=== PATIENT | male | born 1965 | race Caucasian/White ===

== ENCOUNTER → 2016-11-09 | Outpatient (CLI) | payer OTHER ==
[~2016-11-09] MED LIST: ALBUAER2 INH; BCTROWC TD; BUPR-102 PO; DILT-115 PO; FURO80TA63 PO; INSUINJ12 SQ; INSUINJ14 SQ; LIRA18IN SQ; MULT-506 PO; PRAV80TA2 PO; TIOTCAP INH; VALS320T PO; WARF5TAB90 PO
[2016-11-09 14:00] LABS: BASO % 0.3 %; BASO ABS # 0.02 K/uL (0-0.2); COMPLETE YES; EOS % 1.7 %; HEMATOCRIT 37.6 % (42-52); IG% 0.4 %; LYMPH % 14.7 %; MEAN CELL VOLUME 81.6 fL (80-100); MEAN CORPUSCULAR HEMOGLOBIN 26.2 pg (25-34); MEAN CORPUSCULAR HGB CONC 32.2 g/dl (32-36); MEAN PLATELET VOLUME 11.4 fL (7.4-10.4); NEUT % 75.9 %; PLATELET COUNT 211 K/uL (130-400); RED BLOOD COUNT 4.61 M/uL (4.7-6.1); WHITE BLOOD COUNT 7.46 K/uL (4.8-10.8)
[2016-11-09 14:12] LABS: ALT/SGPT 24 U/L (12-78); BLOOD UREA NITROGEN 55 mg/dl (7-18); CARBON DIOXIDE 26 mmol/L (21-32); CHLORIDE 99 mmol/L (98-107); CHOLESTEROL 139 mg/dl (0-200); GLUCOSE 272 mg/dl (70-99); POTASSIUM 4.2 mmol/L (3.5-5.1); SODIUM 135 mmol/L (136-145)
[2016-11-09 14:15] LABS: ALB/GLOB RATIO 0.7 (0.9-2); ALKALINE PHOSPHATASE 87 U/L (45-117); AST/SGOT 12 U/L (15-37); CHOLESTEROL/HDL RATIO 3.7; HDL CHOLESTEROL 38 mg/dl; LDL CHOLESTEROL CALCULATED 62 mg/dl; TRIGLYCERIDES 195 mg/dl (0-150); VERY LOW DENSITY LIPOPROT CALC 39 mg/dl
[2016-11-09 14:21] LABS: ESTIMATED AVERAGE GLUCOSE 249 mg/dl; HA1C FLAG Normal (Normal)
== END | disposition home or self-care (01) ==
LOC: C.LABSPEC 14:42
PROVIDERS: ATTEND Family Medicine
DX: E11.65 Type 2 diabetes mellitus with hyperglycemia (principal); I10 Essential (primary) hypertension; J44.9 Chronic obstructive pulmonary disease, unspecified

== ENCOUNTER → 2016-12-21 | Outpatient (CLI) | payer OTHER ==
[2016-12-21 17:48] LABS: HEMATOCRIT 37.6 % (42-52); MEAN CORPUSCULAR HEMOGLOBIN 25.4 pg (25-34); MEAN CORPUSCULAR HGB CONC 31.4 g/dl (32-36); MEAN PLATELET VOLUME 10.5 fL (7.4-10.4); PLATELET COUNT 261 K/uL (130-400); RED BLOOD COUNT 4.64 M/uL (4.7-6.1); WHITE BLOOD COUNT 9.86 K/uL (4.8-10.8)
[2016-12-21 18:04] LABS: URINE PROTIEN/CREAT RATIO 2.3 (0-0.2)
[2016-12-21 18:08] LABS: BLOOD UREA NITROGEN 56 mg/dl (7-18); BUN/CREATININE RATIO 31.1 (10-20); CARBON DIOXIDE 29 mmol/L (21-32); CHLORIDE 102 mmol/L (98-107); GLUCOSE 148 mg/dl (70-99); POTASSIUM 4.2 mmol/L (3.5-5.1); SODIUM 138 mmol/L (136-145)
[2016-12-21 18:13] LABS: FERRITIN 56.3 ng/ml (8.0-388.0); PHOSPHORUS 3.1 mg/dl (2.5-4.9); TOTAL IRON BINDING CAPACITY 284 mcg/dl (250-450)
[2016-12-21 18:29] LABS: URINE APPEARANCE CLEAR (CLEAR); URINE BILIRUBIN NEG (NEG); URINE COLOR YELLOW; URINE NITRITE NEG (NEG); URINE SPECIFIC GRAVITY 1.009 (1.000-1.030); UROBILINOGEN NEG (NEG)
[2016-12-21 18:49] LABS: MANUAL MICROSCOPIC REQUIRED? NO; REVIEW REQ? NO
== END | disposition home or self-care (01) ==
LOC: C.LABMFLN 09:46
PROVIDERS: ATTEND Internal Medicine Nephrology
DX: N18.3 Chronic kidney disease, stage 3 (moderate) (principal); D64.9 Anemia, unspecified

== ENCOUNTER → 2017-02-07 | Outpatient (CLI) | payer OTHER ==
[2017-02-07 14:04] LABS: BASO % 0.2 %; BASO ABS # 0.02 K/uL (0-0.2); COMPLETE YES; HEMATOCRIT 35.4 % (42-52); IG% 0.3 %; LYMPH % 11.6 %; LYMPH ABS # 1.07 K/uL (1.2-3.4); MEAN CELL VOLUME 84.1 fL (80-100); MEAN CORPUSCULAR HEMOGLOBIN 26.1 pg (25-34); MEAN CORPUSCULAR HGB CONC 31.1 g/dl (32-36); MEAN PLATELET VOLUME 11.1 fL (7.4-10.4); MONO % 7.3 %; NEUT % 78.6 %; PLATELET COUNT 246 K/uL (130-400); RED BLOOD COUNT 4.21 M/uL (4.7-6.1)
[2017-02-07 14:11] LABS: PROTHROMBIN TIME (PATIENT) 10.6 SECONDS (9.0-12.0)
[2017-02-07 14:44] LABS: ESTIMATED AVERAGE GLUCOSE 223 mg/dl; HA1C FLAG Normal (Normal)
[2017-02-07 19:17] LABS: ALT/SGPT 22 U/L (12-78); AST/SGOT 11 U/L (15-37); BLOOD UREA NITROGEN 35 mg/dl (7-18); BUN/CREATININE RATIO 20.6 (10-20); CALCIUM 8.3 mg/dl (8.5-10.1); CARBON DIOXIDE 29 mmol/L (21-32); CHLORIDE 103 mmol/L (98-107); GLUCOSE 145 mg/dl (70-99); POTASSIUM 4.2 mmol/L (3.5-5.1); SODIUM 138 mmol/L (136-145)
[2017-02-07 19:26] LABS: ALB/GLOB RATIO 0.5 (0.9-2); ALKALINE PHOSPHATASE 95 U/L (45-117); CHOLESTEROL 109 mg/dl (0-200); CHOLESTEROL/HDL RATIO 2.9; HDL CHOLESTEROL 37 mg/dl; LDL CHOLESTEROL CALCULATED 49 mg/dl; TRIGLYCERIDES 117 mg/dl (0-150); VERY LOW DENSITY LIPOPROT CALC 23 mg/dl
== END | disposition home or self-care (01) ==
LOC: C.LABSPEC 13:22
PROVIDERS: ATTEND Family Medicine
DX: E11.65 Type 2 diabetes mellitus with hyperglycemia (principal); R00.2 Palpitations; I10 Essential (primary) hypertension; G47.33 Obstructive sleep apnea (adult) (pediatric); Z79.01 Long term (current) use of anticoagulants

== ENCOUNTER → 2017-04-10 | Outpatient (CLI) | payer OTHER ==
[2017-04-10 13:29] LABS: HEMATOCRIT 34.9 % (42-52); MEAN CELL VOLUME 85.1 fL (80-100); MEAN CORPUSCULAR HEMOGLOBIN 26.3 pg (25-34); MEAN CORPUSCULAR HGB CONC 30.9 g/dl (32-36); MEAN PLATELET VOLUME 10.9 fL (7.4-10.4); PLATELET COUNT 247 K/uL (130-400); WHITE BLOOD COUNT 8.97 K/uL (4.8-10.8)
[2017-04-10 14:03] LABS: BLOOD UREA NITROGEN 45 mg/dl (7-18); BUN/CREATININE RATIO 21.4 (10-20); CARBON DIOXIDE 29 mmol/L (21-32); CHLORIDE 100 mmol/L (98-107); GLUCOSE 152 mg/dl (70-99); PHOSPHORUS 3.8 mg/dl (2.5-4.9); POTASSIUM 4.7 mmol/L (3.5-5.1); SODIUM 138 mmol/L (136-145)
[2017-04-10 14:23] LABS: URINE APPEARANCE CLEAR (CLEAR); URINE BILIRUBIN NEG (NEG); URINE COLOR YELLOW; URINE NITRITE NEG (NEG); URINE SPECIFIC GRAVITY 1.017 (1.000-1.030); UROBILINOGEN NEG (NEG)
[2017-04-10 14:24] LABS: MANUAL MICROSCOPIC REQUIRED? NO; REVIEW REQ? NO
== END | disposition home or self-care (01) ==
LOC: C.LABMFLN 11:21
PROVIDERS: ATTEND Internal Medicine Nephrology
DX: N18.3 Chronic kidney disease, stage 3 (moderate) (principal); E55.9 Vitamin D deficiency, unspecified

== ENCOUNTER → 2017-05-09 | Outpatient (CLI) | payer OTHER ==
[2017-05-09 14:10] LABS: BASO % 0.3 %; BASO ABS # 0.03 K/uL (0-0.2); COMPLETE YES; EOS % 1.4 %; HEMATOCRIT 34.2 % (42-52); IG% 0.2 %; LYMPH % 13.2 %; LYMPH ABS # 1.22 K/uL (1.2-3.4); MEAN CORPUSCULAR HGB CONC 31.3 g/dl (32-36); MEAN PLATELET VOLUME 11.2 fL (7.4-10.4); MONO % 7.1 %; NEUT % 77.8 %; PLATELET COUNT 260 K/uL (130-400); RED BLOOD COUNT 4.12 M/uL (4.7-6.1); WHITE BLOOD COUNT 9.25 K/uL (4.8-10.8)
[2017-05-09 14:23] LABS: ALT/SGPT 24 U/L (12-78); AST/SGOT 10 U/L (15-37); BLOOD UREA NITROGEN 52 mg/dl (7-18); BUN/CREATININE RATIO 25.8 (10-20); CALCIUM 8.7 mg/dl (8.5-10.1); CARBON DIOXIDE 28 mmol/L (21-32); CHLORIDE 105 mmol/L (98-107); GLUCOSE 159 mg/dl (70-99); POTASSIUM 4.7 mmol/L (3.5-5.1); SODIUM 139 mmol/L (136-145)
[2017-05-09 14:25] LABS: ALB/GLOB RATIO 0.6 (0.9-2); ALKALINE PHOSPHATASE 79 U/L (45-117); CHOLESTEROL 102 mg/dl (0-200); CHOLESTEROL/HDL RATIO 3.2; HDL CHOLESTEROL 32 mg/dl; LDL CHOLESTEROL CALCULATED 46 mg/dl; TRIGLYCERIDES 121 mg/dl (0-150); VERY LOW DENSITY LIPOPROT CALC 24 mg/dl
[2017-05-10 07:15] LABS: ESTIMATED AVERAGE GLUCOSE 186 mg/dl; HA1C FLAG Normal (Normal)
== END | disposition home or self-care (01) ==
LOC: C.LABSPEC 13:01
PROVIDERS: ATTEND Family Medicine
DX: E11.65 Type 2 diabetes mellitus with hyperglycemia (principal); I10 Essential (primary) hypertension; J44.9 Chronic obstructive pulmonary disease, unspecified; G47.33 Obstructive sleep apnea (adult) (pediatric)

== ENCOUNTER → 2017-11-16 | Outpatient (CLI) | payer OTHER ==
[2017-11-16 13:05] LABS: BASO % 0.3 %; BASO ABS # 0.02 K/uL (0-0.2); EOS ABS # 0.29 K/uL (0-0.5); HEMATOCRIT 36.8 % (42-52); HEMOGLOBIN 11.6 g/dL (14.0-18.0); IG# 0.02 K/uL (0.00-0.02); LYMPH % 15.5 %; LYMPH ABS # 1.12 K/uL (1.2-3.4); MEAN CELL VOLUME 85.2 fL (80-100); MEAN CORPUSCULAR HEMOGLOBIN 26.9 pg (25-34); MEAN CORPUSCULAR HGB CONC 31.5 g/dl (32-36); MEAN PLATELET VOLUME 10.7 fL (7.4-10.4); MONO % 9.9 %; MONO ABS # 0.72 K/uL (0.11-0.59); NEUT ABS # 5.07 K/uL (1.4-6.5); PLATELET COUNT 219 K/uL (130-400); RED CELL DISTRIBUTION WIDTH CV 16.6 % (11.5-14.5); RED CELL DISTRIBUTION WIDTH SD 52.2 fL (36.4-46.3); WHITE BLOOD COUNT 7.24 K/uL (4.8-10.8)
[2017-11-16 13:21] LABS: ALT/SGPT 25 U/L (12-78); BLOOD UREA NITROGEN 54 mg/dl (7-18); CALCIUM 9.2 mg/dl (8.5-10.1); CARBON DIOXIDE 30 mmol/L (21-32); CHOLESTEROL 110 mg/dl (0-200); CREATININE 1.99 mg/dl (0.60-1.40); GLUCOSE 135 mg/dl (70-99); POTASSIUM 4.7 mmol/L (3.5-5.1); SODIUM 135 mmol/L (136-145)
[2017-11-16 13:24] LABS: ALKALINE PHOSPHATASE 93 U/L (45-117); AST/SGOT 12 U/L (15-37); LDL CHOLESTEROL CALCULATED 47 mg/dl; TOTAL PROTEIN 8.2 gm/dl (6.4-8.2)
[2017-11-16 13:48] LABS: HEMOGLOBIN A1C 8.1 % (4.5-5.6)
== END | disposition home or self-care (01) ==
LOC: C.LABSPEC 13:32
PROVIDERS: ATTEND Family Medicine
DX: E11.65 Type 2 diabetes mellitus with hyperglycemia (principal); I10 Essential (primary) hypertension; I50.32 Chronic diastolic (congestive) heart failure

== ENCOUNTER → 2017-12-18 | Outpatient (CLI) | payer OTHER ==
[2017-12-18 18:01] LABS: HEMATOCRIT 37.9 % (42-52); HEMOGLOBIN 11.5 g/dL (14.0-18.0); MEAN CORPUSCULAR HEMOGLOBIN 25.8 pg (25-34); MEAN CORPUSCULAR HGB CONC 30.3 g/dl (32-36); MEAN PLATELET VOLUME 11.5 fL (7.4-10.4); PLATELET COUNT 260 K/uL (130-400); RED CELL DISTRIBUTION WIDTH CV 16.6 % (11.5-14.5); RED CELL DISTRIBUTION WIDTH SD 51.6 fL (36.4-46.3); WHITE BLOOD COUNT 9.28 K/uL (4.8-10.8)
[2017-12-18 18:41] LABS: ALBUMIN 3.3 gm/dl (3.4-5.0); BLOOD UREA NITROGEN 60 mg/dl (7-18); CALCIUM 9.2 mg/dl (8.5-10.1); CARBON DIOXIDE 24 mmol/L (21-32); CREATININE 2.31 mg/dl (0.60-1.40); GLUCOSE 126 mg/dl (70-99); PHOSPHORUS 3.8 mg/dl (2.5-4.9); POTASSIUM 4.5 mmol/L (3.5-5.1); SODIUM 134 mmol/L (136-145)
== END | disposition home or self-care (01) ==
LOC: C.LABMFLN 12:53
PROVIDERS: ATTEND Internal Medicine Nephrology
DX: N18.3 Chronic kidney disease, stage 3 (moderate) (principal); E55.9 Vitamin D deficiency, unspecified

== ENCOUNTER → 2018-02-21 | Outpatient (CLI) | payer OTHER ==
[2018-02-21 13:28] LABS: BASO % 0.3 %; BASO ABS # 0.02 K/uL (0-0.2); EOS % 1.8 %; EOS ABS # 0.14 K/uL (0-0.5); HEMATOCRIT 35.6 % (42-52); IG# 0.02 K/uL (0.00-0.02); LYMPH % 13.4 %; LYMPH ABS # 1.02 K/uL (1.2-3.4); MEAN CELL VOLUME 82.2 fL (80-100); MEAN CORPUSCULAR HEMOGLOBIN 25.4 pg (25-34); MEAN CORPUSCULAR HGB CONC 30.9 g/dl (32-36); MEAN PLATELET VOLUME 10.8 fL (7.4-10.4); MONO % 8.3 %; MONO ABS # 0.63 K/uL (0.11-0.59); NEUT % 75.9 %; NEUT ABS # 5.76 K/uL (1.4-6.5); PLATELET COUNT 220 K/uL (130-400); RED CELL DISTRIBUTION WIDTH CV 16.6 % (11.5-14.5); RED CELL DISTRIBUTION WIDTH SD 50.3 fL (36.4-46.3); WHITE BLOOD COUNT 7.59 K/uL (4.8-10.8)
[2018-02-21 13:37] LABS: BLOOD UREA NITROGEN 43 mg/dl (7-18); CALCIUM 8.7 mg/dl (8.5-10.1); CARBON DIOXIDE 30 mmol/L (21-32); GLUCOSE 143 mg/dl (70-99); POTASSIUM 4.1 mmol/L (3.5-5.1); SODIUM 134 mmol/L (136-145)
[2018-02-21 13:40] LABS: ALKALINE PHOSPHATASE 87 U/L (45-117); ALT/SGPT 24 U/L (12-78); AST/SGOT 14 U/L (15-37); CHOLESTEROL 101 mg/dl (0-200); LDL CHOLESTEROL CALCULATED 46 mg/dl; TOTAL PROTEIN 8.4 gm/dl (6.4-8.2)
[2018-02-21 13:58] LABS: HEMOGLOBIN A1C 8.3 % (4.5-5.6)
== END | disposition home or self-care (01) ==
LOC: C.LABSPEC 13:08
PROVIDERS: ATTEND Family Medicine
DX: E11.65 Type 2 diabetes mellitus with hyperglycemia (principal); I50.32 Chronic diastolic (congestive) heart failure; I11.0 Hypertensive heart disease with heart failure

== ENCOUNTER → 2018-05-24 | Outpatient (CLI) | payer OTHER ==
[2018-05-24 14:06] LABS: BASO % 0.2 %; BASO ABS # 0.02 K/uL (0-0.2); EOS % 1.1 %; EOS ABS # 0.09 K/uL (0-0.5); HEMATOCRIT 36.1 % (42-52); HEMOGLOBIN 11.2 g/dL (14.0-18.0); IG# 0.03 K/uL (0.00-0.02); LYMPH % 13.5 %; MEAN CELL VOLUME 83.2 fL (80-100); MEAN CORPUSCULAR HEMOGLOBIN 25.8 pg (25-34); MEAN PLATELET VOLUME 11.1 fL (7.4-10.4); MONO % 7.4 %; NEUT % 77.4 %; PLATELET COUNT 240 K/uL (130-400); RED CELL DISTRIBUTION WIDTH CV 16.8 % (11.5-14.5); RED CELL DISTRIBUTION WIDTH SD 50.9 fL (36.4-46.3); WHITE BLOOD COUNT 8.14 K/uL (4.8-10.8)
[2018-05-24 14:18] LABS: HEMOGLOBIN A1C 8.7 % (4.5-5.6)
[2018-05-24 14:20] LABS: ALKALINE PHOSPHATASE 78 U/L (45-117); ALT/SGPT 20 U/L (12-78); AST/SGOT 11 U/L (15-37); BLOOD UREA NITROGEN 43 mg/dl (7-18); CARBON DIOXIDE 29 mmol/L (21-32); CHOLESTEROL 97 mg/dl (0-200); GLUCOSE 143 mg/dl (70-99); LDL CHOLESTEROL CALCULATED 44 mg/dl; POTASSIUM 4.3 mmol/L (3.5-5.1); SODIUM 137 mmol/L (136-145); TOTAL PROTEIN 8.2 gm/dl (6.4-8.2)
== END | disposition home or self-care (01) ==
LOC: C.LABSPEC 12:54
PROVIDERS: ATTEND Family Medicine
DX: E11.65 Type 2 diabetes mellitus with hyperglycemia (principal)

== ENCOUNTER 2021-03-24 10:27 | Inpatient (IN) ==
--- NOTE | 2021-03-24 11:00 | Emergency Department Note ---
Impression & Plan Acute renal failure, Pulmonary edema, Hypoxia ED Provider Note NAME: PARK ACHARYA AGE: 55 SEX: M : 1965 ARRIVES VIA: Walk-In INFORMANT: Patient, ED PROVIDER(S): Benson Martínez DO CHIEF COMPLAINT: Shortness of breath HPI: The patient is a 55-year-old male who has a history of end-stage renal disease who presented to the emergency department for an evaluation of shortness of breath. The patient had a fistula placed in his left upper extremity approximately 2 weeks ago. The fistula is not ready to go and the patient has been waiting to start dialysis. He presents to the emergency department today after seeing his primary ui programmer this morning. The patient has noticed weight gain as well as severe dyspnea. He does have a history of enlarged body habitus. For this reason he has significant hypoventilatory syndrome. The patient was sent directly over to the emergency department for further evaluation. The patient states his symptoms are moderate to severe. He is noticed decreased urine output. He was started on Bumex yesterday by his primary ui programmer which did help some of his urine output. The patient does not normally wear oxygen. ROS: See above HPI for pertinent positives & negatives. A total of 10 systems reviewed and were otherwise negative. PAST MEDICAL HISTORY: See Below PAST SURGICAL HISTORY: See Below FAMILY HISTORY: See Below SOCIAL HISTORY: See Below HOME MEDICATIONS: See Below ALLERGIES: See Below VITALS: See Below PHYSICAL EXAMINATION: GENERAL: The patient is awake and alert. The patient is very anxious appearing. EYES: The conjunctivae are clear. The pupils are round and reactive. EARS, NOSE, MOUTH AND THROAT: The nose is without any evidence of any deformity. NECK: The neck is nontender and supple. RESPIRATORY: Diminished breath sounds are noted throughout. There were rales noted throughout. CARDIOVASCULAR: Diminished heart sounds were noted. Regular rate and rhythm was noted to auscultation. GASTROINTESTINAL: The abdomen is soft. Abdomen is nontender. MUSCULOSKELETAL/EXTREMITIES: There is no evidence of gross deformity full range of motion is noted in the hips and shoulders. SKIN: Chronic venous stasis changes were noted in both lower extremities. The fistula was noted in the left upper extremity. There was a bruit noted auscultation. NEUROLOGIC: Patient is awake alert and oriented x3. MEDICAL DECISION MAKING: The patient is a 55-year-old male who presented to the emergency department at the request of his primary ui programmer for an evaluation of pulmonary edema. The patient has had slowly worsening renal function and had a fistula placed 2 weeks ago which is not quite mature. The patient was felt to need dialysis but apparently has been getting worse more acutely. The patient has noticed shortness of breath as well as weight gain. His history and physical exam appear to be consistent with acute pulmonary edema. Laboratory studies revealed significant renal failure. I discussed the patient's condition with his vascular surgeon. I also discussed his case with the seat covers trimmer. Likely patient will require a temporary catheter followed by dialysis. I discussed this case with the on-call [facility]. They have agreed to evaluate the patient in the emergency department for further management and disposition. Triage Nursing notes reviewed. Prior medical records reviewed Vital Signs: reviewed and remarkable for hypoxia and elevated blood pressure. Differential diagnosis: Reactive airway disease, pneumonia, pneumothorax, COPD, CHF, infections, cardiac ischemia, pulmonary embolism, musculoskeletal, gastrointestinal, as well as other pathologies. ER treatment provided: See below Diagnostics interpreted by me: ECG: EKG was obtained in the emergency department. My interpretation is atrial fibrillation at 85 bpm. Right bundle branch block pattern was noted. Diffuse ST segment abnormalities were noted. This was compared to a tracing from March 04, 2021. No significant changes were noted. Cardiac Monitoring: An order was placed for continuous cardiac monitoring. The monitor shows a rate of 70 bpm with atrial fib rhythm. Laboratory studies: As stated above and show below. Imaging studies: See below Consultation(s): 1120: I discussed this case with Dr. Gaming for vascular surgery. 1135: I discussed this case with Dr. Reynoso who is on for the critical care team. 1140: I discussed this case with Clement Post who is on for the [facility]. 1430: I was contacted by the admitting hospitalist recommending transfer as the patient is unable to have a temporary dialysis catheter placed at our facility. Past Med/Surg History Medical History (Updated 03/24/21 @ 12:56 by Wen Post PA-C) Anxiety Atrial flutter on Eliquis Chronic anemia receiving weekly iron infusions ([place]) Chronic obstructive pulmonary disease Congestive heart failure Depression Diabetes mellitus IDDM DVT (deep venous thrombosis) Several years ago Dyslipidemia ESRD needing dialysis No current dialysis Morbid obesity with body mass index of 70 and over in adult Neuropathy Paroxysmal A-fib on Eliquis Secondary hyperparathyroidism of renal origin Surgical History History of removal of skin mole S/P panniculectomy Family History Father Family hx of colon cancer Grandmother (Maternal) Diabetes Mother Diabetes Uncle Diabetes Uncle Diabetes Social History Smoking Status: Former smoker Tobacco Type: Cigarettes Second Hand Exposure: Yes (SON SMOKES); Hx Alcohol Use: No Hx Substance Use: No Preferred Language: Macedonian Communication Ability: Effective Faith Doctor Required: No Beliefs That Will Affect Care: None marital status: Current Living Situation: Spouse and Family Current Living Situation Comment: LIVES WITH SPOUSE, 2 SONS current occupational status: disabled Feels Safe at Home: Yes Assistive Devices: Cane, Walker and Wheelchair Allergies Allergies Allergy/AdvReac Type Severity Reaction Status Date / Time No Known Allergies Allergy Verified 03/24/21 09:09 Home Meds Home Medications Medication Instructions Recorded Confirmed albuterol sulfate 90 mcg/actuation 2 puffs INHALATION Q4H PRN gm 07/01/19 03/24/21 aerosol inhaler apixaban 5 mg tablet 5 mg PO BID #60 tab 07/01/19 03/24/21 blood sugar diagnostic #10 ea 07/01/19 03/24/21 insulin syringe-needle U-100 0.3 #10 ea 07/01/19 03/24/21 mL 31 gauge x 5/16" pravastatin 80 mg tablet 80 mg PO HS #90 tab 07/01/19 03/24/21 Breo Ellipta 1 inh INHALATION QAM 02/21/21 03/24/21 Ozempic 1 mg SQ WK 02/21/21 03/24/21 diltiazem HCl 360 mg PO HS 02/21/21 03/24/21 duloxetine 30 mg PO QAM 02/21/21 03/24/21 ferrous sulfate 27 mg PO QAM 02/21/21 03/24/21 metoprolol succinate 100 mg PO QAM 02/21/21 03/24/21 multivitamin 1 tab PO QAM 02/21/21 03/24/21 omega 4-cyn-ank-fish oil [Fish Oil] 1 cap PO QAM 02/21/21 03/24/21 oxycodone-acetaminophen [Percocet] 1 tab PO Q6H PRN 02/21/21 03/24/21 insulin degludec [Tresiba 44 units SQ BID 03/10/21 03/24/21 FlexTouch U-100] calcitriol 0.5 mcg PO 3XWK 03/24/21 03/24/21 duloxetine 60 mg PO QAM 03/24/21 03/24/21 insulin aspart U-100 [Novolog 36 unit SQ TID 03/24/21 03/24/21 Flexpen U-100 Insulin] Previous Rx's Medication Instructions Recorded nitroglycerin 0.4 mg sublingual 0.4 mg SL Q5M PRN #25 tab 09/12/19 tablet bupropion HCl 200 mg tablet,12 hr 200 mg PO BID #180 ea 03/12/20 sustained-release bumetanide 2 mg tablet 4 mg PO BID #120 tab 03/23/21 Results & Data (ED) Vital Signs Vital Signs - 24 hr 03/24/21 10:38 03/24/21 10:58 03/24/21 10:59 Temperature 36.6 C Temperature Source Temporal Artery Scan Pulse Rate 62 65 Pulse Rate [Apical] Pulse Rate from SpO2 Sensor 65 Respiratory Rate 18 28 H Respiratory Effort / Characteristics Non-Labored Spontaneous Respiratory Depth Normal Respiratory Pattern Regular Blood Pressure 159/76 H Blood Pressure [Right Arm] Blood Pressure Mean 103 Blood Pressure Mean [Right Arm] Blood Pressure Position Sitting Pulse Oximetry 85 L 97 91 Oxygen Delivery Method Room Air Nasal Cannula Oxygen Flow Rate 6 Sepsis Recent Fever Within 48 Hours No Sepsis New/Unexplained Change in Mental Status N/A Sepsis Action Taken by Nursing No Action Required 03/24/21 11:00 03/24/21 11:30 03/24/21 11:44 Temperature Temperature Source Pulse Rate 66 60 Pulse Rate [Apical] Pulse Rate from SpO2 Sensor 63 71 62 Respiratory Rate 26 H 18 22 Respiratory Effort / Characteristics Respiratory Depth Respiratory Pattern Blood Pressure 169/113 H Blood Pressure [Right Arm] Blood Pressure Mean 131 Blood Pressure Mean [Right Arm] Blood Pressure Position Pulse Oximetry 93 95 91 Oxygen Delivery Method Oxygen Flow Rate Sepsis Recent Fever Within 48 Hours Sepsis New/Unexplained Change in Mental Status Sepsis Action Taken by Nursing 03/24/21 11:50 06/03/21 12:00 03/24/21 12:30 Temperature Temperature Source Pulse Rate 71 69 Pulse Rate [Apical] 62 Pulse Rate from SpO2 Sensor 79 70 Respiratory Rate 22 21 20 Respiratory Effort / Characteristics Respiratory Depth Respiratory Pattern Blood Pressure Blood Pressure [Right Arm] 169/113 H Blood Pressure Mean Blood Pressure Mean [Right Arm] 131 Blood Pressure Position Pulse Oximetry 95 93 97 Oxygen Delivery Method Nasal Cannula Oxygen Flow Rate 6 Sepsis Recent Fever Within 48 Hours Sepsis New/Unexplained Change in Mental Status Sepsis Action Taken by Nursing 03/24/21 13:07 Temperature Temperature Source Pulse Rate 71 Pulse Rate [Apical] Pulse Rate from SpO2 Sensor 74 Respiratory Rate 17 Respiratory Effort / Characteristics Respiratory Depth Respiratory Pattern Blood Pressure 165/92 H Blood Pressure [Right Arm] Blood Pressure Mean 116 Blood Pressure Mean [Right Arm] Blood Pressure Position Pulse Oximetry 94 Oxygen Delivery Method Oxygen Flow Rate Sepsis Recent Fever Within 48 Hours Sepsis New/Unexplained Change in Mental Status Sepsis Action Taken by [facility] Medications Current Medication List: was personally reviewed by me Laboratory Data Attestation: I reviewed the patient's lab results. Result diagrams: 03/24/21 11:15 03/24/21 11:15 Lab Results 03/24/21 03/24/21 03/24/21 Range/Units 11:15 11:15 11:15 WBC 11.06 H (4.8-10.8) K/uL RBC 3.37 L (4.7-6.1) M/uL Hgb 9.0 L (14.0-18.0) g/dL Hct 30.3 L (42-52) % MCV 89.9 (80-100) fL MCH 26.7 (25-34) pg MCHC 29.7 L (32-36) g/dL RDW Std Deviation 54.5 H (36.4-46.3) fL RDW Coeff of Talha 16.9 H (11.5-14.5) % Plt Count 319 (130-400) K/uL MPV 9.8 (7.4-10.4) fL Immature Gran % (Auto) 0.4 % Neut % (Auto) 87.7 % Lymph % (Auto) 6.9 % Jerome % (Auto) 3.6 % Eos % (Auto) 1.2 % Baso % (Auto) 0.2 % Neut # (Auto) 9.71 H (1.4-6.5) K/uL Lymph # (Auto) 0.76 L (1.2-3.4) K/uL Jerome # (Auto) 0.40 (0.11-0.59) K/uL Eos # (Auto) 0.13 (0-0.5) K/uL Baso # (Auto) 0.02 (0-0.2) K/uL Immature Gran # (Auto) 0.04 H (0.00-0.02) K/uL PT 11.2 (9.0-12.0) Seconds INR 1.1 (0.9-1.1) APTT 23.9 (21.0-31.0) Seconds PTT Ratio 0.9 VBG pH (7.36-7.41) VBG pCO2 (38-50) mmHg VBG pO2 mmHg VBG HCO3 mmol/L VBG O2 Saturation % VBG Base Excess mEq/L Barometric Pressure mm/Hg Sodium 135 L (136-145) mmol/L Potassium 5.2 H (3.5-5.1) mmol/L Chloride 101 (98-107) mmol/L Carbon Dioxide 25 (21-32) mmol/L Anion Gap 9.0 (3-11) BUN 108 H (7-18) mg/dl Creatinine 6.54 H* (0.6-1.4) mg/dl Est Cr Clr Drug Dosing 28.9 ml/min Est GFR ( Amer) 10.2 ml/min Est GFR (Non-Af Amer) 8.8 ml/min BUN/Creatinine Ratio 16.6 (10-20) Glucose 211 H (70-99) mg/dl Calcium 8.8 (8.5-10.1) mg/dl Phosphorus 5.9 H (2.5-4.9) mg/dl Magnesium 2.4 (1.8-2.4) mg/dl Total Bilirubin 0.4 (0.2-1) mg/dl AST 17 (15-37) U/L ALT 18 (12-78) U/L Alkaline Phosphatase 110 (45-117) U/L Troponin I < 0.015 (0-0.045) ng/ml NT-Pro-B Natriuret Pep 5312 H (0-900) pg/ml Total Protein 8.4 H (6.4-8.2) gm/dl Albumin 3.0 L (3.4-5.0) gm/dl Globulin 5.4 H (2.5-4.0) gm/dl Albumin/Globulin Ratio 0.6 L (0.9-2) Urine Color Urine Appearance (Clear) Urine pH (4.5-7.5) Ur Specific [place] (1.000-1.030) Urine Protein (Negative) Urine Glucose (UA) (Negative) Urine Ketones (Negative) Urine Blood (Negative) Urine Nitrite (Negative) Urine Bilirubin (Negative) Urine Urobilinogen (Negative) Ur Leukocyte Esterase (Negative) Urine WBC (Auto) (0-5) /hpf Urine RBC (Auto) (0-4) /hpf U Hyaline Cast (Auto) (0-5) /lpf U Epithel Cells (Auto) (0-5) /lpf Urine Bacteria (Auto) (Negative) Urine Sperm (None Prsent) COVID-19 Eval Order SARS-CoV-2 (PCR) (Negative) 03/24/21 03/24/21 03/24/21 Range/Units 11:15 11:50 11:50 WBC (4.8-10.8) K/uL RBC (4.7-6.1) M/uL Hgb (14.0-18.0) g/dL Hct (42-52) % MCV (80-100) fL MCH (25-34) pg MCHC (32-36) g/dL RDW Std Deviation (36.4-46.3) fL RDW Coeff of Talha (11.5-14.5) % Plt Count (130-400) K/uL MPV (7.4-10.4) fL Immature Gran % (Auto) % Neut % (Auto) % Lymph % (Auto) % Jerome % (Auto) % Eos % (Auto) % Baso % (Auto) % Neut # (Auto) (1.4-6.5) K/uL Lymph # (Auto) (1.2-3.4) K/uL Jerome # (Auto) (0.11-0.59) K/uL Eos # (Auto) (0-0.5) K/uL Baso # (Auto) (0-0.2) K/uL Immature Gran # (Auto) (0.00-0.02) K/uL PT (9.0-12.0) Seconds INR (0.9-1.1) APTT (21.0-31.0) Seconds PTT Ratio VBG pH 7.34 L (7.36-7.41) VBG pCO2 48 (38-50) mmHg VBG pO2 36 mmHg VBG HCO3 26 mmol/L VBG O2 Saturation 69.7 % VBG Base Excess -0.4 mEq/L Barometric Pressure 731.9 mm/Hg Sodium (136-145) mmol/L Potassium (3.5-5.1) mmol/L Chloride (98-107) mmol/L Carbon Dioxide (21-32) mmol/L Anion Gap (3-11) BUN (7-18) mg/dl Creatinine (0.6-1.4) mg/dl Est Cr Clr Drug Dosing ml/min Est GFR ( Amer) ml/min Est GFR (Non-Af Amer) ml/min BUN/Creatinine Ratio (10-20) Glucose (70-99) mg/dl Calcium (8.5-10.1) mg/dl Phosphorus (2.5-4.9) mg/dl Magnesium (1.8-2.4) mg/dl Total Bilirubin (0.2-1) mg/dl AST (15-37) U/L ALT (12-78) U/L Alkaline Phosphatase (45-117) U/L Troponin I (0-0.045) ng/ml NT-Pro-B Natriuret Pep (0-900) pg/ml Total Protein (6.4-8.2) gm/dl Albumin (3.4-5.0) gm/dl Globulin (2.5-4.0) gm/dl Albumin/Globulin Ratio (0.9-2) Urine Color Urine Appearance (Clear) Urine pH (4.5-7.5) Ur Specific [place] (1.000-1.030) Urine Protein (Negative) Urine Glucose (UA) (Negative) Urine Ketones (Negative) Urine Blood (Negative) Urine Nitrite (Negative) Urine Bilirubin (Negative) Urine Urobilinogen (Negative) Ur Leukocyte Esterase (Negative) Urine WBC (Auto) (0-5) /hpf Urine RBC (Auto) (0-4) /hpf U Hyaline Cast (Auto) (0-5) /lpf U Epithel Cells (Auto) (0-5) /lpf Urine Bacteria (Auto) (Negative) Urine Sperm (None Prsent) COVID-19 Eval Order Covid19 at [facility] SARS-CoV-2 (PCR) NEGATIVE (Negative) 03/24/21 Range/Units 12:00 WBC (4.8-10.8) K/uL RBC (4.7-6.1) M/uL Hgb (14.0-18.0) g/dL Hct (42-52) % MCV (80-100) fL MCH (25-34) pg MCHC (32-36) g/dL RDW Std Deviation (36.4-46.3) fL RDW Coeff of Talha (11.5-14.5) % Plt Count (130-400) K/uL MPV (7.4-10.4) fL Immature Gran % (Auto) % Neut % (Auto) % Lymph % (Auto) % Jerome % (Auto) % Eos % (Auto) % Baso % (Auto) % Neut # (Auto) (1.4-6.5) K/uL Lymph # (Auto) (1.2-3.4) K/uL Jerome # (Auto) (0.11-0.59) K/uL Eos # (Auto) (0-0.5) K/uL Baso # (Auto) (0-0.2) K/uL Immature Gran # (Auto) (0.00-0.02) K/uL PT (9.0-12.0) Seconds INR (0.9-1.1) APTT (21.0-31.0) Seconds PTT Ratio VBG pH (7.36-7.41) VBG pCO2 (38-50) mmHg VBG pO2 mmHg VBG HCO3 mmol/L VBG O2 Saturation % VBG Base Excess mEq/L Barometric Pressure mm/Hg Sodium (136-145) mmol/L Potassium (3.5-5.1) mmol/L Chloride (98-107) mmol/L Carbon Dioxide (21-32) mmol/L Anion Gap (3-11) BUN (7-18) mg/dl Creatinine (0.6-1.4) mg/dl Est Cr Clr Drug Dosing ml/min Est GFR ( Amer) ml/min Est GFR (Non-Af Amer) ml/min BUN/Creatinine Ratio (10-20) Glucose (70-99) mg/dl Calcium (8.5-10.1) mg/dl Phosphorus (2.5-4.9) mg/dl Magnesium (1.8-2.4) mg/dl Total Bilirubin (0.2-1) mg/dl AST (15-37) U/L ALT (12-78) U/L Alkaline Phosphatase (45-117) U/L Troponin I (0-0.045) ng/ml NT-Pro-B Natriuret Pep (0-900) pg/ml Total Protein (6.4-8.2) gm/dl Albumin (3.4-5.0) gm/dl Globulin (2.5-4.0) gm/dl Albumin/Globulin Ratio (0.9-2) Urine Color Yellow Urine Appearance Clear (Clear) Urine pH 6.0 (4.5-7.5) Ur Specific [place] 1.015 (1.000-1.030) Urine Protein 3+ H (Negative) Urine Glucose (UA) 1+ H (Negative) Urine Ketones Negative (Negative) Urine Blood Trace H (Negative) Urine Nitrite Negative (Negative) Urine Bilirubin Negative (Negative) Urine Urobilinogen Negative (Negative) Ur Leukocyte Esterase Negative (Negative) Urine WBC (Auto) 1-5 (0-5) /hpf Urine RBC (Auto) 0-4 (0-4) /hpf U Hyaline Cast (Auto) 1-5 (0-5) /lpf U Epithel Cells (Auto) 5-10 H (0-5) /lpf Urine Bacteria (Auto) Negative (Negative) Urine Sperm Present A (None Prsent) COVID-19 Eval Order SARS-CoV-2 (PCR) (Negative) Administered Medications Discontinued Medications Oxycodone/Acetaminophen (Oxycodone/Acetaminophen 10-325 Tab) 1 tab PO NOW STA Stop: 03/24/21 11:45 Last Admin: 03/24/21 12:18 Dose: 1 tab Documented by: [id number] Imaging Data Radiologist's Impression: Chest X-Ray 03/24/21 10:53 XR chest 1V portable CLINICAL HISTORY: Dyspnea COMPARISON STUDY: Chest radiograph March 04, 2021. FINDINGS: Exam is compromised by artifact. There is no pneumothorax. No pleural effusion is identified. Enlargement of the cardiac silhouette is unchanged. Pulmonary vascular congestion is noted. Extensive asymmetric right lung airspace opacities have developed. IMPRESSION: 1. Interstitial thickening and interval development of extensive asymmetric right lung airspace opacities. The findings may reflect pneumonia or asymmetric pulmonary edema. Radiographic follow-up is recommended. 2. Cardiomegaly. ACT 112: Negative or not required by law. Electronically signed by: Anuj Rojas M.D. 03/24/2021 11:41 AM Discharge Plan Visit Data Chief Complaint: Referred by Doctor Stated Complaint: L ARM FISTULA 2 WKS AGO,NEED TO START DIALYSIS,REF ED Provider: Benson Martínez Discharge Problem: Acute renal failure, Pulmonary edema, Hypoxia Patient Disposition: Being Evaluated by Hospitalist Condition: Good Forms Stand Alone Forms: [facility] [employer] Prescriptions Prescriptions: No Action bumetanide 2 mg tablet 4 mg PO BID Qty: 120 RF: 3 nitroglycerin 0.4 mg tablet, sublingual 0.4 mg SL Q5M PRN (Reason: chest pain) Qty: 25 RF: 3 bupropion HCl 200 mg tablet sustained-release 12 hr 200 mg PO BID Qty: 180 RF: 3 albuterol sulfate 90 mcg/actuation HFA aerosol inhaler 2 puffs inhalation Q4H PRN (Reason: shortness of breath or wheezing) RF: 0 (DME) insulin syringe-needle U-100 [BD Insulin Syringe Ultra-Fine] 0.3 mL 31 gauge x 5/16" syringe See Dose Instructions .ROUTE .MEDSUPPLY Qty: 10 RF: 0 (DME) OneTouch Verio test strips strip See Dose Instructions .ROUTE .MEDSUPPLY Qty: 10 RF: 0 pravastatin 80 mg tablet 80 mg PO HS Qty: 90 RF: 0 Eliquis 5 mg tablet 5 mg PO BID Qty: 60 RF: 0 metoprolol succinate 100 mg tablet extended release 24 hr 100 mg PO QAM RF: 0 diltiazem HCl 360 mg capsule,extended release 24 hr 360 mg PO HS RF: 0 duloxetine 30 mg capsule,delayed release(DR/EC) 30 mg PO QAM RF: 0 ferrous sulfate 27 mg iron tablet 27 mg PO QAM RF: 0 Ozempic 0.25 mg or 0.5 mg(2 mg/1.5 mL) pen injector 1 mg SQ WK RF: 0 Breo Ellipta 200-25 mcg/dose Blister With Device 1 inh INHALATION QAM RF: 0 oxycodone-acetaminophen [Percocet] 10-325 mg Tablet 1 tab PO Q6H PRN (Reason: Pain) RF: 0 multivitamin Tablet 1 tab PO QAM RF: 0 omega 8-rhn-szu-fish oil [Fish Oil] 1,000 mg (120 mg-180 mg) Capsule 1 cap PO QAM RF: 0 Tresiba FlexTouch U-100 100 unit/mL (3 mL) insulin pen 44 units SQ BID RF: 0 calcitriol 0.5 mcg capsule 0.5 mcg PO 3XWK RF: 0 insulin aspart U-100 [Novolog Flexpen U-100 Insulin] 100 unit/mL (3 mL) insulin pen 36 unit SQ TID RF: 0 duloxetine 60 mg capsule,delayed release(DR/EC) 60 mg PO QAM RF: 0 Referrals Referrals: Henry Weeks DO [Primary Care Provider] - Discharge Problem: Acute renal failure Qualifiers: Acute renal failure type: unspecified Qualified Code(s): N17.9 - Acute kidney failure, unspecified Pulmonary edema Qualifiers: Chronicity: acute Qualified Code(s): J81.0 - Acute pulmonary edema
[2021-03-24 11:25] LABS: Basophils # (auto) 0.02 K/uL (0-0.2); Basophils % (auto) 0.2 %; Eosinophils # (auto) 0.13 K/uL (0-0.5); Eosinophils % (auto) 1.2 %; Hematocrit (blood only) 30.3 % (42-52); Immature Granulocytes # (auto) 0.04 K/uL (0.00-0.02); Immature Granulocytes % (auto) 0.4 %; Lymphocytes # (auto) 0.76 K/uL (1.2-3.4); Lymphocytes % (auto) 6.9 %; Mean Corpuscular Hemoglobin 26.7 pg (25-34); Mean Corpuscular Hgb Conc 29.7 g/dL (32-36); Mean Corpuscular Volume 89.9 fL (80-100); Mean Platelet Volume 9.8 fL (7.4-10.4); Monocytes % (auto) 3.6 %; Neutrophils # (auto) 9.71 K/uL (1.4-6.5); Neutrophils % (auto) 87.7 %; Platelet Count 319 K/uL (130-400); RDW Coefficient of Variation 16.9 % (11.5-14.5); RDW Standard Deviation 54.5 fL (36.4-46.3); Red Blood Count 3.37 M/uL (4.7-6.1); White Blood Count 11.06 K/uL (4.8-10.8)
[2021-03-24 11:28] LABS: Base Excess VBG -0.4 mEq/L; Oxygen Saturation VBG 69.7 %; pH VBG 7.34 (7.36-7.41)
[2021-03-24 11:35] LABS: INR 1.1 (0.9-1.1); Partial Thromboplastin Ratio 0.9; Partial Thromboplastin Time 23.9 Seconds (21.0-31.0); Prothrombin Time 11.2 Seconds (9.0-12.0)
--- NOTE | 2021-03-24 11:42 | XRay Report ---
XR chest 1V portable CLINICAL HISTORY: Dyspnea COMPARISON STUDY: Chest radiograph March 04, 2021. FINDINGS: Exam is compromised by artifact. There is no pneumothorax. No pleural effusion is identifie d. Enlargement of the cardiac silhouette is unchanged. Pulmonary vascular congestion is noted. Extens adelfo asymmetric right lung airspace opacities have developed. IMPRESSION: 1. Interstitial thickening and interval development of extensive asymmetric right lung airspace opaci ties. The findings may reflect pneumonia or asymmetric pulmonary edema. Radiographic follow-up is rec ommended. 2. Cardiomegaly. ACT 112: Negative or not required by law. Electronically signed by: Anuj Rojas M.D. 03/24/2021 11:41 AM
[2021-03-24] MEDS ORDERED: oxyCODONE/ACETAMINOPHEN 10-325 TAB PO STA (11:44)
[2021-03-24 11:54] LABS: Alanine Aminotransferase 18 U/L (12-78); Albumin Globulin Ratio 0.6 (0.9-2); Alkaline Phosphatase 110 U/L (45-117); Aspartate Aminotransferase 17 U/L (15-37); BUN Creatinine Ratio 16.6 (10-20); Bilirubin,Total 0.4 mg/dl (0.2-1); Blood Urea Nitrogen 108 mg/dl (7-18); Calcium 8.8 mg/dl (8.5-10.1); Carbon Dioxide 25 mmol/L (21-32); Chloride 101 mmol/L (98-107); Est GFR (African American) 10.2 ml/min; Est GFR (Non-African American) 8.8 ml/min; Globulin 5.4 gm/dl (2.5-4.0); Glucose 211 mg/dl (70-99); Magnesium 2.4 mg/dl (1.8-2.4); NT Pro B Type Natriuretic Pept 5312 pg/ml (0-900); Phosphorus 5.9 mg/dl (2.5-4.9); Potassium 5.2 mmol/L (3.5-5.1); Sodium 135 mmol/L (136-145); Total Protein 8.4 gm/dl (6.4-8.2); Troponin I < 0.015 ng/ml (0-0.045)
[2021-03-24 12:18] LABS: Appearance Urine Clear (Clear); Bacteria Urine Automated Negative (Negative); Bilirubin Urine Negative (Negative); Blood Urine Trace (Negative); Color Urine Yellow; Glucose Urine UA 1+ (Negative); Ketones Urine Negative (Negative); Leukocyte Esterase Urine Negative (Negative); Nitrite Urine Negative (Negative); Protein Urine 3+ (Negative); RBC Urine Automated 0-4 /hpf (0-4); Specific Gravity Urine 1.015 (1.000-1.030); Urobilinogen Urine Negative (Negative)
[2021-03-24 12:38] LABS: Sperm Urine Present (None Prsent)
--- NOTE | 2021-03-24 12:45 | History & Physical Report ---
Date of Service March 24, 2021 Assessment & Plan (1) ESRD needing dialysis: This is a 55yo M with PMH of morbin obesity, CKD V with recent AV fistula placement on 03/10/21, DM II, chronic diastolic heart failure, anemia of chronic disease, paroxysmal A fib on anticoagulation, noctural hypoxemia and other medical problems listed below who presents from nephrology clinic with shortness of breath and need for dialysis via tunneled dialysis catheter. [place]. Weems [place] [facility] [place] has had progressively worsening renal function, creatinine most recently 6.1 AV fistula placed by Dr. Gaming on 03/10/2021 but not yet viable for dialysis Admitted for dialysis via tunneled dialysis catheter to be placed tomorrow by Dr. Gaming Continue diuresis, low sodium diet Nephrology, vascular surgery consult Admitted to ICU due to high level of care in setting of morbid obesity with BMI 89 (2) Acute on chronic respiratory failure: (3) Pulmonary edema: (4) Obesity hypoventilation syndrome: (5) Morbid obesity with BMI of 70 and over, adult: Acute hypoxia requiring O2 during the day (usually only uses HS - Bipap with 5L O2 bled through) Now saturating at 95% on 6L NC CXR with interstitial thickening and interval development of extensive asymmetric right lung airspace opacities. The findings may reflect pneumonia or asymmetric pulmonary edema Continue diuresis, supplemental oxygen (6) Paroxysmal A-fib: Continue diltiazem, Eliquis for anticoagulation (7) Diabetes mellitus: A1c 8.4 SSI while in-patient BSG AC HS (8) Chronic anemia: Just received IV Venofer Hgb 9- baseline DVT Ppx: Eliquis Code status: FULL PCP: Henry Weeks Dispo: Admitted to ICU. Discharge planning ordered. Patient seen in collaboration with Dr. Gant. Please see addendum. History of Present Illness Chief Complaint: referred by nephrology Primary Care Provider: Henry Weeks, This is a 55yo M with PMH of morbin obesity, CKD V with recent AV fistula placement on 03/10/21, DM II, chronic diastolic heart failure, anemia of chronic disease, paroxysmal A fib on anticoagulation, noctural hypoxemia and other medical problems listed below who presents from nephrology clinic with shortness of breath and need for dialysis via tunneled dialysis catheter. Follows with Dr. Weems of [facility] [place] and has had progressively worsening renal function, creatinine most recently 6.1. AV fistula placed by Dr. Gaming on 03/10/2021 but not yet viable for dialysis. Has felt very poorly over the past 2 days with worsening shortness of breath, fatigue and dry heaving. Was started on Bumex 4 mg twice daily yesterday but no improvement yet to shortness of breath. Able to make urine. Sent in for dialysis via tunneled dialysis catheter. Also recently received IV Venofer for anemia of chronic disease. Denies fever, chills, headache, lightheadedness, visual changes, cough, chest pain, palpitations, abdominal pain, nausea, vomiting, dysuria, constipation or diarrhea. Allergies Allergy/AdvReac Type Severity Reaction Status Date / Time No Known Allergies Allergy Verified 03/24/21 09:09 Home Medications Medication Instructions Recorded Confirmed Type albuterol sulfate 90 mcg/actuation 2 puffs INHALATION Q4H PRN gm 07/01/19 03/24/21 History aerosol inhaler apixaban 5 mg tablet 5 mg PO BID #60 tab 07/01/19 03/24/21 History blood sugar diagnostic #10 ea 07/01/19 03/24/21 History insulin syringe-needle U-100 0.3 #10 ea 07/01/19 03/24/21 History mL 31 gauge x 5/16" pravastatin 80 mg tablet 80 mg PO HS #90 tab 07/01/19 03/24/21 History nitroglycerin 0.4 mg sublingual 0.4 mg SL Q5M PRN #25 tab 09/12/19 03/24/21 Rx tablet bupropion HCl 200 mg tablet,12 hr 200 mg PO BID #180 ea 03/12/20 03/24/21 Rx sustained-release Breo Ellipta 1 inh INHALATION QAM 02/21/21 03/24/21 History Ozempic 1 mg SQ WK 02/21/21 03/24/21 History diltiazem HCl 360 mg PO HS 02/21/21 03/24/21 History duloxetine 30 mg PO QAM 02/21/21 03/24/21 History ferrous sulfate 27 mg PO QAM 02/21/21 03/24/21 History metoprolol succinate 100 mg PO QAM 02/21/21 03/24/21 History multivitamin 1 tab PO QAM 02/21/21 03/24/21 History omega 1-nil-xja-fish oil [Fish Oil] 1 cap PO QAM 02/21/21 03/24/21 History oxycodone-acetaminophen [Percocet] 1 tab PO Q6H PRN 02/21/21 03/24/21 History insulin degludec [Tresiba 44 units SQ BID 03/10/21 03/24/21 History FlexTouch U-100] bumetanide 2 mg tablet 4 mg PO BID #120 tab 03/23/21 03/24/21 Rx calcitriol 0.5 mcg PO 3XWK 03/24/21 03/24/21 History duloxetine 60 mg PO QAM 03/24/21 03/24/21 History insulin aspart U-100 [Novolog 36 unit SQ TID 03/24/21 03/24/21 History Flexpen U-100 Insulin] Past Med/Surg History Medical History (Updated 03/24/21 @ 12:56 by Wen Post PA-C) Anxiety Atrial flutter on Eliquis Chronic anemia receiving weekly iron infusions ([place]) Chronic obstructive pulmonary disease Congestive heart failure Depression Diabetes mellitus IDDM DVT (deep venous thrombosis) Several years ago Dyslipidemia ESRD needing dialysis No current dialysis Morbid obesity with body mass index of 70 and over in adult Neuropathy Paroxysmal A-fib on Eliquis Secondary hyperparathyroidism of renal origin Surgical History History of removal of skin mole S/P panniculectomy Family History Father Family hx of colon cancer Grandmother (Maternal) Diabetes Mother Diabetes Uncle Diabetes Uncle Diabetes Social History Smoking Status: Former smoker Tobacco Type: Cigarettes Second Hand Exposure: Yes (SON SMOKES); Hx Alcohol Use: No Hx Substance Use: No Preferred Language: [place]ib[place]ian Communication Ability: Effective 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 Physical Exam Physical Exam: General Appearance: vitals as above, sitting up in bed, morbidly obese, ill appearing Head: normocephalic, atraumatic Eyes: normal inspection, PERRL, conjunctivae normal, anicteric sclerae ENT: external ear and nose normal, oropharynx normal Neck: normal visual inspection, trachea midline, no thyromegaly Respiratory: increased respiratory effort, lung sounds diminished throughout, difficult auscultation 2/2 habitus, no wheeze, rales, rhonchi. No accessory muscle use Cardiovascular: regular rate, rhythm, no murmur appreciated, normal peripheral pulses, 1+ BLE edema. Vessels: no JVD Chest: normal inspection of chest Abdomen/GI: normal bowel sounds, soft, nontender, no hepatosplenomegaly Extremities/Musculoskeletal: no cyanosis or clubbing, extremities motor strength 5/5 Neurologic: PERRL, EOMI, accommodation nl, no face palsy, no dysarthria, CN's II-XI intact bilaterally and moves all extremities Psychiatric: A+Ox3, euthymic affect Skin: no rashes, normal color, warm/dry Results & Data Results & Data ([facility]) Vital Signs (Past 12 Hours) Vital Signs Temp Pulse Pulse Resp BP BP Pulse Ox 03/24/21 11:50 62 22 169/113 H 95 03/24/21 10:58 97 03/24/21 10:38 36.6 C 62 18 159/76 H 85 L Laboratory Results Short CBC 03/24/21 Range/Units 11:15 WBC 11.06 H (4.8-10.8) K/uL Hgb 9.0 L (14.0-18.0) g/dL Hct 30.3 L (42-52) % Plt Count 319 (130-400) K/uL BMP 03/24/21 11:15 Sodium 135 L Potassium 5.2 H Chloride 101 Carbon Dioxide 25 BUN 108 H Creatinine Glucose 211 H Calcium 8.8 Cardiac Enzymes 03/24/21 Range/Units 11:15 Troponin I < 0.015 (0-0.045) ng/ml Liver Function 03/24/21 Range/Units 11:15 Total Bilirubin 0.4 (0.2-1) mg/dl AST 17 (15-37) U/L ALT 18 (12-78) U/L Alkaline Phosphatase 110 (45-117) U/L Albumin 3.0 L (3.4-5.0) gm/dl Urine 03/24/21 Range/Units 12:00 Urine Color Yellow Urine Appearance Clear (Clear) Urine pH 6.0 (4.5-7.5) Ur Specific [place] 1.015 (1.000-1.030) Urine Protein 3+ H (Negative) Urine Glucose (UA) 1+ H (Negative) Diagnostic Findings Chest X-Ray 03/24/21 10:53 XR chest 1V portable CLINICAL HISTORY: Dyspnea COMPARISON STUDY: Chest radiograph March 04, 2021. FINDINGS: Exam is compromised by artifact. There is no pneumothorax. No pleural effusion is identified. Enlargement of the cardiac silhouette is unchanged. Pulmonary vascular congestion is noted. Extensive asymmetric right lung airspace opacities have developed. IMPRESSION: 1. Interstitial thickening and interval development of extensive asymmetric right lung airspace opacities. The findings may reflect pneumonia or asymmetric pulmonary edema. Radiographic follow-up is recommended. 2. Cardiomegaly. ACT 112: Negative or not required by law. Electronically signed by: Anuj Rojas M.D. 03/24/2021 11:41 AM Code Status & VTE Plan VTE Prophylaxis Plan VTE Prophylaxis will be ordered: Yes Supervising Physician Co-Signing Physician Notes I saw this patient with the physician curatorial assistant, I participated in the history, physical, review of systems, and physical exam. I reviewed the medications with the patient and the physician curatorial assistant and helped reconcile the medications. I helped take a detailed family and social history as well. I formulated the assessment and plan personally with the physician curatorial assistant and went over it wi th the patient. ROS-No Headache, No Visual Changes, No Nausea, No Vomiting, No Fever, No Chills, No Neck Pain or Stiffness, No Chest Pain, No Palpitations, + SOB, No BEAZ, No Cough, No Sputum, No Wheezing, No Abdominal Pain, No Diarrhea, No Hematemesis, No Hemoptysis, No Unexpected Weight Loss, No Flank pain, No Melena, No Hematochezia, No Frequency, No Urgency, No Burning, No Hematuria, No Rashes, No Diaphoresis. Appetite is Normal Physical Exam Gen-AAO x 3, NAD, Afebrile, Morbidly Obese, Conversational Dyspnea Head-NCAT, EOMI, PERRLA, Anicteric Sclera, No Posterior Pharyngeal Erythema Neck-Supple, No JVD, No Thyromegaly, No Masses, No LAD, No Bruits Lungs-Clear to Auscultation Bilaterally, No Rales, No Rhonchi, No Wheezing, No Crepitus Chest-Distant heart sounds, No S4, +S1, +S2, No S3, No Murmurs, No Rubs, No Gallops, No Ectopy Abdomen-Soft, Bowel Sounds Present, Non Tender, Obese, No Hepatomegaly, No Splenomegaly, No Palpable Masses, No Rebound, No Rigidity, No Guarding Musculoskeletal-Full Range of Motion Bilaterally, No CVAT Extremities-No Cyanosis, No Clubbing, + Edema, Hyperpigmented LEs Bilaterally Nuero-Cranial Nerves II-XII grossly intact, Motor WNL, DTRs WNL, Strength WNL, Non Focal Psych-Normal Mood (1) Pulmonary edema Chronicity: acute Qualified Code(s): J81.0 - Acute pulmonary edema
--- NOTE | 2021-03-24 13:04 | Electrocardiogram Report ---
Test Reason : Blood Pressure : / mmHG Vent. Rate : 085 BPM Atrial Rate : 061 BPM P-R Int : 000 ms QRS Dur : 090 ms QT Int : 420 ms P-R-T Axes : 000 -85 -05 degrees QTc Int : 499 ms Atrial flutter Right bundle branch block Left anterior fascicular block Abnormal ECG When compared with ECG of 04-MAR-2021 11:04, HR has increased by 35 bpm Otherwise no significant change Confirmed by Mickey Rodríguez ([id number]) on 03/24/2021 1:03:59 PM Referred By: Yas Weems Confirmed By:Mickey Rodríguez
[2021-03-24 14:33] LABS: Creatinine Clr Calc Pharmacy 28.9 ml/min
[2021-03-24] MEDS ORDERED: DIPHTHERIA/TETANUS/PERTUSSIS 0.5 ML SYR/VIAL IM ONE (14:40)
--- NOTE | 2021-03-24 14:55 | Critical Care Consultation ---
Date of Consultation March 24, 2021 Assessment & Plan (1) Acute on chronic respiratory failure: I had a lengthy discussion with the patient's hospitalist, mink farmer and vascular surgeon. I do not think that we will be able to safely place a temporary dialysis catheter given his body habitus and his inability to lay flat. He is also anticoagulated on apixaban. I think he would be better served in a center of bariatric excellence where there are more services and skills available for such patients. A temporary dialysis catheter would need to be eventually replaced with a permacath given the risk of infection with a temporary dialysis cath. Unfortunately, his fistula is not mature at this time for hemodialysis. This was communicated with all of the above providers and transfer is being arranged from the ER to a tertiary Medical Center for further care. This was also relayed to the family. I think that he is stable for transfer at this point given that he is on low- flow oxygen and saturating in the mid 90s. Thank you for the consultation. (2) Paroxysmal A-fib: (3) Obesity hypoventilation syndrome: (4) Pulmonary edema: (5) Morbid obesity with BMI of 70 and over, adult: (6) ESRD needing dialysis: History of Present Illness Reason for Consultation: Acute hypoxemic respiratory failure secondary to volume overload and ESRD History of Present Illness 55-year-old male with a past medical history of CKD stage IV status post AV fistula placement on the left on 03/10/2021, chronic diastolic heart failure, paroxysmal A. fib atrial fibrillation on apixaban who presented to the ER due to worsening renal failure and shortness of breath. He was instructed by his mink farmer to come to the ER for permacath dialysis catheter placement. Unfortunately, vascular surgery is unable to place the permacath due to the inability of the fluoroscopy table in supporting the patient's weight. I was asked to evaluate the patient from ICU perspective. Patient appears mildly short of breath on 6 L of oxygen. He saturating in the low to mid 90s. His is at bedside. He denies any chest pain at present. He does endorse increasing shortness of breath and fatigue over the last several days. He was started on Bumex 4 mg yesterday with no significant improvement in his shortness of breath. Allergies Allergy/AdvReac Type Severity Reaction Status Date / Time No Known Allergies Allergy Verified 03/24/21 09:09 Home Medications Medication Instructions Recorded Confirmed Type albuterol sulfate 90 mcg/actuation 2 puffs INHALATION Q4H PRN gm 07/01/19 03/24/21 History aerosol inhaler apixaban 5 mg tablet 5 mg PO BID #60 tab 07/01/19 03/24/21 History blood sugar diagnostic #10 ea 07/01/19 03/24/21 History insulin syringe-needle U-100 0.3 #10 ea 07/01/19 03/24/21 History mL 31 gauge x /16" pravastatin 80 mg tablet 80 mg PO HS #90 tab 07/01/19 03/24/21 History nitroglycerin 0.4 mg sublingual 0.4 mg SL Q5M PRN #25 tab 09/12/19 03/24/21 Rx tablet bupropion HCl 200 mg tablet,12 hr 200 mg PO BID #180 ea 03/12/20 03/24/21 Rx sustained-release Breo Ellipta 1 inh INHALATION QAM 02/21/21 03/24/21 History Ozempic 1 mg SQ WK 02/21/21 03/24/21 History diltiazem HCl 360 mg PO HS 02/21/21 03/24/21 History duloxetine 30 mg PO QAM 02/21/21 03/24/21 History ferrous sulfate 27 mg PO QAM 02/21/21 03/24/21 History metoprolol succinate 100 mg PO QAM 02/21/21 03/24/21 History multivitamin 1 tab PO QAM 02/21/21 03/24/21 History omega 0-yst-igf-fish oil [Fish Oil] 1 cap PO QAM 02/21/21 03/24/21 History oxycodone-acetaminophen [Percocet] 1 tab PO Q6H PRN 02/21/21 03/24/21 History insulin degludec [Tresiba 44 units SQ BID 03/10/21 03/24/21 History FlexTouch U-100] bumetanide 2 mg tablet 4 mg PO BID #120 tab 03/23/21 03/24/21 Rx calcitriol 0.5 mcg PO 3XWK 03/24/21 03/24/21 History duloxetine 60 mg PO QAM 03/24/21 03/24/21 History insulin aspart U-100 [Novolog 36 unit SQ TID 03/24/21 03/24/21 History Flexpen U-100 Insulin] Patient History Medical History Anxiety Atrial flutter on Eliquis Chronic anemia receiving weekly iron infusions ([place]) Chronic obstructive pulmonary disease Congestive heart failure Depression Diabetes mellitus IDDM DVT (deep venous thrombosis) Several years ago Dyslipidemia ESRD needing dialysis No current dialysis Morbid obesity with body mass index of 70 and over in adult Neuropathy Paroxysmal A-fib on Eliquis Secondary hyperparathyroidism of renal origin Surgical History History of removal of skin mole S/P panniculectomy Family History Father Family hx of colon cancer Grandmother (Maternal) Diabetes Mother Diabetes Uncle Diabetes Uncle Diabetes Social History Smoking Status: Former smoker Tobacco Type: Cigarettes Second Hand Exposure: Yes (SON SMOKES); Hx Alcohol Use: No Hx Substance Use: No Preferred Language: Upper Sorbian Communication Ability: Effective Manager Product Marketing Required: No Beliefs That Will Affect Care: None marital status: Current Living Situation: Spouse and Family Current Living Situation Comment: LIVES WITH SPOUSE, 2 SONS current occupational status: disabled Feels Safe at Home: Yes Assistive Devices: Cane, Walker and Wheelchair Review of Systems Review of Systems: All systems reviewed & are unremarkable except as noted in HPI & below Physical Exam Constitutional: + morbidly obese and + edematous ENMT: external ear and nose normal, oropharynx normal Respiratory: Diffuse crackles and rails. Mild tachypnea. Cardiovascular: Heart Sounds: normal S1, normal S2 and + murmur Extremities: + edema Gastrointestinal (Abdomen): normal bowel sounds, soft, nontender, no hepatosplenomegaly Musculoskeletal: no cyanosis or clubbing, extremities motor strength 5/5 Neurologic: PERRL, EOMI, accommodation nl, no face palsy, no dysarthria Psychiatric: A+Ox3, euthymic affect Results & Data Results & Data ([facility]) Vital Signs (Past 12 Hours) Vital Signs Temp Pulse Pulse Resp BP BP Pulse Ox 03/24/21 13:07 71 17 165/92 H 94 03/24/21 12:30 69 20 97 03/24/21 12:00 71 21 93 03/24/21 11:50 62 22 169/113 H 95 03/24/21 11:44 60 22 169/113 H 91 03/24/21 11:30 18 95 03/24/21 11:00 66 26 H 93 03/24/21 10:59 65 28 H 91 03/24/21 10:58 97 03/24/21 10:38 97.9 F 62 18 159/76 H 85 L vital signs, labs and imaging reviewed Coding Level of Care Code 41286 Inpt Consult Level 5 Diagnoses Acute on chronic respiratory failure J96.20 Paroxysmal A-fib I48.0 Obesity hypoventilation syndrome E66.2 Pulmonary edema J81.0 Chronicity: acute Morbid obesity with BMI of 70 and over, adult E66.01; Z68.45 ESRD needing dialysis N18.6; Z99.2 (1) Pulmonary edema Chronicity: acute Qualified Code(s): J81.0 - Acute pulmonary edema
[2021-03-24] MEDS ORDERED: ICU PROTOCOL FOR HYPERGLYCEMIA PRN (16:40)
[2021-03-24] MEDS ORDERED: NITROGLYCERIN SL 0.4 MG/TAB TAB SL PRN (17:13)
[2021-03-24] MEDS ORDERED: ALBUTEROL HFA 8 GM INHALER INH PRN (17:13)
[2021-03-24] MEDS ORDERED: CARBOHYDRATES FOR HYPOGLYCEMIA PO PRN (17:16)
[2021-03-24] MEDS ORDERED: GLUCOSE 40% GEL 15 GM TUBE PO PRN (17:16)
[2021-03-24] MEDS ORDERED: GLUCAGON FOR INJ 1 MG VIAL SQ PRN (17:16)
[2021-03-24] MEDS ORDERED: DEXTROSE 50% 50 ML SYRINGE IV PRN (17:16)
[2021-03-24] MEDS ORDERED: GLUCOSE 10 TABS/TUBE PO PRN (17:16)
[2021-03-24] MEDS ORDERED: PHARMACY GLYCEMIC MGMT CONSULT PRN (17:33)
--- NOTE | 2021-03-24 17:37 | Nephrology Consultation ---
Date of Consultation March 24, 2021 Assessment & Plan (1) Stage 5 chronic kidney disease not on chronic dialysis: Advanced CKD requiring initiation of MORTGAGE COORDINATOR. Vascular surgery consulted for TDC placement. AVF not mature for use. Medications appropriately dosed for kidney dysfunction. (2) ESRD needing dialysis: I will appropriately coordinate HD tomorrow once TDC in place. Goals of care and plan reviewed with Damir and his family today. I discussed the plan of care with Dr. Weems and the ICU team. (3) Secondary hyperparathyroidism of renal origin: Continue calcitriol as Rx. (4) Chronic anemia: IV iron and Epogen to be provided with HD. History of Present Illness Reason for Consultation: CKD Requesting Physician: Ag Gant DO Attending Physician: Ag Gant DO History of Present Illness Mr. Damir Yost is a 55-year-old male with CKD V A3 attributed to diabetic kidney disease. He follows in the outpatient nephrology clinic with Dr. Weems. Damir has progressive advanced CKD and is now symptomatic. He was referred to the ER today by Dr. Weems for emergent start hemodialysis. Damir has been preparing for dialysis in the outpatient setting. Left forearm AVF placed by Dr. Gaming on 03/10. Unfortunately, due to progressive symptom burden, Damir will require dialysis before the fistula is mature for use. I discussed the plan of care with Dr. Weems. Dr. Gaming is planning to take Dmair to the OR tomorrow for HD permcath placement. Once access is secure. Past medical history is notable for morbid obesity, DMII, hypertension, atrial fibrillation, chronic anticoagulation, HFpEF, pulmonary hypertension, and chronic anemia. Currently, [facility] dialysis clinic unfortunately will not have a bariatric chair to accommodate the patient's weight until April. Allergies Allergy/AdvReac Type Severity Reaction Status Date / Time No Known Allergies Allergy Verified 03/24/21 09:09 Home Medications Medication Instructions Recorded Confirmed Type albuterol sulfate 90 mcg/actuation 2 puffs INHALATION Q4H PRN gm 07/01/19 03/24/21 History aerosol inhaler apixaban 5 mg tablet 5 mg PO BID #60 tab 07/01/19 03/24/21 History blood sugar diagnostic #10 ea 07/01/19 03/24/21 History insulin syringe-needle U-100 0.3 #10 ea 07/01/19 03/24/21 History mL 31 gauge x 5/16" pravastatin 80 mg tablet 80 mg PO HS #90 tab 07/01/19 03/24/21 History nitroglycerin 0.4 mg sublingual 0.4 mg SL Q5M PRN #25 tab 09/12/19 03/24/21 Rx tablet bupropion HCl 200 mg tablet,12 hr 200 mg PO BID #180 ea 03/12/20 03/24/21 Rx sustained-release Breo Ellipta 1 inh INHALATION QAM 02/21/21 03/24/21 History Ozempic 1 mg SQ WK 02/21/21 03/24/21 History diltiazem HCl 360 mg PO HS 02/21/21 03/24/21 History duloxetine 30 mg PO QAM 02/21/21 03/24/21 History ferrous sulfate 27 mg PO QAM 02/21/21 03/24/21 History metoprolol succinate 100 mg PO QAM 02/21/21 03/24/21 History multivitamin 1 tab PO QAM 02/21/21 03/24/21 History omega 3-jdr-eqn-fish oil [Fish Oil] 1 cap PO QAM 02/21/21 03/24/21 History oxycodone-acetaminophen [Percocet] 1 tab PO Q6H PRN 02/21/21 03/24/21 History insulin degludec [Tresiba 44 units SQ BID 03/10/21 03/24/21 History FlexTouch U-100] bumetanide 2 mg tablet 4 mg PO BID #120 tab 03/23/21 03/24/21 Rx calcitriol 0.5 mcg PO 3XWK 03/24/21 03/24/21 History duloxetine 60 mg PO QAM 03/24/21 03/24/21 History insulin aspart U-100 [Novolog 36 unit SQ TID 03/24/21 03/24/21 History Flexpen U-100 Insulin] Patient History Medical History Anxiety Atrial flutter on Eliquis Chronic anemia receiving weekly iron infusions ([place]) Chronic obstructive pulmonary disease Congestive heart failure Depression Diabetes mellitus IDDM DVT (deep venous thrombosis) Several years ago Dyslipidemia ESRD needing dialysis No current dialysis Morbid obesity with body mass index of 70 and over in adult Neuropathy Paroxysmal A-fib on Eliquis Secondary hyperparathyroidism of renal origin Surgical History History of removal of skin mole S/P panniculectomy Family History Father Family hx of colon cancer Grandmother (Maternal) Diabetes Mother Diabetes Uncle Diabetes Uncle Diabetes Social History Smoking Status: Former smoker Tobacco Type: Cigarettes Second Hand Exposure: Yes (SON SMOKES); Hx Alcohol Use: No Hx Substance Use: No Preferred Language: Peruvian Communication Ability: Effective 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 Beliefs That Will Affect Care: None marital status: Current Living Situation: Spouse Current Living Situation Comment: LIVES WITH SPOUSE, 2 SONS current occupational status: disabled Feels Safe at Home: Yes Assistive Devices: BiPap, Cane, Glasses and Oxygen - at Night Review of Systems Constitutional: + fatigue and + weakness; no weight loss and no weight gain Eyes: no problem reported Ear, Nose, Mouth, Throat: no pain with swallowing and no problem reported Respiratory: + chest congestion and + dyspnea Cardiovascular: + orthopnea and + edema; no chest pain Gastrointestinal: + early satiety and + nausea; no diarrhea/loose stools Genitourinary: + decreased urination; no dysuria Musculoskeletal: no problem reported Integumentary: no problem reported Neurologic: + generalized weakness and + tremor(s) Psychiatric: no problem reported Physical Exam Constitutional: well developed and + morbidly obese; no acute distress Eyes: + anicteric sclerae; no corneal abnormality ENMT: Mouth: no oral mucosal abnormality and oral mucous membranes not dry Neck: normal visual inspection and trachea midline Respiratory: normal respiratory effort Auscultation: lungs clear to auscultation bilaterally Cardiovascular: Rate/Rhythm: regular rate Heart Sounds: normal S1 and normal S2 Extremities: + edema and + AV fistula Gastrointestinal (Abdomen): Percussion/Palpation: abdomen soft; abdomen nontender Musculoskeletal: Extremities: no cyanosis and no clubbing Skin: normal turgor; no lesions Neurologic: Motor/Sensory: no tremor and no asterixis Psychiatric: Orientation: alert and oriented x 3 Results & Data ([facility]) Vital Signs (Past 12 Hours) Vital Signs Temp Pulse Pulse Resp BP BP Pulse Ox 03/24/21 16:40 36.8 C 78 22 147/73 H 96 03/24/21 16:10 80 15 94 03/24/21 16:08 74 98 03/24/21 15:40 75 19 94 03/24/21 15:30 84 16 96 03/24/21 15:26 17 168/91 H 91 03/24/21 15:20 80 16 96 03/24/21 15:10 75 13 03/24/21 15:00 73 16 94 03/24/21 14:50 78 12 94 03/24/21 14:47 72 13 96 03/24/21 14:46 14 168/91 H 96 03/24/21 14:30 76 20 95 03/24/21 14:00 87 18 93 03/24/21 13:30 74 17 95 03/24/21 13:08 80 16 95 03/24/21 13:07 71 17 165/92 H 94 03/24/21 12:30 69 20 97 03/24/21 12:00 71 21 93 03/24/21 11:50 62 22 169/113 H 95 03/24/21 11:44 60 22 169/113 H 91 03/24/21 11:30 18 95 03/24/21 11:00 66 26 H 93 03/24/21 10:59 65 28 H 91 03/24/21 10:58 97 03/24/21 10:38 36.6 C 62 18 159/76 H 85 L Laboratory Results Laboratory Results - last 24 hr 03/24/21 03/24/21 03/24/21 11:15 11:15 11:15 WBC 11.06 H RBC 3.37 L Hgb 9.0 L Hct 30.3 L MCV 89.9 MCH 26.7 MCHC 29.7 L RDW Std Deviation 54.5 H RDW Coeff of Talha 16.9 H Plt Count 319 MPV 9.8 Immature Gran % (Auto) 0.4 Neut % (Auto) 87.7 Lymph % (Auto) 6.9 [place] % (Auto) 3.6 Eos % (Auto) 1.2 Baso % (Auto) 0.2 Neut # (Auto) 9.71 H Lymph # (Auto) 0.76 L [place] # (Auto) 0.40 Eos # (Auto) 0.13 Baso # (Auto) 0.02 Immature Gran # (Auto) 0.04 H PT 11.2 INR 1.1 APTT 23.9 PTT Ratio 0.9 VBG pH VBG pCO2 VBG pO2 VBG HCO3 VBG O2 Saturation VBG Base Excess Barometric Pressure Sodium 135 L Potassium 5.2 H Chloride 101 Carbon Dioxide 25 Anion Gap 9.0 BUN 108 H Creatinine 6.54 H* Est Cr Clr Drug Dosing 28.9 Est GFR ( Amer) 10.2 Est GFR (Non-Af Amer) 8.8 BUN/Creatinine Ratio 16.6 Glucose 211 H Calcium 8.8 Phosphorus 5.9 H Magnesium 2.4 Total Bilirubin 0.4 AST 17 ALT 18 Alkaline Phosphatase 110 Troponin I < 0.015 NT-Pro-B Natriuret Pep 5312 H Total Protein 8.4 H Albumin 3.0 L Globulin 5.4 H Albumin/Globulin Ratio 0.6 L Urine Color Urine Appearance Urine pH Ur Specific [place] Urine Protein Urine Glucose (UA) Urine Ketones Urine Blood Urine Nitrite Urine Bilirubin Urine Urobilinogen Ur Leukocyte Esterase Urine WBC (Auto) Urine RBC (Auto) U Hyaline Cast (Auto) U Epithel Cells (Auto) Urine Bacteria (Auto) Urine Sperm Nasal Screen MRSA (PCR) COVID-19 Eval Order SARS-CoV-2 (PCR) 03/24/21 03/24/21 03/24/21 11:15 11:50 11:50 WBC RBC Hgb Hct MCV MCH MCHC RDW Std Deviation RDW Coeff of Talha Plt Count MPV Immature Gran % (Auto) Neut % (Auto) Lymph % (Auto) [place] % (Auto) Eos % (Auto) Baso % (Auto) Neut # (Auto) Lymph # (Auto) [place] # (Auto) Eos # (Auto) Baso # (Auto) Immature Gran # (Auto) PT INR APTT PTT Ratio VBG pH 7.34 L VBG pCO2 48 VBG pO2 36 VBG HCO3 26 VBG O2 Saturation 69.7 VBG Base Excess -0.4 Barometric Pressure 731.9 Sodium Potassium Chloride Carbon Dioxide Anion Gap BUN Creatinine Est Cr Clr Drug Dosing Est GFR ( Amer) Est GFR (Non-Af Amer) BUN/Creatinine Ratio Glucose Calcium Phosphorus Magnesium Total Bilirubin AST ALT Alkaline Phosphatase Troponin I NT-Pro-B Natriuret Pep Total Protein Albumin Globulin Albumin/Globulin Ratio Urine Color Urine Appearance Urine pH Ur Specific [place] Urine Protein Urine Glucose (UA) Urine Ketones Urine Blood Urine Nitrite Urine Bilirubin Urine Urobilinogen Ur Leukocyte Esterase Urine WBC (Auto) Urine RBC (Auto) U Hyaline Cast (Auto) U Epithel Cells (Auto) Urine Bacteria (Auto) Urine Sperm Nasal Screen MRSA (PCR) COVID-19 Eval Order Covid19 at [facility] SARS-CoV-2 (PCR) NEGATIVE 03/24/21 03/24/21 12:00 16:00 WBC RBC Hgb Hct MCV MCH MCHC RDW Std Deviation RDW Coeff of Talha Plt Count MPV Immature Gran % (Auto) Neut % (Auto) Lymph % (Auto) [place] % (Auto) Eos % (Auto) Baso % (Auto) Neut # (Auto) Lymph # (Auto) [place] # (Auto) Eos # (Auto) Baso # (Auto) Immature Gran # (Auto) PT INR APTT PTT Ratio VBG pH VBG pCO2 VBG pO2 VBG HCO3 VBG O2 Saturation VBG Base Excess Barometric Pressure Sodium Potassium Chloride Carbon Dioxide Anion Gap BUN Creatinine Est Cr Clr Drug Dosing Est GFR ( Amer) Est GFR (Non-Af Amer) BUN/Creatinine Ratio Glucose Calcium Phosphorus Magnesium Total Bilirubin AST ALT Alkaline Phosphatase Troponin I NT-Pro-B Natriuret Pep Total Protein Albumin Globulin Albumin/Globulin Ratio Urine Color Yellow Urine Appearance Clear Urine pH 6.0 Ur Specific [place] 1.015 Urine Protein 3+ H Urine Glucose (UA) 1+ H Urine Ketones Negative Urine Blood Trace H Urine Nitrite Negative Urine Bilirubin Negative Urine Urobilinogen Negative Ur Leukocyte Esterase Negative Urine WBC (Auto) 1-5 Urine RBC (Auto) 0-4 U Hyaline Cast (Auto) 1-5 U Epithel Cells (Auto) 5-10 H Urine Bacteria (Auto) Negative Urine Sperm Present A Nasal Screen MRSA (PCR) Pending COVID-19 Eval Order SARS-CoV-2 (PCR) PG Care Time/CCT Total # of Minutes Spent Total Time Spent with Patient: Total time spent is greater than 50% in coordination of care (as documented) at patient's floor/unit and/or counseling patient: Coding Level of Care Code 72255 Inpt Consult Level 4 Diagnoses Stage 5 chronic kidney disease not on chronic dialysis N18.5 ESRD needing dialysis N18.6; Z99.2 Secondary hyperparathyroidism of renal origin N25.81 Chronic anemia D64.9
[2021-03-24] MEDS ORDERED: BUMETANIDE 2 MG in SYRINGE 0 ML IV ONE (17:45)
[2021-03-24] MEDS: INSULIN ASPART 100 UNITS/ML 3 ML PEN SC SCH ×2 (18:35→21:38)
[2021-03-24] MEDS ORDERED: PRAVASTATIN SOD 40 MG TAB PO SCH (21:00)
[2021-03-24] MEDS ORDERED: INSULIN GLARGINE SOLOSTAR 100 UNITS/ML 3 ML PEN SC ONE (21:00)
[2021-03-24] MEDS: oxyCODONE/ACETAMINOPHEN 10-325 TAB PO PRN (21:34)
[2021-03-24] MEDS: dilTIAZem ER 180 MG CAPCR PO SCH (21:35)
[2021-03-24] MEDS: buPROPion SR 100 MG TABCR PO SCH (21:35)
[2021-03-25] MEDS ORDERED: INSULIN ASPART 100 UNITS/ML 3 ML PEN SC SCH (02:00)
[2021-03-25 04:59] LABS: Hematocrit (blood only) 29.7 % (42-52); Hemoglobin 8.9 g/dL (14.0-18.0); Mean Corpuscular Hemoglobin 26.3 pg (25-34); Mean Corpuscular Volume 87.9 fL (80-100); Mean Platelet Volume 9.3 fL (7.4-10.4); Platelet Count 269 K/uL (130-400); RDW Standard Deviation 53.4 fL (36.4-46.3); Red Blood Count 3.38 M/uL (4.7-6.1); White Blood Count 9.49 K/uL (4.8-10.8)
[2021-03-25 05:43] LABS: BUN Creatinine Ratio 15.2 (10-20); Calcium 8.9 mg/dl (8.5-10.1); Creatinine Clr Calc Pharmacy 29.8 ml/min; Est GFR (African American) 10.6 ml/min; Est GFR (Non-African American) 9.2 ml/min; Ferritin 104.6 ng/ml (8-388); Potassium 4.2 mmol/L (3.5-5.1)
[2021-03-25] MEDS ORDERED: MIDAZOLAM HCL 1 MG/ML 2ML VIAL ONE (06:59)
--- NOTE | 2021-03-25 07:15 | Anesthesiology Consultation ---
Date of Service March 25, 2021 Assessment & Plan (1) Encounter for pre-operative examination: Chart Review Chart Review: Acceptable Risk for Surgery and Patient NOT seen in Pre Admission Testing Consults Requested none History Surgery Operation Date: 03/25/21 08:00 Proposed Procedures p Perm Cath Placement - Obed Gaming MD Height/Weight Height: 5 ft 10 in Weight: 298 kg Allergies Allergy/AdvReac Type Severity Reaction Status Date / Time No Known Allergies Allergy Verified 03/24/21 09:09 Medications Home Medications Medication Instructions Recorded Confirmed Last Taken albuterol sulfate 90 mcg/actuation 2 puffs INHALATION Q4H PRN gm 07/01/19 03/24/21 03/23/21 aerosol inhaler apixaban 5 mg tablet 5 mg PO BID #60 tab 07/01/19 03/24/21 03/23/21 blood sugar diagnostic #10 ea 07/01/19 03/24/21 Unknown insulin syringe-needle U-100 0.3 #10 ea 07/01/19 03/24/21 Unknown mL 31 gauge x 5/16" pravastatin 80 mg tablet 80 mg PO HS #90 tab 07/01/19 03/24/21 03/23/21 nitroglycerin 0.4 mg sublingual 0.4 mg SL Q5M PRN #25 tab 09/12/19 03/24/21 Unknown tablet bupropion HCl 200 mg tablet,12 hr 200 mg PO BID #180 ea 03/12/20 03/24/21 03/23/21 sustained-release Breo Ellipta 1 inh INHALATION QAM 02/21/21 03/24/21 03/23/21 Ozempic 1 mg SQ WK 02/21/21 03/24/21 03/17/21 diltiazem HCl 360 mg PO HS 02/21/21 03/24/21 03/23/21 duloxetine 30 mg PO QAM 02/21/21 03/24/21 03/23/21 ferrous sulfate 27 mg PO QAM 02/21/21 03/24/21 03/23/21 metoprolol succinate 100 mg PO QAM 02/21/21 03/24/21 03/23/21 multivitamin 1 tab PO QAM 02/21/21 03/24/21 03/23/21 omega 2-cjv-rvn-fish oil [Fish Oil] 1 cap PO QAM 02/21/21 03/24/21 03/23/21 oxycodone-acetaminophen [Percocet] 1 tab PO Q6H PRN 02/21/21 03/24/21 03/23/21 insulin degludec [Tresiba 44 units SQ BID 03/10/21 03/24/21 03/24/21 FlexTouch U-100] bumetanide 2 mg tablet 4 mg PO BID #120 tab 03/23/21 03/24/21 03/23/21 calcitriol 0.5 mcg PO 3XWK 03/24/21 03/24/21 03/23/21 duloxetine 60 mg PO QAM 03/24/21 03/24/21 03/23/21 insulin aspart U-100 [Novolog 36 unit SQ TID 03/24/21 03/24/21 03/24/21 Flexpen U-100 Insulin] Active Medications Generic Name Dose Route Start Last Admin Trade Name Freq PRN Reason Stop Dose Admin Bupropion HCl 200 mg 03/24/21 21:00 03/24/21 21:35 Bupropion Sr 100 Mg Tabcr PO 04/23/21 20:59 200 mg BID MERNA Administration Diltiazem HCl 360 mg 03/24/21 21:00 03/24/21 21:35 Diltiazem Er 180 Mg Capcr PO 04/23/21 20:59 360 mg HS MERNA Administration Insulin Aspart 0 units 03/24/21 18:30 03/24/21 21:38 Insulin Aspart 100 Units/Ml 3 Ml Pen SC 04/23/21 18:29 2 units ACHS MERNA Administration Oxycodone/Acetaminophen 1 tab 03/24/21 17:13 03/24/21 21:34 Oxycodone/Acetaminophen 10-325 Tab PO 04/07/21 17:12 1 tab Q6H PRN Administration Pain Pravastatin Sodium 80 mg 03/24/21 21:00 03/24/21 21:40 Pravastatin Sod 40 Mg Tab PO 04/23/21 20:59 80 mg HS MERNA Administration Past Medical History Medical History Anxiety Atrial flutter on Eliquis Chronic anemia receiving weekly iron infusions ([place]) Chronic obstructive pulmonary disease Congestive heart failure Depression Diabetes mellitus IDDM DVT (deep venous thrombosis) Several years ago Dyslipidemia ESRD needing dialysis No current dialysis Morbid obesity with body mass index of 70 and over in adult Neuropathy Paroxysmal A-fib on Eliquis Secondary hyperparathyroidism of renal origin Exercise / Class Metabolic Activity IV < 2 Limit ADL/Bedbound Past Family History Family History Father Family hx of colon cancer Grandmother (Maternal) Diabetes Mother Diabetes Uncle Diabetes Uncle Diabetes Past Surgical History Surgical History History of removal of skin mole S/P panniculectomy L AC AV fistula 03/10/21: Block and versed for sedation. No issues. Past Anesthesia History No Hx of Anesthesia Complications and No Family Hx of Anesthesia Complications History of PONV No Hx of PONV and No Hx of Motion Sickness Social History Smoking Status: Former smoker Do You Dip or Chew Tobacco: Yes Hx Alcohol Use: No Hx Substance Use: No Physical Exam Vital Signs Last Vital Signs Temp 36.7 C 03/25/21 05:00 Pulse 65 03/25/21 06:20 Resp 22 03/25/21 06:20 BP 156/84 H 03/25/21 06:00 Pulse Ox 94 03/25/21 06:20 Testing Laboratory Results 03/25/21 04:41 03/25/21 04:41 PT 11.2 Seconds (9.0-12.0) 03/24/21 11:15 INR 1.1 (0.9-1.1) 03/24/21 11:15 APTT 23.9 Seconds (21.0-31.0) 03/24/21 11:15 Urine Color Yellow 03/24/21 12:00 Urine Appearance Clear (Clear) 03/24/21 12:00 Urine pH 6.0 (4.5-7.5) 03/24/21 12:00 Ur Specific [place] 1.015 (1.000-1.030) 03/24/21 12:00 Urine Protein 3+ (Negative) H 03/24/21 12:00 Urine Glucose (UA) 1+ (Negative) H 03/24/21 12:00 Urine Ketones Negative (Negative) 03/24/21 12:00 Urine Nitrite Negative (Negative) 03/24/21 12:00 Ur Leukocyte Esterase Negative (Negative) 03/24/21 12:00 Urine WBC (Auto) 1-5 /hpf (0-5) 03/24/21 12:00 Urine RBC (Auto) 0-4 /hpf (0-4) 03/24/21 12:00 U Hyaline Cast (Auto) 1-5 /lpf (0-5) 03/24/21 12:00 U Epithel Cells (Auto) 5-10 /lpf (0-5) H 03/24/21 12:00 Urine Bacteria (Auto) Negative (Negative) 03/24/21 12:00 03/25/21 03/24/21 01:54 21:29 POC Glucose 147 H 155 H Electrocardiogram Date: 03/24/21 DICTATED BY: Mickey Rodríguez MD Test Reason : Blood Pressure : / mmHG Vent. Rate : 085 BPM Atrial Rate : 061 BPM P-R Int : 000 ms QRS Dur : 090 ms QT Int : 420 ms P-R-T Axes : 000 -85 -05 degrees QTc Int : 499 ms Atrial flutter Right bundle branch block Left anterior fascicular block Abnormal ECG When compared with ECG of 04-MAR-2021 11:04, HR has increased by 35 bpm Otherwise no significant change Confirmed by Mickey Rodríguez ([id number]) on 03/24/2021 1:03:59 PM Other Testing Echocardiogram Date: 03/04/20 EF 62%. No significant valvular disease on limited analysis. Trivial circumferential pericardial effusion noted. Mildly enlarged proximal ascending thoracic aorta. LVH suggest diastolic left ventricular dysfunction. Technically difficult study due to poor acoustic window and body habitus.
--- NOTE | 2021-03-25 07:29 | Consultation ---
Date of Consultation March 25, 2021 History of Present Illness Attending Physician: Katelin Orr MD History of Present Illness March 10, 2021 History of Present Illness Primary Care Provider: Henry Weeks DO February 09, 2021 Name: DAMIR YOST [facility] Number: [id number] : 1965 Date of Service: 02/09/2021 Yas Weems MD [address] [place] [address] Weems: I had the pleasure of meeting your patient, Damir Yost, in the outpatient vascular surgery clinic to discuss dialysis access. As you know, he is a pleasant 55-year-old gentleman with CKD stage V. His last GFR was 11. He states that in discussions with you, he was told that he would need at home dialysis until April, given his size and no chair able to accommodate his thighs. There was some confusion in our office whether or not this meant hemodialysis or peritoneal dialysis. In discussing with him, he has a previous history of a panniculectomy with hernia repair with mesh and obviously given his weight, this would prove challenging for peritoneal dialysis. In discussing with him, he is a right-hand dominant and would like any procedures done on his left upper extremity. His past medical history is significant for heart disease, hypertension, diabetes and the aforementioned kidney disease. His past surgical history is significant for remote tonsillectomy as well as panniculectomy and hernia repair with mesh. His medications were reviewed and include Eliquis for AFib, albuterol, bupropion, calcitriol, diltiazem, duloxetine, iron supplements, Breo Ellipta, insulin, lorazepam, metoprolol succinate 100 daily, pravastatin, as well as torsemide. He has no known medication allergies. His family history is not significant for any history of chronic kidney disease. He is and presents today with his . On physical exam, he is well-appearing and morbidly obese. His blood pressure is 148/72 on the right, 154/88 on the left. His heart rate is 98 and he is saturating at 90% on room air. His head is normocephalic, atraumatic. Lungs are clear to auscultation bilaterally. His heart rate and rhythm are regular. His radial pulses are palpable bilaterally. His strength in his left upper extremity is 5/5. On imaging performed prior to today's visit, he has adequate vein for bilateral AV access. Given his right hand dominance, we will plan to proceed with a brach iocephalic AV fistula. We did note that given his size and the depth of his vessels, he may need multiple procedures to make the vein more superficial. We are also happy to assist if he should need a tunneled line prior to the fistula maturing. I do have concerns about the potential of peritoneal dialysis as he does not appear to be a candidate. I assume that this is likely just a miscommunication related to health literacy. If you feel like catheter is indicated, please let us know and we will schedule it as soon as possible. We will furthermore discuss with the hospital and assure that our beds can accommodate his weight. If they can, we will put him on a calendar for surgery in the coming weeks. If you have any questions or concerns, please do not hesitate to contact us. Thank you for allowing us to participate in the care of your patient. #[id number] I saw and evaluated the patient. Discussed with the resident and agree with the resident's findings and plan as documented in the resident's note. Signature Line Electronic Signature on File CC: Yas Weems MD [facility] [address] [place] [id number] * Rizwana Foster MD Author Signature Dt/Tm: 02/14/2021 02:50 PM Resident Division of Vascular Surgery Electronically Reviewed/Signed by: Obed Gaming MD Cosigner Signature Dt/Tm: 02/10/2021 08:00 AM Federal Law Clerk Josh Clancy [facility] [place] [place] [address] RES /NTS Result Type: .Outpt Ltr Date of Service: February 09, 2021 00:00 EDT Authorization Status: Final Subject: Outpatient Letter Author or Import Date: MD Foster Rachael E on February 09, 2021 10:47 EDT Verified By: MD Mekhi, Obed Crandall on February 10, 2021 08:00 EDT Encounter info: [id number], [place] [address], Clinic, 02/09/2021 - 02/09/2021 Contributor system: [email or web address] Allergies Allergy/AdvReac Type Severity Reaction Status Date / Time No Known Allergies Allergy Verified 02/21/21 13:20 Home Medications Medication Instructions Recorded Confirmed Type albuterol sulfate 90 mcg/actuation 2 puffs INHALATION Q4H PRN gm 07/01/19 02/21/21 History aerosol inhaler apixaban 5 mg tablet 5 mg PO BID #60 tab 07/01/19 02/21/21 History blood sugar diagnostic #10 ea 07/01/19 02/10/21 History insulin syringe-needle U-100 0.3 #10 ea 07/01/19 02/10/21 History mL 31 gauge x 03/06" pravastatin 80 mg tablet 80 mg PO HS #90 tab 07/01/19 02/21/21 History nitroglycerin 0.4 mg sublingual 0.4 mg SL Q5M PRN #25 tab 09/12/19 02/21/21 Rx tablet bupropion HCl 200 mg tablet,12 hr 200 mg PO BID #180 ea 03/12/20 02/21/21 Rx sustained-release duloxetine 60 mg capsule,delayed 60 mg PO DAILY #30 cap 03/12/20 02/21/21 Rx release insulin aspart U-100 100 unit/mL See Rx Instructions SQ TID #3 ml 03/12/20 02/21/21 Rx (3 mL) subcutaneous pen insulin degludec 100 unit/mL (3 88 units SQ BID #3 ml 03/12/20 02/21/21 Rx mL) subcutaneous pen calcitriol 0.5 mcg capsule 0.5 mcg PO UD #45 cap 09/20/20 02/21/21 Rx diltiazem HCl 360 mg PO HS 02/21/21 02/21/21 History duloxetine 30 mg PO QAM 02/21/21 02/21/21 History ferrous sulfate 27 mg PO QAM 02/21/21 02/21/21 History fluticasone furoate-vilanterol 1 inh INHALATION QAM 02/21/21 02/21/21 History [Breo Ellipta] metoprolol succinate 100 mg PO QAM 02/21/21 02/21/21 History multivitamin 1 tab PO QAM 02/21/21 02/21/21 History omega 8-ktx-xyl-fish oil [Fish Oil] 1 cap PO QAM 02/21/21 02/21/21 History oxycodone-acetaminophen [Percocet] 1 tab PO Q6H PRN 02/21/21 02/21/21 History semaglutide [Ozempic] 1 mg SQ UD 02/21/21 02/21/21 History torsemide 100 mg PO QAM 02/21/21 02/21/21 History Past Med/Surg History Medical History Anxiety Atrial flutter on Eliquis Chronic anemia receiving weekly iron infusions ([place]) Chronic obstructive pulmonary disease Congestive heart failure Depression Diabetes mellitus IDDM DVT (deep venous thrombosis) Several years ago Dyslipidemia ESRD needing dialysis No current dialysis Morbid obesity with body mass index of 70 and over in adult Neuropathy Paroxysmal A-fib on Eliquis Secondary hyperparathyroidism of renal origin Surgical History History of removal of skin mole S/P panniculectomy Family History Father Family hx of colon cancer Grandmother (Maternal) Diabetes Mother Diabetes Uncle Diabetes Uncle Diabetes Social History (Updated 02/21/21 @ 13:53 by Gloria Quispe RN) Smoking Status: Current every day smoker Smoking End Date: Quit 10 years ago; Second Hand Exposure: Yes (SON SMOKES); Do You Dip or Chew Tobacco: Yes (1 can/week > advised none DOS); Hx Alcohol Use: No Hx Substance Use: No Preferred Language: Icelandic Communication Ability: Effective Tobacco Sorter Required: No Beliefs That Will Affect Care: None marital status: Current Living Situation: Spouse and Family Current Living Situation Comment: LIVES WITH SPOUSE, 2 SONS current occupational status: disabled Other Information That Helps Us Care for You: No Feels Safe at Home: Yes Safety Concerns: Feels Safe At This Time Assistive Devices: Cane, Walker and Wheelchair Assistive Devices Comment: CANE/WALKER PRN-CAN WALK SHORT DISTANCES Signed By:<Electronically signed by Obed Gaming MD>03/10/21 1035 Created: 03/10/21 1034 The status of this report is Signed.Draft = Not yet reviewed or approved by Medical Physician.Signed = Reviewed and approved by Medical Physician. Allergies Allergy/AdvReac Type Severity Reaction Status Date / Time No Known Allergies Allergy Verified 03/24/21 09:09 Home Medications Medication Instructions Recorded Confirmed Type albuterol sulfate 90 mcg/actuation 2 puffs INHALATION Q4H PRN gm 07/01/19 03/24/21 History aerosol inhaler apixaban 5 mg tablet 5 mg PO BID #60 tab 07/01/19 03/24/21 History blood sugar diagnostic #10 ea 07/01/19 03/24/21 History insulin syringe-needle U-100 0.3 #10 ea 07/01/19 03/24/21 History mL 31 gauge x 03/06" pravastatin 80 mg tablet 80 mg PO HS #90 tab 07/01/19 03/24/21 History nitroglycerin 0.4 mg sublingual 0.4 mg SL Q5M PRN #25 tab 09/12/19 03/24/21 Rx tablet bupropion HCl 200 mg tablet,12 hr 200 mg PO BID #180 ea 03/12/20 03/24/21 Rx sustained-release Breo Ellipta 1 inh INHALATION QAM 02/21/21 03/24/21 History Ozempic 1 mg SQ WK 02/21/21 03/24/21 History diltiazem HCl 360 mg PO HS 02/21/21 03/24/21 History duloxetine 30 mg PO QAM 02/21/21 03/24/21 History ferrous sulfate 27 mg PO QAM 02/21/21 03/24/21 History metoprolol succinate 100 mg PO QAM 02/21/21 03/24/21 History multivitamin 1 tab PO QAM 02/21/21 03/24/21 History omega 5-mks-xub-fish oil [Fish Oil] 1 cap PO QAM 02/21/21 03/24/21 History oxycodone-acetaminophen [Percocet] 1 tab PO Q6H PRN 02/21/21 03/24/21 History insulin degludec [Tresiba 44 units SQ BID 03/10/21 03/24/21 History FlexTouch U-100] bumetanide 2 mg tablet 4 mg PO BID #120 tab 03/23/21 03/24/21 Rx calcitriol 0.5 mcg PO 3XWK 03/24/21 03/24/21 History duloxetine 60 mg PO QAM 03/24/21 03/24/21 History insulin aspart U-100 [Novolog 36 unit SQ TID 03/24/21 03/24/21 History Flexpen U-100 Insulin] Patient History Medical History (Updated 03/25/21 @ 07:13 by Dwaine Sorenson MD) Acute on chronic respiratory failure Anxiety Atrial flutter on Eliquis Chronic anemia receiving weekly iron infusions ([place]) Chronic obstructive pulmonary disease Congestive heart failure Depression Diabetes mellitus IDDM DVT (deep venous thrombosis) Several years ago Dyslipidemia ESRD needing dialysis No current dialysis Morbid obesity with body mass index of 70 and over in adult Neuropathy Paroxysmal A-fib on Eliquis Pulmonary edema Secondary hyperparathyroidism of renal origin Surgical History History of removal of skin mole S/P panniculectomy Family History Father Family hx of colon cancer Grandmother (Maternal) Diabetes Mother Diabetes Uncle Diabetes Uncle Diabetes Social History Smoking Status: Former smoker Tobacco Type: Cigarettes Second Hand Exposure: Yes (SON SMOKES); Hx Alcohol Use: No Hx Substance Use: No Preferred Language: Icelandic Communication Ability: Effective Tobacco Sorter Required: No Beliefs That Will Affect Care: None marital status: Current Living Situation: Spouse Current Living Situation Comment: LIVES WITH SPOUSE, 2 SONS current occupational status: disabled Feels Safe at Home: Yes Assistive Devices: BiPap Results & Data ([facility]) Vital Signs (Past 12 Hours) Vital Signs Temp Pulse Resp BP Pulse Ox 03/25/21 06:20 65 22 94 03/25/21 06:10 65 24 92 03/25/21 06:00 65 17 156/84 H 94 03/25/21 05:50 74 16 93 03/25/21 05:40 63 19 94 03/25/21 05:30 67 18 93 03/25/21 05:20 64 21 94 03/25/21 05:10 63 23 93 03/25/21 05:00 36.7 C 62 10 L 175/77 H 95 03/25/21 04:50 62 16 92 03/25/21 04:40 65 14 93 03/25/21 04:39 73 9 L 03/25/21 04:20 73 12 95 03/25/21 04:10 68 15 92 03/25/21 04:01 66 13 161/59 H 93 03/25/21 04:00 65 15 95 03/25/21 03:50 63 15 95 03/25/21 03:40 61 14 94 03/25/21 03:30 67 20 93 03/25/21 03:20 59 L 15 92 03/25/21 03:10 62 17 93 03/25/21 03:01 66 16 160/67 H 94 03/25/21 03:00 62 16 92 03/25/21 02:50 66 16 94 03/25/21 02:40 68 16 93 03/25/21 02:30 64 13 94 03/25/21 02:20 105 H 15 94 03/25/21 02:10 107 H 14 94 03/25/21 02:00 62 16 164/66 H 94 03/25/21 01:56 64 14 169/66 H 93 03/25/21 01:50 62 18 93 03/25/21 01:40 70 16 94 03/25/21 01:30 71 23 94 03/25/21 01:20 65 16 93 03/25/21 01:10 79 15 94 03/25/21 01:05 91 H 03/25/21 00:50 75 16 87 L 03/25/21 00:40 76 19 90 03/25/21 00:30 0 L 90 03/25/21 00:20 84 14 90 03/25/21 00:10 82 14 90 03/25/21 00:05 78 14 164/76 H 92 03/25/21 00:02 79 13 206/109 H 93 03/25/21 00:00 77 14 89 L 03/24/21 23:50 85 17 88 L 03/24/21 23:40 22 06 23:30 87 15 89 L 03/24/21 23:20 89 15 92 03/24/21 23:16 87 14 92 03/24/21 23:10 84 15 95 03/24/21 23:00 91 H 16 95 03/24/21 22:50 89 19 95 03/24/21 22:40 85 18 97 03/24/21 22:30 90 21 96 03/24/21 22:20 96 H 21 97 03/24/21 22:10 84 16 97 03/24/21 22:01 84 17 164/86 H 96 03/24/21 22:00 83 15 96 03/24/21 21:50 91 H 18 98 03/24/21 21:40 87 11 L 93 03/24/21 21:30 36.7 C 82 14 98 03/24/21 21:20 85 15 97 03/24/21 21:10 85 16 97 03/24/21 21:00 85 15 94 03/24/21 20:50 82 17 97 03/24/21 20:40 89 15 93 03/24/21 20:30 81 16 96 03/24/21 20:20 88 17 98 03/24/21 20:10 80 15 97 03/24/21 20:00 82 16 182/88 H 98 03/24/21 19:50 85 13 95 03/24/21 19:40 95 H 28 H 95 03/24/21 19:30 86 19 96
--- NOTE | 2021-03-25 07:31 | History & Physical Bridge Note ---
Date of Service March 25, 2021 History & Physical Bridge Note I have examined the patient, reviewed the History & Physical and in the interval since the performance of the History & Physical I have noted the following changes of clinical significance: no changes noted As per consult and addendum.
[2021-03-25] MEDS ORDERED: ATROPINE SULFATE 0.1 MG/ML 10ML SYR IV PRN (07:44)
[2021-03-25] MEDS ORDERED: ePHEDrine sulfate 50 MG/ML AMP IV PRN (07:44)
[2021-03-25] MEDS ORDERED: fentaNYL citrate 100 MCG/2 ML VIAL IV PRN (07:44)
[2021-03-25] MEDS ORDERED: HEPARIN SOD (PORCINE) 5,000 UNITS/ML VIAL ONE (07:51)
[2021-03-25] MEDS ORDERED: LIDOCAINE 1% LOCAL 20 ML VIAL ONE (07:52)
[2021-03-25 08:02] LABS: Estimated Average Glucose 154 mg/dl
[2021-03-25] MEDS ORDERED: ONDANSETRON INJ 2 MG/ML 2 ML VIAL ONE (08:55)
[2021-03-25] MEDS ORDERED: INSULIN GLARGINE SOLOSTAR 100 UNITS/ML 3 ML PEN SC ONE ×2 (09:00→21:00)
--- NOTE | 2021-03-25 09:02 | Operative Report ---
Post Operative Report Pre & Post Diagnosis Operation Date: 03/25/21 08:00 Pre-Op Diagnosis: End Stage Renal Disease Post-Op Diagnosis: End Stage Renal Disease I identified the patient and participated in the time-out.: Yes Procedure Operation Date: 03/25/21 08:00 Actual Procedures p Perm Cath Placement Right Jugular Approach, Ultrasound Localization of Right Jugular Vein, Fluoroscopy for Comfirmation(Right) - Obed Gaming MD Surgeon Obed Gaming MD Centerless Grinder None Estimated Blood Loss 2 Findings Consistent with Post-Op Diagnosis Specimens None Anesthesia Type MAC Complications none Disposition Accompanied Patient To Recovery: No Disposition: Surgical ICU Indications This is a 55-year-old gentleman end-stage renal disease. He has a fistula which is not matured. He was admitted with fluid overload in need of emergent dialysis. PermCath was recommended. I have discussed the risks options and benefits of the procedure with the patient. The patient understands the risks options and benefits and agrees to the procedure. Description of Procedure Patient was taken to the angio suite and placed in the supine position. The right side of the neck and chest wall were prepped and draped in a sterile manner. The patient was identified and a timeout performed. Local anesthesia was then administered to the appropriate areas of the neck and chest wall. Ultrasound was then used to locate the right internal jugular vein. The vein compressed easily, had no filing defects, and was patent. The vein was then punctured under direct ultrasound imaging. A guidewire was then passed centrally under fluoroscopic imaging. A stab wound was then made in the anterior chest wall and a 19 cm permcath was passed from the stab wound on the chest wall to the puncture site on the neck. The puncture site was then dilated till the 14Fr peel away sheath was inserted. The permcath was then inserted through the sheath to a central position in the distal superior vena cava. The peel away sheath was then removed. The catheter was then sutured in place using nylon sutures. The puncture was then closed using a 4-0 Vicryl subcuticular suture. Dermabond was used for a dressing on the puncture site. Both ports aspirated and flushed easily and were then packed with heparin. A sterile dressing was applied to the catheter. The patient left the operation room in satisfactory condition and tolerated the procedure well. All needle and sponge counts were correct at the end of the procedure. I attest to the content of the Intraoperative Record and any orders documented therein. Any exceptions are noted below.
[2021-03-25] MEDS: INSULIN ASPART 100 UNITS/ML 3 ML PEN SC SCH ×4 (09:34→20:10)
--- NOTE | 2021-03-25 09:34 | Critical Care Progress Note ---
Date of Service March 25, 2021 Assessment & Plan (1) Acute on chronic respiratory failure: Patient received his permacath today. He tolerated procedure well. Will initiate dialysis. He is stable to be transferred to the floor. Apixaban to be held today and restarted tomorrow given his history of atrial fibrillation. Patient discussed on multidisciplinary rounds. (2) Paroxysmal A-fib: (3) Obesity hypoventilation syndrome: (4) Pulmonary edema: (5) Morbid obesity with BMI of 70 and over, adult: (6) ESRD needing dialysis: Admission and Anticipated Discharge Date Admission Date: March 24, 2021 Subjective Patient seen and examined this morning. He underwent permacath placement. He is complaining of pain in his legs which he notes is chronic. He is eager to go home. He responded well to diuretic therapy yesterday and he is currently on 5 L of oxygen saturating in the mid 90s. Review of Systems Review of Systems: All systems reviewed & are unremarkable except as noted in HPI & below Physical Exam Constitutional: + morbidly obese and + edematous ENMT: external ear and nose normal, oropharynx normal Respiratory: Diffuse crackles and rails. Mild tachypnea. Cardiovascular: Heart Sounds: normal S1, normal S2 and + murmur Extremities: + edema Gastrointestinal (Abdomen): normal bowel sounds, soft, nontender, no hepatosplenomegaly Musculoskeletal: no cyanosis or clubbing, extremities motor strength 5/5 Neurologic: PERRL, EOMI, accommodation nl, no face palsy, no dysarthria Psychiatric: A+Ox3, euthymic affect Results & Data Results & Data ([facility]) Vital Signs (Past 12 Hours) Vital Signs Temp Pulse Pulse Resp BP BP Pulse Ox 03/25/21 07:52 97.9 F 63 20 190/94 H 97 03/25/21 06:20 65 22 94 03/25/21 06:10 65 24 92 03/25/21 06:00 65 17 156/84 H 94 03/25/21 05:50 74 16 93 03/25/21 05:40 63 19 94 03/25/21 05:30 67 18 93 03/25/21 05:20 64 21 94 03/25/21 05:10 63 23 93 03/25/21 05:00 98.1 F 62 10 L 175/77 H 95 03/25/21 04:50 62 16 92 06/04/21 04:40 65 14 93 03/25/21 04:39 73 9 L 03/25/21 04:20 73 12 95 03/25/21 04:10 68 15 92 03/25/21 04:01 66 13 161/59 H 93 03/25/21 04:00 65 15 95 03/25/21 03:50 63 15 95 03/25/21 03:40 61 14 94 03/25/21 03:30 67 20 93 03/25/21 03:20 59 L 15 92 03/25/21 03:10 62 17 93 03/25/21 03:01 66 16 160/67 H 94 03/25/21 03:00 62 16 92 03/25/21 02:50 66 16 94 03/25/21 02:40 68 16 93 03/25/21 02:30 64 13 94 03/25/21 02:20 105 H 15 94 03/25/21 02:10 107 H 14 94 03/25/21 02:00 62 16 164/66 H 94 03/25/21 01:56 64 14 169/66 H 93 03/25/21 01:50 62 18 93 03/25/21 01:40 70 16 94 03/25/21 01:30 71 23 94 03/25/21 01:20 65 16 93 03/25/21 01:10 79 15 94 03/25/21 01:05 91 H 03/25/21 00:50 75 16 87 L 03/25/21 00:40 76 19 90 03/25/21 00:30 0 L 90 03/25/21 00:20 84 14 90 03/25/21 00:10 82 14 90 03/25/21 00:05 78 14 164/76 H 92 03/25/21 00:02 79 13 206/109 H 93 03/25/21 00:00 77 14 89 L 03/24/21 23:50 85 17 88 L 03/24/21 23:40 22 03/24/21 23:30 87 15 89 L 03/24/21 23:20 89 15 92 03/24/21 23:16 87 14 92 03/24/21 23:10 84 15 95 03/24/21 23:00 91 H 16 95 03/24/21 22:50 89 19 95 03/24/21 22:40 85 18 97 03/24/21 22:30 90 21 96 03/24/21 22:20 96 H 21 97 03/24/21 22:10 84 16 97 03/24/21 22:01 84 17 164/86 H 96 03/24/21 22:00 83 15 96 03/24/21 21:50 91 H 18 98 03/24/21 21:40 87 11 L 93 03/24/21 21:30 98.1 F 82 14 98 Vital signs, labs and imaging reviewed Coding Level of Care Code 33910 Subseq Hosp Care Lvl 2 Diagnoses Acute on chronic respiratory failure J96.20 Paroxysmal A-fib I48.0 Obesity hypoventilation syndrome E66.2 Pulmonary edema J81.0 Chronicity: acute Morbid obesity with BMI of 70 and over, adult E66.01; Z68.45 ESRD needing dialysis N18.6; Z99.2 (1) Pulmonary edema Chronicity: acute Qualified Code(s): J81.0 - Acute pulmonary edema
[2021-03-25] MEDS: oxyCODONE/ACETAMINOPHEN 10-325 TAB PO PRN ×2 (09:39→15:54)
[2021-03-25] MEDS: MULTIVITAMIN TAB PO SCH (10:21)
[2021-03-25] MEDS: FERROUS SULFATE 325 MG TAB PO SCH (10:21)
[2021-03-25] MEDS: CALCITRIOL 0.25 MCG CAPSULE PO SCH (10:21)
[2021-03-25] MEDS: DULoxetine HCL 60 MG CAP PO SCH (10:21)
[2021-03-25] MEDS: buPROPion SR 100 MG TABCR PO SCH ×2 (10:21→20:04)
[2021-03-25] MEDS: OMEGA-3 (PURIFIED FISH OIL) 1 GM CAP PO SCH (10:21)
[2021-03-25] MEDS: METOPROLOL SUCC 50MG EXT REL TAB PO SCH (10:21)
[2021-03-25] MEDS: DULoxetine HCL 30 MG CAP PO SCH (10:22)
[2021-03-25] MEDS: FLUTICASONE/VILANTEROL 200/25MCG 14 PUFFS/INHALER INH SCH (10:22)
[2021-03-25] MEDS ORDERED: SODIUM CHLORIDE 0.65% NA SOLN 45 ML (OCEAN) ONE (10:45)
--- NOTE | 2021-03-25 12:29 | Nephrology Progress Note ---
Date of Service March 25, 2021 Assessment & Plan (1) Stage 5 chronic kidney disease not on chronic dialysis: Advanced CKD requiring initiation of SUPPLY AIDE. Damir was taken to the OR for TDC placement this AM. Orders for HD today have been entered into the EMR and reviewed with the dialysis nurse. Will plan for 2 hours, low Qb treatment. 160 optiflux. UF goal 2-3 L as tolerated. Anticipate 2nd treatment tomorrow. AVF not mature for use. Medications appropriately dosed for kidney dysfunction. (2) ESRD needing dialysis: Care coordination consulted to assist with disposition post discharge. Unfortunately, we do not have a dialysis unit in [facility] to accommodate Damir currently. [facility] has requested a bariatric chair but this seems to be delayed until April. (3) Secondary hyperparathyroidism of renal origin: Continue calcitriol as Rx. (4) Chronic anemia: Venofer 100 mg IV and Epogen 44299 units to be provided with HD today. Admission and Anticipated Discharge Date Admission Date: March 24, 2021 Subjective No acute events overnight. Damir was taken to the OR for TDC placement this AM. Review of Systems Review of Systems: All systems reviewed & are unremarkable except as noted in HPI & below Physical Exam Constitutional: well developed and + morbidly obese; no acute distress Eyes: no scleral abnormality and no corneal abnormality ENMT: Mouth: no oral mucosal abnormality and oral mucous membranes not dry Neck: normal visual inspection and trachea midline Respiratory: normal respiratory effort Auscultation: lungs clear to auscultation bilaterally Cardiovascular: Rate/Rhythm: regular rate Heart Sounds: normal S1 and normal S2 Extremities: + edema Musculoskeletal: Extremities: no cyanosis and no clubbing Skin: normal turgor; no lesions Neurologic: Motor/Sensory: no tremor and no asterixis Psychiatric: Orientation: alert and oriented x 3 Results & Data ([facility]) Vital Signs (Past 12 Hours) Vital Signs Temp Pulse Pulse Resp BP BP Pulse Ox 03/25/21 11:10 85 18 89 L 03/25/21 11:00 85 13 81 L 03/25/21 10:50 80 15 89 L 03/25/21 10:46 78 21 164/95 H 93 03/25/21 10:41 82 13 158/69 H 91 03/25/21 10:40 75 15 90 03/25/21 10:36 83 16 156/77 H 91 03/25/21 10:32 87 13 183/63 H 92 03/25/21 10:30 85 33 H 91 03/25/21 10:26 75 18 214/80 H 95 03/25/21 10:21 79 19 181/73 H 95 03/25/21 10:20 81 15 94 03/25/21 10:11 74 15 130/106 H 91 03/25/21 10:10 70 16 98 03/25/21 10:01 78 15 150/86 H 98 03/25/21 10:00 82 17 100 03/25/21 09:56 81 11 L 163/107 H 81 L 03/25/21 09:45 67 17 165/75 H 99 03/25/21 09:41 67 17 174/90 H 93 03/25/21 09:40 66 18 95 03/25/21 09:36 78 12 175/76 H 97 03/25/21 09:35 77 13 98 03/25/21 09:31 36.6 C 73 17 172/86 H 94 03/25/21 09:30 36.7 C 76 19 99 03/25/21 09:25 75 16 183/86 H 98 03/25/21 09:22 36.7 C 75 21 167/64 H 94 03/25/21 09:20 36.7 C 82 23 96 03/25/21 08:00 87 03/25/21 07:52 36.6 C 63 20 190/94 H 97 03/25/21 06:20 65 22 94 03/25/21 06:10 65 24 92 03/25/21 06:00 65 17 156/84 H 94 03/25/21 05:50 74 16 93 03/25/21 05:40 63 19 94 03/25/21 05:30 67 18 93 03/25/21 05:20 64 21 94 03/25/21 05:10 63 23 93 03/25/21 05:00 36.7 C 62 10 L 175/77 H 95 03/25/21 04:50 62 16 92 03/25/21 04:40 65 14 93 03/25/21 04:39 73 9 L 03/25/21 04:20 73 12 95 03/25/21 04:10 68 15 92 03/25/21 04:01 66 13 161/59 H 93 03/25/21 04:00 65 15 95 03/25/21 03:50 63 15 95 03/25/21 03:40 61 14 94 03/25/21 03:30 67 20 93 03/25/21 03:20 59 L 15 92 03/25/21 03:10 62 17 93 03/25/21 03:01 66 16 160/67 H 94 03/25/21 03:00 62 16 92 03/25/21 02:50 66 16 94 03/25/21 02:40 68 16 93 03/25/21 02:30 64 13 94 03/25/21 02:20 105 H 15 94 03/25/21 02:10 107 H 14 94 03/25/21 02:00 62 16 164/66 H 94 03/25/21 01:56 64 14 169/66 H 93 03/25/21 01:50 62 18 93 03/25/21 01:40 70 16 94 03/25/21 01:30 71 23 94 03/25/21 01:20 65 16 93 03/25/21 01:10 79 15 94 03/25/21 01:05 91 H 03/25/21 00:50 75 16 87 L 03/25/21 00:40 76 19 90 03/25/21 00:30 0 L 90 Laboratory Results Laboratory Results - last 24 hr 03/24/21 03/24/21 03/24/21 11:15 11:15 11:50 WBC 11.06 H RBC Hgb 9.0 L Hct MCV 89.9 MCH MCHC 29.7 L RDW Std Deviation RDW Coeff of Talha Plt Count 319 MPV 9.8 Sodium 135 L Potassium 5.2 H Chloride Carbon Dioxide Anion Gap BUN 108 H Creatinine 6.54 H* Est Cr Clr Drug Dosing 28.9 Est GFR ( Amer) Est GFR (Non-Af Amer) BUN/Creatinine Ratio Glucose POC Glucose Estimat Average Glucose Hemoglobin A1c Calcium 8.8 Phosphorus 5.9 H Iron Transferrin Transferrin % Sat Ferritin Urine WBC (Auto) Urine RBC (Auto) U Hyaline Cast (Auto) U Epithel Cells (Auto) Urine Bacteria (Auto) Urine Sperm Nasal Screen MRSA (PCR) SARS-CoV-2 (PCR) NEGATIVE Hepatitis Be Antibody Hepatitis Be Antigen 03/24/21 03/24/21 03/24/21 12:00 16:00 17:50 WBC RBC Hgb Hct MCV MCH MCHC RDW Std Deviation RDW Coeff of Talha Plt Count MPV Sodium Potassium Chloride Carbon Dioxide Anion Gap BUN Creatinine Est Cr Clr Drug Dosing Est GFR ( Amer) Est GFR (Non-Af Amer) BUN/Creatinine Ratio Glucose POC Glucose 155 H Estimat Average Glucose Hemoglobin A1c Calcium Phosphorus Iron Transferrin Transferrin % Sat Ferritin Urine WBC (Auto) 1-5 Urine RBC (Auto) 0-4 U Hyaline Cast (Auto) 1-5 U Epithel Cells (Auto) 5-10 H Urine Bacteria (Auto) Negative Urine Sperm Present A Nasal Screen MRSA (PCR) Negative SARS-CoV-2 (PCR) Hepatitis Be Antibody Hepatitis Be Antigen 03/24/21 03/25/21 03/25/21 21:29 01:54 04:41 WBC RBC Hgb Hct MCV MCH MCHC RDW Std Deviation RDW Coeff of Talha Plt Count MPV Sodium Potassium Chloride Carbon Dioxide Anion Gap BUN Creatinine Est Cr Clr Drug Dosing Est GFR ( Amer) Est GFR (Non-Af Amer) BUN/Creatinine Ratio Glucose POC Glucose 155 H 147 H Estimat Average Glucose 154 Hemoglobin A1c 7.0 H Calcium Phosphorus Iron Transferrin Transferrin % Sat Ferritin Urine WBC (Auto) Urine RBC (Auto) U Hyaline Cast (Auto) U Epithel Cells (Auto) Urine Bacteria (Auto) Urine Sperm Nasal Screen MRSA (PCR) SARS-CoV-2 (PCR) Hepatitis Be Antibody Hepatitis Be Antigen 03/25/21 03/25/21 03/25/21 04:41 04:41 07:38 WBC 9.49 RBC 3.38 L Hgb 8.9 L Hct 29.7 L MCV 87.9 MCH 26.3 MCHC 30.0 L RDW Std Deviation 53.4 H RDW Coeff of Talha 17.0 H Plt Count 269 MPV 9.3 Sodium 139 Potassium 4.2 D Chloride 105 Carbon Dioxide 28 Anion Gap 6.0 BUN 96 H Creatinine 6.34 H* Est Cr Clr Drug Dosing 29.8 Est GFR ( Amer) 10.6 Est GFR (Non-Af Amer) 9.2 BUN/Creatinine Ratio 15.2 Glucose 126 H POC Glucose 130 H Estimat Average Glucose Hemoglobin A1c Calcium 8.9 Phosphorus Iron 40 Transferrin 252 Transferrin % Sat 11 L Ferritin 104.6 Urine WBC (Auto) Urine RBC (Auto) U Hyaline Cast (Auto) U Epithel Cells (Auto) Urine Bacteria (Auto) Urine Sperm Nasal Screen MRSA (PCR) SARS-CoV-2 (PCR) Hepatitis Be Antibody Hepatitis Be Antigen 03/25/21 03/25/21 10:42 11:37 WBC RBC Hgb Hct MCV MCH MCHC RDW Std Deviation RDW Coeff of Talha Plt Count MPV Sodium Potassium Chloride Carbon Dioxide Anion Gap BUN Creatinine Est Cr Clr Drug Dosing Est GFR ( Amer) Est GFR (Non-Af Amer) BUN/Creatinine Ratio Glucose POC Glucose 211 H Estimat Average Glucose Hemoglobin A1c Calcium Phosphorus Iron Transferrin Transferrin % Sat Ferritin Urine WBC (Auto) Urine RBC (Auto) U Hyaline Cast (Auto) U Epithel Cells (Auto) Urine Bacteria (Auto) Urine Sperm Nasal Screen MRSA (PCR) SARS-CoV-2 (PCR) Hepatitis Be Antibody Pending Hepatitis Be Antigen Pending PG Care Time/CCT Total # of Minutes Spent Total Time Spent with Patient: Total time spent is greater than 50% in coordination of care (as documented) at patient's floor/unit and/or counseling patient: Coding Level of Care Code 62408 Subseq Hosp Care Lvl 3 Diagnoses Stage 5 chronic kidney disease not on chronic dialysis N18.5 ESRD needing dialysis N18.6; Z99.2 Secondary hyperparathyroidism of renal origin N25.81 Chronic anemia D64.9
[2021-03-25] MEDS ORDERED: EPOETIN ALFA 20,000 UNITS/ML VIAL IV ONE (12:45)
[2021-03-25] MEDS ORDERED: IRON SUCROSE 100 MG in SYRINGE 0 ML IV ONE (13:00)
--- NOTE | 2021-03-25 14:13 | Pharmacy Report ---
Pharmacy Glycemic Short Note 2 - Date of Service March 25, 2021 - Glycemic Short BSG Results (Last 24 hours): 03/24/21 03/24/21 03/25/21 17:50 21:29 01:54 Glucose POC Glucose 155 H 155 H 147 H 03/25/21 03/25/21 03/25/21 04:41 07:38 11:37 Glucose 126 H POC Glucose 130 H 211 H OUTPATIENT ANTIDIABETIC REGIMEN: * Tresiba 44 units BID * Novolog 36 units TID * Ozempic * A1c 7.0% 03/25/21- unreliable in the setting of HD ASSESSMENT: * Mr. Yost received permath this morning with plans for two hour HD session today * BSGs within range over night, patient ordered diet with breakfast, lunch BSG elevated * Parameters currently set at weight based stress of 3 (based on adjusted BW), can tighten if BSGs remain elevated * Lantus scale for PM up to weight based stress of 3. PLAN FOR INPATIENT GLYCEMIC CONTROL: * Hold outpatient oral diabetes medications * Basal insulin * Lantus 30 units SQ this AM, 30/40 units this evening * Bolus insulin * NovoLog per scale ACHS or Q6hrs while NPO * Goal Range: Low 110 mg/dL - High 140 mg/dL * Correction Factor: 10 mg/dL/unit * Nutritional / Prandial insulin per carb ratio of 1 unit per 3 grams CHO consumed
--- NOTE | 2021-03-25 15:16 | Anesthesiology Progress Note ---
Date of Service March 25, 2021 Anesthesia Post Procedure Vital Signs Vital Signs: Temp Pulse Pulse Resp BP BP Pulse Ox 03/25/21 13:10 78 18 92 03/25/21 13:00 76 10 L 92 03/25/21 12:50 65 17 93 03/25/21 12:40 66 14 93 03/25/21 12:30 66 15 91 03/25/21 12:20 0 L 90 03/25/21 12:10 75 15 89 L 03/25/21 12:00 77 16 89 L 03/25/21 11:50 92 H 90 03/25/21 11:40 79 15 92 03/25/21 11:30 76 12 93 03/25/21 11:20 77 19 91 03/25/21 11:10 85 18 89 L 03/25/21 11:00 85 13 81 L 03/25/21 10:50 80 15 89 L 03/25/21 10:46 78 21 164/95 H 93 03/25/21 10:41 82 13 158/69 H 91 03/25/21 10:40 75 15 90 03/25/21 10:36 83 16 156/77 H 91 03/25/21 10:32 87 13 183/63 H 92 03/25/21 10:30 85 33 H 91 03/25/21 10:26 75 18 214/80 H 95 03/25/21 10:21 79 19 181/73 H 95 03/25/21 10:20 81 15 94 03/25/21 10:11 74 15 130/106 H 91 03/25/21 10:10 70 16 98 03/25/21 10:01 78 15 150/86 H 98 03/25/21 10:00 82 17 100 03/25/21 09:56 81 11 L 163/107 H 81 L 03/25/21 09:45 67 17 165/75 H 99 03/25/21 09:41 67 17 174/90 H 93 03/25/21 09:40 66 18 95 03/25/21 09:36 78 12 175/76 H 97 03/25/21 09:35 77 13 98 03/25/21 09:31 36.6 C 73 17 172/86 H 94 03/25/21 09:30 36.7 C 76 19 99 03/25/21 09:25 75 16 183/86 H 98 03/25/21 09:22 36.7 C 75 21 167/64 H 94 03/25/21 09:20 36.7 C 82 23 96 03/25/21 08:00 87 06 07:52 36.6 C 63 20 190/94 H 97 03/25/21 06:20 65 22 94 03/25/21 06:10 65 24 92 03/25/21 06:00 65 17 156/84 H 94 03/25/21 05:50 74 16 93 03/25/21 05:40 63 19 94 03/25/21 05:30 67 18 93 03/25/21 05:20 64 21 94 03/25/21 05:10 63 23 93 06 05:00 36.7 C 62 10 L 175/77 H 95 03/25/21 04:50 62 16 92 03/25/21 04:40 65 14 93 03/25/21 04:39 73 9 L 06 04:20 73 12 95 03/25/21 04:10 68 15 92 03/25/21 04:01 66 13 161/59 H 93 03/25/21 04:00 65 15 95 03/25/21 03:50 63 15 95 03/25/21 03:40 61 14 94 03/25/21 03:30 67 20 93 03/25/21 03:20 59 L 15 92 03/25/21 03:10 62 17 93 03/25/21 03:01 66 16 160/67 H 94 03/25/21 03:00 62 16 92 03/25/21 02:50 66 16 94 03/25/21 02:40 68 16 93 06 02:30 64 13 94 03/25/21 02:20 105 H 15 94 03/25/21 02:10 107 H 14 94 03/25/21 02:00 62 16 164/66 H 94 03/25/21 01:56 64 14 169/66 H 93 03/25/21 01:50 62 18 93 03/25/21 01:40 70 16 94 03/25/21 01:30 71 23 94 03/25/21 01:20 65 16 93 03/25/21 01:10 79 15 94 03/25/21 01:05 91 H 03/25/21 00:50 75 16 87 L 03/25/21 00:40 76 19 90 03/25/21 00:30 0 L 90 03/25/21 00:20 84 14 90 03/25/21 00:10 82 14 90 03/25/21 00:05 78 14 164/76 H 92 03/25/21 00:02 79 13 206/109 H 93 03/25/21 00:00 77 14 89 L 03/24/21 23:50 85 17 88 L 03/24/21 23:40 22 03/24/21 23:30 87 15 89 L 03/24/21 23:20 89 15 92 03/24/21 23:16 87 14 92 03/24/21 23:10 84 15 95 03/24/21 23:00 91 H 16 95 03/24/21 22:50 89 19 95 03/24/21 22:40 85 18 97 03/24/21 22:30 90 21 96 03/24/21 22:20 96 H 21 97 03/24/21 22:10 84 16 97 03/24/21 22:01 84 17 164/86 H 96 03/24/21 22:00 83 15 96 03/24/21 21:50 91 H 18 98 03/24/21 21:40 87 11 L 93 03/24/21 21:30 36.7 C 82 14 98 03/24/21 21:20 85 15 97 03/24/21 21:10 85 16 97 03/24/21 21:00 85 15 94 03/24/21 20:50 82 17 97 03/24/21 20:40 89 15 93 03/24/21 20:30 81 16 96 03/24/21 20:20 88 17 98 03/24/21 20:10 80 15 97 03/24/21 20:00 82 16 182/88 H 98 03/24/21 19:50 85 13 95 03/24/21 19:40 95 H 28 H 95 03/24/21 19:30 86 19 96 03/24/21 19:20 91 H 20 97 03/24/21 19:10 80 15 93 03/24/21 19:00 89 27 H 94 03/24/21 16:40 36.8 C 76 78 22 147/73 H 96 03/24/21 16:10 80 15 94 03/24/21 16:08 74 98 03/24/21 15:40 75 19 94 03/24/21 15:30 84 16 96 03/24/21 15:26 17 168/91 H 91 03/24/21 15:20 80 16 96 Pain Intensity Hip: Pain Intensity: 0 Bilateral Leg: Pain Intensity: 4 Transfer of Care Handoff Completed per policy Notes Mental Status: alert / awake / arousable and participated in evaluation Patient Amnestic to Procedure: Yes Nausea / Vomiting: adequately controlled Pain: adequately controlled Airway Patency, RR, SpO2: stable & adequate BP & HR: stable & adequate Hydration State: stable & adequate Anesthetic Complications: no major complications apparent and Pt Satisfied with anesthetic care
--- NOTE | 2021-03-25 19:11 | Hospitalist Progress Note ---
Date of Service March 25, 2021 Assessment & Plan (1) ESRD needing dialysis: This is a 55yo M with PMH of morbin obesity, CKD V with recent AV fistula placement on 03/10/21, DM II, chronic diastolic heart failure, anemia of chronic disease, paroxysmal A fib on anticoagulation, noctural hypoxemia and other medical problems listed below who presents from nephrology clinic with shortness of breath and need for dialysis via tunneled dialysis catheter. Follows with Dr. Weems of [facility] nephro and has had progressively worsening renal function AV fistula placed by Dr. Gaming on 03/10/2021 but not yet viable for dialysis S/P perm Cath Placement Right Jugular Approach, Ultrasound Localization of Right Jugular Vein, Fluoroscopy for Comfirmation performed by Dr. Gaming Nephrology on board Will get dialyzed today (2) Acute on chronic respiratory failure: (3) Pulmonary edema: (4) Obesity hypoventilation syndrome: Possible acute on chronic diastolic (congestive) heart failure due to volume overload CXR with interstitial thickening and interval development of extensive asymmetric right lung airspace opacities. The findings may reflect pneumonia or asymmetric pulmonary edema Received Bumex yesterday Plan to HD today Continue oxygen supplement (5) Morbid obesity with BMI of 70 and over, adult: Counseling on weight loss (6) Paroxysmal A-fib: Continue diltiazem, Eliquis for anticoagulation (7) Diabetes mellitus: A1c 8.4 SSI while in-patient BSG AC HS (8) Chronic anemia: Just received IV Venofer Hgb 9- baseline DVT Ppx: Eliquis Code status: FULL PCP: Henry Weeks Dispo: Transfer out of the ICU Admission and Anticipated Discharge Date Admission Date: March 24, 2021 Subjective Pt was seen and examined for follow up of SOB due to fluid overload Lying in bed with no acute distress Pt said that his breathing is much better Continue to require oxygen supplement Denies any chest pain, palpitation, dizziness and fever Review of Systems Review of Systems: All systems reviewed & are unremarkable except as noted in Subjective Physical Exam Physical Exam: General- Obesity Head- atraumatic Eyes- PERRL, EOMI, ENT- oropharynx clear Neck- supple, no JVD Lungs- clear to auscultation Heart- regular rhythm; no murmur Abdomen- normal bowel sounds, soft, nontender Extremities- no calf tenderness, +edema Neuro- alert, oriented x 3; PERRL, EOMI; no facial palsy; no dysarthria Skin- warm & dry Results & Data Results & Data ([facility]) Vital Signs (Past 12 Hours) Vital Signs Temp Pulse Pulse Resp BP BP Pulse Ox 03/25/21 16:40 76 03/25/21 13:10 78 18 92 03/25/21 13:00 76 10 L 92 03/25/21 12:50 65 17 93 03/25/21 12:40 66 14 93 03/25/21 12:30 66 15 91 03/25/21 12:20 0 L 90 03/25/21 12:10 75 15 89 L 03/25/21 12:00 77 16 89 L 03/25/21 11:50 92 H 90 03/25/21 11:40 79 15 92 03/25/21 11:30 76 12 93 03/25/21 11:20 77 19 91 03/25/21 11:10 85 18 89 L 03/25/21 11:00 85 13 81 L 03/25/21 10:50 80 15 89 L 03/25/21 10:46 78 21 164/95 H 93 03/25/21 10:41 82 13 158/69 H 91 03/25/21 10:40 75 15 90 03/25/21 10:36 83 16 156/77 H 91 03/25/21 10:32 87 13 183/63 H 92 03/25/21 10:30 85 33 H 91 03/25/21 10:26 75 18 214/80 H 95 03/25/21 10:21 79 19 181/73 H 95 03/25/21 10:20 81 15 94 03/25/21 10:11 74 15 130/106 H 91 03/25/21 10:10 70 16 98 03/25/21 10:01 78 15 150/86 H 98 03/25/21 10:00 82 17 100 03/25/21 09:56 81 11 L 163/107 H 81 L 03/25/21 09:45 67 17 165/75 H 99 03/25/21 09:41 67 17 174/90 H 93 03/25/21 09:40 66 18 95 03/25/21 09:36 78 12 175/76 H 97 03/25/21 09:35 77 13 98 03/25/21 09:31 36.6 C 73 17 172/86 H 94 03/25/21 09:30 36.7 C 76 19 99 03/25/21 09:25 75 16 183/86 H 98 03/25/21 09:22 36.7 C 75 21 167/64 H 94 03/25/21 09:20 36.7 C 82 23 96 03/25/21 08:00 87 03/25/21 07:52 36.6 C 63 20 190/94 H 97 (1) Pulmonary edema Chronicity: acute Qualified Code(s): J81.0 - Acute pulmonary edema
[2021-03-25] MEDS: dilTIAZem ER 180 MG CAPCR PO SCH (20:05)
[2021-03-25] MEDS: PRAVASTATIN SOD 10 MG TAB PO SCH (20:08)
[2021-03-26] MEDS: oxyCODONE/ACETAMINOPHEN 10-325 TAB PO PRN ×3 (00:26→17:44)
[2021-03-26 06:32] LABS: Hematocrit (blood only) 27.8 % (42-52); Hemoglobin 8.2 g/dL (14.0-18.0); Mean Corpuscular Hemoglobin 26.8 pg (25-34); Mean Corpuscular Hgb Conc 29.5 g/dL (32-36); Mean Corpuscular Volume 90.8 fL (80-100); Mean Platelet Volume 9.8 fL (7.4-10.4); Platelet Count 245 K/uL (130-400); RDW Coefficient of Variation 16.9 % (11.5-14.5); RDW Standard Deviation 55.7 fL (36.4-46.3); Red Blood Count 3.06 M/uL (4.7-6.1); White Blood Count 7.39 K/uL (4.8-10.8)
[2021-03-26 07:43] LABS: BUN Creatinine Ratio 14.5 (10-20); Calcium 8.1 mg/dl (8.5-10.1); Creatinine Clr Calc Pharmacy 30.4 ml/min; Est GFR (African American) 10.4 ml/min; Magnesium 2.6 mg/dl (1.8-2.4); Phosphorus 6.9 mg/dl (2.5-4.9); Potassium 4.5 mmol/L (3.5-5.1)
[2021-03-26] MEDS: DULoxetine HCL 30 MG CAP PO SCH (08:23)
[2021-03-26] MEDS: DULoxetine HCL 60 MG CAP PO SCH (08:23)
[2021-03-26] MEDS: OMEGA-3 (PURIFIED FISH OIL) 1 GM CAP PO SCH (08:23)
[2021-03-26] MEDS: MULTIVITAMIN TAB PO SCH (08:23)
[2021-03-26] MEDS: FERROUS SULFATE 325 MG TAB PO SCH (08:23)
[2021-03-26] MEDS: APIXABAN 5 MG TABLET PO SCH ×2 (08:23→20:48)
[2021-03-26] MEDS: buPROPion SR 100 MG TABCR PO SCH ×2 (08:23→20:48)
[2021-03-26] MEDS: FLUTICASONE/VILANTEROL 200/25MCG 14 PUFFS/INHALER INH SCH (08:25)
[2021-03-26] MEDS: INSULIN ASPART 100 UNITS/ML 3 ML PEN SC SCH ×4 (08:26→20:51)
[2021-03-26] MEDS: INSULIN GLARGINE SOLOSTAR 100 UNITS/ML 3 ML PEN SC SCH ×2 (08:27→20:52)
[2021-03-26] MEDS ORDERED: LIDOCAINE 4% CREAM 15 GM TUBE EXT PRN (09:13)
--- NOTE | 2021-03-26 10:50 | Nephrology Progress Note ---
Date of Service March 26, 2021 Assessment & Plan (1) Stage 5 chronic kidney disease not on chronic dialysis: * 1st run HD today. Attempt 2-3 L UF * Will plan 2nd treatment for am * CBC, PRP in am * AVF created 03/10/21 - not yet mature for use (2) ESRD needing dialysis: * Care coordination consulted to assist with disposition post discharge * [facility] has requested a b[facility]ric chair - delayed until April (3) Secondary hyperparathyroidism of renal origin: * Continue calcitriol (4) Chronic anemia: * Venofer 100 mg IV and Epogen 35396 units to be provided with HD today Admission and Anticipated Discharge Date Admission Date: March 24, 2021 Subjective Mr. Yost was seen & examined in his hospital room this morning. He underwent surgical placement of a R IJ THC yesterday. He currently denies angina or dyspnea. He does c/o nausea. He is scheduled for his 1st run HD later this morning. Review of Systems Constitutional: no fever Eyes: no problem reported Ear, Nose, Mouth, Throat: no problem reported Respiratory: + dyspnea Cardiovascular: + edema; no chest pain and no palpitations Gastrointestinal: + nausea; no abdominal pain and no vomiting Neurologic: no confusion Physical Exam Constitutional: + morbidly obese; not in distress Eyes: PERRL, conjunctivae normal, anicteric sclerae ENMT: external ear and nose normal, oropharynx normal Neck: trachea midline, no thyromegaly Respiratory: normal respiratory effort, lungs clear to auscultation Cardiovascular: Rate/Rhythm: regular rate and regular rhythm Heart Sounds: no murmur Extremities: + edema (tense pretibial pitting edema bilaterally) and + AV fistula (+bruit) Gastrointestinal (Abdomen): normal bowel sounds, soft, nontender, no hepatosplenomegaly Musculoskeletal: Extremities: no cyanosis Skin: no rashes, warm and dry Neurologic: awake; not confused Results & Data ([facility]) Vital Signs (Past 12 Hours) Vital Signs Temp Pulse Pulse Resp BP Pulse Ox 03/26/21 07:25 59 L 03/26/21 07:23 37.0 C 61 16 145/77 H 94 03/26/21 02:26 36.6 C 64 20 125/63 94 03/25/21 23:37 66 Laboratory Tests 06/04/21 06/05/21 06/05/21 04:41 05:51 05:51 WBC 7.39 Hgb 8.2 L Hct 27.8 L Plt Count 245 Sodium 139 Potassium 4.5 Chloride 104 Carbon Dioxide 27 BUN 96 H 93 H Creatinine 6.34 H* 6.47 H* PG Care Time/CCT Total # of Minutes Spent Total Time Spent with Patient: Total time spent is greater than 50% in coordination of care (as documented) at patient's floor/unit and/or counseling patient: Coding Level of Care Code 42242 Subseq Hosp Care Lvl 3 Diagnoses Stage 5 chronic kidney disease not on chronic dialysis N18.5 ESRD needing dialysis N18.6; Z99.2 Secondary hyperparathyroidism of renal origin N25.81 Chronic anemia D64.9
[2021-03-26] MEDS: METOPROLOL SUCC 50MG EXT REL TAB PO SCH (10:57)
--- NOTE | 2021-03-26 18:45 | Hospitalist Progress Note ---
Date of Service March 26, 2021 Assessment & Plan (1) ESRD needing dialysis: This is a 55yo M with PMH of morbin obesity, CKD V with recent AV fistula placement on 03/10/21, DM II, chronic diastolic heart failure, anemia of chronic disease, paroxysmal A fib on anticoagulation, noctural hypoxemia and other medical problems listed below who presents from nephrology clinic with shortness of breath and need for dialysis via tunneled dialysis catheter. Follows with Dr. Weems of [facility] [place] [place] nephro and has had progressively worsening renal function AV fistula placed by Dr. Gaming on 03/10/2021 but not yet viable for dialysis S/P perm Cath Placement Right Jugular Approach, Ultrasound Localization of Right Jugular Vein, Fluoroscopy for Confirmation performed by Dr. Gaming Nephrology on board Plan to get HD today [facility] [place] has requested a bariatric chair - delayed until April Case management is looking for a dialysis facility with a bariatric chair (2) Acute on chronic respiratory failure: (3) Pulmonary edema: (4) Obesity hypoventilation syndrome: Possible acute on chronic diastolic (congestive) heart failure due to volume overload CXR with interstitial thickening and interval development of extensive asymmetric right lung airspace opacities. The findings may reflect pneumonia or asymmetric pulmonary edema Received Bumex on the day of admission Plan to HD today and tomorrow Continue oxygen supplement (5) Morbid obesity with BMI of 70 and over, adult: Counseling on weight loss (6) Paroxysmal A-fib: Continue diltiazem, Eliquis for anticoagulation (7) Diabetes mellitus: A1c 8.4 SSI while in-patient BSG AC HS (8) Chronic anemia: Just received IV Venofer Hgb 8.2 today with baseline Hgb 9 DVT Ppx: Eliquis Code status: FULL PCP: Henry Weeks Dispo: Will discharge once medically stable Admission and Anticipated Discharge Date Admission Date: March 24, 2021 Subjective Pt was seen and examined for follow up of SOB Sitting in chair with no distress Pt said that his breathing feels much better He did not get HD yesterday He is planning to get his 1st HD today Denies any chest pain, palpitation, dizziness and fever Review of Systems Review of Systems: All systems reviewed & are unremarkable except as noted in Subjective Physical Exam Physical Exam: General- Obese Head- atraumatic Eyes- PERRL, EOMI, ENT- oropharynx clear Neck- supple, no JVD Lungs- clear to auscultation Heart- regular rhythm; no murmur Abdomen- normal bowel sounds, soft, nontender Extremities- no calf tenderness, +edema Neuro- alert, oriented x 3; PERRL, EOMI; no facial palsy; no dysarthria Skin- warm & dry Results & Data Results & Data ([facility]) Vital Signs (Past 12 Hours) Vital Signs Temp Pulse Pulse Pulse Resp BP BP 03/26/21 16:10 36.5 C 71 03/26/21 15:40 64 157/78 H 03/26/21 15:20 94 H 125/77 03/26/21 15:14 65 03/26/21 15:00 64 145/74 H 03/26/21 14:40 86 151/97 H 03/26/21 14:20 65 177/78 H 03/26/21 13:55 36.5 C 73 03/26/21 11:37 36.6 C 63 20 145/69 H 03/26/21 10:58 67 147/71 H 03/26/21 07:25 59 L 03/26/21 07:23 37.0 C 61 16 145/77 H Pulse Ox 03/26/21 16:10 03/26/21 15:40 03/26/21 15:20 03/26/21 15:14 03/26/21 15:00 03/26/21 14:40 03/26/21 14:20 03/26/21 13:55 03/26/21 11:37 96 03/26/21 10:58 03/26/21 07:25 03/26/21 07:23 94 (1) Pulmonary edema Chronicity: acute Qualified Code(s): J81.0 - Acute pulmonary edema
[2021-03-26] MEDS: dilTIAZem ER 180 MG CAPCR PO SCH (20:49)
[2021-03-26] MEDS: PRAVASTATIN SOD 10 MG TAB PO SCH (20:50)
[2021-03-27] MEDS: oxyCODONE/ACETAMINOPHEN 10-325 TAB PO PRN ×2 (04:23→15:50)
[2021-03-27] MEDS ORDERED: SODIUM CHLORIDE 0.9% 1000ML 1,000 ML IV PRN (07:00)
[2021-03-27 07:21] LABS: Hematocrit (blood only) 29.4 % (42-52); Hemoglobin 8.4 g/dL (14.0-18.0); Mean Corpuscular Hemoglobin 26.1 pg (25-34); Mean Corpuscular Hgb Conc 28.6 g/dL (32-36); Mean Corpuscular Volume 91.3 fL (80-100); Mean Platelet Volume 9.6 fL (7.4-10.4); Platelet Count 257 K/uL (130-400); RDW Coefficient of Variation 16.8 % (11.5-14.5); RDW Standard Deviation 55.3 fL (36.4-46.3); Red Blood Count 3.22 M/uL (4.7-6.1); White Blood Count 7.77 K/uL (4.8-10.8)
[2021-03-27 07:40] LABS: BUN Creatinine Ratio 13.6 (10-20); Calcium 8.1 mg/dl (8.5-10.1); Creatinine Clr Calc Pharmacy 33.5 ml/min; Est GFR (African American) 11.6 ml/min; Potassium 4.7 mmol/L (3.5-5.1)
[2021-03-27] MEDS: INSULIN ASPART 100 UNITS/ML 3 ML PEN SC SCH ×4 (08:35→20:48)
[2021-03-27] MEDS: INSULIN GLARGINE SOLOSTAR 100 UNITS/ML 3 ML PEN SC SCH ×2 (08:36→20:48)
[2021-03-27] MEDS ORDERED: IRON SUCROSE 200 MG in 0.9 % SODIUM CHLORIDE 100 ML IV ONE (11:01)
--- NOTE | 2021-03-27 11:01 | Nephrology Progress Note ---
Date of Service March 27, 2021 Assessment & Plan (1) Stage 5 chronic kidney disease not on chronic dialysis: * 2nd run HD today: 3 hours, attempt 2 L UF * Will plan 3rd treatment for am * CBC, PRP in am * AVF created 03/10/21 - not yet mature for use (2) ESRD needing dialysis: * Care coordination consulted to assist with disposition post discharge * [facility] [place] has requested a bariatric chair - delayed until April (3) Secondary hyperparathyroidism of renal origin: * Continue calcitriol (4) Chronic anemia: * Will provide IV iron w/ HD today * Epogen 27198 units provided with HD 03/26/21 Admission and Anticipated Discharge Date Admission Date: March 24, 2021 Subjective Mr. Yost was seen & examined in his hospital room this morning. He had his 1st run HD yesterday and tolerated 3L UF. IJ THC ran A-->A without alarm. Mr. Yost reports that his breathing is improved. He still remains mildly nauseated. Review of Systems Constitutional: no fever Eyes: no problem reported Ear, Nose, Mouth, Throat: no problem reported Respiratory: + dyspnea Cardiovascular: + edema; no chest pain and no palpitations Gastrointestinal: + nausea; no abdominal pain and no vomiting Neurologic: no confusion Physical Exam Constitutional: + morbidly obese; not in distress Eyes: PERRL, conjunctivae normal, anicteric sclerae ENMT: external ear and nose normal, oropharynx normal Neck: trachea midline, no thyromegaly R IJ THC w/ clean, dry dressing Respiratory: normal respiratory effort, lungs clear to auscultation Cardiovascular: Rate/Rhythm: regular rate and regular rhythm Heart Sounds: no murmur Extremities: + edema (tense pretibial pitting edema bilaterally) and + AV fistula (+bruit) Gastrointestinal (Abdomen): normal bowel sounds, soft, nontender, no hepatosplenomegaly Musculoskeletal: Extremities: no cyanosis Skin: no rashes, warm and dry Neurologic: awake; not confused Results & Data ([facility]) Vital Signs (Past 12 Hours) Vital Signs Temp Pulse Pulse Resp BP Pulse Ox 03/27/21 07:24 62 03/27/21 06:44 36.5 C 58 L 20 135/70 94 03/27/21 03:42 36.6 C 71 20 134/71 96 03/26/21 23:56 80 Laboratory Tests 03/27/21 03/27/21 06:13 06:13 WBC 7.77 Hgb 8.4 L Hct 29.4 L Plt Count 257 Sodium 136 Potassium 4.7 Chloride 102 BUN 80 H Creatinine 5.90 H* D Glucose 96 Calcium 8.1 L PG Care Time/CCT Total # of Minutes Spent Total Time Spent with Patient: Total time spent is greater than 50% in coordination of care (as documented) at patient's floor/unit and/or counseling patient: Coding Level of Care Code 50419 Subseq Hosp Care Lvl 3 Diagnoses Stage 5 chronic kidney disease not on chronic dialysis N18.5 ESRD needing dialysis N18.6; Z99.2 Secondary hyperparathyroidism of renal origin N25.81 Chronic anemia D64.9
--- NOTE | 2021-03-27 11:12 | Pharmacy Report ---
Pharmacy Glycemic Short Note 2 - Date of Service March 27, 2021 - Glycemic Short BSG Results (Last 24 hours): 03/26/21 03/26/21 03/26/21 11:27 16:28 19:45 Glucose POC Glucose 150 H 114 H 106 H 03/27/21 03/27/21 06:13 07:14 Glucose 96 POC Glucose 112 H OUTPATIENT ANTIDIABETIC REGIMEN: * Tresiba 44 units BID * Novolog 36 units TID * Ozempic * A1c 7.0% 03/25/21- unreliable in the setting of HD ASSESSMENT: 03/27 * Patient had first HD run yesterday, receiving IV Iron today with HD again * Blood sugars well controlled with Lantus 40 units BID started yesterday, continue * No further changes needed in insulin regimen at this time 03/25 * Mr. Yost received permath this morning with plans for two hour HD session today * BSGs within range over night, patient ordered diet with breakfast, lunch BSG elevated * Parameters currently set at weight based stress of 3 (based on adjusted BW), can tighten if BSGs remain elevated * Lantus scale for PM up to weight based stress of 3. PLAN FOR INPATIENT GLYCEMIC CONTROL: * Hold outpatient oral diabetes medications * Basal insulin * Lantus 40 units SQ BID * Bolus insulin * NovoLog per scale ACHS or Q6hrs while NPO * Goal Range: Low 110 mg/dL - High 140 mg/dL * Correction Factor: 10 mg/dL/unit * Nutritional / Prandial insulin per carb ratio of 1 unit per 3 grams CHO consumed
[2021-03-27] MEDS ORDERED: IRON SUCROSE 200 MG in SYRINGE 0 ML IV SCH (11:15)
[2021-03-27] MEDS: MULTIVITAMIN TAB PO SCH (12:55)
[2021-03-27] MEDS: DULoxetine HCL 30 MG CAP PO SCH (12:55)
[2021-03-27] MEDS: METOPROLOL SUCC 50MG EXT REL TAB PO SCH (12:56)
[2021-03-27] MEDS: DULoxetine HCL 60 MG CAP PO SCH (12:56)
[2021-03-27] MEDS: OMEGA-3 (PURIFIED FISH OIL) 1 GM CAP PO SCH (12:56)
[2021-03-27] MEDS: FERROUS SULFATE 325 MG TAB PO SCH (12:56)
[2021-03-27] MEDS: buPROPion SR 100 MG TABCR PO SCH ×2 (12:57→20:50)
[2021-03-27] MEDS: APIXABAN 5 MG TABLET PO SCH ×2 (12:59→20:50)
[2021-03-27] MEDS: FLUTICASONE/VILANTEROL 200/25MCG 14 PUFFS/INHALER INH SCH (13:00)
--- NOTE | 2021-03-27 18:07 | Hospitalist Progress Note ---
Date of Service March 27, 2021 Assessment & Plan (1) ESRD needing dialysis: This is a 55yo M with PMH of morbin obesity, CKD V with recent AV fistula placement on 03/10/21, DM II, chronic diastolic heart failure, anemia of chronic disease, paroxysmal A fib on anticoagulation, noctural hypoxemia and other medical problems listed below who presents from nephrology clinic with shortness of breath and need for dialysis via tunneled dialysis catheter. Follows with Dr. Weems of [facility] [place] [place] and has had progressively worsening renal function AV fistula placed by Dr. Gaming on 03/10/2021 but not yet viable for dialysis S/P perm Cath Placement Right Jugular Approach, Ultrasound Localization of Right Jugular Vein, Fluoroscopy for Confirmation performed by Dr. Gaming Nephrology on board Patient had his first dialysis yesterday and tolerated well He is scheduled to have his second dialysis today [facility] has requested a bariatric chair - delayed until April Case management is looking for a dialysis facility with a bariatric chair (2) Acute on chronic respiratory failure: (3) Pulmonary edema: (4) Obesity hypoventilation syndrome: Possible acute on chronic diastolic (congestive) heart failure due to volume overload CXR with interstitial thickening and interval development of extensive asymmetric right lung airspace opacities. The findings may reflect pneumonia or asymmetric pulmonary edema Received Bumex on the day of admission Fluid removal during dialysis Continue oxygen supplement Will continue to titrate oxygen off (5) Morbid obesity with BMI of 70 and over, adult: Counseling on weight loss (6) Paroxysmal A-fib: Continue diltiazem, Eliquis for anticoagulation (7) Diabetes mellitus: A1c 8.4 SSI while in-patient BSG AC HS (8) Chronic anemia: Just received IV Venofer Hgb 8.4 today with baseline Hgb 9 Weakness PT/OT eval Fall precaution DVT Ppx: Eliquis Code status: FULL PCP: Henry Weeks Dispo: Will discharge once medically stable Admission and Anticipated Discharge Date Admission Date: March 24, 2021 Subjective Pt was seen and examined for follow up of SOB Sitting in chair with no acute distress, comfortable with at bedside Patient had his first dialysis yesterday and tolerated well He said that his breathing feels much better today He said that he feels weak in his legs with ambulation Denies any chest pain, palpitation, dizziness and fever Review of Systems Review of Systems: All systems reviewed & are unremarkable except as noted in Subjective Physical Exam 2 Physical Exam: General- Obese Head- atraumatic Eyes- PERRL, EOMI, ENT- oropharynx clear Neck- supple, no JVD Lungs- clear to auscultation Heart- regular rhythm; no murmur Abdomen- normal bowel sounds, soft, nontender Extremities- no calf tenderness, +edema Neuro- alert, oriented x 3; PERRL, EOMI; no facial palsy; no dysarthria Skin- warm & dry Results & Data Results & Data ([facility]) Vital Signs (Past 12 Hours) Vital Signs Temp Pulse Pulse Pulse Resp BP BP 03/27/21 16:00 71 03/27/21 15:06 36.6 C 76 18 177/82 H 03/27/21 14:40 36.6 C 70 174/78 H 03/27/21 14:20 75 173/81 H 03/27/21 14:00 67 144/83 H 03/27/21 13:40 75 153/80 H 03/27/21 13:20 67 182/81 H 03/27/21 13:00 64 166/87 H 03/27/21 12:40 68 185/90 H 03/27/21 12:20 69 179/86 H 03/27/21 12:00 67 184/95 H 03/27/21 11:40 60 172/79 H 03/27/21 11:25 36.6 C 63 64 03/27/21 11:12 36.5 C 73 18 155/81 H 03/27/21 07:24 62 03/27/21 06:44 36.5 C 58 L 20 135/70 Pulse Ox 03/27/21 16:00 03/27/21 15:06 94 03/27/21 14:40 03/27/21 14:20 03/27/21 14:00 03/27/21 13:40 03/27/21 13:20 03/27/21 13:00 03/27/21 12:40 03/27/21 12:20 03/27/21 12:00 03/27/21 11:40 03/27/21 11:25 03/27/21 11:12 92 03/27/21 07:24 03/27/21 06:44 94 (1) Pulmonary edema Chronicity: acute Qualified Code(s): J81.0 - Acute pulmonary edema
[2021-03-27] MEDS: dilTIAZem ER 180 MG CAPCR PO SCH (20:51)
[2021-03-27] MEDS: PRAVASTATIN SOD 10 MG TAB PO SCH (20:52)
[2021-03-28 06:10] LABS: Hematocrit (blood only) 28.7 % (42-52); Hemoglobin 8.5 g/dL (14.0-18.0); Mean Corpuscular Hemoglobin 26.5 pg (25-34); Mean Corpuscular Hgb Conc 29.6 g/dL (32-36); Mean Corpuscular Volume 89.4 fL (80-100); Mean Platelet Volume 9.6 fL (7.4-10.4); Nucleated RBC # (auto) 0.02 K/uL (0-0); Nucleated RBC % (auto) 0.2 %; Platelet Count 236 K/uL (130-400); RDW Coefficient of Variation 16.8 % (11.5-14.5); RDW Standard Deviation 53.6 fL (36.4-46.3); Red Blood Count 3.21 M/uL (4.7-6.1); White Blood Count 7.93 K/uL (4.8-10.8)
[2021-03-28 06:22] LABS: Hepatitis BE Antibody Nonreactive; Hepatitis BE Antigen Nonreactive
[2021-03-28 06:50] LABS: BUN Creatinine Ratio 11.6 (10-20); Calcium 8.4 mg/dl (8.5-10.1); Est GFR (African American) 13.2 ml/min; Est GFR (Non-African American) 11.4 ml/min
[2021-03-28] MEDS ORDERED: SODIUM CHLORIDE 0.9% 1000ML 1,000 ML IV PRN ×2 (07:44→08:22)
[2021-03-28] MEDS: DULoxetine HCL 60 MG CAP PO SCH (08:36)
[2021-03-28] MEDS: CALCITRIOL 0.25 MCG CAPSULE PO SCH (08:36)
[2021-03-28] MEDS: DULoxetine HCL 30 MG CAP PO SCH (08:36)
[2021-03-28] MEDS: FERROUS SULFATE 325 MG TAB PO SCH (08:36)
[2021-03-28] MEDS: OMEGA-3 (PURIFIED FISH OIL) 1 GM CAP PO SCH (08:36)
[2021-03-28] MEDS: MULTIVITAMIN TAB PO SCH (08:36)
[2021-03-28] MEDS: FLUTICASONE/VILANTEROL 200/25MCG 14 PUFFS/INHALER INH SCH (08:36)
[2021-03-28] MEDS: APIXABAN 5 MG TABLET PO SCH ×2 (08:36→20:23)
[2021-03-28] MEDS: buPROPion SR 100 MG TABCR PO SCH ×2 (08:36→20:21)
[2021-03-28] MEDS: INSULIN ASPART 100 UNITS/ML 3 ML PEN SC SCH ×4 (08:37→21:21)
[2021-03-28] MEDS: INSULIN GLARGINE SOLOSTAR 100 UNITS/ML 3 ML PEN SC SCH ×2 (08:37→21:22)
[2021-03-28 09:04] LABS: Hepatitis B Surface Ab Quant < 3.10 mIU/mL (>or=10mIU/mL Immune); Hepatitis B Surface Antibody Non-Immune
[2021-03-28 09:14] LABS: Hepatitis B Surf Ag Rflx Conf Neg (Neg)
--- NOTE | 2021-03-28 09:45 | Nephrology Progress Note ---
Date of Service March 28, 2021 Assessment & Plan (1) Stage 5 chronic kidney disease not on chronic dialysis: * 3nd run HD today: 3 hours, attempt 3 L UF * Will schedule HD MWF * CBC, PRP in am * AVF created 03/10/21 - not yet mature for use (2) ESRD needing dialysis: * Care coordination consulted to assist with disposition post discharge * [facility] has requested a bariatric chair - delayed until April (3) Secondary hyperparathyroidism of renal origin: * Continue calcitriol (4) Chronic anemia: * Epogen 99083 units provided with HD 03/26/21 Admission and Anticipated Discharge Date Admission Date: March 24, 2021 Subjective Mr. Yost was seen & examined in his hospital room this morning. He had his 2nd run HD yesterday and tolerated 2L UF. IJ THC ran A-->A without alarm. Mr. Yost reports that his breathing is improved. He still remains mildly nauseated. Review of Systems Constitutional: no fever Eyes: no problem reported Ear, Nose, Mouth, Throat: no problem reported Respiratory: no dyspnea Cardiovascular: + edema; no chest pain and no palpitations Gastrointestinal: + nausea; no abdominal pain and no vomiting Neurologic: no confusion Physical Exam Constitutional: + morbidly obese; not in distress Eyes: PERRL, conjunctivae normal, anicteric sclerae ENMT: external ear and nose normal, oropharynx normal Neck: trachea midline, no thyromegaly Respiratory: normal respiratory effort, lungs clear to auscultation Cardiovascular: Rate/Rhythm: regular rate and regular rhythm Heart Sounds: no murmur Extremities: + edema (tense pretibial pitting edema bilaterally) and + AV fistula (+bruit) Gastrointestinal (Abdomen): normal bowel sounds, soft, nontender, no hepatosplenomegaly Musculoskeletal: Extremities: no cyanosis Skin: no rashes, warm and dry Neurologic: awake; not confused Results & Data ([facility]) Vital Signs (Past 12 Hours) Vital Signs Temp Pulse Pulse Resp BP BP Pulse Ox 03/28/21 09:11 64 161/76 H 03/28/21 09:00 36.5 C 60 03/28/21 07:30 36.5 C 12 167/85 H 97 03/28/21 02:41 68 03/28/21 02:35 36.8 C 63 20 139/69 91 03/27/21 22:16 36.8 C 65 20 147/75 H 95 Laboratory Tests 03/28/21 03/28/21 05:29 05:29 WBC 7.93 Hgb 8.5 L Hct 28.7 L Plt Count 236 Sodium 134 L Potassium 5.0 Chloride 101 Carbon Dioxide 27 BUN 62 H Creatinine 5.31 H* D Glucose 125 H PG Care Time/CCT Total # of Minutes Spent Total Time Spent with Patient: Total time spent is greater than 50% in coordination of care (as documented) at patient's floor/unit and/or counseling patient: Coding Level of Care Code 31280 Subseq Hosp Care Lvl 3 Diagnoses Stage 5 chronic kidney disease not on chronic dialysis N18.5 ESRD needing dialysis N18.6; Z99.2 Secondary hyperparathyroidism of renal origin N25.81 Chronic anemia D64.9
[2021-03-28] MEDS: oxyCODONE/ACETAMINOPHEN 10-325 TAB PO PRN (11:42)
[2021-03-28] MEDS: METOPROLOL SUCC 50MG EXT REL TAB PO SCH (12:26)
[2021-03-28] MEDS: POLYETHYLENE (MIRALAX) 17 GM PACK PO PRN (13:59)
--- NOTE | 2021-03-28 18:29 | Hospitalist Progress Note ---
Date of Service March 28, 2021 Assessment & Plan (1) ESRD needing dialysis: This is a 55yo M with PMH of morbin obesity, CKD V with recent AV fistula placement on 03/10/21, DM II, chronic diastolic heart failure, anemia of chronic disease, paroxysmal A fib on anticoagulation, noctural hypoxemia and other medical problems listed below who presents from nephrology clinic with shortness of breath and need for dialysis via tunneled dialysis catheter. Follows with Dr. Weems of [facility] [place] and has had progressively worsening renal function AV fistula placed by Dr. Gaming on 03/10/2021 but not yet viable for dialysis S/P perm Cath Placement Right Jugular Approach, Ultrasound Localization of Right Jugular Vein, Fluoroscopy for Confirmation performed by Dr. Gaming Nephrology on board Patient had his 3rd dialysis this morning and tolerated well He is scheduled to have his second dialysis today [facility] has requested a bariatric chair - delayed until April Case management is looking for a dialysis facility with a bariatric chair (2) Acute on chronic respiratory failure: (3) Pulmonary edema: (4) Obesity hypoventilation syndrome: Possible acute on chronic diastolic (congestive) heart failure due to volume overload CXR with interstitial thickening and interval development of extensive asymmetric right lung airspace opacities. The findings may reflect pneumonia or asymmetric pulmonary edema Received Bumex on the day of admission Fluid removal during dialysis Continue oxygen supplement Will continue to titrate oxygen off (5) Morbid obesity with BMI of 70 and over, adult: Counseling on weight loss (6) Paroxysmal A-fib: Continue diltiazem, Eliquis for anticoagulation (7) Diabetes mellitus: A1c 8.4 SSI while in-patient BSG AC HS (8) Chronic anemia: Just received IV Venofer Hgb 8.5 today with baseline Hgb 9 Weakness PT/OT eval Fall precaution DVT Ppx: Eliquis Code status: FULL PCP: Henry Weeks Dispo: Will discharge once medically stable Admission and Anticipated Discharge Date Admission Date: March 24, 2021 Subjective Pt was seen and examined for follow up of SOB Lying in bed with no acute distress, comfortable with at bedside Patient had he had his third dialysis today He said that his breathing feels much better today Denies any chest pain, palpitation, dizziness and fever Review of Systems Review of Systems: All systems reviewed & are unremarkable except as noted in Subjective Physical Exam Physical Exam: General- Obese Head- atraumatic Eyes- PERRL, EOMI, ENT- oropharynx clear Neck- supple, no JVD Lungs- clear to auscultation Heart- regular rhythm; no murmur Abdomen- normal bowel sounds, soft, nontender Extremities- no calf tenderness, +edema Neuro- alert, oriented x 3; PERRL, EOMI; no facial palsy; no dysarthria Skin- warm & dry Results & Data Results & Data ([facility]) Vital Signs (Past 12 Hours) Vital Signs Temp Pulse Pulse Pulse Resp BP BP 03/28/21 15:24 36.4 C L 64 20 144/78 H 03/28/21 12:43 36.5 C 69 167/85 H 03/28/21 12:11 69 137/89 03/28/21 12:00 61 100/79 03/28/21 11:40 59 L 102/81 03/28/21 11:20 64 170/75 H 03/28/21 11:00 64 140/80 03/28/21 10:40 60 151/73 H 03/28/21 10:20 64 163/83 H 03/28/21 10:00 67 172/74 H 03/28/21 09:40 62 155/77 H 03/28/21 09:11 64 161/76 H 03/28/21 09:00 36.5 C 60 03/28/21 08:00 56 L 03/28/21 07:30 36.5 C 12 167/85 H Pulse Ox 03/28/21 15:24 98 03/28/21 12:43 03/28/21 12:11 03/28/21 12:00 03/28/21 11:40 03/28/21 11:20 03/28/21 11:00 03/28/21 10:40 03/28/21 10:20 03/28/21 10:00 03/28/21 09:40 03/28/21 09:11 03/28/21 09:00 03/28/21 08:00 03/28/21 07:30 97 (1) Pulmonary edema Chronicity: acute Qualified Code(s): J81.0 - Acute pulmonary edema
[2021-03-28] MEDS ORDERED: PROMETHAZINE HCL 12.5 MG in SODIUM CHLORIDE 0.9% 50 ML IV PRN (19:32)
[2021-03-28] MEDS: PRAVASTATIN SOD 10 MG TAB PO SCH (20:22)
[2021-03-28] MEDS: dilTIAZem ER 180 MG CAPCR PO SCH (20:22)
[2021-03-29] MEDS: FLUTICASONE/VILANTEROL 200/25MCG 14 PUFFS/INHALER INH SCH (08:36)
[2021-03-29] MEDS: INSULIN ASPART 100 UNITS/ML 3 ML PEN SC SCH ×4 (08:36→20:29)
[2021-03-29] MEDS: INSULIN GLARGINE SOLOSTAR 100 UNITS/ML 3 ML PEN SC SCH ×2 (08:36→20:30)
[2021-03-29] MEDS: DULoxetine HCL 60 MG CAP PO SCH (08:37)
[2021-03-29] MEDS: OMEGA-3 (PURIFIED FISH OIL) 1 GM CAP PO SCH (08:37)
[2021-03-29] MEDS: FERROUS SULFATE 325 MG TAB PO SCH (08:37)
[2021-03-29] MEDS: APIXABAN 5 MG TABLET PO SCH ×2 (08:37→20:25)
[2021-03-29] MEDS: buPROPion SR 100 MG TABCR PO SCH ×2 (08:37→20:25)
[2021-03-29] MEDS: DULoxetine HCL 30 MG CAP PO SCH (08:37)
[2021-03-29] MEDS: METOPROLOL SUCC 50MG EXT REL TAB PO SCH (08:37)
[2021-03-29] MEDS: MULTIVITAMIN TAB PO SCH (08:37)
[2021-03-29] MEDS: oxyCODONE/ACETAMINOPHEN 10-325 TAB PO PRN ×2 (08:41→20:26)
--- NOTE | 2021-03-29 09:54 | Nephrology Progress Note ---
Date of Service March 29, 2021 Assessment & Plan (1) Stage 5 chronic kidney disease not on chronic dialysis: * Plan next HD for am * Will schedule HD MWF * CBC, PRP in am * AVF created 03/10/21 - not yet mature for use (2) ESRD needing dialysis: * Care coordination consulted to assist with disposition post discharge * [facility] [place] has requested a bariatric chair - delayed until April (3) Secondary hyperparathyroidism of renal origin: * Continue calcitriol (4) Chronic anemia: * Epogen 46008 units provided with HD 03/26/21 Admission and Anticipated Discharge Date Admission Date: March 24, 2021 Subjective Mr. Yost was seen & examined in his hospital room this morning. He was dialyzed yesterday for 3 hours for 3L UF. There were no complications. Mr. Yost reports that his breathing is improved and his nausea has resolved. Review of Systems Constitutional: no fever Eyes: no problem reported Ear, Nose, Mouth, Throat: no problem reported Respiratory: no dyspnea Cardiovascular: + edema; no chest pain and no palpitations Gastrointestinal: + nausea; no abdominal pain and no vomiting Neurologic: no confusion Physical Exam Constitutional: + morbidly obese; not in distress Eyes: PERRL, conjunctivae normal, anicteric sclerae ENMT: external ear and nose normal, oropharynx normal Neck: trachea midline, no thyromegaly Respiratory: normal respiratory effort, lungs clear to auscultation Cardiovascular: Rate/Rhythm: regular rate and regular rhythm Heart Sounds: no murmur Extremities: + edema (tense pretibial pitting edema bilaterally) and + AV fistula (+bruit) Gastrointestinal (Abdomen): normal bowel sounds, soft, nontender, no hepatosplenomegaly Musculoskeletal: Extremities: no cyanosis Skin: no rashes, warm and dry Neurologic: awake; not confused Results & Data ([facility]) Vital Signs (Past 12 Hours) Vital Signs Temp Pulse Pulse Resp BP Pulse Ox 03/29/21 07:52 36.6 C 58 L 18 136/71 94 03/29/21 02:58 36.5 C 88 19 121/64 96 03/28/21 22:48 36.6 C 64 20 127/66 98 03/28/21 22:20 63 Laboratory Tests 03/28/21 05:29 WBC 7.93 Hgb 8.5 L Hct 28.7 L Plt Count 236 PRP is pending this am PG Care Time/CCT Total # of Minutes Spent Total Time Spent with Patient: Total time spent is greater than 50% in coordination of care (as documented) at patient's floor/unit and/or counseling patient: Coding Level of Care Code 24423 Subseq Hosp Care Lvl 3 Diagnoses Stage 5 chronic kidney disease not on chronic dialysis N18.5 ESRD needing dialysis N18.6; Z99.2 Secondary hyperparathyroidism of renal origin N25.81 Chronic anemia D64.9
[2021-03-29 10:00] LABS: Calcium 8.6 mg/dl (8.5-10.1); Creatinine Clr Calc Pharmacy 40.1 ml/min; Est GFR (African American) 14.5 ml/min; Est GFR (Non-African American) 12.5 ml/min; Potassium 4.4 mmol/L (3.5-5.1)
[2021-03-29] MEDS: IRON SUCROSE 200 MG in 0.9 % SODIUM CHLORIDE 100 ML IV SCH (10:24)
--- NOTE | 2021-03-29 13:27 | Pharmacy Report ---
Pharmacy Glycemic Short Note 2 - Date of Service March 29, 2021 - Glycemic Short BSG Results (Last 24 hours): 03/28/21 03/28/21 03/29/21 16:40 20:38 07:38 Glucose POC Glucose 88 128 H 88 03/29/21 03/29/21 08:28 11:38 Glucose 99 POC Glucose 109 H OUTPATIENT ANTIDIABETIC REGIMEN: * Tresiba 44 units BID * Novolog 36 units TID * Ozempic * A1c 7.0% 03/25/21- unreliable in the setting of HD ASSESSMENT: 03/29/21: * Pt received HD past 3 days. No HD today. Plan to start MWF dialysis sessions moving forward. * Fasting BSG slightly below goal this morning, so pt received less Lantus (per scale). * No changes required at this time. 03/27 * Patient had first HD run yesterday, receiving IV Iron today with HD again * Blood sugars well controlled with Lantus 40 units BID started yesterday, continue * No further changes needed in insulin regimen at this time 03/25 * Mr. Yost received permath this morning with plans for two hour HD session today * BSGs within range over night, patient ordered diet with breakfast, lunch BSG elevated * Parameters currently set at weight based stress of 3 (based on adjusted BW), can tighten if BSGs remain elevated * Lantus scale for PM up to weight based stress of 3. PLAN FOR INPATIENT GLYCEMIC CONTROL: * Hold outpatient oral diabetes medications * Basal insulin * Continue Lantus 30/40/45 units SQ BID, per scale * Bolus insulin * NovoLog per scale ACHS or Q6hrs while NPO * Goal Range: Low 110 mg/dL - High 140 mg/dL * Correction Factor: 10 mg/dL/unit * Nutritional / Prandial insulin per carb ratio of 1 unit per 3 grams CHO consumed
--- NOTE | 2021-03-29 19:07 | Hospitalist Progress Note ---
Date of Service March 29, 2021 Assessment & Plan (1) ESRD needing dialysis: This is a 55yo M with PMH of morbin obesity, CKD V with recent AV fistula placement on 03/10/21, DM II, chronic diastolic heart failure, anemia of chronic disease, paroxysmal A fib on anticoagulation, noctural hypoxemia and other medical problems listed below who presents from nephrology clinic with shortness of breath and need for dialysis via tunneled dialysis catheter. [place]. Weems [place] [facility] [place] and has had progressively worsening renal function AV fistula placed by Dr. Gaming on 03/10/2021 but not yet viable for dialysis S/P perm Cath Placement Right Jugular Approach, Ultrasound Localization of Right Jugular Vein, Fluoroscopy for Confirmation performed by Dr. Gaming Nephrology on board Patient had his 3rd dialysis this yesterday and tolerated well He is scheduled to have his next dialysis tomorrow [facility] [place] has requested a bariatric chair - delayed until April Case management is looking for a dialysis facility with a bariatric chair (2) Acute on chronic respiratory failure: (3) Pulmonary edema: (4) Obesity hypoventilation syndrome: Possible acute on chronic diastolic (congestive) heart failure due to volume overload CXR with interstitial thickening and interval development of extensive asymmetric right lung airspace opacities. The findings may reflect pneumonia or asymmetric pulmonary edema Received Bumex on the day of admission Fluid removal during dialysis Continue oxygen supplement Will continue to titrate oxygen off Consider 2 step exercise on discharge (5) Morbid obesity with BMI of 70 and over, adult: Counseling on weight loss (6) Paroxysmal A-fib: Continue diltiazem, Eliquis for anticoagulation (7) Diabetes mellitus: A1c 8.4 SSI while in-patient BSG AC HS (8) Chronic anemia: Just received IV Venofer Hgb 8.5 with baseline Hgb 9 Weakness PT/OT eval Fall precaution DVT Ppx: Eliquis Code status: FULL PCP: Henry Weeks Dispo: Waiting to find a place to accept him for outpatient dialysis with a bariatric chair Admission and Anticipated Discharge Date Admission Date: March 24, 2021 Subjective Pt was seen and examined for follow Lying in bed with no distress with at bedside Lying in bed with no distress Pt said that he feels much better Case management placed referral to different facility with a bariatric chair Denies any chest pain, palpitation, dizziness and SOB Review of Systems Review of Systems: All systems reviewed & are unremarkable except as noted in Subjective Physical Exam Physical Exam: General- Obese Head- atraumatic Eyes- PERRL, EOMI, ENT- oropharynx clear Neck- supple, no JVD Lungs- clear to auscultation Heart- regular rhythm; no murmur Abdomen- normal bowel sounds, soft, nontender Extremities- no calf tenderness, +edema Neuro- alert, oriented x 3; PERRL, EOMI; no facial palsy; no dysarthria Skin- warm & dry Results & Data Results & Data ([facility]) Vital Signs (Past 12 Hours) Vital Signs Temp Pulse Resp BP Pulse Ox 03/29/21 15:17 36.4 C L 66 18 141/77 H 92 03/29/21 11:59 36.4 C L 63 20 153/92 H 95 03/29/21 10:29 94 03/29/21 07:52 36.6 C 58 L 18 136/71 94 (1) Pulmonary edema Chronicity: acute Qualified Code(s): J81.0 - Acute pulmonary edema
[2021-03-29] MEDS: PRAVASTATIN SOD 10 MG TAB PO SCH (20:25)
[2021-03-29] MEDS: dilTIAZem ER 180 MG CAPCR PO SCH (20:25)
[2021-03-30] MEDS: POLYETHYLENE (MIRALAX) 17 GM PACK PO PRN (00:23)
[2021-03-30] MEDS ORDERED: EPOETIN ALFA 10,000 UNITS/ML VIAL IV ONE (07:00)
[2021-03-30] MEDS ORDERED: HEPARIN SOD (PORCINE) 1000 UNIT/ML IV ONE (07:00)
[2021-03-30] MEDS ORDERED: SODIUM CHLORIDE 0.9% 1000ML 1,000 ML IV PRN (07:00)
[2021-03-30] MEDS: MULTIVITAMIN TAB PO SCH (08:09)
[2021-03-30] MEDS: OMEGA-3 (PURIFIED FISH OIL) 1 GM CAP PO SCH (08:09)
[2021-03-30] MEDS: FLUTICASONE/VILANTEROL 200/25MCG 14 PUFFS/INHALER INH SCH (08:09)
[2021-03-30] MEDS: CALCITRIOL 0.25 MCG CAPSULE PO SCH (08:09)
[2021-03-30] MEDS: METOPROLOL SUCC 50MG EXT REL TAB PO SCH (08:09)
[2021-03-30] MEDS: FERROUS SULFATE 325 MG TAB PO SCH (08:10)
[2021-03-30] MEDS: APIXABAN 5 MG TABLET PO SCH (08:10)
[2021-03-30] MEDS: INSULIN ASPART 100 UNITS/ML 3 ML PEN SC SCH ×2 (08:10→13:25)
[2021-03-30] MEDS: DULoxetine HCL 60 MG CAP PO SCH (08:10)
[2021-03-30] MEDS: DULoxetine HCL 30 MG CAP PO SCH (08:10)
[2021-03-30] MEDS: buPROPion SR 100 MG TABCR PO SCH (08:10)
[2021-03-30] MEDS: INSULIN GLARGINE SOLOSTAR 100 UNITS/ML 3 ML PEN SC SCH (08:11)
[2021-03-30 08:55] LABS: Hematocrit (blood only) 29.1 % (42-52); Hemoglobin 8.7 g/dL (14.0-18.0); Mean Corpuscular Hemoglobin 26.9 pg (25-34); Mean Corpuscular Hgb Conc 29.9 g/dL (32-36); Mean Corpuscular Volume 90.1 fL (80-100); Mean Platelet Volume 9.8 fL (7.4-10.4); Platelet Count 260 K/uL (130-400); RDW Standard Deviation 54.6 fL (36.4-46.3); Red Blood Count 3.23 M/uL (4.7-6.1); White Blood Count 7.88 K/uL (4.8-10.8)
--- NOTE | 2021-03-30 09:32 | Nephrology Progress Note ---
Date of Service March 30, 2021 Assessment & Plan (1) Stage 5 chronic kidney disease not on chronic dialysis: * HD today. Orders were placed in EMR and HD RN notified * Will maintain HD MWF schedule * PRP in am * AVF created 03/10/21 - not yet mature for use (2) ESRD needing dialysis: * Case management looking for placement at HD w/ bariatric chair or find supplier that has bariatric chair in stock * [facility] has requested a bariatric chair - delayed until April (3) Secondary hyperparathyroidism of renal origin: * Continue calcitriol (4) Chronic anemia: * Epogen 71855 units provided with HD 03/26/21 * Day #2 of 5 IV Venofer Admission and Anticipated Discharge Date Admission Date: March 24, 2021 Subjective Mr. Yost was seen & examined in his hospital room this morning. He reports that his breathing is improved and his nausea has resolved. He is awaiting HD this am Review of Systems Constitutional: no fever Eyes: no problem reported Ear, Nose, Mouth, Throat: no problem reported Respiratory: no dyspnea Cardiovascular: + edema; no chest pain and no palpitations Gastrointestinal: + nausea; no abdominal pain and no vomiting Neurologic: no confusion Physical Exam Constitutional: + morbidly obese; not in distress Eyes: PERRL, conjunctivae normal, anicteric sclerae ENMT: external ear and nose normal, oropharynx normal Neck: trachea midline, no thyromegaly Respiratory: normal respiratory effort, lungs clear to auscultation Cardiovascular: Rate/Rhythm: regular rate and regular rhythm Heart Sounds: no murmur Extremities: + edema (tense pretibial pitting edema bilaterally) and + AV fistula (+bruit) Gastrointestinal (Abdomen): normal bowel sounds, soft, nontender, no hepatosplenomegaly Musculoskeletal: Extremities: no cyanosis Skin: no rashes, warm and dry Neurologic: awake; not confused Results & Data ([facility]) Vital Signs (Past 12 Hours) Vital Signs Temp Pulse Pulse Pulse Resp BP BP 03/30/21 09:20 74 159/78 H 03/30/21 09:05 63 143/77 H 03/30/21 09:00 36.6 C 60 03/30/21 08:00 36.6 C 60 18 124/64 03/29/21 22:57 36.5 C 77 21 159/78 H Pulse Ox 03/30/21 09:20 03/30/21 09:05 03/30/21 09:00 03/30/21 08:00 92 03/29/21 22:57 93 Laboratory Tests 03/29/21 08:28 Sodium 134 L Potassium 4.4 Chloride 102 Carbon Dioxide 27 BUN 54 H Creatinine 4.91 H* D Glucose 99 PG Care Time/CCT Total # of Minutes Spent Total Time Spent with Patient: Total time spent is greater than 50% in coordination of care (as documented) at patient's floor/unit and/or counseling patient: Coding Level of Care Code 48714 Subseq Hosp Care Lvl 3 Diagnoses Stage 5 chronic kidney disease not on chronic dialysis N18.5 ESRD needing dialysis N18.6; Z99.2 Secondary hyperparathyroidism of renal origin N25.81 Chronic anemia D64.9
[2021-03-30 09:44] LABS: Calcium 8.9 mg/dl (8.5-10.1); Creatinine Clr Calc Pharmacy 37.7 ml/min; Est GFR (African American) 13.4 ml/min; Est GFR (Non-African American) 11.6 ml/min; Potassium 4.5 mmol/L (3.5-5.1)
--- NOTE | 2021-03-30 10:12 | Hospitalist Progress Note ---
Date of Service March 30, 2021 Assessment & Plan (1) ESRD needing dialysis: This is a 55yo M with PMH of morbin obesity, CKD V with recent AV fistula placement on 03/10/21, DM II, chronic diastolic heart failure, anemia of chronic disease, paroxysmal A fib on anticoagulation, noctural hypoxemia and other medical problems listed below who presents from nephrology clinic with shortness of breath and need for dialysis via tunneled dialysis catheter. [place] [facility] [place] and has had progressively worsening renal function AV fistula placed by Dr. Gaming on 03/10/2021 but not yet viable for dialysis Now S/P perm Cath Placement Right Jugular Approach, Ultrasound Localization of Right Jugular Vein, Fluoroscopy for Confirmation performed by Dr. Gaming Nephrology following while inpt Patient started on dialysis this admission and tolerated well HD today (03/30) [facility] has requested a bariatric chair - delayed until April Case management is looking for a dialysis facility with a bariatric chair (2) Acute on chronic respiratory failure: (3) Pulmonary edema: (4) Obesity hypoventilation syndrome: Possible acute on chronic diastolic (congestive) heart failure due to volume overload CXR with interstitial thickening and interval development of extensive asymmetric right lung airspace opacities. The findings may reflect pneumonia or asymmetric pulmonary edema Received Bumex on the day of admission Fluid removal during dialysis Continue oxygen supplement Will continue to titrate oxygen off Consider 2 step exercise on discharge (5) Morbid obesity with BMI of 70 and over, adult: Counseling on weight loss (6) Paroxysmal A-fib: Continue diltiazem, Eliquis for anticoagulation (7) Diabetes mellitus: A1c 8.4 SSI while in-patient BSG AC HS (8) Chronic anemia: Just received IV Venofer Hgb 8.5 with baseline Hgb 9 Weakness PT/OT eval Fall precaution DVT Ppx: Eliquis Code status: FULL PCP: Henry Weeks Dispo: Waiting to find a place to accept him for outpatient dialysis with a bariatric chair Admission and Anticipated Discharge Date Admission Date: March 24, 2021 Subjective Pt was seen and examined for follow up of ESRD on HD Currently patient is lying in bed, in acute distress, on dialysis, at the bedside At home does not seem to use oxygen, BiPAP at night Here patient was using supplemental oxygen, may need step 2 before discharge Pt said that he feels much better Case management placed referral to different facility with a bariatric chair Denies any chest pain, palpitation, dizziness and SOB Review of Systems Review of Systems: All systems reviewed & are unremarkable except as noted in HPI & below Constitutional: no fever and no chills Respiratory: no cough and no dyspnea Cardiovascular: no chest pain and no palpitations Gastrointestinal: no abdominal pain, no nausea and no vomiting Physical Exam Physical Exam: General- Obese male in NAD Head- atraumatic Eyes- PERRL, EOMI, ENT- oropharynx clear Neck- supple, no JVD Lungs- clear to auscultation however exam limited d/t body habitus Heart- regular rhythm; no murmur Abdomen- normal bowel sounds, soft, nontender Extremities- no calf tenderness, +edema Neuro- alert, oriented x 3; PERRL, EOMI; no facial palsy; no dysarthria Skin- warm & dry Results & Data Results & Data ([facility]) Vital Signs (Past 12 Hours) Vital Signs Temp Pulse Pulse Pulse Resp BP BP 03/30/21 09:40 59 L 163/84 H 03/30/21 09:20 74 159/78 H 03/30/21 09:05 63 143/77 H 03/30/21 09:00 36.6 C 60 03/30/21 08:00 36.6 C 60 18 124/64 03/29/21 22:57 36.5 C 77 21 159/78 H Pulse Ox 03/30/21 09:40 03/30/21 09:20 03/30/21 09:05 03/30/21 09:00 03/30/21 08:00 92 03/29/21 22:57 93 Laboratory Results 03/30/21 03/30/21 03/30/21 Range/Units 08:20 08:20 07:42 WBC 7.88 (4.8-10.8) K/uL RBC 3.23 L (4.7-6.1) M/uL Hgb 8.7 L (14.0-18.0) g/dL Hct 29.1 L (42-52) % MCV 90.1 (80-100) fL MCH 26.9 (25-34) pg MCHC 29.9 L (32-36) g/dL RDW Std Deviation 54.6 H (36.4-46.3) fL RDW Coeff of Talha 17.0 H (11.5-14.5) % Plt Count 260 (130-400) K/uL MPV 9.8 (7.4-10.4) fL Sodium 131 L (136-145) mmol/L Potassium 4.5 (3.5-5.1) mmol/L Chloride 98 (98-107) mmol/L Carbon Dioxide 24 (21-32) mmol/L Anion Gap 9.0 (3-11) BUN 63 H (7-18) mg/dl Creatinine 5.23 H* D (0.6-1.4) mg/dl Est Cr Clr Drug Dosing 37.7 ml/min Est GFR ( Amer) 13.4 ml/min Est GFR (Non-Af Amer) 11.6 ml/min BUN/Creatinine Ratio 12.0 (10-20) Glucose 147 H (70-99) mg/dl POC Glucose 128 H (70-99) mg/dl Calcium 8.9 (8.5-10.1) mg/dl 03/29/21 03/29/21 03/29/21 Range/Units 20:22 16:39 11:38 WBC (4.8-10.8) K/uL RBC (4.7-6.1) M/uL Hgb (14.0-18.0) g/dL Hct (42-52) % MCV (80-100) fL MCH (25-34) pg MCHC (32-36) g/dL RDW Std Deviation (36.4-46.3) fL RDW Coeff of Talha (11.5-14.5) % Plt Count (130-400) K/uL MPV (7.4-10.4) fL Sodium (136-145) mmol/L Potassium (3.5-5.1) mmol/L Chloride (98-107) mmol/L Carbon Dioxide (21-32) mmol/L Anion Gap (3-11) BUN (7-18) mg/dl Creatinine (0.6-1.4) mg/dl Est Cr Clr Drug Dosing ml/min Est GFR ( Amer) ml/min Est GFR (Non-Af Amer) ml/min BUN/Creatinine Ratio (10-20) Glucose (70-99) mg/dl POC Glucose 140 H 94 109 H (70-99) mg/dl Calcium (8.5-10.1) mg/dl Medications Administered Current Inpatient Medications Albuterol (Albuterol Hfa 8 Gm Inhaler) 2 puffs INH Q4R PRN PRN Reason: shortness of breath or wheezin Stop: 04/23/21 17:12 Apixaban (Apixaban 5 Mg Tablet) 5 mg PO BID [facility] Stop: 04/25/21 08:59 Last Admin: 03/30/21 08:10 Dose: 5 mg Documented by: Bupropion HCl (Bupropion Sr 100 Mg Tabcr) 200 mg PO BID [facility] Stop: 04/23/21 20:59 Last Admin: 03/30/21 08:10 Dose: 200 mg Documented by: Calcitriol (Calcitriol 0.25 Mcg Capsule) 0.5 mcg PO MoWeFr@0900 [facility] Stop: 04/24/21 08:59 Last Admin: 03/30/21 08:09 Dose: 0.5 mcg Documented by: Dextrose (Dextrose 50% 50 Ml Syringe) 25 - 50 ml IV UD PRN; Protocol PRN Reason: Hypoglycemia Protocol Stop: 04/23/21 17:15 Diltiazem HCl (Diltiazem Er 180 Mg Capcr) 360 mg PO HS [facility] Stop: 04/23/21 20:59 Last Admin: 03/29/21 20:25 Dose: 360 mg Documented by: Duloxetine HCl (Duloxetine Hcl 30 Mg Cap) 30 mg PO QAM [facility] Stop: 04/24/21 08:59 Last Admin: 03/30/21 08:10 Dose: 30 mg Documented by: Duloxetine HCl (Duloxetine Hcl 60 Mg Cap) 60 mg PO QAM [facility] Stop: 04/24/21 08:59 Last Admin: 03/30/21 08:10 Dose: 60 mg Documented by: Ferrous Sulfate (Ferrous Sulfate 325 Mg Tab) 325 mg PO QAM [facility] Stop: 04/24/21 08:59 Last Admin: 03/30/21 08:10 Dose: 325 mg Documented by: Fish Oil (Dearing-3 (Purified Fish Oil) 1 Gm Cap) 1 gm PO QAM [facility] Stop: 04/24/21 08:59 Last Admin: 03/30/21 08:09 Dose: 1 gm Documented by: Fluticasone/Vilanterol (Fluticasone/Vilanterol 200/25mcg 14 Puffs/Inhaler) 1 puffs INH QAM [facility] Stop: 04/24/21 08:59 Last Admin: 03/30/21 08:09 Dose: 1 puffs Documented by: Glucagon (Glucagon For Inj 1 Mg Vial) 1 mg SQ UD PRN; Protocol PRN Reason: Hypoglycemia Protocol Stop: 04/23/21 17:15 Glucose (Glucose 10 Tabs/Tube) 4 - 8 tabs PO UD PRN; Protocol PRN Reason: Hypoglycemia Protocol Stop: 04/23/21 17:15 Glucose (Glucose 40% Gel 15 Gm Tube) 15 - 30 gm PO UD PRN; Protocol PRN Reason: Hypoglycemia Protocol Stop: 04/23/21 17:15 Promethazine HCl 12.5 mg/ (Sodium Chloride) 50.5 mls @ 202 mls/hr IV Q6H PRN PRN Reason: Nausea And Vomiting Stop: 04/27/21 19:31 Last Infusion: 03/28/21 20:36 Dose: Infused Documented by: Sodium Chloride (Nss 1000ml) 1,000 mls @ 0 mls/hr IV .Q0M PRN PRN Reason: For Hemodialysis Use ONLY Stop: 03/30/21 12:59 Iron Sucrose 200 mg/ Sodium (Chloride) 110 mls @ 220 mls/hr IV TODAY@1000 [facility] Stop: 04/02/21 10:29 Last Infusion: 03/29/21 11:04 Dose: Infused Documented by: Insulin Aspart (Insulin Aspart 100 Units/Ml 3 Ml Pen) 0 units SC ACHS [facility] Stop: 04/23/21 18:29 Last Admin: 03/30/21 08:10 Dose: 15 units Documented by: Insulin Glargine (Insulin Glargine Solostar 100 Units/Ml 3 Ml Pen) 0 units SC BID [facility]; Protocol Stop: 04/25/21 08:59 Last Admin: 03/30/21 08:11 Dose: 40 units Documented by: Lidocaine (Lidocaine 4% Cream 15 Gm Tube) 1 appln EXT BID PRN PRN Reason: tenderness in foot Stop: 04/25/21 09:12 Metoprolol Succinate (Metoprolol Succ 50mg Ext Rel Tab) 100 mg PO QAM [facility] Stop: 04/24/21 08:59 Last Admin: 03/30/21 08:09 Dose: 100 mg Documented by: Miscellaneous (Carbohydrates For Hypoglycemia ) 15 - 30 gm PO UD PRN PRN Reason: Hypoglycemia Protocol Stop: 04/23/21 17:15 Miscellaneous Information (Pharmacy Glycemic Mgmt Consult) 1 ea N/A UD PRN; Protocol PRN Reason: Consult Stop: 04/23/21 17:32 Multivitamins (Multivitamin Tab) 1 tab PO QAM [facility] Stop: 04/24/21 08:59 Last Admin: 03/30/21 08:09 Dose: 1 tab Documented by: Nitroglycerin (Nitroglycerin Sl 0.4 Mg/Tab Tab) 0.4 mg SL Q5M PRN PRN Reason: chest pain Stop: 04/23/21 17:12 Oxycodone/Acetaminophen (Oxycodone/Acetaminophen 10-325 Tab) 1 tab PO Q6H PRN PRN Reason: Pain Stop: 04/07/21 17:12 Last Admin: 03/29/21 20:26 Dose: 1 tab Documented by: Polyethylene Glycol (Polyethylene (Miralax) 17 Gm Pack) 34 gm PO DAILY PRN PRN Reason: Constipation Stop: 04/27/21 13:31 Last Admin: 03/30/21 00:23 Dose: 34 gm Documented by: Pravastatin Sodium (Pravastatin Sod 10 Mg Tab) 10 mg PO HS [facility] Stop: 04/24/21 20:59 Last Admin: 03/29/21 20:25 Dose: 10 mg Documented by: (1) Pulmonary edema Chronicity: acute Qualified Code(s): J81.0 - Acute pulmonary edema
[2021-03-30] MEDS: IRON SUCROSE 200 MG in 0.9 % SODIUM CHLORIDE 100 ML IV SCH (13:25)
--- NOTE | 2021-03-30 16:14 | Discharge Summary ---
Date of Service March 30, 2021 Admission HPI Per Admitting Provider This is a 55yo M with PMH of morbin obesity, CKD V with recent AV fistula placement on 03/10/21, DM II, chronic diastolic heart failure, anemia of chronic disease, paroxysmal A fib on anticoagulation, noctural hypoxemia and other medical problems listed below who presents from nephrology clinic with shortness of breath and need for dialysis via tunneled dialysis catheter. [place] [facility] [place] has had progressively worsening renal function, creatinine most recently 6.1. AV fistula placed by Dr. Gaming on 03/10/2021 but not yet viable for dialysis. Has felt very poorly over the past 2 days with worsening shortness of breath, fatigue and dry heaving. Was started on Bumex 4 mg twice daily yesterday but no improvement yet to shortness of breath. Able to make urine. Sent in for dialysis via tunneled dialysis catheter. Also recently received IV Venofer for anemia of chronic disease. Denies fever, chills, headache, lightheadedness, visual changes, cough, chest pain, palpitations, abdominal pain, nausea, vomiting, dysuria, constipation or diarrhea. Admission Exam Per Admitting Provider General Appearance: vitals as above, sitting up in bed, morbidly obese, ill appearing Head: normocephalic, atraumatic Eyes: normal inspection, PERRL, conjunctivae normal, anicteric sclerae ENT: external ear and nose normal, oropharynx normal Neck: normal visual inspection, trachea midline, no thyromegaly Respiratory: increased respiratory effort, lung sounds diminished throughout, difficult auscultation 2/2 habitus, no wheeze, rales, rhonchi. No accessory muscle use Cardiovascular: regular rate, rhythm, no murmur appreciated, normal peripheral pulses, 1+ BLE edema. Vessels: no JVD Chest: normal inspection of chest Abdomen/GI: normal bowel sounds, soft, nontender, no hepatosplenomegaly Extremities/Musculoskeletal: no cyanosis or clubbing, extremities motor strength 5/5 Neurologic: PERRL, EOMI, accommodation nl, no face palsy, no dysarthria, CN's II-XI intact bilaterally and moves all extremities Psychiatric: A+Ox3, euthymic affect Skin: no rashes, normal color, warm/dry Principal Diagnosis End-stage renal disease, now initiated on dialysis Fluid overload secondary to above Hypoxia, respiratory failure, secondary to fluid overload and obesity hypoventilation syndrome Chronic anemia due to chronic kidney disease Discharge Exam General- Obese male in NAD Head- atraumatic Eyes- PERRL, EOMI, ENT- oropharynx clear Neck- supple, no JVD Lungs- clear to auscultation however exam limited d/t body habitus Heart- regular rhythm; no murmur Abdomen- normal bowel sounds, soft, nontender Extremities- no calf tenderness, +edema Neuro- alert, oriented x 3; PERRL, EOMI; no facial palsy; no dysarthria Skin- warm & dry Discharge Data Allergies Allergy/AdvReac Type Severity Reaction Status Date / Time No Known Allergies Allergy Verified 03/24/21 09:09 Consultations 03/24/21 11:33 Consult Knocker Out Stat 03/24/21 11:37 ED Decision to Admit Stat 03/24/21 16:40 Consult Knocker Out Routine Consult Nephrology Routine Consult Vascular Surgery Routine Procedures Performed Operation Date: 03/25/21 08:00 Actual Procedures p Perm Cath Placement Right Jugular Approach, Ultrasound Localization of Right Jugular Vein, Fluoroscopy for Comfirmation(Right) - Obed Gaming MD Ordered Studies 03/25/21 07:08 EV cvc insrt tunnel wo prt/magician helper Routine US EV guide vascular access Routine Hospital Course (1) ESRD needing dialysis: This is a 55yo M with PMH of morbin obesity, CKD V with recent AV fistula placement on 03/10/21, DM II, chronic diastolic heart failure, anemia of chronic disease, paroxysmal A fib on anticoagulation, noctural hypoxemia and other medical problems listed below who presents from nephrology clinic with shortness of breath and need for dialysis via tunneled dialysis catheter. [place] [facility] [place] has had progressively worsening renal function AV fistula placed by Dr. Gaming on 03/10/2021 but not yet viable for dialysis Now S/P perm Cath Placement Right Jugular Approach, Ultrasound Localization of Right Jugular Vein, Fluoroscopy for Confirmation performed by Dr. Gaming Nephrology following while inpt Patient started on dialysis this admission and tolerated well HD today (03/30) [facility] has requested a bariatric chair - delayed until April Case management is looking for a dialysis facility with a bariatric chair Case management did arrange for patient to come here for dialysis until his outpatient dialysis center is set up for the patient. (2) Acute on chronic respiratory failure: (3) Pulmonary edema: (4) Obesity hypoventilation syndrome: Possible acute on chronic diastolic (congestive) heart failure due to volume overload CXR with interstitial thickening and interval development of extensive asymmetric right lung airspace opacities. The findings may reflect pneumonia or asymmetric pulmonary edema Received Bumex on the day of admission Fluid removal during dialysis Continue oxygen supplement Will continue to titrate oxygen off Currently on RA at rest 2 step done on discharge -patient needs 2 L with ambulation (5) Morbid obesity with BMI of 70 and over, adult: Counseling on weight loss (6) Paroxysmal A-fib: Continue diltiazem, Eliquis for anticoagulation (7) Diabetes mellitus: A1c 8.4 SSI while in-patient BSG AC HS (8) Chronic anemia: Just received IV Venofer Hgb 8.5 with baseline Hgb 9 Weakness PT/OT eval Fall precaution DVT Ppx: Eliquis Code status: FULL PCP: Henry Weeks Dispo: Plan to discharge home, with dialysis arranged here in the hospital until his outpatient dialysis center is set up for the patient Total Time Total Time Spent Total Time Spent (In Minutes): 35 Total Time Includes: Examination of the Patient, Discharge Planning, Medication Reconciliation and Communication With Other Providers Discharge Plan Discharge Items Patient Disposition: Home - Self-Care Reason For Visit: CKD V, TUNNEL CATHETER PLACEMENT, MORBID OBESITY, Discharge Diagnosis: End-stage renal disease, now initiated on dialysis Fluid overload secondary to above Hypoxia, respiratory failure, secondary to fluid overload and obesity hypoventilation syndrome Chronic anemia due to chronic kidney disease Condition on Discharge: Good Activity: Per Instructions section Non-emergency contact: Primary Care Provider and Adult Daycare Coordinator Call non-emergency contact if: you have any medication questions and your symptoms worsen Follow-up/Referrals: Henry Weeks, [Primary Care Provider] - Diet: Carb Consistent or DM2, Dialysis Renal and Low Sodium (2gm) Addtl Attending Provider Instructions: You were started on dialysis, and will need to continue dialysis on Sunday, Sunday and possibly Sunday here at [facility]. This was arranged for you as your outpatient dialysis center is not set up for you yet. You should also follow-up with your primary care doctor at your earliest convenience, within 1 to 2 weeks. It is also recommended that you use continuous oxygen via nasal cannula, 2 L/min when ambulating. Addtl Tank Cleaning Supervisor Provider Instructions: You are to arrive at [facility] on April 01 at 8:30am and they will transport you to the dialysis unit after obtaining vital signs and registering you. You will also come to [facility] on SundayApril 04 and possibly SundayApril 06 depending if the chair has arrived to [facility] at that point. [facility] [phone] will follow up for your start time with them. Pending Studies at Discharge: No Stand-Alone Forms: [facility], Smoking Cessation Medications and DC Order Prescriptions: Continued nitroglycerin 0.4 mg tablet, sublingual 0.4 mg SL Q5M PRN (Reason: chest pain) Qty: 25 RF: 3 bupropion HCl 200 mg tablet sustained-release 12 hr 200 mg PO BID Qty: 180 RF: 3 albuterol sulfate 90 mcg/actuation HFA aerosol inhaler 2 puffs inhalation Q4H PRN (Reason: shortness of breath or wheezing) RF: 0 (DME) insulin syringe-needle U-100 [BD Insulin Syringe Ultra-Fine] 0.3 mL 31 gauge x 5/16" syringe See Dose Instructions .ROUTE .MEDSUPPLY Qty: 10 RF: 0 (DME) OneTouch Verio test strips strip See Dose Instructions .ROUTE .MEDSUPPLY Qty: 10 RF: 0 pravastatin 80 mg tablet 80 mg PO HS Qty: 90 RF: 0 Eliquis 5 mg tablet 5 mg PO BID Qty: 60 RF: 0 metoprolol succinate 100 mg tablet extended release 24 hr 100 mg PO QAM RF: 0 diltiazem HCl 360 mg capsule,extended release 24 hr 360 mg PO HS RF: 0 duloxetine 30 mg capsule,delayed release(DR/EC) 30 mg PO QAM RF: 0 ferrous sulfate 27 mg iron tablet 27 mg PO QAM RF: 0 Ozempic 0.25 mg or 0.5 mg(2 mg/1.5 mL) pen injector 1 mg SQ WK RF: 0 Breo Ellipta 200-25 mcg/dose Blister With Device 1 inh INHALATION QAM RF: 0 oxycodone-acetaminophen [Percocet] 10-325 mg Tablet 1 tab PO Q6H PRN (Reason: Pain) RF: 0 multivitamin Tablet 1 tab PO QAM RF: 0 omega 3-eyq-ldb-fish oil [Fish Oil] 1,000 mg (120 mg-180 mg) Capsule 1 cap PO QAM RF: 0 Tresiba FlexTouch U-100 100 unit/mL (3 mL) insulin pen 44 units SQ BID RF: 0 calcitriol 0.5 mcg capsule 0.5 mcg PO 3XWK RF: 0 insulin aspart U-100 [Novolog Flexpen U-100 Insulin] 100 unit/mL (3 mL) insulin pen 36 unit SQ TID RF: 0 duloxetine 60 mg capsule,delayed release(DR/EC) 60 mg PO QAM RF: 0 Discontinued bumetanide 2 mg tablet 4 mg PO BID Qty: 120 RF: 3 Discharge Orders: Discharge Order (Routine); Ordered 03/30/21 Ordered By: Sanya Cross/Other Patient Handouts: Managing Type 2 Diabetes, A1C Admission Data Admit Date/Time: 03/24/21 15:23 Attending Provider: Sanya Mcdonald Admit Provider: Ag Gant Primary Care Provider: Henry Weeks Other Providers: Malcolm Reynoso ; Ag Gant ; Dago Quintana ; Obed Gaming ; Katelin Orr
== END 2021-03-30 16:50 | disposition home or self-care (01) | DRG 291 ==
LOC: ED 10:27 → SUATTDRO 12:43 → 1E 12:43 → SUATTDRO 15:23 → 1E 15:50 → 2N 03-25 17:07

== ENCOUNTER 2021-04-26 13:35 | Inpatient (IN) ==
--- NOTE | 2021-04-26 14:20 | Emergency Department Note ---
Impression & Plan Renal failure (ARF), acute on chronic, Pulmonary edema ED Provider Note NAME: PARK ACHARYA AGE: 56 SEX: M : 1965 ARRIVES VIA: Ambulance INFORMANT: Patient, ED PROVIDER(S): Benson Martínez DO CHIEF COMPLAINT: Shortness of breath he arrived at the emergency department today because of worsening symptoms and shortness of breath. The patient has a history of dialysis HPI: The patient is a 56-year-old male who presented to the emergency department for an evaluation of shortness of breath. The patient has a history of pulmonary edema and CHF. He was seen in our facility this weekend but signed out AGAINST MEDICAL ADVICE. The patient has a history of end-stage renal disease requiring dialysis. The patient has a port in his chest but also has a fistula in his left arm that is still maturing. He went to see his vascular surgeon today for a check on his port. He had a fall and was unable to stand. When he was able to stand he was found to be significantly short of breath and was brought to the emergency department via ambulance. The patient has not had dialysis in over a week and a half because he was positive for COVID-19 and was unable to go to dialysis. The patient states he is very short of breath with any exertion or lying flat. He does wear oxygen at home and has a history of obstructive sleep apnea as well as morbid obesity. He requires significant amount of oxygen at this time. He did not talk to his rn allergy today. ROS: See above HPI for pertinent positives & negatives. A total of 10 systems reviewed and were otherwise negative. PAST MEDICAL HISTORY: See Below PAST SURGICAL HISTORY: See Below FAMILY HISTORY: See Below SOCIAL HISTORY: See Below HOME MEDICATIONS: See Below ALLERGIES: See Below VITALS: See Below PHYSICAL EXAMINATION: GENERAL: The patient is awake and alert. He is somewhat anxious appearing. EYES: The conjunctivae are clear. The pupils are round and reactive. EARS, NOSE, MOUTH AND THROAT: The nose is without any evidence of any deformity. NECK: The neck is nontender and supple. RESPIRATORY: Diminished breath sounds are noted throughout. Poor ventilatory effort was noted. CARDIOVASCULAR: Regular rate and rhythm noted there no murmurs rubs or gallops normal S1 normal S2. GASTROINTESTINAL: The abdomen is obese mildly distended. There is no tenderness guarding rigidity. MUSCULOSKELETAL/EXTREMITIES: There is no evidence of gross deformity full range of motion is noted in the hips and shoulders. SKIN: Severe venous stasis changes were noted. Pedal edema was noted bilaterally. NEUROLOGIC: Patient is awake alert and oriented x3. MEDICAL DECISION MAKING: The patient is a 56-year-old male who presented to the emergency department for an evaluation of difficulty breathing. The patient has a history of end-stage renal disease. He has a fistula in his left arm which is not quite mature but also has a port in his right chest that he has been using for dialysis. The vicki moore missed dialysis for approximately 2 weeks because of a Covid infection. The patient presented to the emergency department today after a minor fall at his vascular surgeons. The patient was found to be in pulmonary edema. I discussed the patient's condition with his primary nephrology group. They do recommend emergent dialysis. The [facility] was notified about the patient. They will evaluate the patient in the emergency department for further management and disposition. The patient was placed on supple oxygen. Triage Nursing notes reviewed. Prior medical records reviewed Vital Signs: reviewed and remarkable for hypoxia and hypertension. Differential diagnosis: Reactive airway disease, pneumonia, pneumothorax, COPD, CHF, infections, cardiac ischemia, pulmonary embolism, musculoskeletal, gastrointestinal, as well as other pathologies. ER treatment provided: See below Diagnostics interpreted by me: ECG: EKG was obtained in the emergency department. My interpretation is atrial fibrillation at 85 bpm. Right bundle branch block pattern was noted. Diffuse ST segment abnormalities were noted. This was compared to a tracing from March 24, 2021. No significant changes were noted. Cardiac Monitoring: An order was placed for continuous cardiac monitoring. The monitor shows a rate of 105 bpm and with sinus tachycardia rhythm. Laboratory studies: As stated above and show below. Imaging studies: See below Consultation(s): 1400: I discussed this case with Dr. Weems who is the patient's primary rn allergy. She does feel that the patient requires dialysis and requested I have the patient admitted to the hospital service for emergent dialysis. 1635: I discussed this case with Dr. Putnam who is on-call for the [facility]. They will evaluate the patient in the emergency department. Past Med/Surg History Medical History (Updated 04/27/21 @ 16:28 by Benson Martínez DO) Acute on chronic respiratory failure Anxiety Atrial flutter on Eliquis Chronic anemia receiving weekly iron infusions ([place]) Chronic obstructive pulmonary disease Congestive heart failure Depression Diabetes mellitus IDDM DVT (deep venous thrombosis) Several years ago Dyslipidemia ESRD needing dialysis No current dialysis ESRD on hemodialysis Hyperkalemia Morbid obesity with body mass index of 70 and over in adult Neuropathy Paroxysmal A-fib on Eliquis Pulmonary edema Secondary hyperparathyroidism of renal origin Surgical History History of removal of skin mole S/P panniculectomy Family History Father Family hx of colon cancer Grandmother (Maternal) Diabetes Mother Diabetes Uncle Diabetes Uncle Diabetes Social History Smoking Status: Former smoker Tobacco Type: Cigarettes Second Hand Exposure: Yes (SON SMOKES); Hx Alcohol Use: No Hx Substance Use: No Preferred Language: Greenlandic Communication Ability: Effective Slurry Control Tender Required: No Beliefs That Will Affect Care: None marital status: Current Living Situation: Spouse Current Living Situation Comment: LIVES WITH SPOUSE, 2 SONS current occupational status: disabled Feels Safe at Home: Yes Assistive Devices: Oxygen - Continuous, Walker and Wheelchair Allergies Allergies Allergy/AdvReac Type Severity Reaction Status Date / Time No Known Allergies Allergy Verified 04/26/21 16:44 Home Meds Home Medications Medication Instructions Recorded Confirmed albuterol sulfate 90 mcg/actuation 2 puffs INHALATION Q4H PRN gm 07/01/19 04/26/21 aerosol inhaler apixaban 5 mg tablet 5 mg PO BID #60 tab 07/01/19 04/26/21 blood sugar diagnostic #10 ea 07/01/19 03/24/21 insulin syringe-needle U-100 0.3 #10 ea 07/01/19 03/24/21 mL 31 gauge x /16" pravastatin 80 mg tablet 80 mg PO HS #90 tab 07/01/19 04/26/21 Breo Ellipta 1 inh INHALATION QAM 02/21/21 04/26/21 Ozempic 1 mg SQ WK 02/21/21 04/26/21 duloxetine 30 mg PO QAM 02/21/21 04/26/21 ferrous sulfate 27 mg PO QAM 02/21/21 04/26/21 metoprolol succinate 100 mg PO QAM 02/21/21 04/26/21 multivitamin 1 tab PO QAM 02/21/21 04/26/21 omega 6-itf-gie-fish oil [Fish Oil] 1 cap PO QAM 02/21/21 04/26/21 oxycodone-acetaminophen [Percocet] 1 tab PO Q6H PRN 02/21/21 04/26/21 Tresiba FlexTouch U-100 88 units SQ BID 03/10/21 04/26/21 calcitriol 0.5 mcg PO 3XWK 03/24/21 04/26/21 duloxetine 60 mg PO QAM 03/24/21 04/26/21 insulin aspart U-100 [Novolog 36 unit SQ TID 03/24/21 04/26/21 Flexpen U-100 Insulin] bumetanide 4 mg PO BID 04/26/21 04/26/21 nifedipine [Adalat CC] 60 mg PO QAM 04/26/21 04/26/21 sodium polystyrene sulf-sorbtl 60 ml PO Q2D 04/26/21 04/26/21 Previous Rx's Medication Instructions Recorded nitroglycerin 0.4 mg sublingual 0.4 mg SL Q5M PRN #25 tab 09/12/19 tablet bupropion HCl 200 mg tablet,12 hr 200 mg PO BID #180 ea 03/12/20 sustained-release sodium bicarbonate 650 mg tablet 650 mg PO BID #60 tab 04/22/21 Results & Data (ED) Vital Signs Vital Signs - 24 hr 04/26/21 13:29 04/26/21 13:45 04/26/21 13:51 Temperature 36.8 C Temperature Source Oral Pulse Rate 90 93 H 90 Pulse Rate from SpO2 Sensor 89 84 Pulse Rhythm Regular Respiratory Rate 28 H 22 22 Respiratory Effort / Characteristics Nasal Flaring Respiratory Depth Shallow Respiratory Pattern Regular Blood Pressure 136/84 136/84 Blood Pressure Mean 101 101 Blood Pressure Position Sitting Pulse Oximetry 94 92 93 Oxygen Delivery Method Oxymask Oxymask Oxymask Oxygen Flow Rate 10 10 10 Sepsis Recent Fever Within 48 Hours No Sepsis New/Unexplained Change in Mental Status No Sepsis Action Taken by Nursing No Action Required 04/26/21 14:00 04/26/21 14:12 04/26/21 14:15 Temperature Temperature Source Pulse Rate 88 Pulse Rate from SpO2 Sensor 98 H 96 H Pulse Rhythm Respiratory Rate 24 Respiratory Effort / Characteristics Respiratory Depth Respiratory Pattern Blood Pressure Blood Pressure Mean Blood Pressure Position Pulse Oximetry 92 93 90 Oxygen Delivery Method Oxymask Oxymask Oxymask Oxygen Flow Rate 10 10 10 Sepsis Recent Fever Within 48 Hours Sepsis New/Unexplained Change in Mental Status Sepsis Action Taken by Nursing 04/26/21 14:30 04/26/21 14:45 04/26/21 15:00 Temperature Temperature Source Pulse Rate 91 H 98 H 89 Pulse Rate from SpO2 Sensor 92 H 98 H 91 H Pulse Rhythm Respiratory Rate 17 19 17 Respiratory Effort / Characteristics Respiratory Depth Respiratory Pattern Blood Pressure 136/84 Blood Pressure Mean 101 Blood Pressure Position Pulse Oximetry 93 94 93 Oxygen Delivery Method Oxygen Flow Rate Sepsis Recent Fever Within 48 Hours Sepsis New/Unexplained Change in Mental Status Sepsis Action Taken by Nursing 04/26/21 15:15 04/26/21 15:30 04/26/21 15:45 Temperature Temperature Source Pulse Rate 94 H 87 90 Pulse Rate from SpO2 Sensor 97 H 88 86 Pulse Rhythm Respiratory Rate 18 15 16 Respiratory Effort / Characteristics Respiratory Depth Respiratory Pattern Blood Pressure 136/84 Blood Pressure Mean 101 Blood Pressure Position Pulse Oximetry 90 92 92 Oxygen Delivery Method Oxygen Flow Rate 10 Sepsis Recent Fever Within 48 Hours Sepsis New/Unexplained Change in Mental Status Sepsis Action Taken by Nursing 04/26/21 15:54 04/26/21 16:00 04/26/21 16:02 Temperature Temperature Source Pulse Rate 90 86 88 Pulse Rate from SpO2 Sensor 87 114 H 84 Pulse Rhythm Respiratory Rate 22 18 17 Respiratory Effort / Characteristics Respiratory Depth Respiratory Pattern Blood Pressure 103/56 L 105/52 L Blood Pressure Mean 71 69 Blood Pressure Position Pulse Oximetry 92 91 91 Oxygen Delivery Method Oxygen Flow Rate 10 10 10 Sepsis Recent Fever Within 48 Hours Sepsis New/Unexplained Change in Mental Status Sepsis Action Taken by [facility] Medications Current Medication List: was personally reviewed by me Laboratory Data Attestation: I reviewed the patient's lab results. Result diagrams: 04/26/21 14:20 04/26/21 14:20 Lab Results 04/26/21 04/26/21 04/26/21 Range/Units 13:51 14:20 14:20 WBC 8.21 (4.8-10.8) K/uL RBC 3.58 L (4.7-6.1) M/uL Hgb 9.5 L (14.0-18.0) g/dL Hct 30.0 L (42-52) % MCV 83.8 (80-100) fL MCH 26.5 (25-34) pg MCHC 31.7 L (32-36) g/dL RDW Std Deviation 54.4 H (36.4-46.3) fL RDW Coeff of Talha 17.8 H (11.5-14.5) % Plt Count 319 (130-400) K/uL MPV 10.8 H (7.4-10.4) fL Immature Gran % (Auto) 1.0 % Neut % (Auto) 82.8 % Lymph % (Auto) 10.6 % [place] % (Auto) 4.8 % Eos % (Auto) 0.7 % Baso % (Auto) 0.1 % Neut # (Auto) 6.80 H (1.4-6.5) K/uL Lymph # (Auto) 0.87 L (1.2-3.4) K/uL [place] # (Auto) 0.39 (0.11-0.59) K/uL Eos # (Auto) 0.06 (0-0.5) K/uL Baso # (Auto) 0.01 (0-0.2) K/uL Immature Gran # (Auto) 0.08 H (0.00-0.02) K/uL Absolute Nucleated RBC 0.03 H (0-0) K/uL Nucleated RBC % (auto) 0.4 % PT 11.2 (9.0-12.0) Seconds INR 1.1 (0.9-1.1) APTT 32.4 H (21.0-31.0) Seconds PTT Ratio 1.2 VBG pH (7.36-7.41) VBG pCO2 (38-50) mmHg VBG pO2 mmHg VBG HCO3 mmol/L VBG O2 Saturation % VBG Base Excess mEq/L Barometric Pressure mm/Hg Sodium (136-145) mmol/L Potassium (3.5-5.1) mmol/L Chloride (98-107) mmol/L Carbon Dioxide (21-32) mmol/L Anion Gap (3-11) BUN (7-18) mg/dl Creatinine (0.6-1.4) mg/dl Est Cr Clr Drug Dosing ml/min Est GFR ( Amer) ml/min Est GFR (Non-Af Amer) ml/min BUN/Creatinine Ratio (10-20) Glucose (70-99) mg/dl POC Glucose 289 H (70-99) mg/dl Calcium (8.5-10.1) mg/dl Magnesium (1.8-2.4) mg/dl Total Bilirubin (0.2-1) mg/dl AST (15-37) U/L ALT (12-78) U/L Alkaline Phosphatase (45-117) U/L Troponin I (0-0.045) ng/ml NT-Pro-B Natriuret Pep (0-900) pg/ml Total Protein (6.4-8.2) gm/dl Albumin (3.4-5.0) gm/dl Globulin (2.5-4.0) gm/dl Albumin/Globulin Ratio (0.9-2) COVID-19 Eval Order SARS-CoV-2, RNA, NAAT (NEGATIVE) 04/26/21 04/26/21 04/26/21 Range/Units 14:20 14:48 14:48 WBC (4.8-10.8) K/uL RBC (4.7-6.1) M/uL Hgb (14.0-18.0) g/dL Hct (42-52) % MCV (80-100) fL MCH (25-34) pg MCHC (32-36) g/dL RDW Std Deviation (36.4-46.3) fL RDW Coeff of Talha (11.5-14.5) % Plt Count (130-400) K/uL MPV (7.4-10.4) fL Immature Gran % (Auto) % Neut % (Auto) % Lymph % (Auto) % [place] % (Auto) % Eos % (Auto) % Baso % (Auto) % Neut # (Auto) (1.4-6.5) K/uL Lymph # (Auto) (1.2-3.4) K/uL [place] # (Auto) (0.11-0.59) K/uL Eos # (Auto) (0-0.5) K/uL Baso # (Auto) (0-0.2) K/uL Immature Gran # (Auto) (0.00-0.02) K/uL Absolute Nucleated RBC (0-0) K/uL Nucleated RBC % (auto) % PT (9.0-12.0) Seconds INR (0.9-1.1) APTT (21.0-31.0) Seconds PTT Ratio VBG pH (7.36-7.41) VBG pCO2 (38-50) mmHg VBG pO2 mmHg VBG HCO3 mmol/L VBG O2 Saturation % VBG Base Excess mEq/L Barometric Pressure mm/Hg Sodium 133 L (136-145) mmol/L Potassium 4.9 (3.5-5.1) mmol/L Chloride 99 (98-107) mmol/L Carbon Dioxide 23 (21-32) mmol/L Anion Gap 11.0 (3-11) BUN 134 H (7-18) mg/dl Creatinine 11.90 H* (0.6-1.4) mg/dl Est Cr Clr Drug Dosing 14.7 ml/min Est GFR ( Amer) 4.9 ml/min Est GFR (Non-Af Amer) 4.3 ml/min BUN/Creatinine Ratio 11.3 (10-20) Glucose 269 H (70-99) mg/dl POC Glucose (70-99) mg/dl Calcium 9.0 (8.5-10.1) mg/dl Magnesium 2.4 (1.8-2.4) mg/dl Total Bilirubin 0.5 (0.2-1) mg/dl AST 14 L (15-37) U/L ALT 25 (12-78) U/L Alkaline Phosphatase 86 (45-117) U/L Troponin I < 0.015 (0-0.045) ng/ml NT-Pro-B Natriuret Pep 7765 H (0-900) pg/ml Total Protein 7.7 (6.4-8.2) gm/dl Albumin 2.3 L (3.4-5.0) gm/dl Globulin 5.4 H (2.5-4.0) gm/dl Albumin/Globulin Ratio 0.4 L (0.9-2) COVID-19 Eval Order Covid19 IDNow atMMDC SARS-CoV-2, RNA, NAAT POSITIVE A* (NEGATIVE) 04/26/21 Range/Units 15:04 WBC (4.8-10.8) K/uL RBC (4.7-6.1) M/uL Hgb (14.0-18.0) g/dL Hct (42-52) % MCV (80-100) fL MCH (25-34) pg MCHC (32-36) g/dL RDW Std Deviation (36.4-46.3) fL RDW Coeff of Talha (11.5-14.5) % Plt Count (130-400) K/uL MPV (7.4-10.4) fL Immature Gran % (Auto) % Neut % (Auto) % Lymph % (Auto) % [place] % (Auto) % Eos % (Auto) % Baso % (Auto) % Neut # (Auto) (1.4-6.5) K/uL Lymph # (Auto) (1.2-3.4) K/uL [place] # (Auto) (0.11-0.59) K/uL Eos # (Auto) (0-0.5) K/uL Baso # (Auto) (0-0.2) K/uL Immature Gran # (Auto) (0.00-0.02) K/uL Absolute Nucleated RBC (0-0) K/uL Nucleated RBC % (auto) % PT (9.0-12.0) Seconds INR (0.9-1.1) APTT (21.0-31.0) Seconds PTT Ratio VBG pH 7.31 L (7.36-7.41) VBG pCO2 43 (38-50) mmHg VBG pO2 61 mmHg VBG HCO3 21 mmol/L VBG O2 Saturation 89.7 % VBG Base Excess -4.8 mEq/L Barometric Pressure 732.3 mm/Hg Sodium (136-145) mmol/L Potassium (3.5-5.1) mmol/L Chloride (98-107) mmol/L Carbon Dioxide (21-32) mmol/L Anion Gap (3-11) BUN (7-18) mg/dl Creatinine (0.6-1.4) mg/dl Est Cr Clr Drug Dosing ml/min Est GFR ( Amer) ml/min Est GFR (Non-Af Amer) ml/min BUN/Creatinine Ratio (10-20) Glucose (70-99) mg/dl POC Glucose (70-99) mg/dl Calcium (8.5-10.1) mg/dl Magnesium (1.8-2.4) mg/dl Total Bilirubin (0.2-1) mg/dl AST (15-37) U/L ALT (12-78) U/L Alkaline Phosphatase (45-117) U/L Troponin I (0-0.045) ng/ml NT-Pro-B Natriuret Pep (0-900) pg/ml Total Protein (6.4-8.2) gm/dl Albumin (3.4-5.0) gm/dl Globulin (2.5-4.0) gm/dl Albumin/Globulin Ratio (0.9-2) COVID-19 Eval Order SARS-CoV-2, RNA, NAAT (NEGATIVE) Administered Medications Apixaban (Apixaban 5 Mg Tablet) 5 mg PO BID [facility] Stop: 05/26/21 20:59 Last Admin: 04/27/21 08:08 Dose: 5 mg Documented by: [id number] Admin: 04/27/21 01:21 Dose: 5 mg Documented by: [id number] Bumetanide (Bumetanide 1 Mg Tab) 4 mg PO [id number] [facility] Stop: 05/27/21 08:59 Last Admin: 04/27/21 08:07 Dose: 4 mg Documented by: [id number] Bupropion HCl (Bupropion Sr 100 Mg Tabcr) 200 mg PO [id number] [facility] Stop: 05/27/21 08:59 Last Admin: 04/27/21 08:08 Dose: 200 mg Documented by: [id number] Duloxetine HCl (Duloxetine Hcl 30 Mg Cap) 30 mg PO QAM [facility] Stop: 05/27/21 08:59 Last Admin: 04/27/21 08:09 Dose: 30 mg Documented by: [id number] Duloxetine HCl (Duloxetine Hcl 60 Mg Cap) 60 mg PO QAM [facility] Stop: 05/27/21 08:59 Last Admin: 04/27/21 08:08 Dose: 60 mg Documented by: [id number] Ferrous Sulfate (Ferrous Sulfate 325 Mg Tab) 325 mg PO QAM [facility] Stop: 05/27/21 08:59 Last Admin: 04/27/21 08:07 Dose: 325 mg Documented by: [id number] Fluticasone/Vilanterol (Fluticasone/Vilanterol 200/25mcg 14 Puffs/Inhaler) 1 puffs INH QAM [facility] Stop: 05/27/21 08:59 Last Admin: 04/27/21 08:07 Dose: 1 puffs Documented by: [id number] Insulin Aspart (Insulin Aspart 100 Units/Ml 3 Ml Pen) 0 units SC ACHS [facility] Stop: 05/27/21 07:29 Last Admin: 04/27/21 11:41 Dose: 10 units Documented by: [id number] Cosigned by: [id number] Admin: 04/27/21 08:37 Dose: 13 units Documented by: [id number] Cosigned by: [id number] Insulin Glargine (Insulin Glargine Solostar 100 Units/Ml 3 Ml Pen) 20 units SC BID [facility] Stop: 05/27/21 08:59 Last Admin: 04/27/21 08:39 Dose: 20 units Documented by: [id number] Cosigned by: [id number] Metoprolol Succinate (Metoprolol Succ 50mg Ext Rel Tab) 100 mg PO [facility] Stop: 05/27/21 08:59 Last Admin: 04/27/21 08:08 Dose: 100 mg Documented by: [id number] Nifedipine (Nifedipine Extended Rel 30 Mg Tabcr) [facility] [place] [place] Stop: 05/27/21 08:59 Last Admin: 04/27/21 08:07 Dose: 60 mg Documented by: [id number] Pravastatin Sodium (Pravastatin Sod 40 Mg Tab) 80 mg PO HS [facility] Stop: 05/26/21 20:59 Last Admin: 04/27/21 01:21 Dose: 80 mg Documented by: [id number] Sevelamer HCl (Sevelamer Hcl 800 Mg Tablet) 800 mg PO TIDM [facility] Stop: 05/27/21 11:59 Last Admin: 04/27/21 11:40 Dose: 800 mg Documented by: [id number] Vitamin B Complex/Folic Acid (Nephrocaps) 1 cap PO QAM [facility] Stop: 05/27/21 10:14 Last Admin: 04/27/21 11:40 Dose: 1 cap Documented by: [id number] Discontinued Medications Epoetin Elijah (Epoetin Elijah 20,000 Units/Ml Vial) 20,000 units IV TODAY@1500 [facility] Stop: 04/26/21 23:59 Last Admin: 04/26/21 22:31 Dose: 20,000 units Documented by: [id number] Sodium Bicarbonate (Sodium Bicarbonate 650 Mg Tab) 650 mg PO BID [facility] Stop: 05/26/21 20:59 Last Admin: 04/27/21 08:07 Dose: 650 mg Documented by: [id number] Admin: 04/27/21 01:21 Dose: 650 mg Documented by: [id number] Imaging Data Radiologist's Impression: Chest X-Ray 04/26/21 14:12 SINGLE VIEW CHEST CLINICAL HISTORY: Dyspnea. FINDINGS: 2 AP, portable, upright chest radiographs are compared to study dated 03/24/2021. The examination is degraded by portable technique, large body habitus, and patient rotation. A right-sided central venous catheter is new from previous. The tip projects over the SVC. The heart is enlarged. There is pulmona ry vascular congestion. Bilateral airspace opacities likely represent interstitial edema. Airspace opacities at the lung bases likely represent atelectasis. No large pleural effusion or pneumothorax is seen. The bony thorax is grossly intact. IMPRESSION: 1. A right-sided central venous catheter is new from previous. 2. Cardiomegaly with evidence of congestive failure. 3. Bilateral airspace opacities likely represent pulmonary edema. Correlate clinically for evidence of a superimposed infectious/inflammatory pneumonitis. ACT 112: Negative or not required by law. Electronically signed by: Wilmer Burch M.D. 04/26/2021 3:04 PM Discharge Plan Visit Data Chief Complaint: Shortness of Breath/Dyspnea Stated Complaint: WEAKNESS, SOB ED Provider: Benson Martínez Discharge Problem: Renal failure (ARF), acute on chronic, Pulmonary edema Patient Disposition: Admitted As Inpatient Condition: Good Discharge Instructions Interventions: ED Discharge Assessment Last Done: 04/26/21 22:10 Discharge Problem: Renal failure (ARF), acute on chronic Qualifiers: Acute renal failure type: unspecified Chronic kidney disease stage: on chronic dialysis Qualified Code(s): N17.9 - Acute kidney failure, unspecified Pulmonary edema Qualifiers: Chronicity: acute Qualified Code(s): J81.0 - Acute pulmonary edema
[2021-04-26 14:30] LABS: Basophils # (auto) 0.01 K/uL (0-0.2); Basophils % (auto) 0.1 %; Eosinophils # (auto) 0.06 K/uL (0-0.5); Eosinophils % (auto) 0.7 %; Hemoglobin 9.5 g/dL (14.0-18.0); Immature Granulocytes # (auto) 0.08 K/uL (0.00-0.02); Lymphocytes # (auto) 0.87 K/uL (1.2-3.4); Lymphocytes % (auto) 10.6 %; Mean Corpuscular Hemoglobin 26.5 pg (25-34); Mean Corpuscular Hgb Conc 31.7 g/dL (32-36); Mean Corpuscular Volume 83.8 fL (80-100); Mean Platelet Volume 10.8 fL (7.4-10.4); Monocytes # (auto) 0.39 K/uL (0.11-0.59); Monocytes % (auto) 4.8 %; Neutrophils % (auto) 82.8 %; Nucleated RBC # (auto) 0.03 K/uL (0-0); Nucleated RBC % (auto) 0.4 %; Platelet Count 319 K/uL (130-400); RDW Coefficient of Variation 17.8 % (11.5-14.5); RDW Standard Deviation 54.4 fL (36.4-46.3); Red Blood Count 3.58 M/uL (4.7-6.1); White Blood Count 8.21 K/uL (4.8-10.8)
[2021-04-26 14:40] LABS: INR 1.1 (0.9-1.1); Partial Thromboplastin Ratio 1.2; Partial Thromboplastin Time 32.4 Seconds (21.0-31.0); Prothrombin Time 11.2 Seconds (9.0-12.0)
[2021-04-26] MEDS ORDERED: EPOETIN ALFA 20,000 UNITS/ML VIAL IV SCH (15:00)
[2021-04-26 15:01] LABS: Alanine Aminotransferase 25 U/L (12-78); Albumin Globulin Ratio 0.4 (0.9-2); Albumin Level 2.3 gm/dl (3.4-5.0); Alkaline Phosphatase 86 U/L (45-117); Aspartate Aminotransferase 14 U/L (15-37); BUN Creatinine Ratio 11.3 (10-20); Bilirubin,Total 0.5 mg/dl (0.2-1); Blood Urea Nitrogen 134 mg/dl (7-18); Carbon Dioxide 23 mmol/L (21-32); Chloride 99 mmol/L (98-107); Creatinine Clr Calc Pharmacy 14.7 ml/min; Est GFR (African American) 4.9 ml/min; Est GFR (Non-African American) 4.3 ml/min; Globulin 5.4 gm/dl (2.5-4.0); Glucose 269 mg/dl (70-99); Magnesium 2.4 mg/dl (1.8-2.4); NT Pro B Type Natriuretic Pept 7765 pg/ml (0-900); Potassium 4.9 mmol/L (3.5-5.1); Sodium 133 mmol/L (136-145); Total Protein 7.7 gm/dl (6.4-8.2); Troponin I < 0.015 ng/ml (0-0.045)
--- NOTE | 2021-04-26 15:05 | XRay Report ---
SINGLE VIEW CHEST CLINICAL HISTORY: Dyspnea. FINDINGS: 2 AP, portable, upright chest radiographs are compared to study dated 03/24/2021. The examina tion is degraded by portable technique, large body habitus, and patient rotation. A right-sided centr al venous catheter is new from previous. The tip projects over the SVC. The heart is enlarged. There is pulmonary vascular congestion. Bilateral airspace opacities likely represent interstitial edema. A irspace opacities at the lung bases likely represent atelectasis. No large pleural effusion or pneumo thorax is seen. The bony thorax is grossly intact. IMPRESSION: 1. A right-sided central venous catheter is new from previous. 2. Cardiomegaly with evidence of congestive failure. 3. Bilateral airspace opacities likely represent pulmonary edema. Correlate clinically for evidence o f a superimposed infectious/inflammatory pneumonitis. ACT 112: Negative or not required by law. Electronically signed by: Wilmer Burch M.D. 04/26/2021 3:04 PM
[2021-04-26 15:13] LABS: Base Excess VBG -4.8 mEq/L; Oxygen Saturation VBG 89.7 %; pH VBG 7.31 (7.36-7.41)
--- NOTE | 2021-04-26 16:31 | Nephrology Consultation ---
Date of Consultation April 26, 2021 Assessment & Plan (1) ESRD on hemodialysis: ESRD on HD, admitted with SOB, weakness, fall and missed HD for >1 week needing emergency hemodialysis. Labs are pending. BP relatively low. -- schedule for emergency HD for volume overload and respiratory distress with missed dialysis -- Epogen 48960 units with HD --left arm nephrology precaution -- will plan for another dialysis session tomorrow will follow. thank you for the consult. (2) Chronic anemia: (3) Secondary hyperparathyroidism of renal origin: (4) Dyslipidemia: (5) Diabetes mellitus: (6) Hyperkalemia: History of Present Illness Reason for Consultation: ESRD, needs HD. History of Present Illness Mr. Damir Yost is a 56-year-old male with ESRD, on HD, HTN, DM, presented to ER after a fall with SOB and generalized weakness. Nephrology consult was requested to provide emergency HD for SOB, volume overload and missed HD. EMR records were reviewed in detail during evaluation. 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 Has maturing AVF placed in February. He went f/u with vascular surgery this morning for f/u for maturing AVF placed in February. While he was getting out of the car into a wheelchair he fell to the ground and was unable to stand. Eventually he was able to stand but found to be significantly short of breath and was brought to the ER via ambulance. In ER he was hypoxic and requiring 10L O2 via NC. He was initially started on HD via TDC on 03/25/21 for worsening renal function, reaching ESRD with diuretic resistant volume overload and respiratory distress. After discharged he was diagnosed with COVID pneumonia on 04/06/21 and admitted to [facility]. He signed out AMA after 1 week. Since then he did not have dialysis as [facility] requires 21 days isolation since diagnosis. He has a bariatric chair available for him at [facility] and was supposed to start HD there on 04/27/21. Left forearm AVF placed by Dr. Gaming on 03/10. Past medical history is notable for morbid obesity, DMII, hypertension, atrial fibrillation, chronic anticoagulation, HFpEF, pulmonary hypertension, and chronic anemia. Allergies Allergy/AdvReac Type Severity Reaction Status Date / Time No Known Allergies Allergy Verified 04/26/21 16:44 Home Medications Medication Instructions Recorded Confirmed Type albuterol sulfate 90 mcg/actuation 2 puffs INHALATION Q4H PRN gm 07/01/1904/26 History aerosol inhaler apixaban 5 mg tablet 5 mg PO BID #60 tab 07/01/19 04/26/21 History blood sugar diagnostic #10 ea 07/01/19 03/24/21 History insulin syringe-needle U-100 0.3 #10 ea 07/01/19 03/24/21 History mL 31 gauge x 03/06" pravastatin 80 mg tablet 80 mg PO HS #90 tab 07/01/19 04/26/21 History nitroglycerin 0.4 mg sublingual 0.4 mg SL Q5M PRN #25 tab 09/12/19 04/26/21 Rx tablet bupropion HCl 200 mg tablet,12 hr 200 mg PO BID #180 ea 03/12/20 04/26/21 Rx sustained-release Breo Ellipta 1 inh INHALATION QAM 02/21/21 04/26/21 History Ozempic 1 mg SQ WK 02/21/21 04/26/21 History duloxetine 30 mg PO QAM 02/21/21 04/26/21 History ferrous sulfate 27 mg PO QAM 02/21/21 04/26/21 History metoprolol succinate 100 mg PO QAM 02/21/21 04/26/21 History multivitamin 1 tab PO QAM 02/21/21 04/26/21 History omega 0-jrv-mng-fish oil [Fish Oil] 1 cap PO QAM 02/21/21 04/26/21 History oxycodone-acetaminophen [Percocet] 1 tab PO Q6H PRN 02/21/21 04/26/21 History Tresiba FlexTouch U-100 88 units SQ BID 03/10/21 04/26/21 History calcitriol 0.5 mcg PO 3XWK 03/24/21 04/26/21 History duloxetine 60 mg PO QAM 03/24/21 04/26/21 History insulin aspart U-100 [Novolog 36 unit SQ TID 03/24/21 04/26/21 History Flexpen U-100 Insulin] sodium bicarbonate 650 mg tablet 650 mg PO BID #60 tab 04/22/21 04/26/21 Rx bumetanide 4 mg PO BID 04/26/21 04/26/21 History nifedipine [Adalat CC] 60 mg PO QAM 04/26/21 04/26/21 History sodium polystyrene sulf-sorbtl 60 ml PO Q2D 04/26/21 04/26/21 History Patient History Medical History (Updated 04/26/21 @ 17:26 by Pritesh Putnam MD) Acute on chronic respiratory failure Anxiety Atrial flutter on Eliquis Chronic anemia receiving weekly iron infusions ([place]) Chronic obstructive pulmonary disease Congestive heart failure Depression Diabetes mellitus IDDM DVT (deep venous thrombosis) Several years ago Dyslipidemia ESRD needing dialysis No current dialysis ESRD on hemodialysis Hyperkalemia Morbid obesity with body mass index of 70 and over in adult Neuropathy Paroxysmal A-fib on Eliquis Pulmonary edema Secondary hyperparathyroidism of renal origin Surgical History History of removal of skin mole S/P panniculectomy Family History Father Family hx of colon cancer Grandmother (Maternal) Diabetes Mother Diabetes Uncle Diabetes Uncle Diabetes Social History Smoking Status: Former smoker Tobacco Type: Cigarettes Second Hand Exposure: Yes (SON SMOKES); Hx Alcohol Use: No Hx Substance Use: No Preferred Language: Albanian Communication Ability: Effective Director Diabetes Required: No Beliefs That Will Affect Care: None marital status: Current Living Situation: Spouse Current Living Situation Comment: LIVES WITH SPOUSE, 2 SONS current occupational status: disabled Feels Safe at Home: Yes Assistive Devices: Oxygen - Continuous, Walker and Wheelchair Review of Systems Review of Systems: All systems reviewed & are unremarkable except as noted in Subjective Physical Exam Constitutional: WD/WN, vitals as above well developed and well nourished; no acute distress Eyes: PERRL, conjunctivae normal, anicteric sclerae ENMT: external ear and nose normal, oropharynx normal Ears: no hearing impairment Neck: trachea midline Respiratory: + respiratory distress; no cough Auscultation: + diminished lung sounds and + rales Cardiovascular: Rate/Rhythm: + irregularly irregular Heart Sounds: normal S1 and normal S2 Extremities: + edema, + vascular access device (TDC) and + AV fistula ( with positive thrill and bruit) Gastrointestinal (Abdomen): normal bowel sounds, soft, nontender, no hepatosplenomegaly Percussion/Palpation: abdomen nontender, no guarding and abdomen not rigid Musculoskeletal: Extremities: extremities normal to inspection Gait: normal gait Skin: no rashes, warm and dry Neurologic: moves all extremities and awake Psychiatric: A+Ox3, euthymic affect Results & Data ([facility]) Vital Signs (Past 12 Hours) Vital Signs Temp Pulse Resp BP Pulse Ox 04/26/21 16:02 88 17 105/52 L 91 04/26/21 16:00 86 18 91 04/26/21 15:54 90 22 103/56 L 92 04/26/21 15:45 90 16 92 04/26/21 15:30 87 15 92 04/26/21 15:15 94 H 18 136/84 90 04/26/21 15:00 89 17 136/84 93 04/26/21 14:45 98 H 19 94 04/26/21 14:30 91 H 17 93 04/26/21 14:15 90 04/26/21 14:12 93 04/26/21 14:00 88 24 92 04/26/21 13:51 90 22 93 04/26/21 13:45 93 H 22 136/84 92 04/26/21 13:29 36.8 C 90 28 H 136/84 94 PG Care Time/CCT Total # of Minutes Spent Total Time Spent with Patient: Total time spent is greater than 50% in coordination of care (as documented) at patient's floor/unit and/or counseling patient: Coding Level of Care Code 56393 Initial Inpt Care Lvl 3 Diagnoses ESRD on hemodialysis N18.6; Z99.2 Chronic anemia D64.9 Secondary hyperparathyroidism of renal origin N25.81 Dyslipidemia E78.5 Diabetes mellitus E11.9 Hyperkalemia E87.5
--- NOTE | 2021-04-26 17:16 | History & Physical Report ---
Date of Service April 26, 2021 Assessment & Plan (1) Obesity hypoventilation syndrome: 02 protocol - does not comply with CPAP (2) Paroxysmal A-fib: Cont Apixaban, metoprolol (3) Heart failure with preserved ejection fraction: Pulmonary edema on admission - Lasix provided in ER but needs dialysis. Will cont Bumex and Metoprolol. (4) ESRD needing dialysis: Nephrology aware - pt admitted for dialysis (5) Chronic anemia: Stable - receives Epo (6) COVID-19: May be figuring into his SOB. Would consider treatment if he does not improve short-term with dialysis alone. (7) Diabetes mellitus: Siding scale + Lantus History of Present Illness Chief Complaint: Shortness of breath Primary Care Provider: Henry Weeks, DO 56 y/o M Hx HTN, HLD, anemia, morbidly obese, CATHERINE, diastolic CHF, PAF, ESRD requiring dialysis. The pt presents with SOB after noncompliance with dialysis for a 2 week period. He had fernando to the ER 3 days prior but had signed out AMA. He had also tested + for COVID 2 weeks prior. His last dialysis was 04/04. He currently has a chest cath while a recently placed fistula matures. He denies CP, cough or fever but is SOB and hypoxic at rest. Labs are consistent with ESRD and are otherwise at baseline. A CXR demonstrates pulmonary edema and possibly BL infiltrates. A rapid COVID remains +. Allergies Allergy/AdvReac Type Severity Reaction Status Date / Time No Known Allergies Allergy Verified 04/26/21 16:44 Home Medications Medication Instructions Recorded Confirmed Type albuterol sulfate 90 mcg/actuation 2 puffs INHALATION Q4H PRN gm 07/01/19 04/26/21 History aerosol inhaler apixaban 5 mg tablet 5 mg PO BID #60 tab 07/01/19 04/26/21 History blood sugar diagnostic #10 ea 07/01/19 03/24/21 History insulin syringe-needle U-100 0.3 #10 ea 07/01/19 03/24/21 History mL 31 gauge x /" pravastatin 80 mg tablet 80 mg PO HS #90 tab 07/01/19 04/26/21 History nitroglycerin 0.4 mg sublingual 0.4 mg SL Q5M PRN #25 tab 09/12/19 04/26/21 Rx tablet bupropion HCl 200 mg tablet,12 hr 200 mg PO BID #180 ea 03/12/20 04/26/21 Rx sustained-release Breo Ellipta 1 inh INHALATION QAM 02/21/21 04/26/21 History Ozempic 1 mg SQ WK 02/21/21 04/26/21 History duloxetine 30 mg PO QAM 02/21/21 04/26/21 History ferrous sulfate 27 mg PO QAM 02/21/21 04/26/21 History metoprolol succinate 100 mg PO QAM 02/21/21 04/26/21 History multivitamin 1 tab PO QAM 02/21/21 04/26/21 History omega 9-hji-xbc-fish oil [Fish Oil] 1 cap PO QAM 02/21/21 04/26/21 History oxycodone-acetaminophen [Percocet] 1 tab PO Q6H PRN 02/21/21 04/26/21 History Tresiba FlexTouch U-100 88 units SQ BID 03/10/21 04/26/21 History calcitriol 0.5 mcg PO 3XWK 03/24/21 04/26/21 History duloxetine 60 mg PO QAM 03/24/21 04/26/21 History insulin aspart U-100 [Novolog 36 unit SQ TID 03/24/21 04/26/21 History Flexpen U-100 Insulin] sodium bicarbonate 650 mg tablet 650 mg PO BID #60 tab 04/22/21 04/26/21 Rx bumetanide 4 mg PO BID 04/26/21 04/26/21 History nifedipine [Adalat CC] 60 mg PO QAM 04/26/21 04/26/21 History sodium polystyrene sulf-sorbtl 60 ml PO Q2D 04/26/21 04/26/21 History Past Med/Surg History Medical History (Updated 04/26/21 @ 17:26 by Pritesh Putnam MD) Acute on chronic respiratory failure Anxiety Atrial flutter on Eliquis Chronic anemia receiving weekly iron infusions ([place]) Chronic obstructive pulmonary disease Congestive heart failure Depression Diabetes mellitus IDDM DVT (deep venous thrombosis) Several years ago Dyslipidemia ESRD needing dialysis No current dialysis ESRD on hemodialysis Hyperkalemia Morbid obesity with body mass index of 70 and over in adult Neuropathy Paroxysmal A-fib on Eliquis Pulmonary edema Secondary hyperparathyroidism of renal origin Surgical History History of removal of skin mole S/P panniculectomy Family History Father Family hx of colon cancer Grandmother (Maternal) Diabetes Mother Diabetes Uncle Diabetes Uncle Diabetes Social History Smoking Status: Former smoker Tobacco Type: Cigarettes Second Hand Exposure: Yes (SON SMOKES); Hx Alcohol Use: No Hx Substance Use: No Preferred Language: Sinhala Communication Ability: Effective [employer] Report Developer Required: No Beliefs That Will Affect Care: None marital status: Current Living Situation: Spouse Current Living Situation Comment: LIVES WITH SPOUSE, 2 SONS current occupational status: disabled Feels Safe at Home: Yes Assistive Devices: Oxygen - at Night and Wheelchair Review of Systems Review of Systems: Gen: Denies fevers, night sweats, rigors, fatigue, malaise, weight loss/gain ENT: Denies congestion, throat pain, hearing loss Eyes: Denies acute visual changes CV: Denies CP, palpitations Pulmonary: Progressive SOB GI: Denies N/V, diarrhea, constipation Neuro: Denies acute or unilateral weakness, acute gait impairment, headache or acute visual changes Musculoskeletal: Denies joint pain, inflammation Endocrine: Denies polydipsia, polyuria Skin: Denies acute rashes or ulcers Physical Exam Physical Exam: In-person exam was differed to limit potential spread of COVID variants. Pt was examined by MD on day of admission. Results & Data Results & Data ([facility]) Vital Signs (Past 12 Hours) Vital Signs Temp Pulse Resp BP Pulse Ox 04/26/21 16:02 88 17 105/52 L 91 04/26/21 16:00 86 18 91 04/26/21 15:54 90 22 103/56 L 92 04/26/21 15:45 90 16 92 04/26/21 15:30 87 15 92 04/26/21 15:15 94 H 18 136/84 90 04/26/21 15:00 89 17 136/84 93 04/26/21 14:45 98 H 19 94 04/26/21 14:30 91 H 17 93 04/26/21 14:15 90 04/26/21 14:12 93 04/26/21 14:00 88 24 92 04/26/21 13:51 90 22 93 04/26/21 13:45 93 H 22 136/84 92 04/26/21 13:29 98.2 F 90 28 H 136/84 94 Code Status & VTE Plan VTE Prophylaxis Plan VTE Prophylaxis will be ordered: Yes PG Care Time/CCT Total # of Minutes Spent Total Time Spent with Patient: Total time for this admit including review of labs, meds, imaging, records - discussion with pt and ER attending - 51 min Coding Level of Care Code 36204 Initial Inpt Care Lvl 3 Diagnoses Obesity hypoventilation syndrome E66.2 Paroxysmal A-fib I48.0 Heart failure with preserved ejection fraction I50.30 ESRD needing dialysis N18.6; Z99.2 Chronic anemia D64.9 COVID-19 U07.1 Diabetes mellitus E11.9
[2021-04-26] MEDS ORDERED: GLUCOSE 10 TABS/TUBE PO PRN (19:01)
[2021-04-26] MEDS ORDERED: ALBUTEROL HFA 8 GM INHALER INH PRN (19:01)
[2021-04-26] MEDS ORDERED: DEXTROSE 50% 50 ML SYRINGE IV PRN (19:01)
[2021-04-26] MEDS ORDERED: GLUCAGON FOR INJ 1 MG VIAL SQ PRN (19:01)
[2021-04-26] MEDS ORDERED: CARBOHYDRATES FOR HYPOGLYCEMIA PO PRN (19:01)
[2021-04-26] MEDS ORDERED: NITROGLYCERIN SL 0.4 MG/TAB TAB SL PRN (19:01)
[2021-04-26] MEDS ORDERED: GLUCOSE 40% GEL 15 GM TUBE PO PRN (19:01)
[2021-04-26] MEDS ORDERED: PNEUMOCOCCAL POLYSACCHARIDES 25 MCG/0.5 ML VIAL/SYR IM ONE (19:10)
[2021-04-27] MEDS: SODIUM BICARBONATE 650 MG TAB PO SCH ×2 (01:21→08:07)
[2021-04-27] MEDS: PRAVASTATIN SOD 40 MG TAB PO SCH ×2 (01:21→20:10)
[2021-04-27] MEDS: APIXABAN 5 MG TABLET PO SCH ×3 (01:21→20:10)
--- NOTE | 2021-04-27 06:27 | Electrocardiogram Report ---
Test Reason : Blood Pressure : / mmHG Vent. Rate : 085 BPM Atrial Rate : 067 BPM P-R Int : 000 ms QRS Dur : 162 ms QT Int : 390 ms P-R-T Axes : 000 -27 -03 degrees QTc Int : 464 ms Atrial fibrillation Indeterminate axis Right bundle branch block Possible Inferior infarct , age undetermined Abnormal ECG When compared with ECG of 24-MAR-2021 10:58, Atrial fibrillation has replaced Atrial flutter Right bundle branch block is now Present Confirmed by Bob Henry ([id number]) on 04/27/2021 6:27:47 AM Referred By: REFERRED SELF Confirmed By:Bob Henry
[2021-04-27] MEDS: BUMETANIDE 1 MG TAB PO SCH ×2 (08:07→17:08)
[2021-04-27] MEDS: FERROUS SULFATE 325 MG TAB PO SCH (08:07)
[2021-04-27] MEDS: FLUTICASONE/VILANTEROL 200/25MCG 14 PUFFS/INHALER INH SCH (08:07)
[2021-04-27] MEDS: NIFEdipine EXTENDED REL 30 MG TABCR PO SCH (08:07)
[2021-04-27] MEDS: DULoxetine HCL 60 MG CAP PO SCH (08:08)
[2021-04-27] MEDS: buPROPion SR 100 MG TABCR PO SCH ×2 (08:08→17:09)
[2021-04-27] MEDS: METOPROLOL SUCC 50MG EXT REL TAB PO SCH (08:08)
[2021-04-27] MEDS: DULoxetine HCL 30 MG CAP PO SCH (08:09)
[2021-04-27] MEDS: INSULIN ASPART 100 UNITS/ML 3 ML PEN SC SCH ×4 (08:37→20:10)
[2021-04-27] MEDS: INSULIN GLARGINE SOLOSTAR 100 UNITS/ML 3 ML PEN SC SCH ×2 (08:39→20:10)
--- NOTE | 2021-04-27 10:15 | Nephrology Progress Note ---
Date of Service April 27, 2021 Assessment & Plan (1) ESRD on hemodialysis: ESRD on HD, admitted with SOB, weakness, fall and missed HD for >1 week needing emergency hemodialysis. had emergency dialysis yesterday, had 2 L UF. Currently electrolyte acceptable. Blood pressure fair. -- Dialysis today, plan for 2 L or more UF as tolerated -- Epogen 04157 units given with hemodialysis on 04/26/2021 --left arm nephrology precaution -- discontinue sodium bicarbonate, start on Nephrocaps once a day and Renagel 1 tab t.i.d. with meal. -- since he is again COVID positive, unclear whether he will be able to go to [facility] at [place] at this time, acute care clinical nurse specialist of the dialysis facility currently looking into that. will follow. (2) Chronic anemia: (3) Secondary hyperparathyroidism of renal origin: (4) Dyslipidemia: (5) Diabetes mellitus: (6) Hyperkalemia: Admission and Anticipated Discharge Date Admission Date: April 26, 2021 Subjective Bill was seen at the beginning of dialysis this morning. overall he is feeling better, less short of breath. Had 2 L of UF yesterday, blood pressure acceptable. Electrolyte acceptable. Review of Systems Review of Systems: All systems reviewed & are unremarkable except as noted in Subjective Physical Exam Constitutional: WD/WN, vitals as above + morbidly obese; no acute distress Respiratory: no respiratory distress Auscultation: + diminished lung sounds and + rales Cardiovascular: Rate/Rhythm: + irregularly irregular Heart Sounds: normal S1 and normal S2 Extremities: + vascular access device (right IJ tunneled dialysis catheter) and + AV fistula Neurologic: awake; no focal motor deficits and not confused Psychiatric: A+Ox3, euthymic affect Results & Data ([facility]) Vital Signs (Past 12 Hours) Vital Signs Temp Pulse Pulse Resp BP BP BP 04/27/21 10:05 100 H 124/54 L 04/27/21 10:03 100 H 103/46 L 04/27/21 09:39 36.8 C 98 H 04/27/21 07:24 36.8 C 105 H 20 125/59 L 04/27/21 07:11 103 H 04/27/21 03:26 37.4 C 100 H 20 106/49 L 04/27/21 00:40 36.6 C 102 H 138/77 04/27/21 00:21 98 H 129/66 04/27/21 00:00 98 H 132/66 04/26/21 23:40 103 H 132/67 04/26/21 23:20 95 H 116/74 04/26/21 23:00 100 H 131/42 L 04/26/21 22:40 98 H 140/77 04/26/21 22:20 95 H 125/73 Pulse Ox 04/27/21 10:05 04/27/21 10:03 04/27/21 09:39 04/27/21 07:24 80 L 04/27/21 07:11 04/27/21 03:26 90 04/27/21 00:40 04/27/21 00:21 04/27/21 00:00 04/26/21 23:40 04/26/21 23:20 04/26/21 23:00 04/26/21 22:40 04/26/21 22:20 PG Care Time/CCT Total # of Minutes Spent Total Time Spent with Patient: Total time spent is greater than 50% in coordination of care (as documented) at patient's floor/unit and/or counseling patient: Coding Level of Care Code 90470 Subseq Hosp Care Lvl 3 Diagnoses ESRD on hemodialysis N18.6; Z99.2 Chronic anemia D64.9 Secondary hyperparathyroidism of renal origin N25.81 Dyslipidemia E78.5 Diabetes mellitus E11.9 Hyperkalemia E87.5
[2021-04-27 10:17] LABS: Hepatitis B Surface Ab Quant < 3.10 mIU/mL (>or=10mIU/mL Immune); Hepatitis B Surface Antibody Non-Immune
[2021-04-27 10:27] LABS: Hepatitis B Surf Ag Rflx Conf Neg (Neg)
[2021-04-27] MEDS: NEPHROCAPS PO SCH (11:40)
[2021-04-27] MEDS: SEVELAMER HCL 800 MG TABLET PO SCH ×2 (11:40→17:08)
--- NOTE | 2021-04-27 12:17 | Hospitalist Progress Note ---
Date of Service April 27, 2021 Assessment & Plan (1) Obesity hypoventilation syndrome: Uses BiPap 18/10 at home with supplemental O2 at night. - Home BiPap here. Encouraged to wear it. (2) Paroxysmal A-fib: HR generally well-controlled here at ~90. - Continue apixaban, metoprolol (3) Heart failure with preserved ejection fraction: Pulmonary edema on admission. Would *not* consider this CHF as he missed approx. 1 week of hemodialysis due to Covid. - Continue Bumex and Metoprolol. - HD today with plan to remove at least 2 L. (4) ESRD needing dialysis: Nephrology aware - pt admitted for dialysis (5) Chronic anemia: Baseline hgb is ~8.5 - 9.5. Stable at this time. Will receive Epogen this admission with HD. - Monitor (6) COVID-19: Tested positive initially on 04/06. Given his lack of symptoms, I do not think this is a new infection, but rather residual RNA from his prior infection. - Isolation removed on 04/27 with Infection Control (7) Diabetes mellitus: A1c was 7.0% this month. - Siding scale + Lantus Admission and Anticipated Discharge Date Admission Date: April 26, 2021 Subjective Feels quite well today. No shortness of breath, no cough. Overall, doing well. Reports no fevers/chills, chest pain, shortness of breath, abdominal pain, nausea, or vomiting. Physical Exam Constitutional: WD/WN, vitals as above + morbidly obese Eyes: EOM intact bilaterally; no conjunctival abnormality ENMT: external ear and nose normal, oropharynx normal Neck: trachea midline, no thyromegaly normal visual inspection Respiratory: no respiratory distress Auscultation: + breath sounds absent (Due to body habitus, cannot hear any distinct breath sounds) Cardiovascular: RRR, no murmur, no edema Gastrointestinal (Abdomen): Inspection/Auscultation: abdomen normal to inspection; abdomen not distended Musculoskeletal: no cyanosis or clubbing, extremities motor strength 5/5 Skin: no rashes, warm and dry Neurologic: moves all extremities and awake Psychiatric: Orientation: alert, oriented to person and cooperative Results & Data Results & Data ([facility]) Vital Signs (Past 12 Hours) Vital Signs Temp Pulse Pulse Resp BP BP BP 04/27/21 12:00 99 H 118/57 L 07/07/21 11:40 100 H 133/63 04/27/21 11:20 98 H 131/75 04/27/21 11:00 100 H 128/61 04/27/21 10:40 101 H 145/60 H 04/27/21 10:20 98 H 144/71 H 04/27/21 10:00 100 H 124/54 L 04/27/21 09:47 100 H 103/46 L 04/27/21 09:39 36.8 C 98 H 04/27/21 07:24 36.8 C 105 H 20 125/59 L 04/27/21 07:11 103 H 04/27/21 03:26 37.4 C 100 H 20 106/49 L 04/27/21 00:40 36.6 C 102 H 138/77 04/27/21 00:21 98 H 129/66 Pulse Ox 04/27/21 12:00 04/27/21 11:40 04/27/21 11:20 04/27/21 11:00 04/27/21 10:40 04/27/21 10:20 04/27/21 10:00 04/27/21 09:47 04/27/21 09:39 04/27/21 07:24 80 L 04/27/21 07:11 04/27/21 03:26 90 04/27/21 00:40 04/27/21 00:21 PG Care Time/CCT Total # of Minutes Spent Total Time Spent with Patient: Total time spent is greater than 50% in coordination of care (as documented) at patient's floor/unit and/or counseling patient: Coding Level of Care Code 90889 Subseq Hosp Care Lvl 2 Diagnoses Obesity hypoventilation syndrome E66.2 Paroxysmal A-fib I48.0 Heart failure with preserved ejection fraction I50.30 ESRD needing dialysis N18.6; Z99.2 Chronic anemia D64.9 COVID-19 U07.1 Diabetes mellitus E11.9
[2021-04-27] MEDS: oxyCODONE/ACETAMINOPHEN 10-325 TAB PO PRN (20:31)
[2021-04-28] MEDS ORDERED: METOPROLOL TARTRATE 1 MG/ML VIAL IV STA (05:03)
[2021-04-28] MEDS ORDERED: ONDANSETRON INJ 2 MG/ML 2 ML VIAL ONE (05:06)
[2021-04-28 05:44] LABS: Hematocrit (blood only) 35.5 % (42-52); Hemoglobin 10.8 g/dL (14.0-18.0); Mean Corpuscular Hemoglobin 26.3 pg (25-34); Mean Corpuscular Hgb Conc 30.4 g/dL (32-36); Mean Corpuscular Volume 86.6 fL (80-100); Mean Platelet Volume 9.8 fL (7.4-10.4); Nucleated RBC # (auto) 0.08 K/uL (0-0); Nucleated RBC % (auto) 0.7 %; Platelet Count 302 K/uL (130-400); RDW Coefficient of Variation 18.2 % (11.5-14.5); RDW Standard Deviation 56.8 fL (36.4-46.3); White Blood Count 10.42 K/uL (4.8-10.8)
[2021-04-28] MEDS ORDERED: BUMETANIDE 4 MG in SYRINGE 0 ML IV SCH (05:45)
[2021-04-28 05:51] LABS: Base Excess VBG 1.7 mEq/L; HCO3 VBG 30 mmol/L; PCO2 VBG 64 mmHg (38-50); PO2 VBG 21 mmHg; pH VBG 7.29 (7.36-7.41)
[2021-04-28 05:54] LABS: Oxygen Saturation VBG < 60.0 %
[2021-04-28 06:06] LABS: iSTAT Allen Test Pass; iSTAT Art Bld Gas pCO2 Correct 54 mmHg (35-46); iSTAT Art Bld Gas pH Corrected 7.334 (7.35-7.45); iSTAT Arterial Blood Gas HCO3 29 meg/L (19-24); iSTAT Arterial Blood Gas pCO2 56 mmHg (35-46); iSTAT Arterial Blood Gas pH 7.33 (7.35-7.45); iSTAT Arterial Blood Gas pO2 70 mmHg (80-95); iSTAT Arterial Blood Gas pO2 C 67; iSTAT Carbon Dioxide 31 mmol/L (24-31); iSTAT FiO2 40 %; iSTAT Hematocrit 34 % (42-52); iSTAT Hemoglobin 11.6 g/dl (14.0-18.0); iSTAT Potassium 4.1 mmol/L (3.3-5.0); iSTAT Site R Radial; iSTAT Sodium 137 mmol/L (135-144)
--- NOTE | 2021-04-28 06:20 | Communication Note ---
Date of Service: April 28, 2021 Called to patient's room by nursing for increased oxygen requirement. Had been asleep and refused bipap, noted to be hypoxic to 70s, AFib with HR 120-130s on tele. Was placed on BIPAP with 5L O2, increased to 11L with some improvement in SPO2 but patient's mental status continued to decline. Also given Lopressor 5mg IV x1 with improvement in HR to 110s. EKG showed AFIB with RVR, chronic ST changes no new ischemic changes. Patient's exam convoluted by habitus, however did have bilateral crackles. CXR relatively unchanged from yesterday. Did have dialysis last two days for missing dialysis x1 week. ABG showed pH 7.33, CO2 56, O2 70, HCO3 29. Given Bumex 4mg IV. When patient's mental status continued to worsen case discussed with [facility] ICU with plan to move to ICU for intubation.
[2021-04-28] MEDS ORDERED: ALBUT/IPRATROP 3MG/0.5MG NEB 3 ML VIAL NEB STA (06:37)
[2021-04-28 06:39] LABS: Albumin Level 2.5 gm/dl (3.4-5.0); Blood Urea Nitrogen 59 mg/dl (7-18); Calcium 9.3 mg/dl (8.5-10.1); Carbon Dioxide 31 mmol/L (21-32); Chloride 98 mmol/L (98-107); Creatinine Clr Calc Pharmacy 23.9 ml/min; Est GFR (African American) 8.8 ml/min; Est GFR (Non-African American) 7.6 ml/min; Glucose 244 mg/dl (70-99); Phosphorus 4.2 mg/dl (2.5-4.9); Potassium 4.2 mmol/L (3.5-5.1); Sodium 134 mmol/L (136-145); Troponin I < 0.015 ng/ml (0-0.045)
[2021-04-28] MEDS ORDERED: ICU PROTOCOL FOR HYPERGLYCEMIA PRN (06:40)
--- NOTE | 2021-04-28 06:42 | XRay Report ---
XR chest 1V portable HISTORY: 56 years-old Male increased WOB acute shortness of breath COMPARISON: 04/26/2021 TECHNIQUE: AP view of the chest FINDINGS: Dual lumen right IJ central venous catheter redemonstrated with distal tip in the expected location o f the proximal SVC. Marked cardiomegaly. Limited exam secondary to positioning. The left lateral cost ophrenic angle is excluded from the [id number]. Pulmonary vascular congestion with mixed interstit ial and alveolar opacities, right greater than left. These findings are similar to the comparison giselle dy. No large pleural effusion. Degenerative changes of the shoulders and spine. IMPRESSION: Marked cardiomegaly with mixed interstitial and alveolar opacities suggestive of pulmonar y edema. Superimposed pneumonia could appear similarly. ACT 112: Negative or not required by law. The above report was generated using voice recognition software. It may contain grammatical, syntax o r spelling errors. Electronically signed by: Teodoro Mariano M.D. 04/28/2021 6:41 AM
--- NOTE | 2021-04-28 06:53 | Critical Care Consultation ---
Date of Consultation April 28, 2021 Assessment & Plan (1) Renal failure (ARF), acute on chronic: Reason Critically Ill: Damir Rodas is a 56-year-old gentleman with a notable history of recently diagnosed ESRD (with last dialysis on 04/26, removing 2L), morbid obesity, OHS, paroxysmal AFib on daily metoprolol and apixaban, HTN, chronic anemia who presented to [facility] for shortness of breath after missing several weeks of dialysis, and was evaluated last night for increasing oxygen requirement and hypoxemia; he was subsequently transferred to the ICU for management of his acute hypoxemic, hypercapnic respiratory failure, which is currently suspected to be due to volume overload from ESRD / recently missed dialysis. Neuro - Sedation: None Analgesia: None Metabolic Encephalopathy - Mild * Mild. Arousable, alert and oriented with discussion, but somnolent. Compared to floor, it seems that this has improved slightly. * Suspect that this is likely secondary to uremia and hypercapnia - also possibly from resolving hypoxemia * Will continue to monitor. No acute needs at present Cardiac - AFib with RVR * With known history of paroxysmal AFib - on metoprolol succinate 100mg qAM and apixaban at home * Resolving s/p Lopressor 5 x 1 before coming down to the ICU * Continue p.o. medications. Can do additional doses of Lopressor IV if needed. * Echo 02/2020 demonstrated LVEF 62%, LVH, normal RA pressures. * Will add BNP. Previous on 04/26 at [id number] in setting of ESRD. Lower suspicion that acute CHF is contributing. * Strict I+Os Respiratory - Acute Hypoxic, Hypercapnic Respiratory Failure * CXR demonstrating marked interstitial, alveolar opacities - likely pulmonary edema from missed ESRD x weeks * Likely contributed by OHS, failure to comply with BiPAP overnight * Lower suspicion for infectious process at this time, but considered - note that pt had +COVID-19 test on 04/06. Monitor labs, clinical status. * Continue BiPAP * s/p HD x 1 on 04/26 with 2L removed -- will likely need another session today GI - * No acute needs * NPO for now as mentation, respiratory status improves * Will need careful fluid balance RENAL/LYTES - * Newly diagnosed ESRD - s/p HD on 04/26 * Marked improvement in BUN, Cr from previous - 134 -> 59 BUN and 11.9 -> 7.34 Cr * Lytes otherwise stable * Continue nephrocaps, Renagel once orally intaking * Night team contacted nephrology --> anticipate urgent dialysis this AM - * No concerns at this time ENDO - * No acute needs at this time. * ICU Hyperglycemia protocol HEME - * Stable H&H. * s/p Epogen x 1 yesterday * On Apixaban for PAF ID - * Noted that patient tested pos for COVID-19 on 04/06. This was >21 days ago. No need for precautions at this time. * Lower suspicion that this is residual infection / new pulmonary infection at this time. Will continue to monitor. INTEGUMENTARY - * No acute concerns or needs. LINES/IV ACCESS - PIVs intact. DVT PROPHYLAXIS - * Apixaban for PAF * GI - Continue protonix Thank you for allowing us to be part of this patient's care. Please refer to Dr. Herrera's documentation for any further recommendations. (2) Pulmonary edema: (3) COVID-19: (4) ESRD on hemodialysis: (5) Hyperkalemia: (6) Diabetes mellitus: (7) Obesity hypoventilation syndrome: (8) Paroxysmal A-fib: (9) Morbid obesity with BMI of 70 and over, adult: (10) Hypertension: (11) Heart failure with preserved ejection fraction: (12) ESRD needing dialysis: (13) Secondary hyperparathyroidism of renal origin: (14) Chronic anemia: (15) Chronic anticoagulation: (16) Right bundle branch block (RBBB) on electrocardiography: (17) Dyslipidemia: Supervising Physician Co-Signing Physician Notes Dr. Paniagua was the resident-physician during care of patient. I separately evaluated patient for schwab portions of the history and the exam. I was present during the critical portion of medical decision making, and I discussed the case with the resident. I generally agree with the findings and plan except for any additions/exceptions noted. 56-year-old male recently diagnosed end-stage renal disease, morbid obesity, OHS on CPAP, paroxysmal A. fib on apixaban, diastolic CHF, COPD with [id number] sm oking history quit 5 years ago 82 was admitted to the hospital because of worsening shortness of breath. His last hemodialysis session was 04/04/2021 prior to coming to the hospital. He was diagnosed with COVID-19 04/06/2021 Patient had dialysis 2 days in a row while in the hospital with total of 4 L remained Early in the morning the patient was refusing BiPAP he got hypoxic and tachycardic. He was transferred to the ICU for management In the ICU patient was put on BiPAP. He was more responsive. Constitutional: Mild respiratory distress, HEENT: EOMI, PERRLA Respiratory system: Decreased air entry bilaterally, no wheeze, no rhonchi, positive crackles bilaterally, right-sided dialysis catheter CVS: S1-S2 positive, no murmurs or gallops, distant heart sounds Abdomen: Soft, nontender, nondistended, positive bowel sounds x4, obese Extremities: +2 pulses bilaterally radialis/ dorsalis pedis, no cyanosis, +1 pitting edema bilateral lower extremity Neuro: Awake alert oriented x3 Psych: Normal mood and affect G/U: No Kay --Prophylaxis VTE: Apixaban GI: Protonix Lines: Peripheral Diet: N.p.o. Plan: Plan is for the patient to get dialysis today. Continue with BiPAP. Patient also has some anxiety issues. Will consider starting Precedex if patient refuses BiPAP. Patient is at high risk for intubation. Given the BMI that the patient has even intubation will be very high risk. Patient's was at bedside in the critical condition was explained to her. Patient also spiked fever of 38. There is a possibility patient has underlying infection. We will give vancomycin. Follow-up procalcitonin, ESR and CRP. Continue with diuretics as the patient is still making urine. Blood culture urine culture has been ordered. I have personally spent 67 minutes of critical care time in the direct management of this patient. This is a life/limb threatening event. This includes time spent evaluating patient, direct bedside care, chart review, placing orders, interpretation of diagnostic studies, discussion with consultants, patient, and/or family members regarding treatment decisions, as well as other required patient management activities. This time is exclusive of all separately billable procedures, and teaching time and separate from and in addition to any other critical care service time. History of Present Illness Attending Physician: Jaya Mack MD History of Present Illness Damir Rodas is a 56-year-old gentleman with a notable history of recently diagnosed ESRD (with last dialysis on 04/26, removing 2L), morbid obesity, OHS, paroxysmal AFib on daily metoprolol and apixaban, HTN, chronic anemia who presents to the ICU for increasing oxygen requirement and work of breathing. Patient reportedly had tested positive for COVID-19 approximately 2 weeks ago; he did not receive any definitive treatment. His last dialysis session was apparently 04/04 prior to this - based on chart review, may have been due to testing positive for COVID-19 vs. compliancy difficulties. He represented to the hospital on 04/26 for evaluation of shortness of breath. Received urgent dialysis on 04/26 with successful removal of approximately 2L of fluid. The overnight physician had been called to evaluate the patient in their room for increasing oxygen requirement after poorly tolerating / refusing his BiPAP. He was asleep and was noted to have O2 sats around the 70s, alongside in AFib with RVR in the 120-130s. Given Lopressor 5mg IV x 1 and placed on BiPAP with mild improvements in HR, SpO2. ABG at that time demonstrated pH 7.33, CO2 56, O2 70, HCO3 29. Due to concerns about his work of breathing and possible need for intubation and mechanical ventilation, patient was transferred to the ICU. At the bedside, patient is arousable but somnolent. He is fully alert and oriented. He denies any difficulty breathing and denies any chest pain, or discomfort elsewhere. Denies any cough. Upon finishing my conversation with him, he did self-remove the BiPAP citing discomfort. AM labs demonstrating CBC 10.8 > 35.5 / 34 < 302. BMP with mild low Na 134, but pretty significant improvement in BUN to 59 (from 134 pre-HD), Cr to 7.34 (from 11.9). Lytes otherwise stable; HCO3 31, AG 5. Allergies Allergy/AdvReac Type Severity Reaction Status Date / Time No Known Allergies Allergy Verified 04/26/21 16:44 Home Medications Medication Instructions Recorded Confirmed Type albuterol sulfate 90 mcg/actuation 2 puffs INHALATION Q4H PRN gm 07/01/19 04/26/21 History aerosol inhaler apixaban 5 mg tablet 5 mg PO BID #60 tab 07/01/19 04/26/21 History blood sugar diagnostic #10 ea 07/01/19 03/24/21 History insulin syringe-needle U-100 0.3 #10 ea 07/01/19 03/24/21 History mL 31 gauge x 03/06" pravastatin 80 mg tablet 80 mg PO HS #90 tab 07/01/19 04/26/21 History nitroglycerin 0.4 mg sublingual 0.4 mg SL Q5M PRN #25 tab 09/12/19 04/26/21 Rx tablet bupropion HCl 200 mg tablet,12 hr 200 mg PO BID #180 ea 03/12/20 04/26/21 Rx sustained-release Breo Ellipta 1 inh INHALATION QAM 02/21/21 04/26/21 History Ozempic 1 mg SQ WK 02/21/21 04/26/21 History duloxetine 30 mg PO QAM 02/21/21 04/26/21 History ferrous sulfate 27 mg PO QAM 02/21/21 04/26/21 History metoprolol succinate 100 mg PO QAM 02/21/21 04/26/21 History multivitamin 1 tab PO QAM 02/21/21 04/26/21 History omega 5-jny-kfj-fish oil [Fish Oil] 1 cap PO QAM 02/21/21 04/26/21 History oxycodone-acetaminophen [Percocet] 1 tab PO Q6H PRN 02/21/21 04/26/21 History Tresiba FlexTouch U-100 88 units SQ BID 03/10/21 04/26/21 History calcitriol 0.5 mcg PO 3XWK 03/24/21 04/26/21 History duloxetine 60 mg PO QAM 03/24/21 04/26/21 History insulin aspart U-100 [Novolog 36 unit SQ TID 03/24/21 04/26/21 History Flexpen U-100 Insulin] sodium bicarbonate 650 mg tablet 650 mg PO BID #60 tab 04/22/21 04/26/21 Rx bumetanide 4 mg PO BID 04/26/21 04/26/21 History nifedipine [Adalat CC] 60 mg PO QAM 04/26/21 04/26/21 History sodium polystyrene sulf-sorbtl 60 ml PO Q2D 04/26/21 04/26/21 History Patient History Medical History (Updated 04/27/21 @ 16:28 by Benson Martínez DO) Acute on chronic respiratory failure Anxiety Atrial flutter on Eliquis Chronic anemia receiving weekly iron infusions ([place]) Chronic obstructive pulmonary disease Congestive heart failure Depression Diabetes mellitus IDDM DVT (deep venous thrombosis) Several years ago Dyslipidemia ESRD needing dialysis No current dialysis ESRD on hemodialysis Hyperkalemia Morbid obesity with body mass index of 70 and over in adult Neuropathy Paroxysmal A-fib on Eliquis Pulmonary edema Secondary hyperparathyroidism of renal origin Surgical History History of removal of skin mole S/P panniculectomy Family History Father Family hx of colon cancer Grandmother (Maternal) Diabetes Mother Diabetes Uncle Diabetes Uncle Diabetes Social History Smoking Status: Former smoker Tobacco Type: Cigarettes Second Hand Exposure: Yes (SON SMOKES); Hx Alcohol Use: No Hx Substance Use: No Preferred Language: Cypriot Communication Ability: Effective Gandy Dancer Required: No Beliefs That Will Affect Care: None marital status: Current Living Situation: Spouse Current Living Situation Comment: LIVES WITH SPOUSE, 2 SONS current occupational status: disabled Feels Safe at Home: Yes Assistive Devices: Oxygen - Continuous Review of Systems Review of Systems: As per HPI Physical Exam Physical Exam: General: somnolent-appearing 56yoM lying back in his hospital bed with increased work of breathing. He is arousable and fully A+O on questioning. Breathing noted, otherwise NAD. HEENT: NCAT. Eyes - Sclera are white, anicteric, and without injection. PERRL. Cardiac: Limited due to habitus. Of what could be appreciated - Mild tachycardia with irregular rhythm; no significant murmurs, rubs, or gallops. Pulmonary: Increased respiratory effort without use of accessory muscles. BiPAP in place. Auscultation significantly limited by habitus - of what could be appreciated, mild crackles in RLL with diminished sounds overall - more vesicular on L compared to R. Abdominal: Abdomen is obese, nondistended, and non-tender to palpation. Extremities: Upper and lower extremities are warm and well perfused. There are venous stasis in the lower extremities b/l. 1+ pitting edema. Capillary refill approx. 3-4 seconds in UEs. Results & Data Results & Data ([facility]) Vital Signs (Past 12 Hours) Vital Signs Temp Pulse Pulse Resp BP BP Pulse Ox 04/28/21 06:30 102 H 04/28/21 06:10 37.4 C 117 H 20 114/99 96 04/28/21 05:35 105 H 22 90 04/28/21 05:10 124 H 155/86 H 04/28/21 04:53 108 H 125/76 91 04/28/21 04:23 36.5 C 101 H 25 H 134/71 92 04/28/21 00:10 36.6 C 95 H 25 H 120/66 91 04/27/21 23:30 123 H 04/27/21 20:04 36.6 C 109 H 24 122/66 90 Resident Activity Tracking Resident Involvement: Resident Care Provided Care Provided: Adult Hospital Medicine (1) Pulmonary edema Chronicity: acute Qualified Code(s): J81.0 - Acute pulmonary edema (2) Renal failure (ARF), acute on chronic Acute renal failure type: unspecified Chronic kidney disease stage: on chronic dialysis Qualified Code(s): N17.9 - Acute kidney failure, unspecified; N18.9 - Chronic kidney disease, unspecified; Z99.2 - Dependence on renal dialysis
[2021-04-28] MEDS ORDERED: Nursing to Pharmacy Communication SCH (08:00)
[2021-04-28] MEDS: NEPHROCAPS PO SCH (08:43)
[2021-04-28] MEDS: NIFEdipine EXTENDED REL 30 MG TABCR PO SCH (08:43)
[2021-04-28] MEDS: FLUTICASONE/VILANTEROL 200/25MCG 14 PUFFS/INHALER INH SCH (08:43)
[2021-04-28] MEDS: BUMETANIDE 1 MG TAB PO SCH ×2 (08:44→17:39)
[2021-04-28] MEDS: DULoxetine HCL 60 MG CAP PO SCH (08:44)
[2021-04-28] MEDS: DULoxetine HCL 30 MG CAP PO SCH (08:44)
[2021-04-28] MEDS: METOPROLOL SUCC 50MG EXT REL TAB PO SCH (08:44)
[2021-04-28] MEDS: buPROPion SR 100 MG TABCR PO SCH ×2 (08:44→17:39)
[2021-04-28] MEDS: SEVELAMER HCL 800 MG TABLET PO SCH ×3 (08:44→17:39)
[2021-04-28] MEDS: FERROUS SULFATE 325 MG TAB PO SCH (08:44)
[2021-04-28] MEDS: APIXABAN 5 MG TABLET PO SCH ×2 (08:44→20:00)
[2021-04-28] MEDS: INSULIN GLARGINE SOLOSTAR 100 UNITS/ML 3 ML PEN SC SCH (08:45)
[2021-04-28] MEDS ORDERED: VANCOMYCIN CONSULT ACTIVE PRN ×2 (09:55→15:29)
[2021-04-28] MEDS ORDERED: VANCOMYCIN HCL 2,750 MG in SODIUM CHLORIDE 0.9% 500 ML IV ONE (10:00)
--- NOTE | 2021-04-28 10:03 | Nephrology Progress Note ---
Date of Service April 28, 2021 Assessment & Plan (1) ESRD on hemodialysis: ESRD on HD, admitted with SOB, weakness, fall and missed HD for >1 week needing emergency hemodialysis. Had [id number] dialysis last 2 days with UF more than 4 L total. He continues to make urine, has been on diuretics. Although his still volume overloaded, acute even overnight was probably precipitated secondary to combination of factors including volume overload as well as not wearing BiPAP -- Dialysis now, plan for UF as tolerated, 3 L or more although may not be possible as blood pressure already low. -- left arm nephrology precaution -- continue Nephrocaps once a day and Renagel 1 tab t.i.d. with meal. -- when clinically stable, he is okay to go for intermittent hemodialysis at [facility] [place]. will follow. (2) Chronic anemia: (3) Secondary hyperparathyroidism of renal origin: (4) Dyslipidemia: (5) Diabetes mellitus: (6) Hyperkalemia: Admission and Anticipated Discharge Date Admission Date: April 26, 2021 Subjective Transfer to ICU overnight for respiratory distress hypoxia and volume overload. EKG and troponins were unremarkable. Patient was not using his BiPAP consistently. Chest x-ray showed persistent volume overload. Currently awake, alert but somewhat restless. blood pressure relatively low. Getting prepared to start on hemodialysis. Review of Systems Review of Systems: Unobtainable due to mental health condition Physical Exam Constitutional: + ill appearing and + morbidly obese; no acute distress Respiratory: + respiratory distress Auscultation: no diminished lung sounds Cardiovascular: Rate/Rhythm: + irregularly irregular Heart Sounds: normal S1 and normal S2 Extremities: + vascular access device ( right IJ tunneled dialysis catheter) and + AV fistula; no edema Skin: no rashes, warm and dry Neurologic: moves all extremities and awake; not confused Psychiatric: Orientation: alert and cooperative Results & Data ([facility]) Vital Signs (Past 12 Hours) Vital Signs Temp Pulse Pulse Pulse Resp BP BP 04/28/21 09:37 113 H 22 97/56 L 04/28/21 09:02 115 H 24 04/28/21 09:00 36.9 C 117 H 04/28/21 08:06 108 H 25 H 04/28/21 08:02 110 H 18 109/70 04/28/21 08:00 38 C H 04/28/21 07:22 108 H 22 04/28/21 07:02 117 H 23 122/57 L 04/28/21 06:30 102 H 04/28/21 06:10 37.4 C 117 H 20 114/99 04/28/21 05:35 105 H 22 04/28/21 05:10 124 H 155/86 H 04/28/21 04:53 108 H 125/76 04/28/21 04:23 36.5 C 101 H 25 H 134/71 04/28/21 00:10 36.6 C 95 H 25 H 120/66 04/27/21 23:30 123 H Pulse Ox 04/28/21 09:37 89 L 04/28/21 09:02 94 04/28/21 09:00 04/28/21 08:06 98 04/28/21 08:02 100 04/28/21 08:00 04/28/21 07:22 97 04/28/21 07:02 97 04/28/21 06:30 04/28/21 06:10 96 04/28/21 05:35 90 04/28/21 05:10 04/28/21 04:53 91 04/28/21 04:23 92 04/28/21 00:10 91 04/27/21 23:30 PG Care Time/CCT Total # of Minutes Spent Total Time Spent with Patient: Total time spent is greater than 50% in coordination of care (as documented) at patient's floor/unit and/or counseling patient: Coding Level of Care Code 51522 Subseq Hosp Care Lvl 3 Diagnoses ESRD on hemodialysis N18.6; Z99.2 Chronic anemia D64.9 Secondary hyperparathyroidism of renal origin N25.81 Dyslipidemia E78.5 Diabetes mellitus E11.9 Hyperkalemia E87.5
[2021-04-28] MEDS ORDERED: PHARMACY GLYCEMIC MGMT CONSULT PRN (10:28)
[2021-04-28] MEDS: PANTOprazole 40 MG in SYRINGE 0 ML IV SCH (11:19)
[2021-04-28] MEDS ORDERED: INSULIN GLARGINE SOLOSTAR 100 UNITS/ML 3 ML PEN SC ONE ×3 (11:30→21:00)
[2021-04-28] MEDS: INSULIN ASPART 100 UNITS/ML 3 ML PEN SC SCH ×4 (11:33→23:32)
--- NOTE | 2021-04-28 11:40 | Pharmacy Report ---
Pharmacy Glycemic Short Note 2 - Date of Service April 28, 2021 - Glycemic Short BSG Results (Last 24 hours): 04/27/21 04/27/21 04/28/21 16:02 20:07 05:07 Glucose POC Glucose 184 H 245 H 226 H 04/28/21 05:31 Glucose 244 H POC Glucose OUTPATIENT ANTIDIABETIC REGIMEN: * Tresiba 88 units SC BID * Novolog 36 units SC TID * Semaglutide qwk * HbA1c 7.0% on 03/25/21 * However, this result is likely somewhat unreliable in ESRD patients d/t interactions between the A1c analyzing technique and high levels of urea in ESRD, reduced RBC life span, iron deficiency anemia, and EPO administration ASSESSMENT: * 56 yo M admitted 04/26/21 w respiratory failure and renal failure 2nd multiple missed HD sessions recently * BSG's have ranged 184-294 mg/dL over the last 24 hours * Reviewed prior admission 03/25/21-03/30/21 - BSG's were well controlled *while ordered and consuming diet* on Lantus 40 units SC BID (reduced to 30 units for lower BSG's) and Novolog SC ACHS goal 110-140 mg/dL, correction factor 10 mg /dL/unit, and CHO ratio 3 g CHO/unit * Will resume regimen similar to previous admission, but will change Novolog to q4h 2nd ICU status and persistent hyperglycemia thus far. Will also reduce Lantus for NPO status PLAN FOR INPATIENT GLYCEMIC CONTROL: * Hold outpatient semaglutide * Basal insulin * Lantus 20+10 units this AM with an additional 10-30 units HS depending on BSG * Bolus insulin * NovoLog per scale ACHS or Q6hrs while NPO * Goal Range: Low 110 mg/dL - High 150 mg/dL * Correction Factor: 10 mg/dL/unit * Nutritional / Prandial insulin per carb ratio of 1 unit per 3 grams CHO consumed PLAN FOR DISCHARGE: * tbd
[2021-04-28] MEDS ORDERED: INSULIN ASPART 100 UNITS/ML 3 ML PEN SC SCH (12:00)
[2021-04-28] MEDS ORDERED: ONDANSETRON INJ 2 MG/ML 2 ML VIAL IV PRN (13:09)
[2021-04-28] MEDS: cefTRIAXone SODIUM 2,000 MG in DEXTROSE 5% 50 ML IV SCH (13:31)
[2021-04-28] MEDS: ONDANSETRON INJ 2 MG/ML 2 ML VIAL IV PRN (13:31)
[2021-04-28] MEDS: DEXMEDETOMIDINE HCL 200 MCG in SODIUM CHLORIDE 0.9% 48 ML IV SCH ×3 (14:26→21:14)
--- NOTE | 2021-04-28 15:50 | Hospitalist Progress Note ---
Date of Service April 28, 2021 Assessment & Plan (1) Obesity hypoventilation syndrome: Uses BiPap 18/10 at home with supplemental O2 at night. - Home BiPap here. Encouraged to wear it. - Overnight, decompensated likely due to not wearing his BiPap. Transferred to the ICU. Presently getting another round of HD. (2) Paroxysmal A-fib: HR generally well-controlled here at ~90. - Continue apixaban, metoprolol (3) Heart failure with preserved ejection fraction: Pulmonary edema on admission. Would *not* consider this CHF as he missed approx. 1 week of hemodialysis due to Covid. - Continue Bumex and Metoprolol. - HD today with plan to remove at least 2 L. (4) ESRD needing dialysis: Nephrology aware - pt admitted for dialysis (5) Chronic anemia: Baseline hgb is ~8.5 - 9.5. Stable at this time. Will receive Epogen this admission with HD. - Monitor -> 10.8 today. (6) COVID-19: Tested positive initially on 04/06. Given his lack of symptoms, I do not think this is a new infection, but rather residual RNA from his prior infection. - Isolation removed on 04/27 with Infection Control (7) Diabetes mellitus: A1c was 7.0% this month. - Siding scale + Lantus sugars ok in last 24 hours. Admission and Anticipated Discharge Date Admission Date: April 26, 2021 Subjective Stable today. With some continued confusion and shortness of breath. Reports no fevers/chills, chest pain, abdominal pain, nausea, or vomiting. Physical Exam Constitutional: WD/WN, vitals as above + morbidly obese Eyes: EOM intact bilaterally; no conjunctival abnormality ENMT: external ear and nose normal, oropharynx normal Neck: trachea midline, no thyromegaly normal visual inspection Respiratory: no respiratory distress Auscultation: + breath sounds absent (Due to body habitus, cannot hear any distinct breath sounds) Cardiovascular: RRR, no murmur, no edema Gastrointestinal (Abdomen): Inspection/Auscultation: abdomen normal to inspection; abdomen not distended Musculoskeletal: no cyanosis or clubbing, extremities motor strength 5/5 Skin: no rashes, warm and dry Neurologic: moves all extremities and awake Psychiatric: Orientation: alert, oriented to person and cooperative Results & Data Results & Data ([facility]) Vital Signs (Past 12 Hours) Vital Signs Temp Pulse Pulse Pulse Resp BP BP 04/28/21 15:10 111 H 26 H 04/28/21 14:38 107 H 24 132/87 04/28/21 14:23 115 H 25 H 105/75 04/28/21 14:09 113 H 21 96/69 L 04/28/21 13:53 120 H 20 04/28/21 13:41 113 H 22 04/28/21 13:20 36.9 C 111 H 112/75 04/28/21 13:08 108 H 24 112/75 04/28/21 13:06 115 H 30 H 04/28/21 13:00 108 H 109/88 04/28/21 12:45 111 H 118/89 04/28/21 12:30 118 H 22 120/69 04/28/21 12:15 114 H 96/73 L 04/28/21 12:08 111 H 23 96/73 L 04/28/21 12:00 37.2 C 117 H 106/69 04/28/21 11:45 118 H 126/84 04/28/21 11:38 112 H 19 126/84 04/28/21 11:30 114 H 96/71 L 04/28/21 11:15 116 H 115/85 04/28/21 11:08 124 H 28 H 115/85 04/28/21 11:00 110 H 127/59 L 04/28/21 10:45 114 H 103/62 04/28/21 10:30 119 H 26 H 97/70 L 04/28/21 10:15 117 H 95/61 L 04/28/21 10:09 115 H 25 H 95/61 L 04/28/21 10:00 112 H 117/50 L 04/28/21 09:45 122 H 109/48 L 04/28/21 09:37 113 H 22 97/56 L 04/28/21 09:30 112 H 97/56 L 04/28/21 09:02 115 H 24 04/28/21 09:00 36.9 C 117 H 04/28/21 08:06 108 H 25 H 04/28/21 08:02 110 H 18 109/70 04/28/21 08:00 38 C H 04/28/21 07:22 108 H 22 04/28/21 07:02 117 H 23 122/57 L 04/28/21 06:30 102 H 04/28/21 06:10 37.4 C 117 H 20 114/99 04/28/21 05:35 105 H 22 04/28/21 05:10 124 H 155/86 H 04/28/21 04:53 108 H 125/76 04/28/21 04:23 36.5 C 101 H 25 H 134/71 Pulse Ox 04/28/21 15:10 95 04/28/21 14:38 92 04/28/21 14:23 91 04/28/21 14:09 91 04/28/21 13:53 93 04/28/21 13:41 90 04/28/21 13:20 04/28/21 13:08 93 04/28/21 13:06 97 04/28/21 13:00 04/28/21 12:45 04/28/21 12:30 04/28/21 12:15 04/28/21 12:08 92 04/28/21 12:00 04/28/21 11:45 04/28/21 11:38 89 L 04/28/21 11:30 04/28/21 11:15 04/28/21 11:08 93 04/28/21 11:00 04/28/21 10:45 04/28/21 10:30 93 04/28/21 10:15 04/28/21 10:09 91 04/28/21 10:00 04/28/21 09:45 04/28/21 09:37 89 L 04/28/21 09:30 04/28/21 09:02 94 04/28/21 09:00 04/28/21 08:06 98 04/28/21 08:02 100 04/28/21 08:00 04/28/21 07:22 97 04/28/21 07:02 97 04/28/21 06:30 04/28/21 06:10 96 04/28/21 05:35 90 04/28/21 05:10 04/28/21 04:53 91 04/28/21 04:23 92 PG Care Time/CCT Total # of Minutes Spent Total Time Spent with Patient: Total time spent is greater than 50% in coordination of care (as documented) at patient's floor/unit and/or counseling patient: Coding Level of Care Code 79236 Subseq Hosp Care Lvl 2 Diagnoses Obesity hypoventilation syndrome E66.2 Paroxysmal A-fib I48.0 Heart failure with preserved ejection fraction I50.30 ESRD needing dialysis N18.6; Z99.2 Chronic anemia D64.9 COVID-19 U07.1 Diabetes mellitus E11.9
[2021-04-28] MEDS ORDERED: VANCOMYCIN HCL 1,500 MG in SODIUM CHLORIDE 0.9% 500 ML IV ONE (19:00)
[2021-04-28] MEDS: PRAVASTATIN SOD 40 MG TAB PO SCH (20:00)
[2021-04-29] MEDS: DEXMEDETOMIDINE HCL 200 MCG in SODIUM CHLORIDE 0.9% 48 ML IV SCH ×6 (01:07→12:26)
[2021-04-29] MEDS: INSULIN ASPART 100 UNITS/ML 3 ML PEN SC SCH ×6 (04:15→20:11)
[2021-04-29 04:54] LABS: Basophils # (auto) 0.01 K/uL (0-0.2); Basophils % (auto) 0.1 %; Eosinophils # (auto) 0.03 K/uL (0-0.5); Eosinophils % (auto) 0.3 %; Hematocrit (blood only) 30.1 % (42-52); Hemoglobin 9.1 g/dL (14.0-18.0); Immature Granulocytes # (auto) 0.03 K/uL (0.00-0.02); Immature Granulocytes % (auto) 0.3 %; Lymphocytes # (auto) 0.69 K/uL (1.2-3.4); Lymphocytes % (auto) 7.5 %; Mean Corpuscular Hemoglobin 26.1 pg (25-34); Mean Corpuscular Hgb Conc 30.2 g/dL (32-36); Mean Corpuscular Volume 86.5 fL (80-100); Mean Platelet Volume 9.6 fL (7.4-10.4); Monocytes # (auto) 0.48 K/uL (0.11-0.59); Monocytes % (auto) 5.2 %; Neutrophils # (auto) 7.91 K/uL (1.4-6.5); Neutrophils % (auto) 86.6 %; Nucleated RBC # (auto) 0.08 K/uL (0-0); Nucleated RBC % (auto) 0.9 %; Platelet Count 250 K/uL (130-400); RDW Coefficient of Variation 18.3 % (11.5-14.5); RDW Standard Deviation 57.4 fL (36.4-46.3); Red Blood Count 3.48 M/uL (4.7-6.1); White Blood Count 9.15 K/uL (4.8-10.8)
[2021-04-29 05:43] LABS: BUN Creatinine Ratio 6.8 (10-20); Calcium 9.1 mg/dl (8.5-10.1); Creatinine Clr Calc Pharmacy 26.7 ml/min; Est GFR (African American) 10.1 ml/min; Est GFR (Non-African American) 8.7 ml/min; Phosphorus 5.5 mg/dl (2.5-4.9); Potassium 4.7 mmol/L (3.5-5.1)
--- NOTE | 2021-04-29 05:45 | Electrocardiogram Report ---
Test Reason : Blood Pressure : / mmHG Vent. Rate : 111 BPM Atrial Rate : 170 BPM P-R Int : 000 ms QRS Dur : 166 ms QT Int : 372 ms P-R-T Axes : 000 166 -03 degrees QTc Int : 505 ms Atrial fibrillation with rapid ventricular response Right bundle branch block Cannot rule out Inferior infarct (cited on or before 26-APR-2021) Abnormal ECG When compared with ECG of 26-APR-2021 13:51, Questionable change in QRS axis Confirmed by Bob Henry ([id number] on 04/29/2021 5:45:23 AM Referred By: REFERRED SELF Confirmed By:Bob Henry
--- NOTE | 2021-04-29 05:47 | Electrocardiogram Report ---
Test Reason : Blood Pressure : / mmHG Vent. Rate : 109 BPM Atrial Rate : 111 BPM P-R Int : 000 ms QRS Dur : 170 ms QT Int : 394 ms P-R-T Axes : 000 206 -08 degrees QTc Int : 530 ms Atrial fibrillation with rapid ventricular response Right bundle branch block Possible Inferior infarct (cited on or before 26-APR-2021) Abnormal ECG When compared with ECG of 28-APR-2021 05:10, No significant change was found Confirmed by Bob Henry ([id number]) on 04/29/2021 5:47:03 AM Referred By: REFERRED SELF Confirmed By:Bob Henry
--- NOTE | 2021-04-29 07:47 | XRay Report ---
XR chest 1V portable HISTORY: Shortness of breath. Follow-up. COMPARISON: Chest 04/28/2021. FINDINGS: Rotated study. Right jugular central venous catheter terminates in the SVC. This is unchang ed in position. No definite pneumothorax. The heart remains enlarged. Mixed interstitial and alveolar airspace opacities suggest severe pulmonary edema. This is similar to the prior study. This is most pronounced on the right. IMPRESSION: No change in the mixed interstitial and alveolar airspace opacities likely representing pulmonary larissa ma. A pneumonia could also have a similar appearance. ACT 112: Negative or not required by law. Electronically signed by: Steve Mccracken M.D. 04/29/2021 7:46 AM
[2021-04-29] MEDS: ONDANSETRON INJ 2 MG/ML 2 ML VIAL IV PRN ×2 (08:43→12:30)
[2021-04-29] MEDS: SEVELAMER HCL 800 MG TABLET PO SCH ×3 (08:44→17:21)
[2021-04-29] MEDS: METOPROLOL SUCC 50MG EXT REL TAB PO SCH (08:51)
[2021-04-29] MEDS: NIFEdipine EXTENDED REL 30 MG TABCR PO SCH (08:52)
[2021-04-29] MEDS ORDERED: INSULIN GLARGINE SOLOSTAR 100 UNITS/ML 3 ML PEN SC ONE (09:00)
[2021-04-29] MEDS: BUMETANIDE 1 MG TAB PO SCH (09:07)
[2021-04-29] MEDS: APIXABAN 5 MG TABLET PO SCH ×2 (09:07→20:10)
[2021-04-29] MEDS: DULoxetine HCL 60 MG CAP PO SCH (09:07)
[2021-04-29] MEDS: NEPHROCAPS PO SCH (09:07)
[2021-04-29] MEDS: DULoxetine HCL 30 MG CAP PO SCH (09:07)
[2021-04-29] MEDS: buPROPion SR 100 MG TABCR PO SCH (09:07)
[2021-04-29] MEDS: FERROUS SULFATE 325 MG TAB PO SCH (09:08)
[2021-04-29] MEDS: FLUTICASONE/VILANTEROL 200/25MCG 14 PUFFS/INHALER INH SCH (09:08)
--- NOTE | 2021-04-29 11:46 | Nephrology Progress Note ---
Date of Service April 29, 2021 Assessment & Plan (1) ESRD on hemodialysis: ESRD on HD, admitted with SOB, weakness, fall and missed HD for >1 week needing emergency hemodialysis. Had [id number] dialysis last 3 days with UF more than 7 L total. He continues to make urine, has been on diuretics. -- Dialysis now, plan for UF 3 L or more. Will plan for another HD tomorrow. -- Epogen 69317 units x 1 dose during dialysis today -- left arm nephrology precaution -- continue Nephrocaps once a day and Renagel 1 tab t.i.d. with meal. -- when clinically stable, he is okay to go for intermittent hemodialysis at [facility] [place] [facility] [place]. will follow. (2) Chronic anemia: (3) Secondary hyperparathyroidism of renal origin: (4) Dyslipidemia: (5) Diabetes mellitus: (6) Hyperkalemia: Admission and Anticipated Discharge Date Admission Date: April 26, 2021 Subjective Overall doing better, denies resp distress, on BiPAP. Currently awake, alert. Blood pressure fair. Tolerating hemodialysis. Review of Systems Review of Systems: All systems reviewed & are unremarkable except as noted in Subjective Physical Exam Constitutional: WD/WN, vitals as above + ill appearing and + morbidly obese; no acute distress Respiratory: no cough Auscultation: + diminished lung sounds and + rales Cardiovascular: Rate/Rhythm: + irregularly irregular Heart Sounds: normal S1 and normal S2 Extremities: + vascular access device ( right IJ tunneled dialysis catheter) and + AV fistula; no edema Skin: no rashes, warm and dry Neurologic: moves all extremities and awake; no focal motor deficits Psychiatric: A+Ox3, euthymic affect Orientation: alert and cooperative Results & Data ([facility]) Vital Signs (Past 12 Hours) Vital Signs Temp Pulse Pulse Resp BP Pulse Ox Pulse Ox 04/29/21 11:33 118 H 116/75 04/29/21 11:18 112 H 108/71 04/29/21 11:03 108 H 21 115/66 90 04/29/21 10:48 118 H 112/72 04/29/21 10:35 112 H 25 H 94 04/29/21 10:33 113 H 19 114/69 92 04/29/21 10:18 116 H 108/76 04/29/21 10:03 114 H 20 103/64 90 04/29/21 09:48 112 H 112/77 04/29/21 09:33 103 H 106/69 04/29/21 09:18 108 H 128/80 04/29/21 09:08 105 H 18 124/69 91 04/29/21 08:53 37.3 C 107 H 04/29/21 08:08 106 H 21 121/69 91 04/29/21 08:00 37.1 C 04/29/21 07:08 105 H 18 110/57 L 92 04/29/21 06:40 91 04/29/21 06:08 103 H 21 102/63 94 04/29/21 05:38 104 H 20 100/58 L 95 04/29/21 05:08 112 H 20 94/58 L 90 04/29/21 04:38 105 H 22 105/56 L 92 04/29/21 04:12 107 H 21 90 04/29/21 04:08 36.9 C 105 H 19 111/72 91 04/29/21 03:38 108 H 19 92/55 L 89 L 04/29/21 03:08 104 H 24 111/71 91 04/29/21 02:38 106 H 23 125/62 91 04/29/21 02:08 114 H 22 103/67 91 04/29/21 01:38 103 H 22 111/63 94 04/29/21 01:08 104 H 21 108/69 99 04/29/21 00:38 112 H 17 110/63 95 04/29/21 00:08 37 C 110 H 24 119/85 93 PG Care Time/CCT Total # of Minutes Spent Total Time Spent with Patient: Total time spent is greater than 50% in coordination of care (as documented) at patient's floor/unit and/or counseling patient: Coding Level of Care Code 35952 Subseq Hosp Care Lvl 3 Diagnoses ESRD on hemodialysis N18.6; Z99.2 Chronic anemia D64.9 Secondary hyperparathyroidism of renal origin N25.81 Dyslipidemia E78.5 Diabetes mellitus E11.9 Hyperkalemia E87.5
[2021-04-29] MEDS ORDERED: EPOETIN ALFA 10,000 UNITS/ML VIAL IV STA (11:47)
[2021-04-29] MEDS: oxyCODONE/ACETAMINOPHEN 10-325 TAB PO PRN (12:30)
[2021-04-29] MEDS ORDERED: RAPID SEQUENCE INDUCTION BAG ONE (12:41)
[2021-04-29] MEDS: PANTOprazole 40 MG in SYRINGE 0 ML IV SCH (12:45)
--- NOTE | 2021-04-29 12:57 | Critical Care Progress Note ---
Date of Service April 29, 2021 Assessment & Plan (1) Pulmonary edema: (2) COVID-19: (3) ESRD on hemodialysis: (4) Hyperkalemia: (5) Diabetes mellitus: (6) Obesity hypoventilation syndrome: (7) Paroxysmal A-fib: (8) Morbid obesity with BMI of 70 and over, adult: (9) Hypertension: (10) Heart failure with preserved ejection fraction: (11) ESRD needing dialysis: (12) Secondary hyperparathyroidism of renal origin: (13) Chronic anemia: (14) Chronic anticoagulation: (15) Right bundle branch block (RBBB) on electrocardiography: (16) Dyslipidemia: (17) Acute on chronic respiratory failure with hypoxia and hypercapnia: 56-year-old male recently diagnosed end-stage renal disease, morbid obesity, OHS on CPAP, paroxysmal A. fib on apixaban, diastolic CHF, COPD with [id number] smoking history quit 5 years ago was admitted to the hospital because of worsening shortness of breath. His last hemodialysis session was 04/04/2021 prior to coming to the hospital. He was diagnosed with COVID-19 04/06/2021 Neuro - Sedation: None Analgesia: None Metabolic Encephalopathy - * Mild. Arousable, alert and oriented with discussion, but somnolent. * Suspect that this is likely secondary to uremia and hypercapnia - also possibly from resolving hypoxemia. * Cardiac - AFib with RVR * With known history of paroxysmal AFib - on beta-blockers * Echo 02/2020 demonstrated LVEF 62%, LVH, normal RA pressures. * Strict I+Os Prolonged QTC * Avoid QT prolonging medications Respiratory - Acute Hypoxic, Hypercapnic Respiratory Failure * CXR demonstrating marked interstitial, alveolar opacities - likely pulmonary edema from missed ESRD x weeks * Likely contributed by OHS, failure to comply with BiPAP overnight *Underlying infection cannot be ruled out- note that pt had +COVID-19 test on 04/06. Continue with antibiotics * Continue BiPAP GI - * No acute needs * NPO for now as mentation, respiratory status improves * Will need careful fluid balance RENAL/LYTES - * Newly diagnosed ESRD - s/p HD * Marked improvement in BUN, Cr from previous - 134 -> 59 BUN and 11.9 -> 7.34 Cr *Monitor electrolytes *Nephrology on board - *Nauseous Patient's BUN is elevated which could be one of the reasons ENDO - * ICU Hyperglycemia protocol HEME - * Stable H&H. * s/p Epogen x 1 yesterday * On Apixaban for PAF ID - * Noted that patient tested pos for COVID-19 on 04/06. This was >21 days ago. No need for precautions at this time. *Procalcitonin 0.36, CRP 36, ESR greater than 130 INTEGUMENTARY - * No acute concerns or needs. LINES/IV ACCESS - PIVs intact. PROPHYLAXIS - * DVT: Apixaban * GI - Protonix Plan: In/out: -1 L, 3000 removed by dialysis yesterday Change bumetanide to IV 4 mg every 12hrs Patient is having nausea he is getting Zofran more frequently. His mentation is getting worse and is getting more tachypneic. He uses BiPAP on and off most of the time. Underlying sepsis could also be playing a role in his shortness of breath and mentation. I think patient is going to end up with intubation. Patient is at high risk for intubation given the BMI and thick neck. He might end up with a trach in future. who is bedside was updated regarding patient's condition and the high possibility of intubation. I have personally spent 48 minutes of critical care time in the direct management of this patient. This is a life/limb threatening event. This includes time spent evaluating patient, direct bedside care, chart review, placing orders, interpretation of diagnostic studies, discussion with consu ltants, patient, and/or family members regarding treatment decisions, as well as other required patient management activities. This time is exclusive of all separately billable procedures, and teaching time and separate from and in addition to any other critical care service time. Admission and Anticipated Discharge Date Admission Date: April 26, 2021 Subjective Patient seen and examined at bedside. No acute distress. Patient again overnight had episodes where he used to take off BiPAP repeatedly. He is somnolent but arousable he answers questions. Denies any chest pain, no headache. On asking how is his breathing status better. Afebrile the last 12 hours Been making urine Review of Systems Review of Systems: All systems reviewed & are unremarkable except as noted in Subjective Physical Exam Physical Exam: Constitutional: Mild respiratory distress HEENT: EOMI, PERRLA, thick neck Respiratory system: Decreased air entry bilaterally, no wheeze, no rhonchi, positive crackles bilaterally, right-sided dialysis catheter CVS: S1-S2 positive, no murmurs or gallops, distant heart sounds Abdomen: Soft, nontender, nondistended, positive bowel sounds x4, obese Extremities: +2 pulses bilaterally radialis/ dorsalis pedis, no cyanosis, +1 pitting edema bilateral lower extremity Neuro: Awake alert oriented x2, somnolent Psych: Normal mood and affect G/U: No Kay Skin: no rashes, warm and dry Lymphatic: no cervical or axillary lymphadenopathy Results & Data Results & Data ([facility]) Vital Signs (Past 12 Hours) Vital Signs Temp Pulse Pulse Resp BP Pulse Ox Pulse Ox 04/29/21 12:18 121 H 125/75 04/29/21 12:03 116 H 142/77 H 04/29/21 11:48 113 H 117/75 04/29/21 11:33 118 H 116/75 04/29/21 11:18 112 H 108/71 04/29/21 11:03 108 H 21 115/66 90 04/29/21 10:48 118 H 112/72 04/29/21 10:35 112 H 25 H 94 04/29/21 10:33 113 H 19 114/69 92 04/29/21 10:18 116 H 108/76 04/29/21 10:03 114 H 20 103/64 90 04/29/21 09:48 112 H 112/77 04/29/21 09:33 103 H 106/69 04/29/21 09:18 108 H 128/80 04/29/21 09:08 105 H 18 124/69 91 04/29/21 08:53 37.3 C 107 H 04/29/21 08:08 106 H 21 121/69 91 04/29/21 08:00 37.1 C 04/29/21 07:08 105 H 18 110/57 L 92 04/29/21 06:40 91 04/29/21 06:08 103 H 21 102/63 94 04/29/21 05:38 104 H 20 100/58 L 95 04/29/21 05:08 112 H 20 94/58 L 90 04/29/21 04:38 105 H 22 105/56 L 92 04/29/21 04:12 107 H 21 90 04/29/21 04:08 36.9 C 105 H 19 111/72 91 04/29/21 03:38 108 H 19 92/55 L 89 L 04/29/21 03:08 104 H 24 111/71 91 04/29/21 02:38 106 H 23 125/62 91 04/29/21 02:08 114 H 22 103/67 91 04/29/21 01:38 103 H 22 111/63 94 04/29/21 01:08 104 H 21 108/69 99 04/29/21 04:06 04/29/21 04:06 Coding Level of Care Code Critical Care 1st 30-74 mins Diagnoses Pulmonary edema J81.0 Chronicity: acute COVID-19 U07.1 ESRD on hemodialysis N18.6; Z99.2 Hyperkalemia E87.5 Diabetes mellitus E11.9 Obesity hypoventilation syndrome E66.2 Paroxysmal A-fib I48.0 Morbid obesity with BMI of 70 and over, adult E66.01; Z68.45 Hypertension I10 Heart failure with preserved ejection fraction I50.30 ESRD needing dialysis N18.6; Z99.2 Secondary hyperparathyroidism of renal origin N25.81 Chronic anemia D64.9 Chronic anticoagulation Z79.01 Right bundle branch block (RBBB) on electrocardiography I45.10 Dyslipidemia E78.5 Acute on chronic respiratory failure with hypoxia and hypercapnia J96.21; J96.22 Time Spent (min) 48 (1) Pulmonary edema Chronicity: acute Qualified Code(s): J81.0 - Acute pulmonary edema
[2021-04-29] MEDS ORDERED: LIDOCAINE 4% INH SOLN 4 ML BTL NEB ONE (13:16)
[2021-04-29] MEDS ORDERED: PIPERACILLIN/TAZOBACTAM 3.375 GM in DEXTROSE 5% 100 ML IV ONE (13:31)
[2021-04-29] MEDS ORDERED: PIPERACILL/TAZOBAC CONSULT ACTIVE PRN (13:31)
--- NOTE | 2021-04-29 13:35 | Pharmacy Report ---
Pharmacy Abx Dose Short Note - Date of Service April 29, 2021 - Assessment & Plan Assessment 56 year old M receiving vancomycin empirically. Patient received ~1 hr 45 min of HD this morning. Will supplement with a lower dose post HD and recheck random level in AM. Day # 2 of antimicrobial therapy. Plan Vancomycin * Random level is 19.5 mcg/mL * Redose with 750 mg IV X 1 * Trough or random level ordered for: 04/30/21 with AM labs Pharmacy will continue to follow and will adjust dose/frequency as necessary. Thank you.
[2021-04-29] MEDS ORDERED: PROPOFOL IV EMULSION 10 MG/ML 100 ML VIAL IV ONE (13:40)
[2021-04-29] MEDS ORDERED: VANCOMYCIN HCL 750 MG in SODIUM CHLORIDE 0.9% 250 ML IV SCH (13:45)
[2021-04-29] MEDS ORDERED: PIPERACILLIN/TAZOBACTAM 4.5 GM in DEXTROSE 5% 100 ML IV ONE (14:30)
[2021-04-29] MEDS ORDERED: STAT IV Infusion **Titration per Protocol STA ×4 (14:34→22:54)
[2021-04-29] MEDS ORDERED: PROPOFOL BOLUS FROM BAG IV PRN (14:34)
--- NOTE | 2021-04-29 14:38 | Anesthesiology Progress Note ---
Date of Service April 29, 2021 Assessment & Plan (1) Required emergency intubation: Intubation Note Date and time of procedure: 04/29/21 Indication for Intubation: Failure to ventilate Failure to oxygenate Respiratory distress Unable to protect airway Consent: Informed consent obtained from designated proxy (patient's ). The inherent risks, expected benefits, treatment alternatives, as well as the technical aspects of the procedure were discussed with the proxy and a full explanation was given. Proxy was given the opportunity to ask questions, which were answered to their satisfaction. Suction, free flowing IV (with NS in 250ml bag), ambu bag with supplemental oxygen, respiratory therapy present along with myself and [employer]. Patient ramped with wedge pillow. Preoxygenated for five minutes with 100% O2. Time Out: A time-out was performed verifying correct patient with two identifiers, procedure, site, positioning, and special equipment (if needed). Monitors Attached: EKG BP Pulse Oximetry CO2 Induction Medications: 50mg IV ketamine for sedation after 3ml 4% neb lidocaine and 0.2mg IV glycopyrrolate (plus 20mg etomidate given for tachycardia). Paralytic Medication: 10mg nimbex after tube in place and confirmed in correct position. Intubation Technique: Adequate preoxygenation Mask Ventilation Easy Mask Equipment: Glidescope #3 with fiberoptic backup. View: Grade 1 Endotracheal Tube: Oral 8.0 with Stylet Procedure Details: ET tube was placed atraumatically on [1st] attempt. Balloon was inflated and the tube was secured at [24] cm. Placement was confirmed by auscultation and positive CO2 detection. Post-procedure: Pt hemodynamically stable throughout. Patient tolerated the procedure well without apparent complications. Post placement CXR ordered. Present on Admission?: No Admission and Anticipated Discharge Date Admission Date: April 26, 2021 Subjective Asked by ICU attending to electively intubate this patient given his respiratory failure. See note below for full details. Physical Exam Vital Signs: Last Vital Signs Temp 37.1 C 04/29/21 14:14 Pulse 121 H 04/29/21 14:03 Resp 20 04/29/21 14:03 BP 102/72 04/29/21 14:03 Pulse Ox 91 04/29/21 14:03
[2021-04-29] MEDS: cefTRIAXone SODIUM 2,000 MG in DEXTROSE 5% 50 ML IV SCH (14:40)
[2021-04-29] MEDS: propofoL 1,000 MG/100 ML VIAL IV SCH ×7 (14:47→22:43)
[2021-04-29] MEDS: fentaNYL DRIP 1,250 MCG/250 ML BAG IV SCH ×2 (14:47→19:23)
[2021-04-29] MEDS ORDERED: NOREPINEPHRINE/D5W 8 MG/508 ML IV ONE (14:53)
[2021-04-29] MEDS ORDERED: NOREPINEPHRINE/D5W 8 MG/508 ML BAG IV SCH (15:15)
--- NOTE | 2021-04-29 15:48 | XRay Report ---
XR chest 1V portable HISTORY: 56 years-old Male tube placement acute respiratory failure COMPARISON: Chest radiograph 04/29/2021 TECHNIQUE: Portable AP view of the chest FINDINGS: Endotracheal tube terminates 4.9 cm superior to the binu. Right IJ dual-lumen hemodialysis catheter is unchanged with distal tip in the region of the mid SVC. No pneumothorax. Small pleural effusions. Limited exam secondary to positioning. Coronary vascular congestion with right greater than left mix ed interstitial and alveolar opacities redemonstrated. No significant change. IMPRESSION: 1. Lines and tubes as above. 2. Cardiomegaly with persistent right greater than left mixed interstitial and alveolar opacities, si milar to comparison. ACT 112: Negative or not required by law. The above report was generated using voice recognition software. It may contain grammatical, syntax o r spelling errors. Electronically signed by: Teodoro Mariano M.D. 04/29/2021 3:47 PM
--- NOTE | 2021-04-29 16:12 | Hospitalist Progress Note ---
Date of Service April 29, 2021 Assessment & Plan (1) Acute on chronic respiratory failure with hypoxia and hypercapnia: Worsening mental status on 04/28-04/29. Unclear cause as his respiratory status shouldn't cause such a severe failure. - Intubated on 04/29 by ICU for airway protection. (2) Obesity hypoventilation syndrome: Uses BiPap 18/10 at home with supplemental O2 at night. - Presently intubated. (3) Paroxysmal A-fib: HR generally well-controlled here at ~90. - Continue apixaban, metoprolol - Speeding up presently while under stress. (4) Heart failure with preserved ejection fraction: Pulmonary edema on admission. Would *not* consider this CHF as he missed approx. 2 weeks of hemodialysis due to Covid diagnosis. - Continue Bumex and Metoprolol. - HD per nephrology (5) ESRD needing dialysis: Nephrology aware (6) Chronic anemia: Baseline hgb is ~8.5 - 9.5. Stable at this time. Will receive Epogen this admission with HD. - Monitor -> 9.1 today. (7) COVID-19: Tested positive initially on 04/06. Given his lack of symptoms, I do not think this is a new infection, but rather residual RNA from his prior infection. - Isolation removed on 04/27 with Infection Control (8) Diabetes mellitus: A1c was 7.0% this month. - Siding scale + Lantus sugars ok in last 24 hours. Admission and Anticipated Discharge Date Admission Date: April 26, 2021 Subjective Obtunded today. Review of Systems Review of Systems: Unobtainable due to cognitive status Physical Exam Constitutional: WD/WN, vitals as above + acute distress and + morbidly obese Eyes: EOM intact bilaterally; no conjunctival abnormality ENMT: external ear and nose normal, oropharynx normal Neck: trachea midline, no thyromegaly normal visual inspection Respiratory: no respiratory distress Auscultation: + breath sounds absent (Due to body habitus, cannot hear any distinct breath sounds) Cardiovascular: RRR, no murmur, no edema Gastrointestinal (Abdomen): Inspection/Auscultation: abdomen normal to inspection; abdomen not distended Musculoskeletal: no cyanosis or clubbing, extremities motor strength 5/5 Skin: no rashes, warm and dry Neurologic: + not awake Motor/Sensory: normal movement Psychiatric: Orientation: + not alert Results & Data Results & Data ([facility]) Vital Signs (Past 12 Hours) Vital Signs Temp Pulse Pulse Pulse Resp BP BP 04/29/21 14:19 126 H 22 04/29/21 14:14 37.1 C 04/29/21 14:03 121 H 20 102/72 04/29/21 14:00 112 H 30 H 04/29/21 13:35 37.1 C 117 H 138/77 04/29/21 13:33 116 H 128/73 04/29/21 13:18 121 H 125/67 04/29/21 13:03 121 H 21 121/63 04/29/21 12:48 117 H 110/80 04/29/21 12:33 115 H 22 123/63 04/29/21 12:18 121 H 125/75 04/29/21 12:03 115 H 19 142/72 H 04/29/21 11:48 113 H 117/75 04/29/21 11:33 110 H 20 116/75 04/29/21 11:18 112 H 108/71 04/29/21 11:03 108 H 21 115/66 04/29/21 10:48 118 H 112/72 04/29/21 10:35 112 H 25 H 04/29/21 10:33 113 H 19 114/69 04/29/21 10:18 116 H 108/76 04/29/21 10:03 114 H 20 103/64 04/29/21 09:48 112 H 112/77 04/29/21 09:33 103 H 106/69 04/29/21 09:18 108 H 128/80 04/29/21 09:08 105 H 18 124/69 04/29/21 08:53 37.3 C 107 H 04/29/21 08:08 106 H 21 121/69 04/29/21 08:00 37.1 C 04/29/21 07:08 105 H 18 110/57 L 04/29/21 06:40 04/29/21 06:08 103 H 21 102/63 04/29/21 05:38 104 H 20 100/58 L 04/29/21 05:08 112 H 20 94/58 L 04/29/21 04:38 105 H 22 105/56 L 04/29/21 04:12 107 H 21 Pulse Ox Pulse Ox 04/29/21 14:19 92 04/29/21 14:14 04/29/21 14:03 91 04/29/21 14:00 90 04/29/21 13:35 04/29/21 13:33 90 04/29/21 13:18 04/29/21 13:03 93 04/29/21 12:48 04/29/21 12:33 92 04/29/21 12:18 04/29/21 12:03 92 04/29/21 11:48 04/29/21 11:33 93 04/29/21 11:18 04/29/21 11:03 90 04/29/21 10:48 04/29/21 10:35 94 04/29/21 10:33 92 04/29/21 10:18 04/29/21 10:03 90 04/29/21 09:48 04/29/21 09:33 04/29/21 09:18 04/29/21 09:08 91 04/29/21 08:53 04/29/21 08:08 91 04/29/21 08:00 04/29/21 07:08 92 04/29/21 06:40 91 04/29/21 06:08 94 04/29/21 05:38 95 04/29/21 05:08 90 04/29/21 04:38 92 04/29/21 04:12 90 PG Care Time/CCT Total # of Minutes Spent Total Time Spent with Patient: Total time spent is greater than 50% in coordination of care (as documented) at patient's floor/unit and/or counseling patient: Coding Level of Care Code 89841 Subseq Hosp Care Lvl 3 Diagnoses Acute on chronic respiratory failure with hypoxia and hypercapnia J96.21; J96.22 Obesity hypoventilation syndrome E66.2 Paroxysmal A-fib I48.0 Heart failure with preserved ejection fraction I50.30 ESRD needing dialysis N18.6; Z99.2 Chronic anemia D64.9 COVID-19 U07.1 Diabetes mellitus E11.9
--- NOTE | 2021-04-29 16:31 | Procedure Note ---
Procedure Note Date of Service April 29, 2021 Procedure: Inserting ultrasound-guided central dragline engineer: Dr. Viji Herrera Indication: Hypotension Consent: Emergent consent implied Anesthesia: 1% lidocaine without epinephrine local. Procedure: Consent was verified and timeout performed. Appropriate imaging studies were reviewed prior to the procedure. Under aseptic and sterile condition, right IJ vein was accessed under direct ultrasound guidance. Guidewire was confirmed to be within the lumen of vein with the help of ultrasound. Catheter was introduced via Seldinger technique. Guide a wire was removed. Good non-pulsatile blood flow was appreciated from all the ports. The catheter was placed at 16 [address] in place. BioPatch was applied to the catheter and a sterile Tegaderm dressing was applied over the catheter with careful attention to sterility. Lung sliding was appreciated post procedure with the help ultrasound. Chest x-ray to follow Patient tolerated the procedure well. Blood loss: Less than 2 cc Complications: None Coding CPT Codes Tubes, Drains, and Vasc Access - Tubes, Drains, and Vasc Access: [id number] Place catheter in vein superior or inferior vena cava ([id number]) Tubes, Drains, and Vasc Access - Tubes, Drains, and Vasc Access: [id number] Ultrasound Guidance For Vascular ([id number]) [facility] Procedure Codes (Charges) Tubes, Drains, and Vasc Access Procedure 1: Tubes, Drains, and Vasc Access: [id number] Place catheter in vein superior or inferior vena cava Procedure 2: Tubes, Drains, and Vasc Access: [id number] Ultrasound Guidance For Vascular
--- NOTE | 2021-04-29 16:33 | Procedure Note ---
Procedure Note Date of Service April 29, 2021 ARTERIAL LINE PROCEDURE NOTE: Procedure: Arterial Line Placement Attending: Dr. Viji Herrera MD Indication: Monitoring on Pressors Anesthesia: General anesthesia Emergency consent was applied A time-out was completed verifying correct patient, procedure, site, positioning, and implant(s) or special equipment if applicable. Allens test was performed to ensure adequate perfusion. Patients right wrist was prepped and draped in the usual sterile fashion. Ultrasound guidance was used to aid needle placement. A 20g Arrow arterial line was introduced into the right radial artery. Catheter was threaded, and the needle was removed with appropriate pulsatile blood return. Good waveform was observed on the monitor. The patient tolerated the procedure well. Confirmation of placement with ultrasound. Complications: None Blood Loss: 2 cc Coding CPT Codes Tubes, Drains, and Vasc Access - Tubes, Drains, and Vasc Access: [id number] Place Catheter In Artery ([id number]) Tubes, Drains, and Vasc Access - Tubes, Drains, and Vasc Access: [id number] Ultrasound Guidance For Vascular ([id number]) [facility] [place] Procedure Codes (Charges) Tubes, Drains, and Vasc Access Procedure 1: Tubes, Drains, and Vasc Access: [id number] Place Catheter In Artery Procedure 2: Tubes, Drains, and Vasc Access: [id number] Ultrasound Guidance For Vascular
--- NOTE | 2021-04-29 16:51 | XRay Report ---
XR chest 1V portable CLINICAL HISTORY: central line COMPARISON STUDY: April 29, 2021 at 15:23 hours FINDINGS: No definite pneumothorax is seen. Overall evaluation is significantly limited due to motion artifact, rotation and patient's body habitus.. Pleural effusion cannot be adequately evaluated because bilateral costophrenic angles are outside of [id number]. Previously seen multifocal airspace opacities throughout bilateral lungs are again see n. Cardiomediastinal silhouette cannot be adequately assessed because its obscured by surrounding opacit ies. Dense left retrocardiac opacity is again seen. Pulmonary vasculature is obscured.. Osseous structures: Not well seen. Position of endotracheal tube cannot be adequately assessed due to motion artifact. Portion of the right-sided subclavian large bore venous catheter is seen, tip is not well seen. IMPRESSION: 1. Almost nondiagnostic study due to motion artifact, rotation and patient's body habitus. Also bila teral costophrenic angles are outside the [id number]. Repeat study is recommended. ACT 112: Negative or not required by law. The above report was generated using voice recognition software. It may contain grammatical, syntax o r spelling errors. Electronically signed by: Liseth Herring DO 04/29/2021 5:10 PM
[2021-04-29] MEDS: BUMETANIDE 4 MG in SYRINGE 0 ML IV SCH (17:21)
[2021-04-29 17:31] LABS: iSTAT Art Bld Gas pCO2 Correct 60 mmHg (35-46); iSTAT Art Bld Gas pH Corrected 7.282 (7.35-7.45); iSTAT Arterial Blood Gas HCO3 28 meg/L (19-24); iSTAT Arterial Blood Gas pCO2 60 mmHg (35-46); iSTAT Arterial Blood Gas pH 7.28 (7.35-7.45); iSTAT Arterial Blood Gas pO2 66 mmHg (80-95); iSTAT Arterial Blood Gas pO2 C 66; iSTAT Carbon Dioxide 30 mmol/L (24-31); iSTAT FiO2 100 %; iSTAT Hematocrit 37 % (42-52); iSTAT Hemoglobin 12.6 g/dl (14.0-18.0); iSTAT Potassium 4.4 mmol/L (3.3-5.0); iSTAT Site Art Line; iSTAT Sodium 135 mmol/L (135-144)
[2021-04-29 17:31] LABS: iSTAT Potassium 4.2 mmol/L (3.3-5.0); iSTAT Sodium 137 mmol/L (135-144)
[2021-04-29 17:32] LABS: iSTAT Arterial Blood Gas HCO3 30 meg/L (19-24); iSTAT Arterial Blood Gas pCO2 65 mmHg (35-46); iSTAT Arterial Blood Gas pH 7.27 (7.35-7.45); iSTAT Arterial Blood Gas pO2 60 mmHg (80-95); iSTAT Carbon Dioxide 31 mmol/L (24-31); iSTAT Hematocrit 36 % (42-52); iSTAT Hemoglobin 12.2 g/dl (14.0-18.0)
[2021-04-29 17:33] LABS: Patient Temperature 37.1; iSTAT Sample Type Arterial; iSTAT Site Art Line
[2021-04-29 17:34] LABS: iSTAT SpO2 87
[2021-04-29] MEDS: VASOPRESSIN 20 UNITS in 0.9 % SODIUM CHLORIDE 100 ML IV SCH (17:44)
--- NOTE | 2021-04-29 18:35 | XCELERA ---
[id number] \\[id number]
[2021-04-29 18:37] LABS: iSTAT Arterial Blood Gas HCO3 30 meg/L (19-24); iSTAT Arterial Blood Gas pCO2 67 mmHg (35-46); iSTAT Arterial Blood Gas pH 7.26 (7.35-7.45); iSTAT Arterial Blood Gas pO2 56 mmHg (80-95); iSTAT Carbon Dioxide 32 mmol/L (24-31); iSTAT FiO2 100 %; iSTAT Site Art Line
--- NOTE | 2021-04-29 19:36 | XRay Report ---
KUB HISTORY: Status post placement of an enteric tube OG tube placement COMPARISON: Chest radiograph of same day FINDINGS: The left upper quadrant of the abdomen was imaged. The lower and right aspect of the abdome n was excluded from the [id number]. There is gaseous distention of the stomach. Study is limited b y patient body habitus. There is a curvilinear structure projected over the abdomen which may reflect the gastric tube. IMPRESSION: Limited exam. Partially imaged gastric tube projects over the gastric bubble. ACT 112: Negative or not required by law. The above report was generated using voice recognition software. It may contain grammatical, syntax o r spelling errors. Electronically signed by: Teodoro Mariano M.D. 04/29/2021 7:35 PM
[2021-04-29] MEDS: PRAVASTATIN SOD 40 MG TAB PO SCH (20:10)
[2021-04-29] MEDS: NOREPINEPHRINE/D5W 16 MG/500 ML BAG IV SCH (20:13)
[2021-04-29] MEDS ORDERED: INSULIN GLARGINE SOLOSTAR 100 UNITS/ML 3 ML PEN SC SCH (21:00)
[2021-04-29 21:01] LABS: iSTAT Art Bld Gas pCO2 Correct 62 mmHg (35-46); iSTAT Art Bld Gas pH Corrected 7.242 (7.35-7.45); iSTAT Arterial Blood Gas HCO3 27 meg/L (19-24); iSTAT Arterial Blood Gas pCO2 60 mmHg (35-46); iSTAT Arterial Blood Gas pH 7.26 (7.35-7.45); iSTAT Arterial Blood Gas pO2 63 mmHg (80-95); iSTAT Arterial Blood Gas pO2 C 68; iSTAT Carbon Dioxide 28 mmol/L (24-31); iSTAT FiO2 100 %; iSTAT Hematocrit 36 % (42-52); iSTAT Hemoglobin 12.2 g/dl (14.0-18.0); iSTAT Potassium 4.5 mmol/L (3.3-5.0); iSTAT Site Art Line; iSTAT Sodium 133 mmol/L (135-144)
[2021-04-29 21:38] LABS: BUN Creatinine Ratio 6.1 (10-20); Calcium 9.3 mg/dl (8.5-10.1); Creatinine Clr Calc Pharmacy 35.6 ml/min; Est GFR (African American) 14.2 ml/min; Est GFR (Non-African American) 12.3 ml/min; Magnesium 1.9 mg/dl (1.8-2.4); Potassium 4.5 mmol/L (3.5-5.1)
[2021-04-29] MEDS: PIPERACILLIN/TAZOBACTAM 4.5 GM in DEXTROSE 5% 100 ML IV SCH (22:36)
[2021-04-29] MEDS ORDERED: PHENYLEPHRINE HCL 20 MG in DEXTROSE 5% 500 ML IV SCH (23:00)
[2021-04-30] MEDS: propofoL 1,000 MG/100 ML VIAL IV SCH ×14 (00:08→22:31)
[2021-04-30] MEDS: INSULIN ASPART 100 UNITS/ML 3 ML PEN SC SCH ×3 (00:09→08:31)
[2021-04-30] MEDS: PHENYLEPHRINE HCL 100 MG in DEXTROSE 5% 500 ML IV SCH ×4 (00:32→23:28)
[2021-04-30] MEDS: fentaNYL DRIP 1,250 MCG/250 ML BAG IV SCH ×5 (00:33→23:27)
[2021-04-30] MEDS: VASOPRESSIN 20 UNITS in 0.9 % SODIUM CHLORIDE 100 ML IV SCH ×3 (00:33→17:14)
[2021-04-30 04:31] LABS: Basophils # (auto) 0.04 K/uL (0-0.2); Basophils % (auto) 0.3 %; Eosinophils # (auto) 0.01 K/uL (0-0.5); Eosinophils % (auto) 0.1 %; Hematocrit (blood only) 33.1 % (42-52); Hemoglobin 9.7 g/dL (14.0-18.0); Immature Granulocytes # (auto) 0.47 K/uL (0.00-0.02); Immature Granulocytes % (auto) 3.9 %; Lymphocytes % (auto) 9.1 %; Mean Corpuscular Hemoglobin 25.9 pg (25-34); Mean Corpuscular Hgb Conc 29.3 g/dL (32-36); Mean Corpuscular Volume 88.5 fL (80-100); Mean Platelet Volume 9.4 fL (7.4-10.4); Monocytes # (auto) 0.58 K/uL (0.11-0.59); Monocytes % (auto) 4.8 %; Neutrophils # (auto) 9.83 K/uL (1.4-6.5); Neutrophils % (auto) 81.8 %; Nucleated RBC # (auto) 0.79 K/uL (0-0); Nucleated RBC % (auto) 6.6 %; Platelet Count 316 K/uL (130-400); RDW Coefficient of Variation 18.5 % (11.5-14.5); RDW Standard Deviation 59.3 fL (36.4-46.3); Red Blood Count 3.74 M/uL (4.7-6.1); White Blood Count 12.03 K/uL (4.8-10.8)
[2021-04-30 05:08] LABS: BUN Creatinine Ratio 6.5 (10-20); Bilirubin Direct 0.8 mg/dl (0-0.2); Bilirubin,Total 1.2 mg/dl (0.2-1); Calcium 9.2 mg/dl (8.5-10.1); Creatinine Clr Calc Pharmacy 32.3 ml/min; Est GFR (African American) 12.6 ml/min; Est GFR (Non-African American) 10.9 ml/min; Magnesium 1.9 mg/dl (1.8-2.4); Phosphorus 5.7 mg/dl (2.5-4.9); Potassium 4.4 mmol/L (3.5-5.1); Total Protein 8.2 gm/dl (6.4-8.2)
[2021-04-30 05:20] LABS: iSTAT Art Bld Gas pCO2 Correct 71 mmHg (35-46); iSTAT Art Bld Gas pH Corrected 7.194 (7.35-7.45); iSTAT Arterial Blood Gas HCO3 27 meg/L (19-24); iSTAT Arterial Blood Gas pCO2 69 mmHg (35-46); iSTAT Arterial Blood Gas pH 7.21 (7.35-7.45); iSTAT Arterial Blood Gas pO2 63 mmHg (80-95); iSTAT Arterial Blood Gas pO2 C 66; iSTAT Carbon Dioxide 29 mmol/L (24-31); iSTAT FiO2 100 %; iSTAT Hematocrit 36 % (42-52); iSTAT Hemoglobin 12.2 g/dl (14.0-18.0); iSTAT Potassium 4.4 mmol/L (3.3-5.0); iSTAT Site Art Line; iSTAT Sodium 132 mmol/L (135-144)
[2021-04-30 05:22] LABS: Basophilic Stippling 1+; Polychromasia 1+
--- NOTE | 2021-04-30 05:39 | Communication Note ---
Date of Service: April 30, 2021 0520: Received concerning update from nursing staff the patient was with saturations in the 70s. This is shortly after the patient had concerning a.m. blood gas. Patient was assessed at bedside. Decision was made to manually bagged the patient which was performed by respiratory therapy. Patient did recover quickly into the 90s. He was placed on the ventilator again and seemed to tolerate well for approximately 10 to 15 minutes. Unfortunately, the patient desaturated again with saturations in the mid 70s. I personally bagged the patient and it was noticed that his CO2 did climb into the 100s briefly. With using inspiratory holds and increasing rate of respiration, we were able to improve the patient's CO2 as well as oxygenation back into the 90s. Chest x-ray was obtained and reviewed by myself and demonstrates ongoing pulmonary edema with particular focus to the RIGHT sided lung field. No significant changes were noted otherwise per my assessment. Patient was placed into more of an upright position and his saturations did increase into the 90s. We were able to wean his PEEP back down to more appropriate settings as well as his respiratory rate. 0542: I did reach out to the patient's , Taisha. I provided her update over the last hour regarding concerning changes including increasing doses of vasopressors as well as reaching near maximization of ventilator settings. She acknowledges her understanding and will present at bedside later this morning. My concern with this patient is that he has end-stage renal disease with significant volume overload that is been requiring hemodialysis daily. Unfortunately, the patient has become significantly hemodynamically unstable and requiring 3 vasopressors to maintain appropriate maps. This is concerning as the patient is likely going to require ongoing hemodialysis for volume removal, however, given his hemodynamic instability, this may preclude the utilization of standard spot hemodialysis. Thankfully, to this point, we have thwarted ongoing decline. Regardless, I fear as though we are maximizing his ventilator settings and reaching the point of concerning ventilator settings which may ultimately result in barotrauma. Consideration for pronation was discussed, however, the patient is morbidly obese and I am genuinely concerned that pronation would be high risk in this individual and provide minimal improvement of baseline disease at this point. We will continue to make ventilator adjustments as needed to help improve oxygenation/ventilation. I have personally spent 45 minutes of critical care time in the direct management of this patient. This is a life/limb threatening event. This includes time spent evaluating patient, direct bedside care, chart review, placing orders, interpretation of diagnostic studies, discussion with consultants, patient, and family members, as well as other required patient management activities. This time is exclusive of all separately billable procedures, and teaching time and separate from and in addition to any other critical care service time. Coding Level of Care Code Critical Care 1st 30-74 mins Time Spent (min) 45
[2021-04-30] MEDS ORDERED: ALBUT/IPRATROP 3MG/0.5MG NEB 3 ML VIAL ONE (06:18)
[2021-04-30] MEDS ORDERED: HYDROCORTISONE SOD SUCCINATE 100 MG/2 ML VIAL IM STA (06:31)
[2021-04-30] MEDS ORDERED: SODIUM BICARB 8.4% INJ 50 MEQ/50 ML SYR IV STA (06:37)
[2021-04-30] MEDS ORDERED: SODIUM BICARB 8.4% INJ 50 MEQ/50 ML SYR IV ONE (06:40)
[2021-04-30] MEDS ORDERED: HYDROCORTISONE SOD 200 MG in SYRINGE 0 ML IV ONE (06:45)
[2021-04-30] MEDS: NEPHROCAPS PO SCH (08:14)
--- NOTE | 2021-04-30 08:16 | XRay Report ---
XR chest 1V portable HISTORY: 56 years-old Male f/u acute respiratory failure COMPARISON: 04/29/2021 TECHNIQUE: AP view the chest FINDINGS: Endotracheal tube overlies the midline, 8 cm superior to the binu. Enteric tube courses below the d iaphragm coursing into the region of the gastric lumen. Right IJ dialysis catheter distal tip termina anushka in the expected location of the proximal SVC. Cardiomegaly. No pneumothorax. Pulmonary vascular c ongestion with interstitial coarsening. Mildly improved aeration of the lungs. Limited exam secondary to positioning. The right lateral costophrenic angle is excluded from the [id number]. IMPRESSION: 1. Lines and tubes as above. 2. Cardiomegaly with mildly improved aeration of the lungs. ACT 112: Negative or not required by law. The above report was generated using voice recognition software. It may contain grammatical, syntax o r spelling errors. Electronically signed by: Teodoro Mariano M.D. 04/30/2021 8:15 AM
[2021-04-30] MEDS: SEVELAMER HCL 800 MG TABLET PO SCH ×3 (08:18→17:14)
[2021-04-30] MEDS: APIXABAN 5 MG TABLET PO SCH ×2 (08:18→20:12)
[2021-04-30] MEDS: BUMETANIDE 4 MG in SYRINGE 0 ML IV SCH ×2 (08:18→17:14)
[2021-04-30] MEDS: FLUTICASONE/VILANTEROL 200/25MCG 14 PUFFS/INHALER INH SCH (08:18)
[2021-04-30] MEDS: FERROUS SULFATE 325 MG TAB PO SCH (08:19)
[2021-04-30 08:25] LABS: iSTAT Art Bld Gas pCO2 Correct 67 mmHg (35-46); iSTAT Art Bld Gas pH Corrected 7.233 (7.35-7.45); iSTAT Arterial Blood Gas HCO3 28 meg/L (19-24); iSTAT Arterial Blood Gas pCO2 65 mmHg (35-46); iSTAT Arterial Blood Gas pH 7.25 (7.35-7.45); iSTAT Arterial Blood Gas pO2 72 mmHg (80-95); iSTAT Arterial Blood Gas pO2 C 76; iSTAT Carbon Dioxide 30 mmol/L (24-31); iSTAT FiO2 100 %; iSTAT Hematocrit 35 % (42-52); iSTAT Hemoglobin 11.9 g/dl (14.0-18.0); iSTAT Potassium 4.1 mmol/L (3.3-5.0); iSTAT Site Art Line; iSTAT Sodium 130 mmol/L (135-144)
--- NOTE | 2021-04-30 08:59 | Critical Care Progress Note ---
Date of Service April 30, 2021 Assessment & Plan (1) Pulmonary edema: (2) COVID-19: (3) ESRD on hemodialysis: (4) Hyperkalemia: (5) Diabetes mellitus: (6) Obesity hypoventilation syndrome: (7) Paroxysmal A-fib: (8) Morbid obesity with BMI of 70 and over, adult: (9) Hypertension: (10) Heart failure with preserved ejection fraction: (11) ESRD needing dialysis: (12) Secondary hyperparathyroidism of renal origin: (13) Chronic anemia: (14) Chronic anticoagulation: (15) Right bundle branch block (RBBB) on electrocardiography: (16) Dyslipidemia: (17) Acute on chronic respiratory failure with hypoxia and hypercapnia: 56-year-old male recently diagnosed end-stage renal disease, morbid obesity, OHS on CPAP, paroxysmal A. fib on apixaban, diastolic CHF, COPD with [id number] smoking history quit 5 years ago was admitted to the hospital because of worsening shortness of breath. His last hemodialysis session was 04/04/2021 prior to coming to the hospital. He was diagnosed with COVID-19 04/06/2021 Patient intubated 04/29/2021 Neuro - Continue with propofol and fentanyl Keep RASS -1 Metabolic Encephalopathy - * Suspect that this is likely secondary to uremia and hypercapnia - also possibly from resolving hypoxemia. *Underlying sepsis is also possibility Cardiac - Shock Combination of possible sepsis versus cardiogenic Continue with vasopressor support Keep MAP greater than 65 AFib with RVR * With known history of paroxysmal AFib - on beta-blockers * Echo 02/2020 demonstrated LVEF 62%, LVH, normal RA pressures. * Strict I+Os Prolonged QTC * Avoid QT prolonging medications Respiratory - VDRF secondary to acute Hypoxic, Hypercapnic Respiratory Failure with ARDS *I think it is a combination of missed dialysis, recent COVID-19 infection as well as bacterial pneumonia cannot be ruled out given the elevated ESR and CRP. *Underlying infection cannot be ruled out- note that pt had +COVID-19 test on 04/06. Continue with antibiotics Keep RASS -1 Continue with lung protective ventilation High PEEP, low tidal volume to keep Plateau < 30 with permissive hypercapnea if need be. Monitor ABGs GI - N.p.o. RENAL/LYTES - * Newly diagnosed ESRD - s/p HD * Marked improvement in BUN, Cr from previous - 134 -> 59 BUN and 11.9 -> 7.34 Cr *Monitor electrolytes *Nephrology on board - ENDO - * ICU Hyperglycemia protocol HEME - * Stable H&H. *Gets Epogen with dialysis * On Apixaban for PAF ID - * Noted that patient tested pos for COVID-19 on 04/06. This was >21 days ago. No need for precautions at this time. *Procalcitonin 0.36, CRP 36, ESR greater than 130 INTEGUMENTARY - * No acute concerns or needs. --Prophylaxis VTE: Apixaban GI: Protonix --No CPR Lines: Right IJ, right dialysis catheter, right radial Diet: N.p.o. Plan: In/out: +1 L, 3.4 L removed by dialysis yesterday patient's PO2 requirement is still high. He is 100% FiO2 AB.25/65/72 100% on PEEP 20 Patient requiring vasopressor support now. Currently on 3 vasopressors. Hydrocortisone has been started given the significant requirement of vasopressors Chest x-ray from today still shows haziness in the right side Continue with vancomycin and Zosyn to cover for possible pneumonia as well as bacteremia. Blood culture has been negative to date. Try to titrate off phenylephrine and go up on Levophed. I do not think patient will be a candidate for dialysis given the patient is on 2 vasopressors right now. Overall prognosis of the patient is guarded. Patient's family which includes his as well as patient's sister were at bedside they were updated regarding patient's condition. If there will be any deterioration in the patient's condition no CPR will be performed. Continue with vasopressor support for the time being. Repeat ESR, CRP in a.m. I have personally spent 58 additional minutes of critical care time in the direct management of this patient. This is a life/limb threatening event. This includes time spent evaluating patient, direct bedside care, chart review, placing orders, interpretation of diagnostic studies, discussion with consultants, patient, and/or family members regarding treatment decisions, as well as other required patient management activities. This time is exclusive of all separately billable procedures, and teaching time and separate from and in addition to any other critical care service time. Admission and Anticipated Discharge Date Admission Date: April 26, 2021 Subjective Patient seen and examined at bedside. Patient was on propofol 20, fentanyl 200 at the time of examination He was on Levophed 0.06, x1.5 and vasopressin 0.04 Overnight patient had an episode where his saturation went into the 70s. He was bagged and there was no resistance when he was being bagged Chest x-ray did not show any significant change there is no pneumothorax. His map has been greater than 65 while on vasopressors He is a bit hypercapnic and the pH being 7.25 Patient is already on apixaban I highly doubt PE has to do any role with his hypoxia. Has been afebrile. Review of Systems Review of Systems: Unobtainable due to mental health condition Physical Exam Physical Exam: Constitutional: Mild respiratory distress HEENT: EOMI, PERRLA, thick neck Respiratory system: Decreased air entry bilaterally, no wheeze, no rhonchi, positive crackles bilaterally, right-sided dialysis catheter CVS: S1-S2 positive, no murmurs or gallops, distant heart sounds Abdomen: Soft, nontender, nondistended, positive bowel sounds x4, obese Extremities: +2 pulses bilaterally radialis/ dorsalis pedis, no cyanosis, +1 pitting edema bilateral lower extremity Neuro: RASS -2 Psych: Unable to assess G/U: No Kay Skin: no rashes, warm and dry Lymphatic: no cervical or axillary lymphadenopathy Results & Data Results & Data ([facility]) Vital Signs (Past 12 Hours) Vital Signs Temp Pulse Resp BP Pulse Ox Pulse Ox 04/30/21 06:19 120 H 89/65 L 71 L 04/30/21 06:01 129 H 81 L 04/30/21 06:00 69 L 04/30/21 05:49 147 H 124/70 94 04/30/21 05:44 130 H 121/78 99 04/30/21 05:34 133 H 90/67 L 89 L 04/30/21 05:24 123 H 85/48 L 79 L 04/30/21 05:19 116 H 109/52 L 84 L 04/30/21 05:01 115 H 80 L 04/30/21 04:55 120 H 28 H 86 L 04/30/21 04:49 116 H 83/51 L 87 L 04/30/21 04:34 122 H 82/49 L 89 L 04/30/21 04:19 132 H 115/59 L 89 L 04/30/21 04:04 36.7 C 118 H 107/63 90 04/30/21 03:49 134 H 119/54 L 90 04/30/21 03:34 128 H 90/63 L 90 04/30/21 03:15 117 H 86/60 L 90 04/30/21 03:04 110 H 108/57 L 91 04/30/21 02:49 136 H 112/62 89 L 04/30/21 02:34 127 H 107/56 L 90 04/30/21 02:16 130 H 90 04/30/21 02:04 126 H 104/62 90 04/30/21 01:49 135 H 118/56 L 89 L 04/30/21 01:45 30 H 04/30/21 01:34 133 H 82/67 L 90 04/30/21 01:19 127 H 117/59 L 90 04/30/21 01:04 148 H 75/58 L 91 04/30/21 00:49 126 H 111/49 L 90 04/30/21 00:34 136 H 109/61 89 L 04/30/21 00:19 134 H 109/68 91 04/30/21 00:04 132 H 93/57 L 91 04/29/21 23:56 119 H 04/29/21 23:49 117 H 80/61 L 90 04/29/21 23:34 132 H 105/69 89 L 04/29/21 23:19 147 H 90/72 L 85 L 04/29/21 23:04 142 H 103/67 88 L 04/29/21 22:49 139 H 103/65 87 L 04/29/21 22:34 133 H 121/61 88 L 04/29/21 22:22 138 H 30 H 88 L 04/29/21 22:19 36.7 C 124 H 105/57 L 88 L 04/29/21 22:04 128 H 110/58 L 86 L 04/29/21 21:49 125 H 100/65 86 L 04/29/21 21:34 133 H 103/72 87 L 04/29/21 21:19 132 H 104/69 87 L 04/29/21 21:04 120 H 101/61 86 L 04/29/21 20:49 122 H 117/66 86 L 04/30/21 04:19 04/30/21 04:19 Coding Level of Care Code 70892 Prolonged Care (int'l) Diagnoses Pulmonary edema J81.0 Chronicity: acute COVID-19 U07.1 ESRD on hemodialysis N18.6; Z99.2 Hyperkalemia E87.5 Diabetes mellitus E11.9 Obesity hypoventilation syndrome E66.2 Paroxysmal A-fib I48.0 Morbid obesity with BMI of 70 and over, adult E66.01; Z68.45 Hypertension I10 Heart failure with preserved ejection fraction I50.30 ESRD needing dialysis N18.6; Z99.2 Secondary hyperparathyroidism of renal origin N25.81 Chronic anemia D64.9 Chronic anticoagulation Z79.01 Right bundle branch block (RBBB) on electrocardiography I45.10 Dyslipidemia E78.5 Acute on chronic respiratory failure with hypoxia and hypercapnia J96.21; J96.22 Time Spent (min) 58 (1) Pulmonary edema Chronicity: acute Qualified Code(s): J81.0 - Acute pulmonary edema
[2021-04-30] MEDS ORDERED: NovoLIN-R BOLUS FROM BAG IV ONE (09:00)
[2021-04-30] MEDS: INSULIN REGULAR 250 UNITS in SODIUM CHLORIDE 0.9% 247.5 ML IV SCH (09:33)
--- NOTE | 2021-04-30 10:02 | Nephrology Progress Note ---
Date of Service April 30, 2021 Assessment & Plan (1) ESRD on hemodialysis: Unfortunately, continues to require daily HD for clearance and UF. Volume status improving. Unfortunately hemodynamic instability now a very significant concern. Obligatory intake is high. Requiring near maximal vent support for oxygenation and ventilation. Orders for a 3 hours treatment at adjusted Qb with UF as tolerated discussed with nurse. UF goal reduced due to hypotension. Will start with ~2 L goal. Ideally, will attempt to minimize net daily obligatory intake. gtts are concentrated. HCO3 37 for persistent metabolic acidosis. Qb adjusted as tolerated for hypotension. Damir is critically ill and overall prognosis is very poor. I discussed this and reviewed goals of care with family this AM. CK pending. Repeat metabolic profile tomorrow AM. (2) Chronic anemia: Epogen 30277 units provided with HD yesterday. (3) Obesity hypoventilation syndrome: (4) Metabolic acidosis: Orders for HD today. Maintain suspicion for propofol infusion syndrome while monitoring dosing. Admission and Anticipated Discharge Date Admission Date: April 26, 2021 Subjective Sedated. Unresponsive. Goals of care have moved to conditional code status. I met with the patient's family at the bedside this AM. I discussed the patient's status and plan of care in detail with the ICU team. Overnight events noted including vasopressor support and complications with oxygenation + ventilation. Intubated emergently yesterday. HD completed yesterday, 4.5 hrs UF 3.5 L. Review of Systems Review of Systems: Unobtainable due to cognitive status and Unobtainable due to endotracheal tube Physical Exam Constitutional: + morbidly obese and + mechanically ventilated; no acute distress ENMT: ETT Neck: normal visual inspection and + thick neck IJ CVC and TDC Respiratory: Auscultation: lungs clear to auscultation bilaterally FIO2 100%, PEEP 20. Lungs are generally clear with coarse basilar transmitted vent sounds Cardiovascular: Rate/Rhythm: + tachycardic Heart Sounds: normal S1 and normal S2 Extremities: normal capillary refill (slightly delayed but without notable peripheral cyanosis), + edema (some mild dependent edema in the upper areas) and + AV fistula Skin: + turgor decreased and + dry skin Neurologic: sedated and unresponsive Genitourinary: Kay with minimal urine Results & Data ([facility]) Vital Signs (Past 12 Hours) Vital Signs Temp Pulse Resp BP Pulse Ox Pulse Ox 04/30/21 07:44 137 H 32 H 94 04/30/21 06:19 120 H 89/65 L 71 L 04/30/21 06:01 129 H 81 L 04/30/21 06:00 69 L 04/30/21 05:49 147 H 124/70 94 04/30/21 05:44 130 H 121/78 99 04/30/21 05:34 133 H 90/67 L 89 L 04/30/21 05:24 123 H 85/48 L 79 L 04/30/21 05:19 116 H 109/52 L 84 L 04/30/21 05:01 115 H 80 L 04/30/21 04:55 120 H 28 H 86 L 04/30/21 04:49 116 H 83/51 L 87 L 04/30/21 04:34 122 H 82/49 L 89 L 04/30/21 04:19 132 H 115/59 L 89 L 04/30/21 04:04 36.7 C 118 H 107/63 90 04/30/21 03:49 134 H 119/54 L 90 04/30/21 03:34 128 H 90/63 L 90 04/30/21 03:15 117 H 86/60 L 90 04/30/21 03:04 110 H 108/57 L 91 04/30/21 02:49 136 H 112/62 89 L 04/30/21 02:34 127 H 107/56 L 90 04/30/21 02:16 130 H 90 04/30/21 02:04 126 H 104/62 90 04/30/21 01:49 135 H 118/56 L 89 L 04/30/21 01:45 30 H 04/30/21 01:34 133 H 82/67 L 90 04/30/21 01:19 127 H 117/59 L 90 04/30/21 01:04 148 H 75/58 L 91 04/30/21 00:49 126 H 111/49 L 90 04/30/21 00:34 136 H 109/61 89 L 04/30/21 00:19 134 H 109/68 91 04/30/21 00:04 132 H 93/57 L 91 04/29/21 23:56 119 H 04/29/21 23:49 117 H 80/61 L 90 04/29/21 23:34 132 H 105/69 89 L 04/29/21 23:19 147 H 90/72 L 85 L 04/29/21 23:04 142 H 103/67 88 L 04/29/21 22:49 139 H 103/65 87 L 04/29/21 22:34 133 H 121/61 88 L 04/29/21 22:22 138 H 30 H 88 L 04/29/21 22:19 36.7 C 124 H 105/57 L 88 L 04/29/21 22:04 128 H 110/58 L 86 L Laboratory Results Laboratory Results - last 24 hr 04/29/21 04/29/21 04/29/21 12:21 16:11 16:57 WBC RBC Hgb POC Hgb 12.2 L Hct POC Hct 36 L MCV MCH MCHC RDW Std Deviation RDW Coeff of Talha Plt Count MPV Immature Gran % (Auto) Neut % (Auto) Lymph % (Auto) Grimes % (Auto) Eos % (Auto) Baso % (Auto) Neut # (Auto) Lymph # (Auto) Grimes # (Auto) Eos # (Auto) Baso # (Auto) Immature Gran # (Auto) Absolute Nucleated RBC Nucleated RBC % (auto) Polychromasia Basophilic Stippling Specimen Type Arterial Sample Site Art Line Patient Temperature 37.1 POC pH 7.27 L POC pCO2 65 H POC pO2 60 L POC HCO3 30 H POC Total CO2 31 POC Base Excess 3.0 H O2 Sat Pulse Oximetry 87 ABG pH (Temp Correct) ABG pCO2 (Temp Corrct POC ABG pO2 at Pt Temp POC ABG O2 Sat 86.0 L Horace Test O2 Delivery Device Ventilator POC O2 Rate 22 Minute Ventilation Vent Mode AC POC FiO2 Tidal Volume 450 End Tidal CO2 46 PEEP 10 POC Sodium 137 Sodium POC Potassium 4.2 Potassium Chloride Carbon Dioxide Anion Gap BUN Creatinine Est Cr Clr Drug Dosing Est GFR ( Amer) Est GFR (Non-Af Amer) BUN/Creatinine Ratio Glucose POC Glucose 137 H POC Glucose (other) 224 H Lactate Calcium Ionized Calcium Phosphorus Magnesium Total Bilirubin Direct Bilirubin AST ALT Alkaline Phosphatase Total Protein Albumin Procalcitonin Random Cortisol Random Vancomycin 04/29/21 04/29/21 04/29/21 17:18 18:25 20:05 WBC RBC Hgb POC Hgb 12.6 L Hct POC Hct 37 L MCV MCH MCHC RDW Std Deviation RDW Coeff of Talha Plt Count MPV Immature Gran % (Auto) Neut % (Auto) Lymph % (Auto) Grimes % (Auto) Eos % (Auto) Baso % (Auto) Neut # (Auto) Lymph # (Auto) Grimes # (Auto) Eos # (Auto) Baso # (Auto) Immature Gran # (Auto) Absolute Nucleated RBC Nucleated RBC % (auto) Polychromasia Basophilic Stippling Specimen Type Sample Site Art Line Art Line Patient Temperature POC pH 7.28 L 7.26 L POC pCO2 60 H 67 H POC pO2 66 L 56 L POC HCO3 28 H 30 H POC Total CO2 30 32 H POC Base Excess 2.0 H 2.0 H O2 Sat Pulse Oximetry ABG pH (Temp Correct) 7.282 L ABG pCO2 (Temp Corrct 60 H POC ABG pO2 at Pt Temp 66 POC ABG O2 Sat 89.0 L 82.0 L Horace Test NA NA O2 Delivery Device Ventilator Ventilator POC O2 Rate 26 28 Minute Ventilation Vent Mode POC FiO2 100 100 Tidal Volume 450 420 End Tidal CO2 PEEP 12 14 POC Sodium 135 Sodium POC Potassium 4.4 Potassium Chloride Carbon Dioxide Anion Gap BUN Creatinine Est Cr Clr Drug Dosing Est GFR ( Amer) Est GFR (Non-Af Amer) BUN/Creatinine Ratio Glucose POC Glucose POC Glucose (other) 247 H Lactate Calcium Ionized Calcium Phosphorus Magnesium Total Bilirubin Direct Bilirubin AST ALT Alkaline Phosphatase Total Protein Albumin Procalcitonin Random Cortisol Random Vancomycin 04/29/21 04/29/21 04/29/21 20:45 20:45 20:48 WBC RBC Hgb POC Hgb 12.2 L Hct POC Hct 36 L MCV MCH MCHC RDW Std Deviation RDW Coeff of Talha Plt Count MPV Immature Gran % (Auto) Neut % (Auto) Lymph % (Auto) Grimes % (Auto) Eos % (Auto) Baso % (Auto) Neut # (Auto) Lymph # (Auto) Grimes # (Auto) Eos # (Auto) Baso # (Auto) Immature Gran # (Auto) Absolute Nucleated RBC Nucleated RBC % (auto) Polychromasia Basophilic Stippling Specimen Type Sample Site Art Line Patient Temperature POC pH 7.26 L POC pCO2 60 H POC pO2 63 L POC HCO3 27 H POC Total CO2 28 POC Base Excess -1.0 O2 Sat Pulse Oximetry ABG pH (Temp Correct) 7.242 L ABG pCO2 (Temp Corrct 62 H POC ABG pO2 at Pt Temp 68 POC ABG O2 Sat 87.0 L Horace Test NA O2 Delivery Device Ventilator POC O2 Rate 28 Minute Ventilation 12.1 Vent Mode POC FiO2 100 Tidal Volume 450 End Tidal CO2 PEEP 12 POC Sodium 133 L Sodium 130 L POC Potassium 4.5 Potassium 4.5 Chloride 95 L Carbon Dioxide 25 Anion Gap 10.0 BUN 31 H Creatinine 4.96 H* D Est Cr Clr Drug Dosing 35.6 Est GFR ( Amer) 14.2 Est GFR (Non-Af Amer) 12.3 BUN/Creatinine Ratio 6.1 L Glucose 238 H POC Glucose POC Glucose (other) Lactate Calcium 9.3 Ionized Calcium 1.14 Phosphorus 5.0 H Magnesium 1.9 Total Bilirubin Direct Bilirubin AST ALT Alkaline Phosphatase Total Protein Albumin Procalcitonin Random Cortisol Random Vancomycin 04/30/21 04/30/21 04/30/21 04:00 04:19 04:19 WBC 12.03 H RBC 3.74 L Hgb 9.7 L POC Hgb Hct 33.1 L POC Hct MCV 88.5 MCH 25.9 MCHC 29.3 L RDW Std Deviation 59.3 H RDW Coeff of Talha 18.5 H Plt Count 316 MPV 9.4 Immature Gran % (Auto) 3.9 Neut % (Auto) 81.8 Lymph % (Auto) 9.1 Grimes % (Auto) 4.8 Eos % (Auto) 0.1 Baso % (Auto) 0.3 Neut # (Auto) 9.83 H Lymph # (Auto) 1.10 L Grimes # (Auto) 0.58 Eos # (Auto) 0.01 Baso # (Auto) 0.04 Immature Gran # (Auto) 0.47 H Absolute Nucleated RBC 0.79 H Nucleated RBC % (auto) 6.6 Polychromasia 1+ Basophilic Stippling 1+ Specimen Type Sample Site Patient Temperature POC pH POC pCO2 POC pO2 POC HCO3 POC Total CO2 POC Base Excess O2 Sat Pulse Oximetry ABG pH (Temp Correct) ABG pCO2 (Temp Corrct POC ABG pO2 at Pt Temp POC ABG O2 Sat Horace Test O2 Delivery Device POC O2 Rate Minute Ventilation Vent Mode POC FiO2 Tidal Volume End Tidal CO2 PEEP POC Sodium Sodium 129 L POC Potassium Potassium 4.4 Chloride 94 L Carbon Dioxide 28 Anion Gap 7.0 BUN 35 H Creatinine 5.46 H* D Est Cr Clr Drug Dosing 32.3 Est GFR ( Amer) 12.6 Est GFR (Non-Af Amer) 10.9 BUN/Creatinine Ratio 6.5 L Glucose 266 H POC Glucose POC Glucose (other) 265 H Lactate Calcium 9.2 Ionized Calcium Phosphorus 5.7 H Magnesium 1.9 Total Bilirubin 1.2 H Direct Bilirubin 0.8 H AST 17 ALT 20 Alkaline Phosphatase 99 Total Protein 8.2 Albumin 2.0 L Procalcitonin Random Cortisol Random Vancomycin 04/30/21 04/30/21 04/30/21 04:19 04:19 04:19 WBC RBC Hgb POC Hgb Hct POC Hct MCV MCH MCHC RDW Std Deviation RDW Coeff of Talha Plt Count MPV Immature Gran % (Auto) Neut % (Auto) Lymph % (Auto) Grimes % (Auto) Eos % (Auto) Baso % (Auto) Neut # (Auto) Lymph # (Auto) Grimes # (Auto) Eos # (Auto) Baso # (Auto) Immature Gran # (Auto) Absolute Nucleated RBC Nucleated RBC % (auto) Polychromasia Basophilic Stippling Specimen Type Sample Site Patient Temperature POC pH POC pCO2 POC pO2 POC HCO3 POC Total CO2 POC Base Excess O2 Sat Pulse Oximetry ABG pH (Temp Correct) ABG pCO2 (Temp Corrct POC ABG pO2 at Pt Temp POC ABG O2 Sat Horace Test O2 Delivery Device POC O2 Rate Minute Ventilation Vent Mode POC FiO2 Tidal Volume End Tidal CO2 PEEP POC Sodium Sodium POC Potassium Potassium Chloride Carbon Dioxide Anion Gap BUN Creatinine Est Cr Clr Drug Dosing Est GFR ( Amer) Est GFR (Non-Af Amer) BUN/Creatinine Ratio Glucose POC Glucose POC Glucose (other) Lactate 2.1 H* Calcium Ionized Calcium Phosphorus Magnesium Total Bilirubin Direct Bilirubin AST ALT Alkaline Phosphatase Total Protein Albumin Procalcitonin Random Cortisol Pending Random Vancomycin 16.0 04/30/21 04/30/21 04/30/21 04:19 05:03 08:11 WBC RBC Hgb POC Hgb 12.2 L 11.9 L Hct POC Hct 36 L 35 L MCV MCH MCHC RDW Std Deviation RDW Coeff of Talha Plt Count MPV Immature Gran % (Auto) Neut % (Auto) Lymph % (Auto) Grimes % (Auto) Eos % (Auto) Baso % (Auto) Neut # (Auto) Lymph # (Auto) Grimes # (Auto) Eos # (Auto) Baso # (Auto) Immature Gran # (Auto) Absolute Nucleated RBC Nucleated RBC % (auto) Polychromasia Basophilic Stippling Specimen Type Sample Site Art Line Art Line Patient Temperature POC pH 7.21 L 7.25 L POC pCO2 69 H 65 H POC pO2 63 L 72 L POC HCO3 27 H 28 H POC Total CO2 29 30 POC Base Excess -1.0 1.0 O2 Sat Pulse Oximetry ABG pH (Temp Correct) 7.194 L* 7.233 L ABG pCO2 (Temp Corrct 71 H 67 H POC ABG pO2 at Pt Temp 66 76 POC ABG O2 Sat 85.0 L 91.0 Horace Test NA NA O2 Delivery Device Ventilator Ventilator POC O2 Rate 28 32 Minute Ventilation 12.6 14.4 Vent Mode POC FiO2 100 100 Tidal Volume 450 450 End Tidal CO2 PEEP 14 20 POC Sodium 132 L 130 L Sodium POC Potassium 4.4 4.1 Potassium Chloride Carbon Dioxide Anion Gap BUN Creatinine Est Cr Clr Drug Dosing Est GFR ( Amer) Est GFR (Non-Af Amer) BUN/Creatinine Ratio Glucose POC Glucose POC Glucose (other) Lactate Calcium Ionized Calcium Phosphorus Magnesium Total Bilirubin Direct Bilirubin AST ALT Alkaline Phosphatase Total Protein Albumin Procalcitonin 2.39 H Random Cortisol Random Vancomycin 04/30/21 08:25 WBC RBC Hgb POC Hgb Hct POC Hct MCV MCH MCHC RDW Std Deviation RDW Coeff of Talha Plt Count MPV Immature Gran % (Auto) Neut % (Auto) Lymph % (Auto) Grimes % (Auto) Eos % (Auto) Baso % (Auto) Neut # (Auto) Lymph # (Auto) Grimes # (Auto) Eos # (Auto) Baso # (Auto) Immature Gran # (Auto) Absolute Nucleated RBC Nucleated RBC % (auto) Polychromasia Basophilic Stippling Specimen Type Sample Site Patient Temperature POC pH POC pCO2 POC pO2 POC HCO3 POC Total CO2 POC Base Excess O2 Sat Pulse Oximetry ABG pH (Temp Correct) ABG pCO2 (Temp Corrct POC ABG pO2 at Pt Temp POC ABG O2 Sat Horace Test O2 Delivery Device POC O2 Rate Minute Ventilation Vent Mode POC FiO2 Tidal Volume End Tidal CO2 PEEP POC Sodium Sodium POC Potassium Potassium Chloride Carbon Dioxide Anion Gap BUN Creatinine Est Cr Clr Drug Dosing Est GFR ( Amer) Est GFR (Non-Af Amer) BUN/Creatinine Ratio Glucose POC Glucose POC Glucose (other) 266 H Lactate Calcium Ionized Calcium Phosphorus Magnesium Total Bilirubin Direct Bilirubin AST ALT Alkaline Phosphatase Total Protein Albumin Procalcitonin Random Cortisol Random Vancomycin PG Care Time/CCT Total # of Minutes Spent Total Time Spent with Patient: Total time spent is greater than 50% in coordination of care (as documented) at patient's floor/unit and/or counseling patient: Coding Level of Care Code 95004 Subseq Hosp Care Lvl 3 Diagnoses ESRD on hemodialysis N18.6; Z99.2 Chronic anemia D64.9 Obesity hypoventilation syndrome E66.2 Metabolic acidosis E87.2 Comment 30 minutes of ICU time provided toyeison
--- NOTE | 2021-04-30 10:19 | Electrocardiogram Report ---
Test Reason : Blood Pressure : / mmHG Vent. Rate : 121 BPM Atrial Rate : 119 BPM P-R Int : 000 ms QRS Dur : 152 ms QT Int : 374 ms P-R-T Axes : 000 211 004 degrees QTc Int : 531 ms Atrial fibrillation with rapid ventricular response Right bundle branch block Inferior infarct (cited on or before 26-APR-2021) Abnormal ECG When compared with ECG of 28-APR-2021 05:36, No significant change was found Confirmed by Satya Anders ([id number]) on 04/30/2021 10:18:59 AM Referred By: REFERRED SELF Confirmed By:Varun Anders
--- NOTE | 2021-04-30 10:24 | Electrocardiogram Report ---
Test Reason : Blood Pressure : / mmHG Vent. Rate : 121 BPM Atrial Rate : 094 BPM P-R Int : 000 ms QRS Dur : 164 ms QT Int : 368 ms P-R-T Axes : 000 209 -05 degrees QTc Int : 522 ms Atrial fibrillation with rapid ventricular response Right bundle branch block Inferior infarct (cited on or before 26-APR-2021) Abnormal ECG When compared with ECG of 29-APR-2021 18:15, (unconfirmed) No significant change was found Confirmed by Satya Anders ([id number] on 04/30/2021 10:24:11 AM Referred By: REFERRED SELF Confirmed By:Varun Anders
[2021-04-30] MEDS: NOREPINEPHRINE/D5W 16 MG/500 ML BAG IV SCH ×5 (10:25→23:59)
[2021-04-30] MEDS ORDERED: INSULIN ASPART 100 UNITS/ML 3 ML PEN SC SCH (11:30)
[2021-04-30] MEDS: PANTOprazole 40 MG in SYRINGE 0 ML IV SCH (11:37)
[2021-04-30] MEDS: PIPERACILLIN/TAZOBACTAM 4.5 GM in DEXTROSE 5% 100 ML IV SCH ×2 (11:37→23:58)
--- NOTE | 2021-04-30 13:43 | Pharmacy Report ---
Pharmacy Glycemic Short Note 2 - Date of Service April 30, 2021 - Glycemic Short BSG Results (Last 24 hours): 04/29/21 04/29/21 04/29/21 16:57 20:05 20:45 Glucose 238 H POC Glucose (other) 224 H 247 H 04/30/21 04/30/21 04/30/21 04:00 04:19 08:25 Glucose 266 H POC Glucose (other) 265 H 266 H 04/30/21 04/30/21 10:35 11:32 Glucose POC Glucose (other) 239 H 210 H OUTPATIENT ANTIDIABETIC REGIMEN: * Tresiba 88 units SC BID * Novolog 36 units SC TID * Semaglutide qwk * HbA1c 7.0% on 03/25/21 * However, this result is likely somewhat unreliable in ESRD patients d/t interactions between the A1c analyzing technique and high levels of urea in ESRD, reduced RBC life span, iron deficiency anemia, and EPO administration ASSESSMENT: 04/30/21 * Patient was started on 3 vasopressors (Levophed, Phenylephrine, and vasopressin). Patient also started on hydrocortisone. * Patient's blood sugars have been increasing into the mid-200s. * Due to patient's instability including pressor use, volume overload, and initation of hydrocortisone, will start insulin infusion. 05/01/21 * 56 yo M admitted 04/26/21 w respiratory failure and renal failure 2nd multiple missed HD sessions recently * BSG's have ranged 184-294 mg/dL over the last 24 hours * Reviewed prior admission 03/25/21-03/30/21 - BSG's were well controlled *while ordered and consuming diet* on Lantus 40 units SC BID (reduced to 30 units for lower BSG's) and Novolog SC ACHS goal 110-140 mg/dL, correction factor 10 mg/dL/unit, and CHO ratio 3 g CHO/unit * Will resume regimen similar to previous admission, but will change Novolog to q4h 2nd ICU status and persistent hyperglycemia thus far. Will also reduce Lantus for NPO status PLAN FOR INPATIENT GLYCEMIC CONTROL: * Hold outpatient semaglutide * Insulin infusion with goal range of 140-200 mg/dL. PLAN FOR DISCHARGE: * tbd
--- NOTE | 2021-04-30 14:30 | Pharmacy Report ---
Pharmacy Abx Dose Short Note - Date of Service April 30, 2021 - Assessment & Plan Assessment 56 year old M receiving Vancomycin for treatment for possible pneumonia and bacteremia. Day #3 of antimicrobial therapy. Patient is on hemodialysis- today is a dialysis day. Laboratory Tests 04/30/21 04:19 Random Vancomycin 16.0 Plan Vancomycin * Random level of 16 mcg/mL today AM is therapeutic. * Patient getting dialyzed today. * Ordered a Vancomycin 750 mg IV x1 dose for after dialysis today at 1600. * Goal trough level for Pneumonia: 15 to 20 mcg/mL * Trough level ordered for: 05/01/21 with AM labs Pharmacy will continue to follow and will adjust dose/frequency as necessary. Thank you.
[2021-04-30] MEDS: HYDROCORTISONE SOD 50 MG in SYRINGE 0 ML IV SCH ×2 (14:55→21:42)
--- NOTE | 2021-04-30 15:40 | Hospitalist Progress Note ---
Date of Service April 30, 2021 Assessment & Plan (1) Shock: Unclear cause; septic vs. cardiogenic. - Pressor support per ICU (2) Acute on chronic respiratory failure with hypoxia and hypercapnia: Worsening mental status on 04/28-04/29. Unclear cause as his respiratory status shouldn't cause such a severe failure. - Intubated on 04/29 by ICU for airway protection. (3) Obesity hypoventilation syndrome: Uses BiPap 18/10 at home with supplemental O2 at night. - Presently intubated. (4) Paroxysmal A-fib: HR generally well-controlled here at ~90. - Continue apixaban, metoprolol - Speeding up presently while under stress. (5) Heart failure with preserved ejection fraction: Pulmonary edema on admission. Would *not* consider this CHF as he missed approx. 2 weeks of hemodialysis due to Covid diagnosis. - Continue Bumex and Metoprolol. - HD per nephrology (6) ESRD needing dialysis: Nephrology aware (7) Chronic anemia: Baseline hgb is ~8.5 - 9.5. Stable at this time. Will receive Epogen this admission with HD. - Monitor -> 9.1 today. (8) COVID-19: Tested positive initially on 04/06. Given his lack of symptoms, I do not think this is a new infection, but rather residual RNA from his prior infection. - Isolation removed on 04/27 with Infection Control (9) Diabetes mellitus: A1c was 7.0% this month. - Siding scale + Lantus sugars ok in last 24 hours. Admission and Anticipated Discharge Date Admission Date: April 26, 2021 Subjective Sedated and intubated. Review of Systems Review of Systems: Unobtainable due to endotracheal tube Physical Exam Constitutional: WD/WN, vitals as above + acute distress and + morbidly obese Eyes: EOM intact bilaterally; no conjunctival abnormality ENMT: external ear and nose normal, oropharynx normal Neck: trachea midline, no thyromegaly normal visual inspection Respiratory: no respiratory distress Auscultation: + breath sounds absent (Due to body habitus, cannot hear any distinct breath sounds) Cardiovascular: RRR, no murmur, no edema Gastrointestinal (Abdomen): Inspection/Auscultation: abdomen normal to inspection; abdomen not distended Musculoskeletal: no cyanosis or clubbing, extremities motor strength 5/5 Skin: no rashes, warm and dry Neurologic: + not awake Psychiatric: Orientation: + not alert Results & Data Results & Data ([facility]) Vital Signs (Past 12 Hours) Vital Signs Temp Pulse Pulse Resp BP BP Pulse Ox 04/30/21 14:44 143 H 96/68 L 97 04/30/21 14:24 124 H 108/62 98 04/30/21 14:04 154 H 120/82 98 04/30/21 13:44 142 H 123/61 99 04/30/21 13:24 140 H 113/70 99 04/30/21 13:10 37 C 133 H 121/58 L 04/30/21 13:00 126 H 80/40 L 94 04/30/21 12:45 131 H 98/55 L 04/30/21 12:44 146 H 77/52 L 95 04/30/21 12:30 149 H 92/53 L 04/30/21 12:25 152 H 108/54 L 95 04/30/21 12:18 37 C 04/30/21 12:15 137 H 92/55 L 04/30/21 12:04 156 H 81/52 L 95 04/30/21 12:00 150 H 102/56 L 04/30/21 11:45 136 H 104/56 L 04/30/21 11:40 144 H 92/61 L 95 04/30/21 11:30 146 H 75/49 L 04/30/21 11:24 144 H 106/52 L 95 04/30/21 11:15 136 H 103/58 L 04/30/21 11:14 144 H 34 H 95 04/30/21 11:04 139 H 114/65 97 04/30/21 11:00 146 H 116/61 04/30/21 10:45 143 H 91/73 L 96 04/30/21 10:30 148 H 108/58 L 04/30/21 10:24 142 H 109/80 92 04/30/21 10:15 139 H 92/49 L 04/30/21 10:04 131 H 76/56 L 94 04/30/21 10:00 36.9 C 04/30/21 09:55 36.9 C 150 H 04/30/21 09:44 146 H 94/63 L 95 04/30/21 09:24 131 H 103/66 95 04/30/21 09:05 128 H 91/57 L 95 04/30/21 08:44 121 H 104/72 95 04/30/21 08:24 138 H 122/92 94 04/30/21 08:04 124 H 105/79 94 04/30/21 07:44 137 H 32 H 94 04/30/21 07:40 126 H 112/69 82 L 04/30/21 07:24 112 H 101/59 L 86 L 04/30/21 07:04 128 H 113/65 94 04/30/21 06:45 134 H 116/68 95 04/30/21 06:25 138 H 104/73 77 L 04/30/21 06:19 120 H 89/65 L 71 L 04/30/21 06:01 129 H 81 L 04/30/21 06:00 04/30/21 05:49 147 H 124/70 94 04/30/21 05:44 130 H 121/78 99 04/30/21 05:34 133 H 90/67 L 89 L 04/30/21 05:24 123 H 85/48 L 79 L 04/30/21 05:19 116 H 109/52 L 84 L 04/30/21 05:01 115 H 80 L 04/30/21 04:55 120 H 28 H 86 L 04/30/21 04:49 116 H 83/51 L 87 L 04/30/21 04:34 122 H 82/49 L 89 L 04/30/21 04:19 132 H 115/59 L 89 L 04/30/21 04:04 36.7 C 118 H 107/63 90 04/30/21 03:49 134 H 119/54 L 90 Pulse Ox 04/30/21 14:44 04/30/21 14:24 04/30/21 14:04 04/30/21 13:44 04/30/21 13:24 04/30/21 13:10 04/30/21 13:00 04/30/21 12:45 04/30/21 12:44 04/30/21 12:30 04/30/21 12:25 04/30/21 12:18 04/30/21 12:15 04/30/21 12:04 04/30/21 12:00 04/30/21 11:45 04/30/21 11:40 04/30/21 11:30 04/30/21 11:24 04/30/21 11:15 04/30/21 11:14 04/30/21 11:04 04/30/21 11:00 04/30/21 10:45 04/30/21 10:30 04/30/21 10:24 04/30/21 10:15 04/30/21 10:04 04/30/21 10:00 04/30/21 09:55 04/30/21 09:44 04/30/21 09:24 04/30/21 09:05 04/30/21 08:44 04/30/21 08:24 04/30/21 08:04 04/30/21 07:44 04/30/21 07:40 04/30/21 07:24 04/30/21 07:04 04/30/21 06:45 04/30/21 06:25 04/30/21 06:19 04/30/21 06:01 04/30/21 06:00 69 L 04/30/21 05:49 04/30/21 05:44 04/30/21 05:34 04/30/21 05:24 04/30/21 05:19 04/30/21 05:01 04/30/21 04:55 04/30/21 04:49 04/30/21 04:34 04/30/21 04:19 04/30/21 04:04 04/30/21 03:49 PG Care Time/CCT Total # of Minutes Spent Total Time Spent with Patient: Total time spent is greater than 50% in coordination of care (as documented) at patient's floor/unit and/or counseling patient: Coding Level of Care Code 49231 Subseq Hosp Care Lvl 3 Diagnoses Shock R57.9 Acute on chronic respiratory failure with hypoxia and hypercapnia J96.21; J96.22 Obesity hypoventilation syndrome E66.2 Paroxysmal A-fib I48.0 Heart failure with preserved ejection fraction I50.30 ESRD needing dialysis N18.6; Z99.2 Chronic anemia D64.9 COVID-19 U07.1 Diabetes mellitus E11.9
[2021-04-30] MEDS ORDERED: VANCOMYCIN HCL 750 MG in SODIUM CHLORIDE 0.9% 250 ML IV SCH (16:00)
[2021-04-30] MEDS: PRAVASTATIN SOD 40 MG TAB PO SCH (20:13)
[2021-04-30] MEDS: ACETAMINOPHEN 325 MG TAB PO PRN (22:31)
[2021-05-01] MEDS: propofoL 1,000 MG/100 ML VIAL IV SCH ×6 (00:38→09:58)
[2021-05-01] MEDS: VASOPRESSIN 20 UNITS in 0.9 % SODIUM CHLORIDE 100 ML IV SCH (01:17)
[2021-05-01] MEDS: ACETAMINOPHEN 325 MG TAB PO PRN (03:54)
[2021-05-01 04:31] LABS: Basophils # (auto) 0.04 K/uL (0-0.2); Basophils % (auto) 0.4 %; Hemoglobin 9.3 g/dL (14.0-18.0); Immature Granulocytes # (auto) 0.56 K/uL (0.00-0.02); Immature Granulocytes % (auto) 4.9 %; Lymphocytes # (auto) 1.13 K/uL (1.2-3.4); Lymphocytes % (auto) 9.9 %; Mean Corpuscular Hemoglobin 25.6 pg (25-34); Mean Corpuscular Hgb Conc 29.1 g/dL (32-36); Mean Corpuscular Volume 88.2 fL (80-100); Mean Platelet Volume 9.7 fL (7.4-10.4); Monocytes # (auto) 0.95 K/uL (0.11-0.59); Monocytes % (auto) 8.3 %; Neutrophils # (auto) 8.74 K/uL (1.4-6.5); Neutrophils % (auto) 76.5 %; Nucleated RBC # (auto) 0.56 K/uL (0-0); Nucleated RBC % (auto) 4.9 %; Platelet Count 296 K/uL (130-400); RDW Coefficient of Variation 17.8 % (11.5-14.5); RDW Standard Deviation 57.3 fL (36.4-46.3); Red Blood Count 3.63 M/uL (4.7-6.1); White Blood Count 11.42 K/uL (4.8-10.8)
[2021-05-01] MEDS: INSULIN REGULAR 250 UNITS in SODIUM CHLORIDE 0.9% 247.5 ML IV SCH (04:54)
[2021-05-01 05:20] LABS: Hypochromasia Present; Polychromasia 1+
[2021-05-01 05:24] LABS: BUN Creatinine Ratio 5.9 (10-20); C Reactive Protein 45.3 mg/dl (0-0.29); Calcium 8.8 mg/dl (8.5-10.1); Creatinine Clr Calc Pharmacy 30.4 ml/min; Est GFR (African American) 11.6 ml/min; Magnesium 1.7 mg/dl (1.8-2.4); Phosphorus 1.3 mg/dl (2.5-4.9); Potassium 4.2 mmol/L (3.5-5.1)
[2021-05-01 05:41] LABS: iSTAT Art Bld Gas pCO2 Correct 57 mmHg (35-46); iSTAT Art Bld Gas pH Corrected 7.278 (7.35-7.45); iSTAT Arterial Blood Gas HCO3 26 meg/L (19-24); iSTAT Arterial Blood Gas pCO2 50 mmHg (35-46); iSTAT Arterial Blood Gas pH 7.32 (7.35-7.45); iSTAT Arterial Blood Gas pO2 79 mmHg (80-95); iSTAT Arterial Blood Gas pO2 C 96; iSTAT Carbon Dioxide 27 mmol/L (24-31); iSTAT FiO2 50 %; iSTAT Hematocrit 34 % (42-52); iSTAT Hemoglobin 11.6 g/dl (14.0-18.0); iSTAT Potassium 4.2 mmol/L (3.3-5.0); iSTAT Site Art Line; iSTAT Sodium 131 mmol/L (135-144)
[2021-05-01] MEDS: fentaNYL DRIP 1,250 MCG/250 ML BAG IV SCH (05:58)
[2021-05-01] MEDS: HYDROCORTISONE SOD 50 MG in SYRINGE 0 ML IV SCH (05:58)
[2021-05-01] MEDS: NOREPINEPHRINE/D5W 16 MG/500 ML BAG IV SCH ×3 (06:37→09:57)
--- NOTE | 2021-05-01 07:22 | XRay Report ---
XR chest 1V portable HISTORY: 56 years-old Male f/u acute respiratory failure COMPARISON: Chest radiograph 04/30/2021 TECHNIQUE: Portable AP view of the chest FINDINGS: Cardiac silhouette is enlarged. Endotracheal tube overlies the midline, 7.7 cm superior to the binu . Right IJ dual-lumen hemodialysis catheter appears unchanged. An enteric tube courses below the diap hragm with distal tip outside the [id number]. Pulmonary vascular congestion with interstitial pred ominant opacities, right greater than left appear stable. Blunting of the costophrenic angles. No pne umothorax or large pleural effusion. No acute fracture. IMPRESSION: 1. Lines and tubes as above. 2. Cardiomegaly with persistent right greater than left bilateral pulmonary opacities. 3. No pneumothorax. ACT 112: Negative or not required by law. The above report was generated using voice recognition software. It may contain grammatical, syntax o r spelling errors. Electronically signed by: Teodoro Mariano M.D. 05/01/2021 7:20 AM
[2021-05-01] MEDS ORDERED: SODIUM PHOSPHATE 3 MMOL/1 ML INFUSION IV STA (07:54)
[2021-05-01] MEDS ORDERED: ACETAMINOPHEN 1000 MG/100 ML IV IV STA (08:11)
[2021-05-01] MEDS ORDERED: ACETAMINOPHEN 1,000 MG/100 ML VIAL IV STA (08:11)
[2021-05-01] MEDS ORDERED: SODIUM PHOSPHATE 15 MMOL in SODIUM CHLORIDE 0.9% 250 ML IV ONE (08:15)
[2021-05-01] MEDS ORDERED: MoRPHine SULFATE 4 MG/ML 1 ML CARP\\VIAL IV PRN (08:28)
[2021-05-01] MEDS ORDERED: MAGNESIUM SULFATE / D5W 1 GM/100 ML BAG IV SCH (08:30)
[2021-05-01] MEDS: FERROUS SULFATE 325 MG TAB PO SCH (08:37)
[2021-05-01] MEDS: APIXABAN 5 MG TABLET PO SCH (08:37)
[2021-05-01] MEDS: NEPHROCAPS PO SCH (08:38)
[2021-05-01] MEDS: FLUTICASONE/VILANTEROL 200/25MCG 14 PUFFS/INHALER INH SCH (08:38)
[2021-05-01] MEDS: BUMETANIDE 4 MG in SYRINGE 0 ML IV SCH (08:39)
[2021-05-01] MEDS ORDERED: MIDAZOLAM HCL 1 MG/ML 2ML VIAL IV PRN (08:42)
[2021-05-01] MEDS ORDERED: CYPROHEPTADINE HCL 4 MG TAB PO ONE (08:45)
--- NOTE | 2021-05-01 08:54 | Critical Care Progress Note ---
Date of Service May 01, 2021 Assessment & Plan (1) Pulmonary edema: (2) COVID-19: (3) ESRD on hemodialysis: (4) Hyperkalemia: (5) Diabetes mellitus: (6) Obesity hypoventilation syndrome: (7) Paroxysmal A-fib: (8) Morbid obesity with BMI of 70 and over, adult: (9) Hypertension: (10) Heart failure with preserved ejection fraction: (11) ESRD needing dialysis: (12) Secondary hyperparathyroidism of renal origin: (13) Chronic anemia: (14) Chronic anticoagulation: (15) Right bundle branch block (RBBB) on electrocardiography: (16) Dyslipidemia: (17) Acute on chronic respiratory failure with hypoxia and hypercapnia: 56-year-old male recently diagnosed end-stage renal disease, morbid obesity, OHS on CPAP, paroxysmal A. fib on apixaban, diastolic CHF, COPD with [id number] smoking history quit 5 years ago was admitted to the hospital because of worsening shortness of breath. His last hemodialysis session was 04/04/2021 prior to coming to the hospital. He was diagnosed with COVID-19 04/06/2021 Patient intubated 04/29/2021 Neuro - Continue with propofol Keep RASS -1 Patient spiking fever 40-41 C, sepsis versus serotonin syndrome DC fentanyl Give pushes of morphine, midazolam on an as-needed basis Metabolic Encephalopathy - * Suspect that this is likely secondary to uremia and hypercapnia - also possibly from resolving hypoxemia. *Underlying sepsis is also possibility Cardiac - Shock Combination of possible sepsis versus cardiogenic Continue with vasopressor support Keep MAP greater than 65 AFib with RVR * With known history of paroxysmal AFib * Echo 02/2020 demonstrated LVEF 62%, LVH, normal RA pressures. * Strict I+Os Prolonged QTC * Avoid QT prolonging medications Respiratory - VDRF secondary to acute Hypoxic, Hypercapnic Respiratory Failure with ARDS *I think it is a combination of missed dialysis, recent COVID-19 infection as well as bacterial pneumonia cannot be ruled out given the elevated ESR and CRP. *Underlying infection cannot be ruled out- note that pt had +COVID-19 test on 04/06. Continue with antibiotics Keep RASS -1 Continue with lung protective ventilation High PEEP, low tidal volume to keep Plateau < 30 with permissive hypercapnea if need be. Monitor ABGs GI - N.p.o. RENAL/LYTES - * Newly diagnosed ESRD - s/p HD * Marked improvement in BUN, Cr from previous - 134 -> 59 BUN and 11.9 -> 7.34 --> 5.8 *Monitor electrolytes *Nephrology on board - ENDO - * ICU Hyperglycemia protocol HEME - * Stable H&H. *Gets Epogen with dialysis * On Apixaban for PAF ID - * Noted that patient tested pos for COVID-19 on 04/06. This was >21 days ago. No need for precautions at this time. *Procalcitonin 0.36, CRP 36, ESR greater than 130 INTEGUMENTARY - * No acute concerns or needs. --Prophylaxis VTE: Apixaban GI: Protonix BID --No CPR Lines: Right IJ, right dialysis catheter, right radial a line Diet: N.p.o. Plan: In/out: +3 L, 2.6 L removed by dialysis yesterday AB.27/57/79 on 50% on PEEP 18 Patient spiking very high temperature Patient was on bupropion as well as duloxetine at home. Patient was getting Zofran prior to intubation. He was also on fentanyl currently. Serotonin syndrome is one of the possibilities. I will DC fentanyl. Put the patient on midazolam as well as morphine on an as-needed basis 12 mg of cyproheptadine given Continue with ice packs on top of cooling blanket Ketorolac 30 mg 1 dose can be thought of if patient is still not controlled. We will give 100 mg of rocuronium as well to paralyze the patient. Continue with vasopressor support to keep MAP greater than 65 Overall prognosis of the patient is guarded. Hypomagnesium is being replaced. Hypophosphatemia being replaced by sodium phos. DC sevelemer. Repeat blood cultures I have personally spent 57 additional minutes of critical care time in the direct management of this patient. This is a life/limb threatening event. This includes time spent evaluating patient, direct bedside care, chart review, placing orders, interpretation of diagnostic studies, discussion with consultants, patient, and/or family members regarding treatment decisions, as well as other required patient management activities. This time is exclusive of all separately billable procedures, and teaching time and separate from and in addition to any other critical care service time. Admission and Anticipated Discharge Date Admission Date: April 26, 2021 Subjective Patient seen and examined at bedside. Around 5:30 AM patient started to spike fever and the requirement for his blood pressure medication went up. At the time of examination patient's temperature was 40.5 C. Patient was saturating 92%, he was requiring 0.22 of Levophed and 0.04 vasopressin Patient blood pressure was trending down as he was constantly spiking fever Phenylephrine was again added. On Fentanyl 175 and propofol 35 the time of examination. Review of Systems Review of Systems: Unobtainable due to mental health condition and Unobtainable due to endotracheal tube Physical Exam Physical Exam: Constitutional: Mild respiratory distress HEENT: thick neck, Pupils have very sluggish response to light Respiratory system: Decreased air entry bilaterally, no wheeze, no rhonchi, positive crackles bilaterally, right-sided dialysis catheter CVS: S1-S2 positive, no murmurs or gallops, distant heart sounds Abdomen: Soft, nontender, nondistended, positive bowel sounds x4, obese Extremities: +2 pulses bilaterally radialis/ dorsalis pedis, no cyanosis, +1 pitting edema bilateral lower extremity Neuro: RASS -2 Psych: Unable to assess G/U: No Kay Skin: no rashes, warm and dry Lymphatic: no cervical or axillary lymphadenopathy Results & Data Results & Data ([facility]) Vital Signs (Past 12 Hours) Vital Signs Temp Pulse Resp BP Pulse Ox Pulse Ox 05/01/21 07:35 139 H 37 H 05/01/21 07:04 153 H 108/74 05/01/21 06:49 144 H 115/66 05/01/21 06:35 150 H 91/69 L 05/01/21 06:20 142 H 85/69 L 05/01/21 06:04 149 H 78/59 L 05/01/21 06:00 05/01/21 05:49 150 H 77/61 L 05/01/21 05:34 146 H 102/53 L 05/01/21 05:25 138 H 38 H 05/01/21 05:19 139 H 99/63 L 05/01/21 05:04 138 H 82/62 L 05/01/21 04:49 130 H 129/106 H 05/01/21 04:34 142 H 93/67 L 05/01/21 04:19 149 H 94/62 L 05/01/21 04:04 141 H 108/70 93 05/01/21 03:49 39.9 C H 138 H 109/59 L 93 05/01/21 03:34 139 H 98/52 L 93 05/01/21 03:19 138 H 108/51 L 93 05/01/21 03:04 130 H 79/57 L 93 05/01/21 02:49 127 H 107/61 93 05/01/21 02:34 133 H 98/62 L 93 05/01/21 02:19 143 H 117/59 L 93 05/01/21 02:04 139 H 77/52 L 93 05/01/21 02:03 133 H 35 H 93 05/01/21 01:49 135 H 100/61 93 05/01/21 01:34 148 H 92/66 L 93 05/01/21 01:19 139 H 102/62 93 05/01/21 01:04 147 H 104/79 93 05/01/21 00:49 145 H 95/62 L 93 05/01/21 00:34 137 H 108/66 92 05/01/21 00:19 138 H 93/73 L 93 05/01/21 00:04 132 H 97/74 L 92 04/30/21 23:49 144 H 114/61 92 04/30/21 23:34 143 H 85/67 L 92 04/30/21 23:19 132 H 102/52 L 92 04/30/21 23:04 39.1 C H 139 H 98/48 L 94 04/30/21 23:00 141 H 04/30/21 22:50 138 H 69/50 L 94 04/30/21 22:46 136 H 36 H 94 04/30/21 22:30 138 H 88/62 L 94 04/30/21 22:19 129 H 107/69 94 04/30/21 22:04 38.3 C H 130 H 109/75 94 04/30/21 21:49 137 H 111/61 94 04/30/21 21:30 137 H 111/56 L 94 04/30/21 21:19 142 H 105/57 L 94 04/30/21 21:04 138 H 119/76 94 04/30/21 20:49 135 H 97/65 L 94 05/01/21 04:16 05/01/21 04:16 Coding Level of Care Code Critical Care 1st 30-74 mins Diagnoses Pulmonary edema J81.0 Chronicity: acute COVID-19 U07.1 ESRD on hemodialysis N18.6; Z99.2 Hyperkalemia E87.5 Diabetes mellitus E11.9 Obesity hypoventilation syndrome E66.2 Paroxysmal A-fib I48.0 Morbid obesity with BMI of 70 and over, adult E66.01; Z68.45 Hypertension I10 Heart failure with preserved ejection fraction I50.30 ESRD needing dialysis N18.6; Z99.2 Secondary hyperparathyroidism of renal origin N25.81 Chronic anemia D64.9 Chronic anticoagulation Z79.01 Right bundle branch block (RBBB) on electrocardiography I45.10 Dyslipidemia E78.5 Acute on chronic respiratory failure with hypoxia and hypercapnia J96.21; J96.22 Time Spent (min) 57 (1) Pulmonary edema Chronicity: acute Qualified Code(s): J81.0 - Acute pulmonary edema
[2021-05-01] MEDS ORDERED: ROCURONIUM BROMIDE 10 MG/ML 5 ML VIAL IV STA (08:57)
[2021-05-01] MEDS ORDERED: KETOROLAC 30 MG/ML VIAL IV ONE (08:59)
[2021-05-01] MEDS ORDERED: PANTOprazole 40 MG in SYRINGE 0 ML IV SCH (09:00)
[2021-05-01] MEDS ORDERED: HYDROmorphone INJ 1 MG/ML SYRINGE IV PRN (09:13)
[2021-05-01] MEDS ORDERED: ACETAMINOPHEN 1,000 MG/100 ML VIAL IV PRN (09:15)
--- NOTE | 2021-05-01 11:10 | Nephrology Progress Note ---
Date of Service May 01, 2021 Assessment & Plan (1) ESRD on hemodialysis: Completed HD yesterday, UF 2.6 L. Clearance acceptable. Electrolytes controlled. Metabolic acidosis improved. Hemodynamically unstable. Will hold HD at this time. Family updated regarding plan of care. Medications are appropriate for IHD. Vanco level 19. Recheck tomorrow prior to dialysis. (2) Shock: Prognosis poor. Family aware. Plan of care reviewed with ICU team. (3) Acute on chronic respiratory failure with hypoxia and hypercapnia: Improved oxygenation and ventilation but overall guarded condition. CXR personally reviewed this AM. No additional fluid removal planned today with [employer]. Admission and Anticipated Discharge Date Admission Date: April 26, 2021 Subjective Mr. Yost was seen and evaluated with his family at the bedside this AM. I reviewed his status with the bedside nurse. Continues to have a significant vasopressor requirement. Febrile to 40+ degrees C. Review of Systems Review of Systems: Unobtainable due to endotracheal tube and Unobtainable due to reduced consciousness Physical Exam Constitutional: + morbidly obese and + mechanically ventilated; no acute distress ENMT: ETT Neck: normal visual inspection and + thick neck IJ CVC and TDC Respiratory: Auscultation: lungs clear to auscultation bilaterally FIO2 100%, PEEP 20. Lungs are generally clear with coarse basilar transmitted vent sounds Cardiovascular: Rate/Rhythm: + tachycardic Heart Sounds: normal S1 and normal S2 Extremities: normal capillary refill (slightly delayed but without notable peripheral cyanosis), + edema (some mild dependent edema in the upper areas) and + AV fistula Skin: + turgor decreased and + dry skin Neurologic: sedated and unresponsive Genitourinary: Kay with minimal urine Results & Data ([facility]) Vital Signs (Past 12 Hours) Vital Signs Temp Pulse Resp BP Pulse Ox Pulse Ox 05/01/21 10:45 0 L 05/01/21 10:19 110 H 94 05/01/21 10:04 42.1 C H 130 H 97/64 L 94 05/01/21 09:50 120 H 91/64 L 83 L 05/01/21 09:35 124 H 81/55 L 86 L 05/01/21 09:19 126 H 88/70 L 93 05/01/21 09:05 131 H 111/56 L 05/01/21 08:49 159 H 83/46 L 88 L 07/11/21 08:34 147 H 69/50 L 91 05/01/21 08:19 146 H 96/59 L 92 05/01/21 08:04 42.8 C H 140 H 84/56 L 92 05/01/21 07:49 138 H 94/57 L 92 05/01/21 07:35 139 H 37 H 93 05/01/21 07:34 140 H 103/53 L 92 05/01/21 07:19 147 H 89/55 L 93 05/01/21 07:04 153 H 108/74 93 05/01/21 06:49 144 H 115/66 93 05/01/21 06:35 150 H 91/69 L 93 05/01/21 06:20 142 H 85/69 L 93 05/01/21 06:04 149 H 78/59 L 93 05/01/21 06:00 93 05/01/21 05:49 150 H 77/61 L 93 05/01/21 05:34 146 H 102/53 L 93 05/01/21 05:25 138 H 38 H 93 05/01/21 05:19 139 H 99/63 L 93 05/01/21 05:04 138 H 82/62 L 93 05/01/21 04:49 130 H 129/106 H 93 05/01/21 04:34 142 H 93/67 L 93 05/01/21 04:19 149 H 94/62 L 93 05/01/21 04:04 141 H 108/70 93 05/01/21 03:49 39.9 C H 138 H 109/59 L 93 05/01/21 03:34 139 H 98/52 L 93 05/01/21 03:19 138 H 108/51 L 93 05/01/21 03:04 130 H 79/57 L 93 05/01/21 02:49 127 H 107/61 93 05/01/21 02:34 133 H 98/62 L 93 05/01/21 02:19 143 H 117/59 L 93 05/01/21 02:04 139 H 77/52 L 93 05/01/21 02:03 133 H 35 H 93 05/01/21 01:49 135 H 100/61 93 05/01/21 01:34 148 H 92/66 L 93 05/01/21 01:19 139 H 102/62 93 05/01/21 01:04 147 H 104/79 93 05/01/21 00:49 145 H 95/62 L 93 05/01/21 00:34 137 H 108/66 92 05/01/21 00:19 138 H 93/73 L 93 05/01/21 00:04 132 H 97/74 L 92 04/30/21 23:49 144 H 114/61 92 04/30/21 23:34 143 H 85/67 L 92 04/30/21 23:19 132 H 102/52 L 92 04/30/21 23:04 39.1 C H 139 H 98/48 L 94 Laboratory Results Laboratory Results - last 24 hr 04/30/21 04/30/21 04/30/21 11:32 13:33 15:22 WBC RBC Hgb POC Hgb Hct POC Hct MCV MCH MCHC RDW Std Deviation RDW Coeff of Talha Plt Count MPV Immature Gran % (Auto) Neut % (Auto) Lymph % (Auto) [place] % (Auto) Eos % (Auto) Baso % (Auto) Neut # (Auto) Lymph # (Auto) [place] # (Auto) Eos # (Auto) Baso # (Auto) Immature Gran # (Auto) Absolute Nucleated RBC Nucleated RBC % (auto) Polychromasia Hypochromasia ESR Sample Site POC pH POC pCO2 POC pO2 POC HCO3 POC Total CO2 POC Base Excess ABG pH (Temp Correct) ABG pCO2 (Temp Corrct POC ABG pO2 at Pt Temp POC ABG O2 Sat Horace Test O2 Delivery Device POC O2 Rate Minute Ventilation POC FiO2 Tidal Volume PEEP POC Sodium Sodium POC Potassium Potassium Chloride Carbon Dioxide Anion Gap BUN Creatinine Est Cr Clr Drug Dosing Est GFR ( Amer) Est GFR (Non-Af Amer) BUN/Creatinine Ratio Glucose POC Glucose (other) 210 H 180 H 192 H Calcium Phosphorus Magnesium Total Creatine Kinase C-Reactive Protein Procalcitonin Random Vancomycin 04/30/21 04/30/21 04/30/21 17:26 20:07 21:49 WBC RBC Hgb POC Hgb Hct POC Hct MCV MCH MCHC RDW Std Deviation RDW Coeff of Talha Plt Count MPV Immature Gran % (Auto) Neut % (Auto) Lymph % (Auto) [place] % (Auto) Eos % (Auto) Baso % (Auto) Neut # (Auto) Lymph # (Auto) [place] # (Auto) Eos # (Auto) Baso # (Auto) Immature Gran # (Auto) Absolute Nucleated RBC Nucleated RBC % (auto) Polychromasia Hypochromasia ESR Sample Site POC pH POC pCO2 POC pO2 POC HCO3 POC Total CO2 POC Base Excess ABG pH (Temp Correct) ABG pCO2 (Temp Corrct POC ABG pO2 at Pt Temp POC ABG O2 Sat Horace Test O2 Delivery Device POC O2 Rate Minute Ventilation POC FiO2 Tidal Volume PEEP POC Sodium Sodium POC Potassium Potassium Chloride Carbon Dioxide Anion Gap BUN Creatinine Est Cr Clr Drug Dosing Est GFR ( Amer) Est GFR (Non-Af Amer) BUN/Creatinine Ratio Glucose POC Glucose (other) 192 H 193 H 192 H Calcium Phosphorus Magnesium Total Creatine Kinase C-Reactive Protein Procalcitonin Random Vancomycin 04/30/21 05/01/21 05/01/21 23:51 03:48 04:16 WBC 11.42 H RBC 3.63 L Hgb 9.3 L POC Hgb Hct 32.0 L POC Hct MCV 88.2 MCH 25.6 MCHC 29.1 L RDW Std Deviation 57.3 H RDW Coeff of Talha 17.8 H Plt Count 296 MPV 9.7 Immature Gran % (Auto) 4.9 Neut % (Auto) 76.5 Lymph % (Auto) 9.9 [place] % (Auto) 8.3 Eos % (Auto) 0.0 Baso % (Auto) 0.4 Neut # (Auto) 8.74 H Lymph # (Auto) 1.13 L [place] # (Auto) 0.95 H Eos # (Auto) 0.00 Baso # (Auto) 0.04 Immature Gran # (Auto) 0.56 H Absolute Nucleated RBC 0.56 H Nucleated RBC % (auto) 4.9 Polychromasia 1+ Hypochromasia Present ESR Sample Site POC pH POC pCO2 POC pO2 POC HCO3 POC Total CO2 POC Base Excess ABG pH (Temp Correct) ABG pCO2 (Temp Corrct POC ABG pO2 at Pt Temp POC ABG O2 Sat Horace Test O2 Delivery Device POC O2 Rate Minute Ventilation POC FiO2 Tidal Volume PEEP POC Sodium Sodium POC Potassium Potassium Chloride Carbon Dioxide Anion Gap BUN Creatinine Est Cr Clr Drug Dosing Est GFR ( Amer) Est GFR (Non-Af Amer) BUN/Creatinine Ratio Glucose POC Glucose (other) 195 H 190 H Calcium Phosphorus Magnesium Total Creatine Kinase C-Reactive Protein Procalcitonin Random Vancomycin 05/01/21 05/01/21 05/01/21 04:16 04:16 04:16 WBC RBC Hgb POC Hgb Hct POC Hct MCV MCH MCHC RDW Std Deviation RDW Coeff of Talha Plt Count MPV Immature Gran % (Auto) Neut % (Auto) Lymph % (Auto) [place] % (Auto) Eos % (Auto) Baso % (Auto) Neut # (Auto) Lymph # (Auto) [place] # (Auto) Eos # (Auto) Baso # (Auto) Immature Gran # (Auto) Absolute Nucleated RBC Nucleated RBC % (auto) Polychromasia Hypochromasia ESR > 130 H Sample Site POC pH POC pCO2 POC pO2 POC HCO3 POC Total CO2 POC Base Excess ABG pH (Temp Correct) ABG pCO2 (Temp Corrct POC ABG pO2 at Pt Temp POC ABG O2 Sat Horace Test O2 Delivery Device POC O2 Rate Minute Ventilation POC FiO2 Tidal Volume PEEP POC Sodium Sodium 129 L POC Potassium Potassium 4.2 Chloride 94 L Carbon Dioxide 27 Anion Gap 8.0 BUN 35 H Creatinine 5.87 H* D Est Cr Clr Drug Dosing 30.4 Est GFR ( Amer) 11.6 Est GFR (Non-Af Amer) 10.0 BUN/Creatinine Ratio 5.9 L Glucose 188 H POC Glucose (other) Calcium 8.8 Phosphorus 1.3 L* D Magnesium 1.7 L Total Creatine Kinase C-Reactive Protein 45.30 H Procalcitonin 5.49 H Random Vancomycin 05/01/21 05/01/21 05/01/21 04:16 05:27 07:47 WBC RBC Hgb POC Hgb 11.6 L Hct POC Hct 34 L MCV MCH MCHC RDW Std Deviation RDW Coeff of Talha Plt Count MPV Immature Gran % (Auto) Neut % (Auto) Lymph % (Auto) [place] % (Auto) Eos % (Auto) Baso % (Auto) Neut # (Auto) Lymph # (Auto) [place] # (Auto) Eos # (Auto) Baso # (Auto) Immature Gran # (Auto) Absolute Nucleated RBC Nucleated RBC % (auto) Polychromasia Hypochromasia ESR Sample Site Art Line POC pH 7.32 L POC pCO2 50 H POC pO2 79 L POC HCO3 26 H POC Total CO2 27 POC Base Excess 0.0 ABG pH (Temp Correct) 7.278 L ABG pCO2 (Temp Corrct 57 H POC ABG pO2 at Pt Temp 96 POC ABG O2 Sat 94.0 Horace Test NA O2 Delivery Device Ventilator POC O2 Rate 32 Minute Ventilation 14.3 POC FiO2 50 Tidal Volume 450 PEEP 18 POC Sodium 131 L Sodium POC Potassium 4.2 Potassium Chloride Carbon Dioxide Anion Gap BUN Creatinine Est Cr Clr Drug Dosing Est GFR ( Amer) Est GFR (Non-Af Amer) BUN/Creatinine Ratio Glucose POC Glucose (other) 194 H Calcium Phosphorus Magnesium Total Creatine Kinase C-Reactive Protein Procalcitonin Random Vancomycin 18.9 05/01/21 08:25 WBC RBC Hgb POC Hgb Hct POC Hct MCV MCH MCHC RDW Std Deviation RDW Coeff of Talha Plt Count MPV Immature Gran % (Auto) Neut % (Auto) Lymph % (Auto) [place] % (Auto) Eos % (Auto) Baso % (Auto) Neut # (Auto) Lymph # (Auto) [place] # (Auto) Eos # (Auto) Baso # (Auto) Immature Gran # (Auto) Absolute Nucleated RBC Nucleated RBC % (auto) Polychromasia Hypochromasia ESR Sample Site POC pH POC pCO2 POC pO2 POC HCO3 POC Total CO2 POC Base Excess ABG pH (Temp Correct) ABG pCO2 (Temp Corrct POC ABG pO2 at Pt Temp POC ABG O2 Sat Horace Test O2 Delivery Device POC O2 Rate Minute Ventilation POC FiO2 Tidal Volume PEEP POC Sodium Sodium POC Potassium Potassium Chloride Carbon Dioxide Anion Gap BUN Creatinine Est Cr Clr Drug Dosing Est GFR ( Amer) Est GFR (Non-Af Amer) BUN/Creatinine Ratio Glucose POC Glucose (other) Calcium Phosphorus Magnesium Total Creatine Kinase 155 C-Reactive Protein Procalcitonin Random Vancomycin PG Care Time/CCT Total # of Minutes Spent Total Time Spent with Patient: Total time spent is greater than 50% in coordination of care (as documented) at patient's floor/unit and/or counseling patient: Coding Level of Care Code 44439 Subseq Hosp Care Lvl 3 Diagnoses ESRD on hemodialysis N18.6; Z99.2 Shock R57.9 Acute on chronic respiratory failure with hypoxia and hypercapnia J96.21; J96.22
--- NOTE | 2021-05-01 11:24 | Death Pronouncement Note ---
Date of Service May 01, 2021 Pronouncement Note Admission Date Admission Date: April 26, 2021 Date and Time of Date of : 05/01/21 Time of : 10:31 PCOD Preliminary cause of : Shock Contributing Factors (1) ESRD on hemodialysis: (2) Shock: (3) Acute on chronic respiratory failure with hypoxia and hypercapnia: Hospital Course Hospital Course: Patient continued to spike fevers and required 3 pressors to maintain blood pressure. Went into asystolic arrest at 10:31am. Family at bedside and elected not to pursue aggressive measures of resuscitation. Pronounced . Additional Data Confirmation of : no pulse, no respirations, no heart sounds and pupils fixed and dilated Family: at bedside Attending physician: Jaya Mack MD Was code activated?: No Coding Level of Care Code D/C Day Management >30 mins Diagnoses ESRD on hemodialysis N18.6; Z99.2 Shock R57.9 Acute on chronic respiratory failure with hypoxia and hypercapnia J96.21; J96.22
--- NOTE | 2021-05-01 11:26 | Discharge Summary ---
Date of Service May 01, 2021 Admission HPI Per Admitting Provider 56 y/o M Hx HTN, HLD, anemia, morbidly obese, CATHERINE, diastolic CHF, PAF, ESRD requiring dialysis. The pt presents with SOB after noncompliance with dialysis for a 2 week period. He had fernando to the ER 3 days prior but had signed out AMA. He had also tested + for COVID 2 weeks prior. His last dialysis was 04/04. He currently has a chest cath while a recently placed fistula matures. He denies CP, cough or fever but is SOB and hypoxic at rest. Labs are consistent with ESRD and are otherwise at baseline. A CXR demonstrates pulmonary edema and possibly BL infiltrates. A rapid COVID remains +. Principal Diagnosis Sepsis vs. serotonin syndrome Discharge Exam No pulse, no respirations, pupils dilated and unresponsive Discharge Data Allergies Allergy/AdvReac Type Severity Reaction Status Date / Time No Known Allergies Allergy Verified 04/26/21 16:44 Consultations 04/26/21 14:25 Consult Nephrology Stat 04/26/21 15:16 ED Decision to Admit Stat 04/26/21 19:01 Consult Nephrology ONCE 04/28/21 09:47 Consult Sandwich Peddler Routine Ordered Studies 04/29/21 15:03 US point of care ultrasound Urgent Hospital Course (1) ESRD on hemodialysis: (2) Shock: Patient continued to spike fevers and required 3 pressors to maintain blood pressure. Went into asystolic arrest at 10:31am. Family at bedside and elected not to pursue aggressive measures of resuscitation. Pronounced . Unclear cause; septic vs. serotonin syndrome. - Pressor support per ICU (3) Acute on chronic respiratory failure with hypoxia and hypercapnia: Worsening mental status on 04/28-04/29. Unclear cause as his respiratory status shouldn't cause such a severe failure. - Intubated on 04/29 by ICU for airway protection. Total Time Total Time Spent Total Time Spent (In Minutes): 35 Discharge Plan Discharge Items Reason For Visit: SOB Condition on Discharge: Good Medications and DC Order Prescriptions: No Action sodium bicarbonate 650 mg tablet 650 mg PO BID Qty: 60 RF: 3 nitroglycerin 0.4 mg tablet, sublingual 0.4 mg SL Q5M PRN (Reason: chest pain) Qty: 25 RF: 3 bupropion HCl 200 mg tablet sustained-release 12 hr 200 mg PO BID Qty: 180 RF: 3 albuterol sulfate 90 mcg/actuation HFA aerosol inhaler 2 puffs inhalation Q4H PRN (Reason: shortness of breath or wheezing) RF: 0 (DME) insulin syringe-needle U-100 [BD Insulin Syringe Ultra-Fine] 0.3 mL 31 gauge x 5/16" syringe See Dose Instructions .ROUTE .MEDSUPPLY Qty: 10 RF: 0 (DME) OneTouch Verio test strips strip See Dose Instructions .ROUTE .MEDSUPPLY Qty: 10 RF: 0 pravastatin 80 mg tablet 80 mg PO HS Qty: 90 RF: 0 Eliquis 5 mg tablet 5 mg PO BID Qty: 60 RF: 0 metoprolol succinate 100 mg tablet extended release 24 hr 100 mg PO QAM RF: 0 duloxetine 30 mg capsule,delayed release(DR/EC) 30 mg PO QAM RF: 0 ferrous sulfate 27 mg iron tablet 27 mg PO QAM RF: 0 Ozempic 0.25 mg or 0.5 mg(2 mg/1.5 mL) pen injector 1 mg SQ WK RF: 0 Breo Ellipta 200-25 mcg/dose Blister With Device 1 inh INHALATION QAM RF: 0 oxycodone-acetaminophen [Percocet] 10-325 mg Tablet 1 tab PO Q6H PRN (Reason: Pain) RF: 0 multivitamin Tablet 1 tab PO QAM RF: 0 omega 5-pge-nbl-fish oil [Fish Oil] 1,000 mg (120 mg-180 mg) Capsule 1 cap PO QAM RF: 0 Tresiba FlexTouch U-100 100 unit/mL (3 mL) insulin pen 88 units SQ BID RF: 0 calcitriol 0.5 mcg capsule 0.5 mcg PO 3XWK RF: 0 insulin aspart U-100 [Novolog Flexpen U-100 Insulin] 100 unit/mL (3 mL) insulin pen 36 unit SQ TID RF: 0 duloxetine 60 mg capsule,delayed release(DR/EC) 60 mg PO QAM RF: 0 sodium polystyrene sulf-sorbtl 15-20 gram/60 mL suspension 60 ml PO Q2D RF: 0 bumetanide 2 mg tablet 4 mg PO BID RF: 0 nifedipine [Adalat CC] 60 mg tablet extended release 60 mg PO QAM RF: 0 Admission Data Admit Date/Time: 04/26/21 17:07 Attending Provider: Jaya Mack Admit Provider: Pritesh Putnam Primary Care Provider: Henry Weeks Other Providers: Yas Weems ; Jaya Mack ; Pritesh Putnam ; Viji Herrera Coding Level of Care Code D/C Day Management >30 mins Diagnoses ESRD on hemodialysis N18.6; Z99.2 Shock R57.9 Acute on chronic respiratory failure with hypoxia and hypercapnia J96.21; J96.22
[2021-05-01] MEDS ORDERED: VANCOMYCIN HCL 250 MG in SODIUM CHLORIDE 0.9% 50 ML IV ONE (14:00)
--- NOTE | 2021-05-13 06:59 | Coding Query ---
CONGESTIVE HEART FAILURE To Promote full compliance with coding requirements relating to patient care, physician participation is requested in all cases of registered respiratory therapist uncertainty. Please assist us with the following questions. A diagnosis of Congestive Heart Failure is documented in the patient's medical record. To accurately code this diagnosis and to compare patient severity, we ask that you specify the type of heart failure by placing an X within the parenthesis (x). 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 Please check the appropriate box: ( ) Present on Admission ( x ) Not Present On Admission ( ) Clinically undetermined Do not feel he had CHF. His volume overload was due to his kidney disease and missing dialysis. Thank you SARATH Woo [facility]
--- NOTE | 2021-05-13 07:07 | Coding Query ---
PRESENT ON ADMISSION QUERY To promote full compliance with coding requirements relating to pateint care, physician participation is requested in all cases of door frame builder uncertainty. Please assist us with the question(s) below: Please place an X within the parenthesis (x). The following diagnosis(es) listed in this patient's medical record require physician assistance to determine if they were present on admission (POA) or not. Please advise for each diagnosis whether it was present on admission, not present on admission, or if it was clinically undetermined. 1.Sepsis ( ) Present On Admission ( ) Not Present On Admission ( ) Clinically Undetermined Thank you SARATH Woo [facility] *Definition of the present on admission (POA)-Present on admission is defined as present at the time the order for inpatient admission occurs. Conditions that develop during an outpatient encounter prior to a written order for inpatient admission (including emergency department, observation, or outpatient surgery) are considered present on admission. ALFREDOD
--- NOTE | 2021-05-13 07:11 | Coding Query ---
PRESENT ON ADMISSION QUERY To promote full compliance with coding requirements relating to pateint care, physician participation is requested in all cases of senior estimator uncertainty. Please assist us with the question(s) below: Please place an X within the parenthesis (x). The following diagnosis(es) listed in this patient's medical record require physician assistance to determine if they were present on admission (POA) or not. Please advise for each diagnosis whether it was present on admission, not present on admission, or if it was clinically undetermined. 1.Sepsis ( ) Present On Admission ( x ) Not Present On Admission ( ) Clinically Undetermined Thank you Dio [facility] *Definition of the present on admission (POA)-Present on admission is defined as present at the time the order for inpatient admission occurs. Conditions that develop during an outpatient encounter prior to a written order for inpatient admission (including emergency department, observation, or outpatient surgery) are considered present on admission. ALFREDOD
== END 2021-05-01 12:45 | disposition expired | DRG 640 ==
LOC: ED 13:35 → SUATTDRO 17:07 → 2E 17:07 → 1E 04-28 06:34